=== PATIENT | female | born 1940 | race Caucasian/White ===

== ENCOUNTER 2020-02-03 08:47 | Outpatient (REF) | payer MEDICARE, MEDICAID, SELFPAY ==
[2020-02-03 09:34] LABS: MANUAL DIFF FLAG NO
[2020-02-03 09:43] LABS: Basophils Absolute Auto 0.1 X10*3/uL (0.0-0.2); Basophils Percent Auto 1.4 % (0-2); Eosinophils Absolute Auto 0.2 X10*3/uL (0.0-0.4); Eosinophils Percent Auto 3.2 % (0-4); Hematocrit 42.6 % (37-47); Hemoglobin 14.3 g/dl (12.0-16.0); Imm Gran Abs Auto 0.02 X10*3/uL (0.00-0.03); Imm Gran Pct Auto 0.3 % (0.0-0.4); Lymphocytes Absolute Auto 2.3 X10*3/uL (1.2-4.9); Mean Corpuscular HGB Conc 33.6 g/dl (31.0-35.0); Mean Corpuscular Hemoglobin 30.1 pg (27.0-33.0); Mean Corpuscular Volume 89.7 fL (80-98); Mean Platelet Volume 9.3 fL (9.4-12.3); Monocytes Absolute Auto 0.6 X10*3/uL (0.1-1.2); Monocytes Percent Auto 10.9 % (2-11); Neutrophils Absolute Auto 2.7 X10*3/uL (2.0-8.3); Neutrophils Percent Auto 45.2 % (45-73); Platelet Count 166 X10*3/uL (160-400); Red Blood Count 4.75 X10*6/uL (4.20-5.50); Red Cell Distribution Width 13.2 % (11.0-16.0); White Blood Count 5.9 X10*3/uL (4.8-10.8)
[2020-02-03 11:03] LABS: Alanine Aminotransferase 22 U/L (0-31); Albumin Level 4.1 g/dL (3.5-5.0); Alkaline Phosphatase 112 U/L (39-117); Anion Gap 10 (12-20); Aspartate Amino Transferase 23 U/L (5-31); Bilirubin Total 0.7 mg/dL (0.0-1.0); Blood Urea Nitrogen 20 mg/dL (9-16); Calcium 8.8 mg/dL (8.4-10.2); Carbon Dioxide 28 mmol/L (22-29); Chloride 108 mmol/L (96-108); Cholesterol 158 mg/dL; Estimated Glomerular Filt Rate 58; Glucose Fasting 87 mg/dL (60-99); HDL Cholesterol 40 mg/dL; LDL Cholesterol Calculated 99 mg/dl; Potassium 4.3 mmol/l (3.3-5.1); Sodium 142 mmol/L (135-145); Total Protein 6.6 g/dL (6.5-8.0); Triglycerides 97 mg/dL
== END 2020-02-03 08:48 | disposition home or self-care (01) ==
LOC: HO.LAB 08:47
PROVIDERS: PCP Internal Medicine; Visit Provider Internal Medicine
DX: E78.5 Hyperlipidemia, unspecified (principal); K21.9 Gastro-esophageal reflux disease without esophagitis
CPT/HCPCS: 36415; 80053; 80061; 85025

== ENCOUNTER 2020-03-07 17:51 | Outpatient (REF) | payer MEDICARE, MEDICAID, SELFPAY ==
--- NOTE | 2020-03-07 17:53 | MR_ITS ---
EXAMINATION: MR LUMBAR SPINE WITHOUT CONTRAST CLINICAL INFORMATION: Spinal stenosis, lumbar region without neurogenic. COMPARISON: Plain films of the lumbar spine 02/24/2018. Remote MRI scan of the lumbar spine 08/27/2006. TECHNIQUE: MRI of the lumbar spine was obtained using routine sequences without contrast. FINDINGS: VERTEBRAL BODIES AND PARASPINAL STRUCTURES: There is a mild levoscoliosis. There is a 4 mm mm grade 1 anterolisthesis of L4 on L5, similar compared to prior imaging. There is now a grade 1 anterolisthesis of L3 on L4, and there is a retrolisthesis of L1 on L2. There is multilevel narrowing of intervertebral disc height, relatively sparing L5-S1. There are multilevel degenerative endplate contour changes, and there are Schmorl's nodes noted at the adjacent endplates in the mid and upper lumbar spine. There is chronic loss of vertebral body height of L1. No acute fractures are demonstrated. There are mild edematous endplate signal changes at L1-L2. Overall, marrow signal is homogenous. There is a small renal cyst on the left posteriorly. The visualized pelvic structures are unremarkable. CONUS MEDULLARIS AND CAUDA EQUINA: Normal, terminating at the level of L1. The lower thoracic spinal cord appears normal. The cauda equina nerve roots and filum terminale appear normal. SPINAL LEVELS: L1-L2: There is mild bilateral facet arthropathy. There is a small posterior disc protrusion, but there is no central stenosis and there is no foraminal nerve root impingement. L2-L3: There is moderate bilateral facet arthropathy with ligamenta flava hypertrophy and a left-sided facet joint effusion. There is a broad-based posterior disc protrusion extending into the inferior neural foramina bilaterally without exiting nerve root impingement. There is mild narrowing of the bilateral subarticular recesses. There is mild central stenosis. L3-L4: There is moderate to severe bilateral facet arthropathy with ligamenta flava hypertrophy and right greater than left facet joint effusions. There is mild unroofing of the disc as a result of anterolisthesis. There is an extruded disc component to the left of midline extending behind the body of L3, a new finding compared to prior imaging. This mildly distorts the ventral thecal sac. The neural foramina are patent bilaterally. There is no central stenosis. L4-L5: There is severe bilateral facet arthropathy with ligamenta flava hypertrophy and facet joint effusions. There is a small synovial cyst anteromedially off the right facet joint, which measures 4 mm and is slightly more prominent compared to prior imaging. There is narrowing of the right greater than left subarticular recesses. There is unroofing of the disc as a result of the anterolisthesis. There is no foraminal nerve root impingement. There is moderate to severe central stenosis. L5-S1: There is severe bilateral facet arthropathy with ligamenta flava hypertrophy and facet joint effusions, increased compared to prior imaging. Posterior disc contour is normal. Facet osteophytes narrow the subarticular recesses bilaterally with impingement on the traversing S1 nerve roots. There is moderate central stenosis. MR/MR lumbar spine wo con IMPRESSION: 1. The study redemonstrates a grade 1 anterolisthesis of L4 on L5. There has been interval increase in the size a synovial cyst anteromedially off the right facet joint. There is narrowing of the right greater than left subarticular recesses. There is moderate to severe central stenosis. 2. At L3-L4 there is moderate to severe bilateral facet arthropathy. There is an extruded disc component to the left of midline extending behind the body of L3. There is no central stenosis and the neural foramina are patent. 3. At L5-S1 there is severe facet arthropathy. Facet osteophytes narrow the subarticular recesses bilaterally with impingement on the traversing S1 nerve roots. There is moderate central stenosis. 4. At L2-L3 there is facet arthropathy and there is a posterior disc protrusion. There is narrowing of the bilateral subarticular recesses and there is mild central stenosis. 5. There is a chronic compression fracture of the body of L1. There are no acute fractures or subluxations.
== END 2020-03-07 17:52 | disposition home or self-care (01) ==
LOC: HO.MRI 17:51
PROVIDERS: Visit Provider Internal Medicine
DX: M48.061 Spinal stenosis, lumbar region without neurogenic claudication (principal); M54.17 Radiculopathy, lumbosacral region
CPT/HCPCS: 72148

== ENCOUNTER 2020-06-06 | Outpatient (REF) | payer MEDICARE, MEDICAID, SELFPAY | END 2020-06-06 00:01 | disposition home or self-care (01) | LOC: HO.VC | PROVIDERS: Visit Provider Internal Medicine | DX: Z23 Encounter for immunization (principal) | CPT/HCPCS: 0011A ==

== ENCOUNTER 2020-07-03 | Outpatient (REF) | payer MEDICARE, MEDICAID, SELFPAY | END 2020-07-03 00:01 | disposition home or self-care (01) | LOC: HO.VC | PROVIDERS: Visit Provider Internal Medicine | DX: Z23 Encounter for immunization (principal) | CPT/HCPCS: 0012A ==

== ENCOUNTER → 2020-07-30 09:57 | Outpatient (BNVA) | payer MEDICARE, MEDICAID, SELFPAY | PROVIDERS: PCP Internal Medicine; Referring Provider Internal Medicine; Visit Provider Internal Medicine | DX: Z13.89 Encounter for screening for other disorder (principal) | CPT/HCPCS: Q3014 ==

== ENCOUNTER 2020-08-01 13:04 | Outpatient (REF) | payer MEDICARE, MEDICAID, SELFPAY ==
[2020-08-01 14:08] LABS: MANUAL DIFF FLAG NO
[2020-08-01 14:14] LABS: Basophils Absolute Auto 0.1 X10*3/uL (0.0-0.2); Basophils Percent Auto 1.1 % (0-2); Eosinophils Absolute Auto 0.2 X10*3/uL (0.0-0.4); Eosinophils Percent Auto 3.7 % (0-4); Hematocrit 43.5 % (37-47); Hemoglobin 14.5 g/dl (12.0-16.0); Imm Gran Abs Auto 0.04 X10*3/uL (0.00-0.03); Imm Gran Pct Auto 0.7 % (0.0-0.4); Lymphocytes Absolute Auto 1.8 X10*3/uL (1.2-4.9); Lymphocytes Percent Auto 33.1 % (20-40); Mean Corpuscular HGB Conc 33.3 g/dl (31.0-35.0); Mean Corpuscular Hemoglobin 30.3 pg (27.0-33.0); Mean Platelet Volume 9.8 fL (9.4-12.3); Monocytes Absolute Auto 0.5 X10*3/uL (0.1-1.2); Monocytes Percent Auto 8.5 % (2-11); Neutrophils Absolute Auto 2.9 X10*3/uL (2.0-8.3); Neutrophils Percent Auto 52.9 % (45-73); Platelet Count 173 X10*3/uL (160-400); Red Blood Count 4.78 X10*6/uL (4.20-5.50); Red Cell Distribution Width 13.6 % (11.0-16.0); White Blood Count 5.4 X10*3/uL (4.8-10.8)
[2020-08-01 14:34] LABS: Alanine Aminotransferase 20 U/L (0-31); Albumin Level 4.2 g/dL (3.5-5.0); Alkaline Phosphatase 121 U/L (39-117); Anion Gap 14 (12-20); Aspartate Amino Transferase 22 U/L (5-31); Bilirubin Total 0.3 mg/dL (0.0-1.0); Blood Urea Nitrogen 20 mg/dL (9-16); Calcium 8.9 mg/dL (8.4-10.2); Carbon Dioxide 22 mmol/L (22-29); Chloride 106 mmol/L (96-108); Cholesterol 143 mg/dL; Estimated Glomerular Filt Rate 50; Glucose Fasting 105 mg/dL (60-99); HDL Cholesterol 43 mg/dL; LDL Cholesterol Calculated 78 mg/dl; Phosphorus 3.6 mg/dL (2.7-4.5); Potassium 4.2 mmol/L (3.3-5.1); Sodium 138 mmol/L (135-145); Triglycerides 113 mg/dL
[2020-08-01 14:53] LABS: Glucose Urine UA NEG (NEG); Leukocyte Esterase Urine NEG (NEG); Nitrite Urine NEG (NEG); PH 5.5 (5.0-8.0); Specific Gravity - Urine >= 1.030 (1.005-1.025); Urine Blood TRACE (NEG); Urine Ketones NEG (NEG); Urine Protein NEG (NEG-TRACE)
[2020-08-01 14:54] LABS: Appearance Urine HAZY; Color Urine YELLOW
[2020-08-01 14:56] LABS: Free T4 (Free Thyroxine) 0.81 ng/dL (0.71-1.85); Vitamin D 25-OH Total 13.8 ng/mL (>30)
[2020-08-01 14:57] LABS: Thyroid Stimulating Hormone 2.27 uIU/mL (0.32-4.0)
[2020-08-01 14:59] LABS: RBC Urine 0-2 /HPF (0); Squamous Epithelial Cell Urine 2+ /LPF; Uric Acid Crystals Urine 2+ /LPF; WBC Urine 0 /HPF (0-4)
[2020-08-02 13:02] LABS: Calcium (PTHI) 9.1 mg/dL (8.6-10.4); PTHI 39 pg/mL (14-64)
[2020-08-02 15:06] LABS: Prot Elec - Albumin 4.1 g/dL (3.8-4.8); Prot Elec - Alpha1 0.3 g/dL (0.2-0.3); Prot Elec - Alpha2 0.7 g/dL (0.5-0.9); Prot Elec - Beta 1 0.4 g/dL (0.4-0.6); Prot Elec - Beta 2 0.3 g/dL (0.2-0.5); Prot Elec - Gamma 1.1 g/dL (0.8-1.7); Prot Elec - Total Protein 6.8 g/dL (6.1-8.1)
[2020-08-04 11:27] LABS: Alkaline Phosphatase Bone 20.6 mcg/L (see note)
== END 2020-08-01 13:05 | disposition home or self-care (01) ==
LOC: HO.LAB 13:04
PROVIDERS: PCP Internal Medicine; Visit Provider Internal Medicine
DX: E55.9 Vitamin D deficiency, unspecified (principal); E78.00 Pure hypercholesterolemia, unspecified; K21.9 Gastro-esophageal reflux disease without esophagitis; M81.0 Age-related osteoporosis without current pathological fracture
CPT/HCPCS: 36415; 80053; 80061; 81001; 82306; 82330; 83970; 84075; 84100; 84155; 84165; 84439; 84443; 85025

== ENCOUNTER 2020-08-04 10:14 | Outpatient (REF) | payer MEDICARE, MEDICAID, SELFPAY ==
[2020-08-04 11:40] LABS: Creatinine, mg/dL 111.19
[2020-08-04 12:23] LABS: Total Volume 24 Hour Urine 900 mL
[2020-08-06 17:36] LABS: Calcium, 24 Hr Urine 177 mg/24 h; Calcium/Creatinine Ratio 174 mg/g creat (30-275); Creatinine 24Hr Urine 1.02 g/24 h (0.50-2.15)
[2020-08-09 21:28] LABS: N-Telopeptide 45 (see note); NTXCreaRU 101 mg/dL (20-275)
== END 2020-08-04 10:15 | disposition home or self-care (01) ==
LOC: HO.LNP 10:14
PROVIDERS: Visit Provider Internal Medicine
DX: M81.0 Age-related osteoporosis without current pathological fracture (principal); N20.9 Urinary calculus, unspecified
CPT/HCPCS: 82340; 82523; 82570

== ENCOUNTER 2020-08-07 08:55 | Outpatient (REF) | payer MEDICARE, MEDICAID, SELFPAY ==
[2020-08-07 10:47] LABS: Glucose Urine UA NEG (NEG); Leukocyte Esterase Urine NEG (NEG); Nitrite Urine NEG (NEG); Urine Blood TRACE (NEG); Urine Ketones NEG (NEG); Urine Protein NEG (NEG-TRACE)
[2020-08-07 10:50] LABS: Appearance Urine CLEAR; Color Urine YELLOW
[2020-08-07 11:04] LABS: Bacteria Urine TRACE /LPF; Squamous Epithelial Cell Urine 2+ /LPF
== END 2020-08-07 08:56 | disposition home or self-care (01) ==
LOC: HO.LAB 08:55
PROVIDERS: PCP Internal Medicine; Visit Provider Internal Medicine
DX: E78.00 Pure hypercholesterolemia, unspecified (principal); E66.9 Obesity, unspecified
CPT/HCPCS: 36415; 81001; 84443

== ENCOUNTER 2020-08-29 17:30 | Outpatient (REF) | payer MEDICARE, MEDICAID, SELFPAY ==
[2020-08-29 18:08] LABS: Glucose Urine UA NEG (NEG); Leukocyte Esterase Urine 1+ (NEG); Nitrite Urine POS (NEG); PH 5.5 (5.0-8.0); Specific Gravity - Urine 1.025 (1.005-1.025); UACC Culture Trigger YES; Urine Blood 1+ (NEG); Urine Ketones NEG (NEG); Urine Protein TRACE MG/DL (NEG-TRACE)
[2020-08-29 18:09] LABS: Appearance Urine HAZY; Color Urine YELLOW
[2020-08-29 18:18] LABS: Bacteria Urine 2+ /LPF; RBC Urine 0-2 /HPF (0); Squamous Epithelial Cell Urine 2+ /LPF
== END 2020-08-29 17:31 | disposition home or self-care (01) ==
LOC: HO.LAB 17:30
PROVIDERS: PCP Internal Medicine; Visit Provider Internal Medicine
DX: R30.0 Dysuria (principal)
CPT/HCPCS: 81001; 81003; 87086; 87088; 87186

== ENCOUNTER 2020-09-10 11:12 | Outpatient (REF) | payer MEDICARE, MEDICAID, SELFPAY ==
[2020-09-10 12:33] LABS: MANUAL DIFF FLAG NO
[2020-09-10 12:40] LABS: Basophils Absolute Auto 0.1 X10*3/uL (0.0-0.2); Basophils Percent Auto 1.2 % (0-2); Eosinophils Absolute Auto 0.2 X10*3/uL (0.0-0.4); Eosinophils Percent Auto 2.5 % (0-4); Hematocrit 43.4 % (37-47); Hemoglobin 14.2 g/dl (12.0-16.0); Imm Gran Abs Auto 0.02 X10*3/uL (0.00-0.03); Imm Gran Pct Auto 0.3 % (0.0-0.4); Lymphocytes Absolute Auto 1.9 X10*3/uL (1.2-4.9); Mean Corpuscular HGB Conc 32.7 g/dl (31.0-35.0); Mean Corpuscular Volume 91.6 fL (80-98); Mean Platelet Volume 10.1 fL (9.4-12.3); Monocytes Absolute Auto 0.7 X10*3/uL (0.1-1.2); Monocytes Percent Auto 11.2 % (2-11); Neutrophils Absolute Auto 3.1 X10*3/uL (2.0-8.3); Neutrophils Percent Auto 52.8 % (45-73); Platelet Count 173 X10*3/uL (160-400); Red Blood Count 4.74 X10*6/uL (4.20-5.50); Red Cell Distribution Width 13.2 % (11.0-16.0); White Blood Count 5.9 X10*3/uL (4.8-10.8)
[2020-09-10 12:40] LABS: Glucose Urine UA NEG (NEG); Leukocyte Esterase Urine NEG (NEG); Nitrite Urine NEG (NEG); Urine Blood TRACE (NEG); Urine Ketones NEG (NEG); Urine Protein NEG (NEG-TRACE)
[2020-09-10 12:41] LABS: Appearance Urine HAZY; Color Urine YELLOW
[2020-09-10 13:08] LABS: UACC CULT YES
[2020-09-10 13:09] LABS: Bacteria Urine 1+ /LPF; Squamous Epithelial Cell Urine 2+ /LPF
[2020-09-10 13:21] LABS: Alanine Aminotransferase 31 U/L (0-31); Albumin Level 4.1 g/dL (3.5-5.0); Alkaline Phosphatase 131 U/L (39-117); Anion Gap 13 (12-20); Aspartate Amino Transferase 34 U/L (5-31); Bilirubin Total 0.6 mg/dL (0.0-1.0); Blood Urea Nitrogen 18 mg/dL (9-16); Calcium 8.7 mg/dL (8.4-10.2); Carbon Dioxide 27 mmol/L (22-29); Chloride 107 mmol/L (96-108); Cholesterol 140 mg/dL; Estimated Glomerular Filt Rate 59; Glucose Fasting 85 mg/dL (60-99); HDL Cholesterol 40 mg/dL; LDL Cholesterol Calculated 82 mg/dl; Potassium 4.7 mmol/L (3.3-5.1); Sodium 142 mmol/L (135-145); Total Protein 6.7 g/dL (6.5-8.0); Triglycerides 94 mg/dL
[2020-09-10 13:43] LABS: TSH reflex Free T4 2.38 uIU/mL (0.32-4.0)
== END 2020-09-10 11:13 | disposition home or self-care (01) ==
LOC: HO.LAB 11:12
PROVIDERS: PCP Internal Medicine; Visit Provider Internal Medicine
DX: E66.9 Obesity, unspecified (principal); E78.00 Pure hypercholesterolemia, unspecified; K21.9 Gastro-esophageal reflux disease without esophagitis
CPT/HCPCS: 36415; 80053; 80061; 81001; 84443; 85025; 87086; 87088; 87186

== ENCOUNTER → 2020-09-20 10:46 | Outpatient (BNVA) | payer MEDICARE, MEDICAID, SELFPAY | PROVIDERS: PCP Internal Medicine; Visit Provider Internal Medicine | CPT/HCPCS: Q3014 ==

== ENCOUNTER 2020-10-30 16:03 | Outpatient (REF) | payer MEDICARE, MEDICAID, SELFPAY ==
--- NOTE | ~2020-10-30 | XR_ITS ---
EXAMINATION: XR KNEE, LEFT CLINICAL INFORMATION: Left knee pain COMPARISON: None TECHNIQUE: Four views of the left knee. FINDINGS: Bones and soft tissues are normal. No fracture or joint effusion. Alignment is anatomic. Joint spaces are well maintained. No abnormal soft tissue calcification. XR/XR knee LT 4V IMPRESSION: Normal left knee.
--- NOTE | ~2020-10-30 | XR_ITS ---
EXAMINATION: XR SHOULDER, RIGHT CLINICAL INFORMATION: Pain COMPARISON: None TECHNIQUE: AP external rotation, Grashey, scapular Y, and axillary views of the right shoulder. FINDINGS: There is loss of right AC joint space.). The glenohumeral joint space is normal. There is no visible acute fracture, dislocation or lytic process seen. There is small sclerotic density right humeral neck. The soft tissues are normal. XR/XR shoulder RT min 2V IMPRESSION: Mild osteoarthritic changes right AC joint. No visible acute fracture or dislocation. Mild sclerotic changes right humeral neck.
== END 2020-10-30 16:04 | disposition home or self-care (01) ==
LOC: HO.XRAY 16:03
PROVIDERS: PCP Internal Medicine; Visit Provider Internal Medicine
DX: M25.511 Pain in right shoulder (principal); M25.562 Pain in left knee
CPT/HCPCS: 73030; 73564

== ENCOUNTER 2020-12-24 08:12 | Outpatient (REF) | payer MEDICARE, MEDICAID, SELFPAY ==
[2020-12-24 11:31] LABS: MANUAL DIFF FLAG NO
[2020-12-24 11:45] LABS: Basophils Percent Auto 0.6 % (0-2); Eosinophils Absolute Auto 0.2 X10*3/uL (0.0-0.4); Eosinophils Percent Auto 2.3 % (0-4); Hematocrit 45.3 % (37-47); Hemoglobin 14.9 g/dl (12.0-16.0); Imm Gran Abs Auto 0.02 X10*3/uL (0.00-0.03); Imm Gran Pct Auto 0.3 % (0.0-0.4); Lymphocytes Absolute Auto 1.9 X10*3/uL (1.2-4.9); Lymphocytes Percent Auto 26.3 % (20-40); Mean Corpuscular HGB Conc 32.9 g/dl (31.0-35.0); Mean Corpuscular Volume 91.3 fL (80-98); Mean Platelet Volume 9.5 fL (9.4-12.3); Monocytes Absolute Auto 0.7 X10*3/uL (0.1-1.2); Monocytes Percent Auto 9.6 % (2-11); Neutrophils Absolute Auto 4.3 X10*3/uL (2.0-8.3); Neutrophils Percent Auto 60.9 % (45-73); Platelet Count 165 X10*3/uL (160-400); Red Blood Count 4.96 X10*6/uL (4.20-5.50); Red Cell Distribution Width 14.3 % (11.0-16.0); White Blood Count 7.1 X10*3/uL (4.8-10.8)
[2020-12-24 11:56] LABS: Alanine Aminotransferase 26 U/L (0-31); Alkaline Phosphatase 92 U/L (39-117); Anion Gap 12 (12-20); Aspartate Amino Transferase 18 U/L (5-31); Bilirubin Total 0.8 mg/dL (0.0-1.0); Blood Urea Nitrogen 22 mg/dL (9-16); Carbon Dioxide 27 mmol/L (22-29); Chloride 107 mmol/L (96-108); Estimated Glomerular Filt Rate 52; Glucose Random 89 mg/dL (60-115); Potassium 4.3 mmol/L (3.3-5.1); Sodium 142 mmol/L (135-145); Total Protein 6.6 g/dL (6.5-8.0)
[2020-12-24 12:20] LABS: Vitamin D 25-OH Total 58.3 ng/mL (>30)
[2020-12-25 16:11] LABS: Calcium (PTHI) 9.1 mg/dL (8.6-10.4); PTHI 41 pg/mL (14-64)
[2020-12-27 13:46] LABS: IgA 106 mg/dL (70-320); IgG 1000 mg/dL (600-1540); IgM 82 mg/dL (50-300)
== END 2020-12-24 08:13 | disposition home or self-care (01) ==
LOC: HO.LAB 08:12
PROVIDERS: Absent Provider Internal Medicine Medical Oncology; PCP Internal Medicine; Visit Provider Internal Medicine
DX: M81.0 Age-related osteoporosis without current pathological fracture (principal); E55.9 Vitamin D deficiency, unspecified; R77.8 Other specified abnormalities of plasma proteins
CPT/HCPCS: 36415; 80053; 82306; 82784; 83970; 85025; 86334; Q3014

== ENCOUNTER 2020-12-25 08:55 | Outpatient (REF) | payer MEDICARE, MEDICAID, SELFPAY ==
[2020-12-25 10:28] LABS: Alanine Aminotransferase 23 U/L (0-31); Albumin Level 4.1 g/dL (3.5-5.0); Alkaline Phosphatase 95 U/L (39-117); Anion Gap 12 (12-20); Aspartate Amino Transferase 18 U/L (5-31); Bilirubin Total 0.8 mg/dL (0.0-1.0); Blood Urea Nitrogen 24 mg/dL (9-16); Calcium 9.1 mg/dL (8.4-10.2); Carbon Dioxide 26 mmol/L (22-29); Chloride 108 mmol/L (96-108); Estimated Glomerular Filt Rate 51; Glucose Random 87 mg/dL (60-115); Phosphorus 3.5 mg/dL (2.7-4.5); Potassium 4.1 mmol/L (3.3-5.1); Sodium 142 mmol/L (135-145); Total Protein 6.8 g/dL (6.5-8.0)
[2021-01-01 16:35] LABS: N-Telopeptide 27 (see note); NTXCreaRU 43 mg/dL (20-275)
== END 2020-12-25 08:56 | disposition home or self-care (01) ==
LOC: HO.LAB 08:55
PROVIDERS: PCP Internal Medicine; Visit Provider Internal Medicine
DX: M81.0 Age-related osteoporosis without current pathological fracture (principal)
CPT/HCPCS: 36415; 80053; 82523; 84100

== ENCOUNTER 2021-01-03 10:36 | Outpatient (REF) | payer MEDICARE, MEDICAID, SELFPAY ==
[2021-01-03 11:30] LABS: Glucose Urine UA NEG (NEG); Leukocyte Esterase Urine 2+ (NEG); Nitrite Urine POS (NEG); UACC Culture Trigger YES; Urine Blood 1+ (NEG); Urine Ketones NEG (NEG); Urine Protein NEG (NEG-TRACE)
[2021-01-03 11:33] LABS: Appearance Urine CLOUDY; Color Urine YELLOW
[2021-01-03 12:05] LABS: Bacteria Urine 2+ /LPF; Squamous Epithelial Cell Urine 2+ /LPF; WBC Urine TNTC /HPF (0-4)
== END 2021-01-03 10:37 | disposition home or self-care (01) ==
LOC: HO.LAB 10:36
PROVIDERS: PCP Internal Medicine; Visit Provider Internal Medicine
DX: R30.0 Dysuria (principal)
CPT/HCPCS: 81001; 87086; 87088; 87186

== ENCOUNTER 2021-01-24 08:08 | Outpatient (REF) | payer MEDICARE, MEDICAID, SELFPAY ==
[2021-01-24 10:33] LABS: Appearance Urine HAZY; Color Urine YELLOW; Glucose Urine UA NEG (NEG); Leukocyte Esterase Urine 2+ (NEG); Nitrite Urine POS (NEG); PH 5.5 (5.0-8.0); Specific Gravity - Urine 1.025 (1.005-1.025); UACC Culture Trigger YES; Urine Blood TRACE (NEG); Urine Ketones NEG (NEG); Urine Protein NEG (NEG-TRACE)
[2021-01-24 11:34] LABS: Bacteria Urine 4+ /LPF; Squamous Epithelial Cell Urine 4+ /LPF; WBC Urine 30-49 /HPF (0-4)
== END 2021-01-24 08:09 | disposition home or self-care (01) ==
LOC: HO.LAB 08:08
PROVIDERS: PCP Internal Medicine; Visit Provider Internal Medicine
DX: Z13.89 Encounter for screening for other disorder (principal)
CPT/HCPCS: 81001; 81003; 87086; 87088; 87186

== ENCOUNTER 2021-02-11 09:36 | Outpatient (REF) | payer MEDICARE, MEDICAID, SELFPAY ==
[2021-02-11 10:28] LABS: Alanine Aminotransferase 17 U/L (0-31); Alkaline Phosphatase 97 U/L (39-117); Anion Gap 11 (12-20); Aspartate Amino Transferase 22 U/L (5-31); Blood Urea Nitrogen 19 mg/dL (9-16); Calcium 9.3 mg/dL (8.4-10.2); Carbon Dioxide 28 mmol/L (22-29); Chloride 110 mmol/L (96-108); Cholesterol 139 mg/dL; Estimated Glomerular Filt Rate 54; Glucose Fasting 94 mg/dL (60-99); HDL Cholesterol 38 mg/dL; LDL Cholesterol Calculated 82 mg/dl; Potassium 4.3 mmol/L (3.3-5.1); Sodium 145 mmol/L (135-145); Total Protein 6.5 g/dL (6.5-8.0); Triglycerides 95 mg/dL
[2021-02-11 10:50] LABS: Vitamin D 25-OH Total 47.3 ng/mL (>30)
[2021-02-11 11:07] LABS: Appearance Urine HAZY; Color Urine STRAW; Glucose Urine UA NEG (NEG); Leukocyte Esterase Urine TRACE (NEG); Nitrite Urine NEG (NEG); Specific Gravity - Urine 1.015 (1.005-1.025); UACC Culture Trigger YES; Urine Blood TRACE (NEG); Urine Ketones NEG (NEG); Urine Protein NEG (NEG-TRACE)
[2021-02-11 11:31] LABS: Bacteria Urine 2+ /LPF; RBC Urine 0-2 /HPF (0); Squamous Epithelial Cell Urine 4+ /LPF
== END 2021-02-11 09:37 | disposition home or self-care (01) ==
LOC: HO.LAB 09:36
PROVIDERS: Absent Provider Internal Medicine; PCP Internal Medicine; Visit Provider Internal Medicine
DX: E78.00 Pure hypercholesterolemia, unspecified (principal); E55.9 Vitamin D deficiency, unspecified
CPT/HCPCS: 36415; 80053; 80061; 81001; 82306; 87086

== ENCOUNTER 2021-02-22 10:57 | Outpatient (REF) | payer MEDICARE, MEDICAID, SELFPAY ==
--- NOTE | ~2021-02-22 | XR_ITS ---
EXAMINATION: XR SINUSES CLINICAL INFORMATION: Chronic cough COMPARISON: None TECHNIQUE: 3 views of the sinuses were obtained. FINDINGS: Paranasal sinuses appear clear without opacification, mucosal thickening or air-fluid levels. No fractures are identified. No radiodense foreign bodies. Note is made of 3 dental implants in the right maxilla. XR/XR sinus min 3V IMPRESSION: Unremarkable examination.
--- NOTE | ~2021-02-22 | XR_ITS ---
EXAMINATION: XR CHEST CLINICAL INFORMATION: Chronic cough COMPARISON: 07/11/2019 TECHNIQUE: 2 views of the chest were obtained. FINDINGS: The lungs are normally expanded and clear. There is no active pleural disease. The mediastinum is stable in size and contour. There is no vascular congestion. There is stable eventration of the right hemidiaphragm. Note is made of scoliosis and moderate compression deformity of L1, also unchanged. XR/XR chest 2V IMPRESSION: No active disease in the chest.
== END 2021-02-22 10:58 | disposition home or self-care (01) ==
LOC: HO.XRAY 10:57
PROVIDERS: PCP Internal Medicine; Visit Provider Hospitalist
DX: R05.3 Chronic cough (principal); K21.9 Gastro-esophageal reflux disease without esophagitis; J30.2 Other seasonal allergic rhinitis
CPT/HCPCS: 70220; 71046; 99212

== ENCOUNTER 2021-02-25 11:40 | Outpatient (REF) | payer MEDICARE, MEDICAID, SELFPAY ==
[2021-02-25 12:46] LABS: Appearance Urine CLOUDY; Color Urine STRAW; Glucose Urine UA NEG (NEG); Leukocyte Esterase Urine 3+ (NEG); Nitrite Urine POS (NEG); Specific Gravity - Urine <= 1.005 (1.005-1.025); UACC Culture Trigger YES; Urine Blood 1+ (NEG); Urine Ketones NEG (NEG); Urine Protein NEG (NEG-TRACE)
[2021-02-25 12:57] LABS: Bacteria Urine 2+ /LPF; Squamous Epithelial Cell Urine 2+ /LPF
== END 2021-02-25 11:41 | disposition home or self-care (01) ==
LOC: HO.LAB 11:40
PROVIDERS: PCP Internal Medicine; Visit Provider Internal Medicine
DX: R30.0 Dysuria (principal)
CPT/HCPCS: 81001; 87086; 87088; 87186

== ENCOUNTER → 2021-04-19 10:39 | Outpatient (BNVA) | payer MEDICARE, MEDICAID, SELFPAY | PROVIDERS: PCP Internal Medicine; Visit Provider Hospitalist | DX: R05.3 Chronic cough (principal); K21.9 Gastro-esophageal reflux disease without esophagitis; J30.2 Other seasonal allergic rhinitis; H73.91 Unspecified disorder of tympanic membrane, right ear | CPT/HCPCS: 99212 ==

== ENCOUNTER 2021-05-30 11:44 | Outpatient (REF) | payer MEDICARE, MEDICAID, SELFPAY ==
[2021-05-30 13:25] LABS: Alanine Aminotransferase 46 U/L (0-31); Albumin Level 3.8 g/dL (3.5-5.0); Alkaline Phosphatase 120 U/L (39-117); Anion Gap 12 (12-20); Aspartate Amino Transferase 30 U/L (5-31); Bilirubin Total 0.4 mg/dL (0.0-1.0); Blood Urea Nitrogen 18 mg/dL (9-16); Calcium 9.3 mg/dL (8.4-10.2); Carbon Dioxide 26 mmol/L (22-29); Chloride 107 mmol/L (96-108); Estimated Glomerular Filt Rate > 60; Glucose Random 110 mg/dL (60-115); Phosphorus 2.8 mg/dL (2.7-4.5); Potassium 4.1 mmol/L (3.3-5.1); Sodium 141 mmol/L (135-145); Total Protein 6.5 g/dL (6.5-8.0)
[2021-05-30 13:47] LABS: Vitamin D 25-OH Total 42.9 ng/mL (>30)
[2021-05-31 14:07] LABS: Calcium (PTHI) 9.3 mg/dL (8.6-10.4); PTHI 39 pg/mL (14-64)
== END 2021-05-30 11:45 | disposition home or self-care (01) ==
LOC: HO.LAB 11:44
PROVIDERS: PCP Internal Medicine; Visit Provider Internal Medicine
DX: M81.0 Age-related osteoporosis without current pathological fracture (principal); E55.9 Vitamin D deficiency, unspecified
CPT/HCPCS: 36415; 80053; 82306; 83970; 84100

== ENCOUNTER 2021-06-03 08:47 | Outpatient (REF) | payer MEDICARE, MEDICAID, SELFPAY ==
[2021-06-03 09:38] LABS: MANUAL DIFF FLAG NO
[2021-06-03 10:15] LABS: Basophils Percent Auto 0.8 % (0-2); Eosinophils Absolute Auto 0.2 X10*3/uL (0.0-0.4); Eosinophils Percent Auto 4.2 % (0-4); Hematocrit 43.4 % (37.0-47.0); Hemoglobin 14.6 g/dl (12.0-16.0); Imm Gran Abs Auto 0.04 X10*3/uL (0.00-0.03); Imm Gran Pct Auto 0.8 % (0.0-0.4); Lymphocytes Absolute Auto 1.8 X10*3/uL (1.2-4.9); Lymphocytes Percent Auto 34.4 % (20-40); Mean Corpuscular HGB Conc 33.6 g/dl (31.0-35.0); Mean Corpuscular Hemoglobin 30.3 pg (27.0-33.0); Mean Platelet Volume 9.8 fL (9.4-12.3); Monocytes Absolute Auto 0.6 X10*3/uL (0.1-1.2); Monocytes Percent Auto 11.4 % (2-11); Neutrophils Absolute Auto 2.5 x10*3/uL (2.0-8.3); Neutrophils Percent Auto 48.4 % (45-73); Platelet Count 173 X10*3/uL (160-400); Red Blood Count 4.82 X10*6/uL (4.20-5.50); Red Cell Distribution Width 12.8 % (11.0-16.0); White Blood Count 5.2 X10*3/uL (4.8-10.8)
[2021-06-03 11:04] LABS: TSH reflex Free T4 3.63 uIU/mL (0.32-4.0); Vitamin D 25-OH Total 43.3 ng/mL (>30)
[2021-06-03 11:23] LABS: Alanine Aminotransferase 45 U/L (0-31); Albumin Level 3.7 g/dL (3.5-5.0); Alkaline Phosphatase 125 U/L (39-117); Anion Gap 11 (12-20); Aspartate Amino Transferase 37 U/L (5-31); Bilirubin Total 0.4 mg/dL (0.0-1.0); Blood Urea Nitrogen 19 mg/dL (9-16); Carbon Dioxide 27 mmol/L (22-29); Chloride 109 mmol/L (96-108); Cholesterol 149 mg/dL; Estimated Glomerular Filt Rate > 60; Glucose Fasting 95 mg/dL (60-99); HDL Cholesterol 38 mg/dL; LDL Cholesterol Calculated 93 mg/dl; Potassium 4.5 mmol/L (3.3-5.1); Sodium 142 mmol/L (135-145); Total Protein 6.6 g/dL (6.5-8.0); Triglycerides 91 mg/dL
[2021-06-03 12:59] LABS: Appearance Urine HAZY; Color Urine YELLOW; Glucose Urine UA NEG (NEG); Leukocyte Esterase Urine 3+ (NEG); Nitrite Urine POS (NEG); PH 5.5 (5.0-8.0); Specific Gravity - Urine 1.025 (1.005-1.025); UACC Culture Trigger YES; Urine Blood 1+ (NEG); Urine Ketones NEG (NEG); Urine Protein NEG (NEG-TRACE)
[2021-06-03 13:25] LABS: Bacteria Urine 4+ /LPF; RBC Urine 0 /HPF (0); Squamous Epithelial Cell Urine 3+ /LPF; WBC Urine 50-75 /HPF (0-4)
[2021-06-08 20:36] LABS: IgA 100 mg/dL (70-320); IgG 996 mg/dL (600-1540); IgM 83 mg/dL (50-300)
== END 2021-06-03 08:48 | disposition home or self-care (01) ==
LOC: HO.LAB 08:47
PROVIDERS: Internal Medicine Medical Oncology; Absent Provider Internal Medicine; PCP Internal Medicine; Visit Provider Internal Medicine
DX: M81.0 Age-related osteoporosis without current pathological fracture (principal); I10 Essential (primary) hypertension; E55.9 Vitamin D deficiency, unspecified; E78.00 Pure hypercholesterolemia, unspecified; R77.8 Other specified abnormalities of plasma proteins
CPT/HCPCS: 36415; 80053; 80061; 81001; 81003; 82306; 82784; 84443; 85025; 86334; 87086; 87088; 87186; Q3014

== ENCOUNTER 2021-06-05 11:21 | Outpatient (REF) | payer MEDICARE, MEDICAID, SELFPAY ==
[2021-06-05 12:09] LABS: Creatinine, mg/dL 79.71
[2021-06-05 14:29] LABS: Creatinine, 24Hr Urine 0.8 G/Day (1.0-2.0); Total Volume 24 Hour Urine 1050 mL
[2021-06-07 19:11] LABS: Calcium, 24 Hr Urine 194 mg/24 h; Calcium/Creatinine Ratio 226 mg/g creat (30-275); Creatinine 24Hr Urine 0.86 g/24 h (0.50-2.15)
[2021-06-09 09:36] LABS: N-Telopeptide 25 (see note); NTXCreaRU 99 mg/dL (20-275)
== END 2021-06-05 11:22 | disposition home or self-care (01) ==
LOC: HO.LNP 11:21
PROVIDERS: Visit Provider Internal Medicine
DX: M81.0 Age-related osteoporosis without current pathological fracture (principal); R77.8 Other specified abnormalities of plasma proteins
CPT/HCPCS: 82340; 82523; 82570

== ENCOUNTER 2021-07-03 08:46 | Outpatient (REF) | payer MEDICARE, MEDICAID, SELFPAY ==
[2021-07-03 09:42] LABS: Appearance Urine HAZY; Color Urine YELLOW; Glucose Urine UA NEG (NEG); Leukocyte Esterase Urine 1+ (NEG); Nitrite Urine POS (NEG); Specific Gravity - Urine 1.015 (1.005-1.025); UACC Culture Trigger YES; Urine Blood TRACE (NEG); Urine Ketones NEG (NEG); Urine Protein NEG (NEG-TRACE)
[2021-07-03 09:53] LABS: Bacteria Urine 4+ /LPF; Squamous Epithelial Cell Urine 4+ /LPF
[2021-07-10 06:32] LABS: N-Telopeptide 36 (see note); NTXCreaRU 73 mg/dL (20-275)
== END 2021-07-03 08:47 | disposition home or self-care (01) ==
LOC: HO.LAB 08:46
PROVIDERS: Internal Medicine; PCP Internal Medicine; Visit Provider Internal Medicine
DX: M81.0 Age-related osteoporosis without current pathological fracture (principal)
CPT/HCPCS: 81001; 82523; 87086; 87088; 87186

== ENCOUNTER → 2021-07-22 13:35 | Outpatient (BNVA) | payer MEDICARE, MEDICAID, SELFPAY | PROVIDERS: PCP Internal Medicine; Visit Provider Internal Medicine | DX: M81.0 Age-related osteoporosis without current pathological fracture (principal); E55.9 Vitamin D deficiency, unspecified | CPT/HCPCS: 99212 ==

== ENCOUNTER → 2021-07-24 09:53 | Outpatient (BNVA) | payer MEDICARE, MEDICAID, SELFPAY | PROVIDERS: PCP Internal Medicine; Visit Provider Hospitalist | DX: K21.9 Gastro-esophageal reflux disease without esophagitis (principal); J30.2 Other seasonal allergic rhinitis; J44.9 Chronic obstructive pulmonary disease, unspecified; R05.3 Chronic cough | CPT/HCPCS: 99212 ==

== ENCOUNTER 2021-08-03 10:50 | Outpatient (REF) | payer MEDICARE, MEDICAID, SELFPAY | END 2021-08-03 10:51 | disposition home or self-care (01) | LOC: HO.LAB 10:50 | PROVIDERS: PCP Internal Medicine; Visit Provider Internal Medicine | DX: Z13.89 Encounter for screening for other disorder (principal) ==

== ENCOUNTER 2021-08-05 12:55 | Outpatient (REF) | payer MEDICARE, MEDICAID, SELFPAY ==
[2021-08-05 14:14] LABS: Appearance Urine CLOUDY; Color Urine YELLOW; Glucose Urine UA NEG (NEG); Leukocyte Esterase Urine 2+ (NEG); Nitrite Urine POS (NEG); PH 5.5 (5.0-8.0); Specific Gravity - Urine 1.025 (1.005-1.025); Urine Blood TRACE (NEG); Urine Ketones NEG (NEG); Urine Protein NEG (NEG-TRACE)
[2021-08-05 14:59] LABS: Bacteria Urine 4+ /LPF; RBC Urine 0 /HPF (0); Squamous Epithelial Cell Urine 4+ /LPF
== END 2021-08-05 12:56 | disposition home or self-care (01) ==
LOC: HO.LNP 12:55
PROVIDERS: Visit Provider Internal Medicine
DX: R30.0 Dysuria (principal)
CPT/HCPCS: 81001; 87086; 87088; 87186

== ENCOUNTER → 2021-09-06 07:42 | Outpatient (BNVA) | payer MEDICARE, MEDICAID, SELFPAY | PROVIDERS: PCP Internal Medicine; Referring Provider Internal Medicine; Visit Provider Nurse Practitioner | DX: K21.9 Gastro-esophageal reflux disease without esophagitis (principal); R14.0 Abdominal distension (gaseous) | CPT/HCPCS: 99202 ==

== ENCOUNTER 2021-09-17 09:09 | Outpatient (REF) | payer MEDICARE, MEDICAID, SELFPAY | END 2021-09-17 09:10 | disposition home or self-care (01) | LOC: HO.LAB 09:09 | PROVIDERS: PCP Internal Medicine | DX: N39.0 Urinary tract infection, site not specified (principal) | CPT/HCPCS: 87086; 87088; 87186; 99202 ==

== ENCOUNTER 2021-09-20 12:45 | Outpatient (REF) | payer MEDICARE, MEDICAID, SELFPAY ==
--- NOTE | ~2021-09-20 | US_ITS ---
EXAMINATION: US ABDOMEN COMPLETE CLINICAL INFORMATION: Gaseous abdominal distention. COMPARISON: Renal ultrasound 11/11/2017. Ultrasound abdomen complete 11/14/2013. TECHNIQUE: Real-time imaging of the abdominal viscera. FINDINGS: PANCREAS: Not well visualized due to bowel gas ABDOMINAL AORTA: The proximal and mid abdominal aorta are not well visualized due to bowel gas INFERIOR VENA CAVA: Not well visualized due to bowel gas. LIVER: The liver is normal in size. The liver contour is normal. Liver echotexture is increased. No focal hepatic lesion. There is no intrahepatic biliary duct dilatation seen. GALLBLADDER: Normal. The gallbladder is physiologically distended without evidence of stones, sludge, polyps, wall thickening or pericholecystic fluid. COMMON BILE DUCT: Normal in caliber measuring 0.4 cm in diameter. RIGHT KIDNEY: Normal. No hydronephrosis. No renal calculi or focal parenchymal lesions. The kidney measures 9.6 cm in maximum dimension. LEFT KIDNEY: There is a small echogenic density in the midpole questionable for vascular reflector versus a small stone. No hydronephrosis. No renal calculi or focal parenchymal lesions. The kidney measures 9.8 cm in maximum dimension. SPLEEN: Normal. The spleen measures 8.7 cm in maximum dimension. FREE FLUID: None. US/US abdomen complete IMPRESSION: Limited exam due to bowel gas. The pancreas, aorta and IVC are not well seen. Echogenic liver.
[2021-09-20 13:18] LABS: MANUAL DIFF FLAG NO
[2021-09-20 13:49] LABS: Basophils Absolute Auto 0.1 X10*3/uL (0.0-0.2); Basophils Percent Auto 1.6 % (0-2); Eosinophils Absolute Auto 0.2 X10*3/uL (0.0-0.4); Eosinophils Percent Auto 3.5 % (0-4); Hematocrit 42.2 % (37.0-47.0); Hemoglobin 14.3 g/dl (12.0-16.0); Imm Gran Abs Auto 0.01 X10*3/uL (0.00-0.03); Imm Gran Pct Auto 0.2 % (0.0-0.4); Lymphocytes Absolute Auto 1.6 X10*3/uL (1.2-4.9); Lymphocytes Percent Auto 34.6 % (20-40); Mean Corpuscular HGB Conc 33.9 g/dl (31.0-35.0); Mean Corpuscular Hemoglobin 30.1 pg (27.0-33.0); Mean Corpuscular Volume 88.8 fL (80.0-98.0); Mean Platelet Volume 9.8 fL (9.4-12.3); Monocytes Absolute Auto 0.5 X10*3/uL (0.1-1.2); Monocytes Percent Auto 10.4 % (2-11); Neutrophils Absolute Auto 2.2 x10*3/uL (2.0-8.3); Neutrophils Percent Auto 49.7 % (45-73); Platelet Count 163 X10*3/uL (160-400); Red Blood Count 4.75 X10*6/uL (4.20-5.50); Red Cell Distribution Width 13.2 % (11.0-16.0); White Blood Count 4.5 X10*3/uL (4.8-10.8)
[2021-09-20 14:03] LABS: Albumin Level 3.9 g/dL (3.5-5.0); Calcium 9.3 mg/dL (8.4-10.2)
[2021-09-20 14:12] LABS: Alanine Aminotransferase 20 U/L (0-31); Albumin Level 3.9 g/dL (3.5-5.0); Alkaline Phosphatase 99 U/L (39-117); Anion Gap 10 (12-20); Aspartate Amino Transferase 23 U/L (5-31); Bilirubin Total 0.6 mg/dL (0.0-1.0); Blood Urea Nitrogen 13 mg/dL (9-16); Calcium 9.2 mg/dL (8.4-10.2); Carbon Dioxide 28 mmol/L (22-29); Chloride 110 mmol/L (96-108); Cholesterol 125 mg/dL; Estimated Glomerular Filt Rate 58; Gamma Glutamyl Transpeptidase 51 U/L (7-33); Glucose Fasting 97 mg/dL (60-99); HDL Cholesterol 34 mg/dL; LDL Cholesterol Calculated 70 mg/dl; Potassium 4.3 mmol/L (3.3-5.1); Sodium 144 mmol/L (135-145); Total Protein 6.3 g/dL (6.5-8.0); Triglycerides 107 mg/dL
[2021-09-20 14:32] LABS: Vitamin D 25-OH Total 43.6 ng/mL (>30)
[2021-09-20 14:34] LABS: TSH reflex Free T4 2.66 uIU/mL (0.32-4.0); Vitamin D 25-OH Total 41.2 ng/mL (>30)
[2021-09-20 15:06] LABS: Appearance Urine HAZY; Color Urine YELLOW; Glucose Urine UA NEG (NEG); Leukocyte Esterase Urine 1+ (NEG); Nitrite Urine NEG (NEG); PH 5.5 (5.0-8.0); Specific Gravity - Urine 1.025 (1.005-1.025); UACC Culture Trigger YES; Urine Blood TRACE (NEG); Urine Ketones NEG (NEG); Urine Protein NEG (NEG-TRACE)
[2021-09-20 15:19] LABS: RBC Urine 0-2 /HPF (0); UACC CULT YES
[2021-09-20 15:20] LABS: Bacteria Urine 1+ /LPF; Squamous Epithelial Cell Urine 2+ /LPF
[2021-09-24 15:42] LABS: Calcium (PTHI) 9.3 mg/dL (8.6-10.4); PTHI 61 pg/mL (16-77)
== END 2021-09-20 12:46 | disposition home or self-care (01) ==
LOC: HO.US 12:45
PROVIDERS: Internal Medicine; Absent Provider Internal Medicine; PCP Internal Medicine; Visit Provider Nurse Practitioner
DX: R14.0 Abdominal distension (gaseous) (principal); K21.9 Gastro-esophageal reflux disease without esophagitis; R79.89 Other specified abnormal findings of blood chemistry; I10 Essential (primary) hypertension; E78.00 Pure hypercholesterolemia, unspecified; M81.0 Age-related osteoporosis without current pathological fracture; E55.9 Vitamin D deficiency, unspecified; N39.0 Urinary tract infection, site not specified
CPT/HCPCS: 36415; 76700; 80053; 80061; 81001; 82040; 82306; 82310; 82977; 83970; 84443; 85025; 87086

== ENCOUNTER → 2021-10-03 09:04 | Outpatient (BNVA) | payer MEDICARE, MEDICAID, SELFPAY | PROVIDERS: PCP Internal Medicine; Visit Provider Internal Medicine | DX: M81.0 Age-related osteoporosis without current pathological fracture (principal); E55.9 Vitamin D deficiency, unspecified | CPT/HCPCS: Q3014 ==

== ENCOUNTER 2021-10-25 09:10 | Outpatient (REF) | payer MEDICARE, MEDICAID, SELFPAY ==
--- NOTE | ~2021-10-25 | FL_ITS ---
EXAMINATION: FL BARIUM SWALLOW CLINICAL INFORMATION: K21.9 - Gastro-esophageal reflux disease without esophagitis COMPARISON: Barium swallow evaluation 12/12/2019. TECHNIQUE: Barium swallow examination is performed using fluoroscopic evaluation in addition to multiple fluoroscopic spot views, including cine images during swallowing. The patient is imaged both upright and prone and using both thick and thin sulfate along with effervescent granules. Barium tablet also used. Fluoroscopy time: 1.2 minutes DAP: 6.065 Gycm2 Images: 36 FINDINGS: Swallowing function is normal and there is no aspiration. The cervical esophagus has no web or diverticulum or stricture. The cervical thoracic junction appears normal. The thoracic esophagus shows decreased primary esophageal peristalsis without tertiary contractions. There is no obstruction, stricture, or ulceration. During the prone Valsalva maneuver, there is a small sliding hiatal hernia with Schatzki ring. There is spontaneous gastroesophageal reflux with reflux greater during water siphon test to level of proximal thoracic esophagus. Swallowing barium tablet resulted in prompt transit from mouth to stomach. A cursory view of the upper abdomen shows no gastric outlet obstruction. FL/FL barium swallow IMPRESSION: -Mild decreased primary esophageal peristalsis. No tertiary contractions. -Prominent passage barium tablet from mouth to stomach without delay. -Small sliding hiatal hernia during prone Valsalva maneuver. -Spontaneous gastroesophageal reflux with greater reflux during water siphon test to level of proximal thoracic esophagus. -No structure or ulceration or scarring.
== END 2021-10-25 09:11 | disposition home or self-care (01) ==
LOC: HO.XRAY 09:10
PROVIDERS: PCP Internal Medicine; Visit Provider Nurse Practitioner
DX: K21.9 Gastro-esophageal reflux disease without esophagitis (principal); R14.0 Abdominal distension (gaseous)
CPT/HCPCS: 74220

== ENCOUNTER → 2021-11-20 10:10 | Outpatient (BNVA) | payer MEDICARE, MEDICAID, SELFPAY | PROVIDERS: PCP Internal Medicine; Visit Provider Hospitalist | DX: R05.3 Chronic cough (principal); K21.9 Gastro-esophageal reflux disease without esophagitis; J30.2 Other seasonal allergic rhinitis; J44.9 Chronic obstructive pulmonary disease, unspecified; Z79.899 Other long term (current) drug therapy | CPT/HCPCS: 99212 ==

== ENCOUNTER 2021-12-19 08:57 | Outpatient (REF) | payer MEDICARE, MEDICAID, SELFPAY ==
[2021-12-19 16:39] LABS: Urine Cytology See Pathology rpt
== END 2021-12-19 08:58 | disposition home or self-care (01) ==
LOC: HO.LAB 08:57
PROVIDERS: PCP Internal Medicine
DX: R31.9 Hematuria, unspecified (principal); N39.0 Urinary tract infection, site not specified
CPT/HCPCS: 51798; 87086; 87088; 87186; 88112

== ENCOUNTER 2022-04-24 09:23 | Outpatient (REF) | payer MEDICARE, MEDICAID, SELFPAY ==
[2022-04-24 09:35] LABS: MANUAL DIFF FLAG NO
[2022-04-24 10:32] LABS: Basophils Absolute Auto 0.1 X10*3/uL (0.0-0.2); Basophils Percent Auto 1.5 % (0-2); Eosinophils Absolute Auto 0.2 X10*3/uL (0.0-0.4); Eosinophils Percent Auto 4.1 % (0-4); Hematocrit 43.2 % (37.0-47.0); Hemoglobin 14.5 g/dl (12.0-16.0); Imm Gran Abs Auto 0.03 X10*3/uL (0.00-0.03); Imm Gran Pct Auto 0.6 % (0.0-0.4); Lymphocytes Absolute Auto 1.9 X10*3/uL (1.2-4.9); Lymphocytes Percent Auto 41.2 % (20-40); Mean Corpuscular HGB Conc 33.6 g/dl (31.0-35.0); Mean Corpuscular Hemoglobin 30.3 pg (27.0-33.0); Mean Corpuscular Volume 90.4 fL (80.0-98.0); Mean Platelet Volume 9.8 fL (9.4-12.3); Monocytes Absolute Auto 0.5 X10*3/uL (0.1-1.2); Monocytes Percent Auto 9.6 % (2-11); Platelet Count 182 X10*3/uL (160-400); Red Blood Count 4.78 X10*6/uL (4.20-5.50); Red Cell Distribution Width 13.2 % (11.0-16.0); White Blood Count 4.7 X10*3/uL (4.8-10.8)
[2022-04-24 11:06] LABS: Alanine Aminotransferase 16 U/L (0-31); Albumin Level 4.1 g/dL (3.5-5.0); Alkaline Phosphatase 117 U/L (39-117); Anion Gap 10 (12-20); Aspartate Amino Transferase 19 U/L (5-31); Blood Urea Nitrogen 17 mg/dL (9-16); Calcium 9.1 mg/dL (8.4-10.2); Carbon Dioxide 28 mmol/L (22-29); Chloride 109 mmol/L (96-108); Cholesterol 161 mg/dL; Estimated Glomerular Filt Rate 59; Glucose Fasting 91 mg/dL (60-99); HDL Cholesterol 46 mg/dL; LDL Cholesterol Calculated 98 mg/dl; Potassium 4.2 mmol/L (3.3-5.1); Sodium 143 mmol/L (135-145); Total Protein 6.8 g/dL (6.5-8.0); Triglycerides 85 mg/dL
[2022-04-24 11:11] LABS: Appearance Urine Turbid; Color Urine Yellow; Glucose Urine UA Negative (Negative); Leukocyte Esterase Urine Moderate (2+) (Negative); Nitrite Urine Positive (Negative); Specific Gravity - Urine 1.015 (1.005-1.025); UMIC TRIGGER UACC YES; Urine Blood Trace (Negative); Urine Ketones Negative (Negative); Urine Protein Negative (Neg-Trace)
[2022-04-24 11:17] LABS: Bacteria Urine 4+ (None Seen); Hyaline Casts Urine 0-2 /LPF (0-2); RBC Urine 0-2 /HPF (0-2); Squamous Epithelial Cell Urine >20 /HPF (0-2); UACC Culture Trigger YES; WBC Urine >50 /HPF (0-5)
[2022-04-24 11:28] LABS: Bilirubin Total 0.6 mg/dL (0.0-1.0); TSH reflex Free T4 4.03 uIU/mL (0.32-4.0)
[2022-04-24 12:24] LABS: Free T4 (Free Thyroxine) 0.98 ng/dL (0.71-1.85)
== END 2022-04-24 09:24 | disposition home or self-care (01) ==
LOC: HO.LAB 09:23
PROVIDERS: PCP Internal Medicine; Visit Provider Internal Medicine
DX: I10 Essential (primary) hypertension (principal); E55.9 Vitamin D deficiency, unspecified; E78.00 Pure hypercholesterolemia, unspecified
CPT/HCPCS: 36415; 80053; 80061; 81001; 81003; 82306; 84439; 84443; 85025; 87086; 87088; 87186

== ENCOUNTER 2022-05-28 08:55 | Outpatient (REF) | payer MEDICARE, MEDICAID, SELFPAY ==
[2022-05-28 10:00] LABS: Influenza A PCR NEGATIVE (Negative); Influenza B PCR NEGATIVE (Negative); Resp Syncy Virus RNA Qual PCR NEGATIVE (Negative); SARS COV2 PCR INHOUSE NEGATIVE (Negative)
== END 2022-05-28 08:56 | disposition home or self-care (01) ==
LOC: HO.LAB 08:55
PROVIDERS: PCP Internal Medicine; Visit Provider Internal Medicine
DX: Z20.822 Contact with and (suspected) exposure to COVID-19 (principal); J98.8 Other specified respiratory disorders
CPT/HCPCS: 0241U

== ENCOUNTER 2022-06-11 09:32 | Outpatient (REF) | payer MEDICARE, MEDICAID, SELFPAY ==
--- NOTE | ~2022-06-11 | XR_ITS ---
EXAMINATION: XR CHEST CLINICAL INFORMATION: Cough COMPARISON: X-ray 02/22/2021 TECHNIQUE: 2 views of the chest were obtained. FINDINGS: Rotated positioning. Stable cardiac mediastinal silhouette. Stable mild right hemidiaphragm eventration. No focal consolidation, effusion, edema or pneumothorax. Thoracic spine scoliosis and multilevel spondylosis. Moderate L1 compression deformity, stable.. XR/XR chest 2V IMPRESSION: No acute cardiopulmonary process.
[2022-06-11 12:29] LABS: Appearance Urine Cloudy; Color Urine Yellow; Glucose Urine UA Negative (Negative); Leukocyte Esterase Urine Moderate (2+) (Negative); Nitrite Urine Positive (Negative); PH 5.5 (5.0-9.0); UMIC TRIGGER UA YES; UMIC TRIGGER UACC YES; Urine Blood Trace (Negative); Urine Ketones Negative (Negative); Urine Protein Negative (Neg-Trace)
[2022-06-11 12:37] LABS: Bacteria Urine 4+ (None Seen); Hyaline Casts Urine 0-2 /LPF (0-2); RBC Urine 0-2 /HPF (0-2); UACC Culture Trigger YES
[2022-06-11 13:24] LABS: Alanine Aminotransferase 16 U/L (0-31); Alkaline Phosphatase 133 U/L (39-117); Anion Gap 15 (12-20); Aspartate Amino Transferase 18 U/L (5-31); Bilirubin Total 0.8 mg/dL (0.0-1.0); Blood Urea Nitrogen 16 mg/dL (9-16); Calcium 9.3 mg/dL (8.4-10.2); Carbon Dioxide 22 mmol/L (22-29); Chloride 108 mmol/L (96-108); Estimated Glomerular Filt Rate > 60; Glucose Random 92 mg/dL (60-115); Phosphorus 2.9 mg/dL (2.7-4.5); Potassium 3.9 mmol/L (3.3-5.1); Sodium 141 mmol/L (135-145); Total Protein 6.5 g/dL (6.5-8.0)
[2022-06-11 13:26] LABS: Thyroid Stimulating Hormone 2.54 uIU/mL (0.32-4.0); Vitamin D 25-OH Total 25.3 ng/mL (>30)
[2022-06-12 12:39] LABS: Calcium (PTHI) 9.1 mg/dL (8.6-10.4); PTHI 53 pg/mL (16-77)
[2022-06-15 20:33] LABS: Alkaline Phosphatase Bone 22.8 mcg/L (see note)
== END 2022-06-11 09:33 | disposition home or self-care (01) ==
LOC: HO.XRAY 09:32
PROVIDERS: Internal Medicine; PCP Internal Medicine; Visit Provider Hospitalist
DX: J44.1 Chronic obstructive pulmonary disease with (acute) exacerbation (principal); J30.2 Other seasonal allergic rhinitis; R30.0 Dysuria; E55.9 Vitamin D deficiency, unspecified; I10 Essential (primary) hypertension; M81.0 Age-related osteoporosis without current pathological fracture; K21.9 Gastro-esophageal reflux disease without esophagitis
CPT/HCPCS: 36415; 71046; 80053; 81001; 81003; 82306; 83970; 84075; 84100; 84443; 87086; 87088; 87186; 94640; 99212

== ENCOUNTER → 2022-07-30 09:24 | Outpatient (BNVA) | payer MEDICARE, MEDICAID, SELFPAY | PROVIDERS: PCP Internal Medicine; Visit Provider Hospitalist | DX: J44.9 Chronic obstructive pulmonary disease, unspecified (principal); J30.2 Other seasonal allergic rhinitis; R05.3 Chronic cough; K21.9 Gastro-esophageal reflux disease without esophagitis | CPT/HCPCS: 99212 ==

== ENCOUNTER 2022-08-06 07:42 | Outpatient (REF) | payer MEDICARE, MEDICAID, SELFPAY ==
[2022-08-06 07:59] LABS: MANUAL DIFF FLAG NO
[2022-08-06 08:33] LABS: Basophils Absolute Auto 0.1 X10*3/uL (0.0-0.2); Basophils Percent Auto 1.3 % (0-2); Eosinophils Absolute Auto 0.2 X10*3/uL (0.0-0.4); Eosinophils Percent Auto 3.5 % (0-4); Hematocrit 44.1 % (37.0-47.0); Hemoglobin 14.5 g/dl (12.0-16.0); Imm Gran Abs Auto 0.06 X10*3/uL (0.00-0.03); Imm Gran Pct Auto 0.9 % (0.0-0.4); Lymphocytes Absolute Auto 2.8 X10*3/uL (1.2-4.9); Lymphocytes Percent Auto 41.2 % (20-40); Mean Corpuscular HGB Conc 32.9 g/dl (31.0-35.0); Mean Corpuscular Volume 91.1 fL (80.0-98.0); Mean Platelet Volume 9.9 fL (9.4-12.3); Monocytes Absolute Auto 0.7 X10*3/uL (0.1-1.2); Monocytes Percent Auto 9.9 % (2-11); Neutrophils Absolute Auto 2.9 x10*3/uL (2.0-8.3); Neutrophils Percent Auto 43.2 % (45-73); Platelet Count 175 X10*3/uL (160-400); Red Blood Count 4.84 X10*6/uL (4.20-5.50); Red Cell Distribution Width 13.9 % (11.0-16.0); White Blood Count 6.8 X10*3/uL (4.8-10.8)
[2022-08-06 09:07] LABS: Alanine Aminotransferase 13 U/L (0-31); Alkaline Phosphatase 121 U/L (39-117); Anion Gap 15 (12-20); Aspartate Amino Transferase 19 U/L (5-31); Bilirubin Total 1.1 mg/dL (0.0-1.0); Blood Urea Nitrogen 19 mg/dL (9-16); Calcium 8.7 mg/dL (8.4-10.2); Carbon Dioxide 26 mmol/L (22-29); Chloride 108 mmol/L (96-108); Cholesterol 158 mg/dL; Estimated Glomerular Filt Rate 51; Glucose Fasting 85 mg/dL (60-99); HDL Cholesterol 46 mg/dL; LDL Cholesterol Calculated 94 mg/dl; Phosphorus 3.4 mg/dL (2.7-4.5); Potassium 3.8 mmol/L (3.3-5.1); Sodium 145 mmol/L (135-145); Total Protein 6.4 g/dL (6.5-8.0); Triglycerides 93 mg/dL
[2022-08-06 09:56] LABS: Appearance Urine Hazy; Color Urine Yellow; Glucose Urine UA Negative (Negative); Leukocyte Esterase Urine Moderate (2+) (Negative); Nitrite Urine Negative (Negative); Specific Gravity - Urine 1.025 (1.005-1.025); UMIC TRIGGER UACC YES; Urine Blood Trace (Negative); Urine Ketones Negative (Negative); Urine Protein Negative (Neg-Trace)
[2022-08-06 10:18] LABS: Bacteria Urine 2+ (None Seen); Hyaline Casts Urine 0-2 /LPF (0-2); Squamous Epithelial Cell Urine >20 /HPF (0-2); UACC Culture Trigger YES; WBC Urine >50 /HPF (0-5)
[2022-08-08 15:48] LABS: PTHI 82 pg/mL (16-77)
[2022-08-14 14:32] LABS: N-Telopeptide 68 (see note); NTXCreaRU 126 mg/dL (20-275)
== END 2022-08-06 07:43 | disposition home or self-care (01) ==
LOC: HO.LAB 07:42
PROVIDERS: Internal Medicine; PCP Internal Medicine; Visit Provider Internal Medicine
DX: I10 Essential (primary) hypertension (principal); M81.0 Age-related osteoporosis without current pathological fracture; E78.00 Pure hypercholesterolemia, unspecified; R82.90 Unspecified abnormal findings in urine
CPT/HCPCS: 36415; 80053; 80061; 81001; 82523; 83970; 84100; 85025; 87086; 87088; 87186

== ENCOUNTER 2022-08-22 12:53 | Outpatient (REF) | payer MEDICARE, MEDICAID, SELFPAY ==
--- NOTE | ~2022-08-22 | CT_ITS ---
EXAMINATION: CT CHEST WITHOUT CONTRAST CLINICAL INFORMATION: Cough COMPARISON: Previous chest x-ray most recent June 2022 TECHNIQUE: Multidetector volumetric CT imaging of the chest was done. Axial MIP volume rendering provided. Sagittal and coronal reformatted images were obtained. This CT examination was performed using dose optimization techniques as appropriate, variously including the following: *Automated exposure control *Adjustment of mA and/or kV according to patient size (this includes techniques or standardized protocols for targeted exams where dose is matched to indication/reason for exam; i.e. extremities or head) *Use of iterative reconstruction technique DLP: 156 mGy-cm FINDINGS: LUNGS: Borderline bronchiectasis. No evidence of pneumonia/infiltrate. Minimal subsegmental atelectasis at the left lung base. No endobronchial or endotracheal lesion. MEDIASTINUM: Tortuous thoracic aorta. Normal heart size. No pericardial effusion. No enlarged hilar or mediastinal lymph nodes. CORONARY ARTERY CALCIFICATION: None visualized on this study. PLEURA: There is no pleural effusion. No pleural mass or thickening. AXILLA: No lymphadenopathy. UPPER ABDOMEN: Unremarkable. OSSEOUS STRUCTURES: Degenerative changes of the spine . CT/CT chest wo IV con IMPRESSION: Borderline/mild bronchiectasis. Scarring or subsegmental atelectasis in the left lower lobe. Fleischner guidelines were followed.
== END 2022-08-22 12:54 | disposition home or self-care (01) ==
LOC: HO.CT 12:53
PROVIDERS: PCP Internal Medicine; Visit Provider Hospitalist
DX: R05.3 Chronic cough (principal)
CPT/HCPCS: 71250

== ENCOUNTER 2022-09-15 11:51 | Outpatient (REF) | payer MEDICARE, MEDICAID, SELFPAY ==
[2022-09-15 13:03] LABS: Appearance Urine Cloudy; Color Urine Yellow; Glucose Urine UA Negative (Negative); Leukocyte Esterase Urine Moderate (2+) (Negative); Nitrite Urine Negative (Negative); PH 5.5 (5.0-9.0); UMIC TRIGGER UACC YES; Urine Blood Negative (Negative); Urine Ketones Negative (Negative); Urine Protein Negative (Neg-Trace)
[2022-09-15 13:07] LABS: Bacteria Urine 2+ (None Seen); Hyaline Casts Urine 0-2 /LPF (0-2); RBC Urine 0-2 /HPF (0-2); Squamous Epithelial Cell Urine >20 /HPF (0-2); UACC Culture Trigger YES
== END 2022-09-15 11:52 | disposition home or self-care (01) ==
LOC: HO.LAB 11:51
PROVIDERS: PCP Internal Medicine; Visit Provider Internal Medicine
DX: N39.0 Urinary tract infection, site not specified (principal)
CPT/HCPCS: 81001; 81003; 87086

== ENCOUNTER → 2022-10-01 10:26 | Outpatient (BNVA) | payer MEDICARE, MEDICAID, SELFPAY | PROVIDERS: PCP Internal Medicine; Visit Provider Hospitalist | DX: J44.1 Chronic obstructive pulmonary disease with (acute) exacerbation (principal); R05.3 Chronic cough; J30.2 Other seasonal allergic rhinitis; K21.9 Gastro-esophageal reflux disease without esophagitis; Z79.899 Other long term (current) drug therapy | CPT/HCPCS: 99212 ==

== ENCOUNTER 2022-10-10 13:44 | Outpatient (REF) | payer MEDICARE, MEDICAID, SELFPAY | END 2022-10-10 13:45 | disposition home or self-care (01) | LOC: HO.LAB 13:44 | PROVIDERS: PCP Internal Medicine; Visit Provider Internal Medicine | DX: R30.0 Dysuria (principal) | CPT/HCPCS: 87086; 87088; 87186 ==

== ENCOUNTER 2022-11-19 13:48 | Outpatient (AMB) | payer MEDICARE, MEDICAID, SELFPAY ==
[2022-11-19 13:58] VITALS: BP 140/78; PULSE 86; O2SAT 93; BMI 31.5
--- NOTE | 2022-11-19 13:58 | MHC.OFFVIS ---
Intake Vital Signs 11/19/22 13:58 Height 5 ft 6 in Weight 195 lb BMI 31.5 BP 140/78 H Blood Pressure Location Lt brachial Position Sitting Pulse 86 Pulse Source Pulse Oximeter Pulse Oximetry (%) 93 Oxygen Delivery Method Room Air Intake Visit Reasons: Cough prod with green Intake Note: pt is here for a sick visit for a cough that has been here for about 2 weeks. using mucinex and albuterol, not much help, she thinks she might need prednisone. Tensile Tester Required: No Allergies nitrofurantoin [From MACRODANTIN] Allergy (Severe, Verified 11/19/22 14:01) Anaphylaxis Sulfa (Sulfonamide Antibiotics) [SULFA (SULFONAMIDE ANTIBIOTICS)] Allergy (Severe, Verified 11/19/22 14:01) ANAPHYLAXIS sulfamethoxazole [From BACTRIM] Allergy (Severe, Verified 11/19/22 14:01) ANAPHYLAXIS trimethoprim [From BACTRIM] Allergy (Severe, Verified 11/19/22 14:01) ANAPHYLAXIS HPI Cough prod with green HPI Details Marisa is a pleasant 82 year old female, followed for COPD. At baseline she is well controlled on Trelegy and albuterol MDI. Today she presents for an acute visit. She reports symptoms started two weeks ago and have been slowly worsening. She reports productive cough with green sputum, chest congestion, moderate wheezing and increased shortness of breath. She has been using mucinex with minimal improvements. The last few nights she has started with fevers as high as 102. She has taken multiple COVID tests which were negative. She reports her daughter has the same symptoms. [facility] Medical History Abnormal SPEP Anxiety Cervical disc disease Chronic cough COPD (chronic obstructive pulmonary disease) Cough Degenerative lumbar spinal stenosis GERD (gastroesophageal reflux disease) GERD without esophagitis Insomnia Left knee pain Left lumbosacral radiculopathy Multilevel degenerative disc disease Obesity (BMI 30-39.9) Osteoporosis Pain of right shoulder joint on movement Pure hypercholesterolemia Seasonal allergies Urolithiasis Vitamin D deficiency Surgical History History of colonoscopy History of cystoscopy (~05/24/18) History of endoscopy History of right cataract extraction (~12/2016) Hx of decompressive lumbar laminectomy (~05/25/20) Status post total abdominal hysterectomy and bilateral salpingo-oophorectomy (CATRACHITO-BSO) Family History Father No problems noted. Mother Ovarian cancer Daughter Myocardial infarction, Onset Age: 46 Stroke Social History Household Members: Children Housing: House Are you a primary assisted living care manager to a significant other at home: No Do you presently have visiting nurse or other home services: No Alcohol intake: former Patient Tobacco Use Status: Never used Tobacco Second Hand Smoke Exposure: Yes service: No Current occupational status: retired and disabled Cognitive needs: No Hearing needs: No Vision needs: Yes (reading glasses) Review of Systems Const Denies chills, Denies excessive sweating, Denies headache(s) and Denies night sweats Eyes Denies dry eyes, Denies irritation and Denies itchy eyes ENT Reports Normal hearing present, Denies headache(s), Denies nasal congestion, Denies nasal discharge, Denies post nasal drip and Denies sore throat Card Denies chest pain, Denies chest pain at rest, Denies chest pain with activity, Denies leg edema, Denies orthopnea and Denies paroxysmal nocturnal dyspnea Resp Denies pain on inspiration, Denies pain with cough and Denies stridor Musc Denies myalgias Neuro Reports Normal hearing present and Denies headache(s) Endo Denies excessive sweating Kirit/Lymph Denies lymphadenopathy Aller/Immun Denies itchy eyes and Denies seasonal rhinorrhea Physical Exam Vital Signs: Last Vital Signs Pulse 86 11/19/22 13:58 BP 140/78 H 11/19/22 13:58 Pulse Ox 93 11/19/22 13:58 Oxygen Delivery Method Room Air 11/19/22 13:58 BMI result Body Mass Index 31.5 Const General: cooperative, no acute distress, well developed and alert Nutritional Appearance: obese Orientation/consciousness: patient oriented x3 Limitations: no limitations HEENT Head: Yes normal to inspection, Yes normocephalic and Yes atraumatic Ears: hearing grossly normal bilaterally and external ears normal Eyes General: appearance normal, both eyes and all related structures Eyelids: Yes eyelids normal Sclerae: sclerae normal EOM: EOMs intact bilaterally Neck Neck: Yes normal visual inspection and Yes no lymphadenopathy Lymphatic: no lymphadenopathy noted Chest Chest palpation & inspection: normal inspection of the chest Resp Effort & Inspection: normal respiratory effort, able to speak in complete sentences, no stridor, not tachypneic, no tripod positioning and no use of accessory muscles Auscultation: crackles bilateral at the base, rhonchi and wheezes expiratory wheezes and throughout Cardio Jugular venous distension: no JVD Rate: regular rate Rhythm: regular rhythm Skin Other: warm, dry General skin exam: no rashes or lesions noted Neuro General: patient oriented x3 Cranial nerves: Yes Normal hearing present Cognition (Neuro): normal cognition Gait exam (Neuro): Normal gait present Extrem General: Yes normal to inspection, Yes capillary refill normal, Yes no clubbing, cyanosis or edema and Yes no pedal edema Psych Appearance: grossly normal and well kempt Speech and movement: Normal speech and movement present and Clear speech present Affect: normal affect Attitude: cooperative Thought process: Normal thought process present Thought content: Normal thought content present Insight: Good insight present (Psych) Judgement: Good judgement present (Psych) Assessment & Plan Assessment & Plan (1) Bronchopneumonia: Code(s): J18.0 - Bronchopneumonia, unspecified organism (2) COPD (chronic obstructive pulmonary disease): Code(s): J44.9 - Chronic obstructive pulmonary disease, unspecified Qualifiers: COPD type: COPD with acute exacerbation Qualified Code(s): J44.1 - Chronic obstructive pulmonary disease with (acute) exacerbation Plan Marisa's symptoms are consistent with bronchopneumonia. Will send prednisone, antibiotics and send for CXR. If not better in 48 hours will send in [facility]. She is aware to contact the office if her symptoms do not improve and to seek emergent care if they worsen. All questions were answered and patient is in agreement of plan. Orders: Orders XR chest 2V Today J40 - Bronchitis, not specified as acute or chronic Medications: New amoxicillin-pot clavulanate 875-125 mg 1 tab PO Q12H 20 tabs 0RF prednisone 40 mg x 5 days then 20 mg x 5 days 40 mg (2 x 20 mg) PO DAILY 15 tabs 0RF Coding Level of Care Code Est Pt Level 4 (98509) Diagnoses Bronchopneumonia J18.0 COPD (chronic obstructive pulmonary disease) J44.1 COPD type: COPD with acute exacerbation
== END 2022-11-19 15:42 | disposition home or self-care (01) ==
PROVIDERS: PCP Internal Medicine; Visit Provider Nurse Practitioner Family
DX: J18.0 Bronchopneumonia, unspecified organism (principal); J44.1 Chronic obstructive pulmonary disease with (acute) exacerbation
CPT/HCPCS: 99214

== ENCOUNTER 2022-11-19 13:48 | Outpatient (REF) | payer MEDICARE, MEDICAID, SELFPAY ==
--- NOTE | ~2022-11-19 | XR_ITS ---
EXAMINATION: XR CHEST CLINICAL INFORMATION: Bronchitis COMPARISON: CT of August 22, 2022 and chest x-ray June 11, 2022 TECHNIQUE: 2 views of the chest were obtained. FINDINGS: No significant abnormality is noted involving the heart, lungs, mediastinum, bony thorax or soft tissues. XR/XR chest 2V IMPRESSION: No acute disease.
== END 2022-11-19 13:49 | disposition home or self-care (01) ==
LOC: HO.XRAY 13:48
PROVIDERS: PCP Internal Medicine; Visit Provider Nurse Practitioner Family
DX: J40 Bronchitis, not specified as acute or chronic (principal); J18.0 Bronchopneumonia, unspecified organism; J44.1 Chronic obstructive pulmonary disease with (acute) exacerbation
CPT/HCPCS: 71046; 99212

== ENCOUNTER 2022-12-04 12:42 | Outpatient (REF) | payer MEDICARE, MEDICAID, SELFPAY ==
[2022-12-04 13:59] LABS: Appearance Urine Turbid; Color Urine Yellow; Glucose Urine UA Negative (Negative); Leukocyte Esterase Urine Large (3+) (Negative); Nitrite Urine Positive (Negative); Specific Gravity - Urine 1.015 (1.005-1.025); UMIC TRIGGER UACC YES; Urine Blood Small (1+) (Negative); Urine Ketones Negative (Negative); Urine Protein Trace mg/dL (Neg-Trace)
[2022-12-04 14:09] LABS: Bacteria Urine 4+ (None Seen); Hyaline Casts Urine 0-2 /LPF (0-2); Squamous Epithelial Cell Urine >20 /HPF (0-2); UACC Culture Trigger YES; WBC Urine >50 /HPF (0-5)
== END 2022-12-04 12:43 | disposition home or self-care (01) ==
LOC: HO.LAB 12:42
PROVIDERS: PCP Internal Medicine; Visit Provider Internal Medicine
DX: R30.0 Dysuria (principal)
CPT/HCPCS: 81001; 81003; 87086; 87088; 87186

== ENCOUNTER 2022-12-08 09:07 | Outpatient (REF) | payer MEDICARE, MEDICAID, SELFPAY ==
[2022-12-08 09:22] LABS: MANUAL DIFF FLAG NO
[2022-12-08 10:23] LABS: Basophils Absolute Auto 0.1 X10*3/uL (0.0-0.2); Basophils Percent Auto 0.8 % (0-2); Eosinophils Absolute Auto 0.2 X10*3/uL (0.0-0.4); Eosinophils Percent Auto 2.7 % (0-4); Hematocrit 44.1 % (37.0-47.0); Hemoglobin 14.6 g/dl (12.0-16.0); Imm Gran Abs Auto 0.03 X10*3/uL (0.00-0.03); Imm Gran Pct Auto 0.4 % (0.0-0.4); Lymphocytes Absolute Auto 1.8 X10*3/uL (1.2-4.9); Lymphocytes Percent Auto 23.8 % (20-40); Mean Corpuscular HGB Conc 33.1 g/dl (31.0-35.0); Mean Corpuscular Volume 90.7 fL (80.0-98.0); Mean Platelet Volume 9.9 fL (9.4-12.3); Monocytes Absolute Auto 0.8 X10*3/uL (0.1-1.2); Monocytes Percent Auto 10.7 % (2-11); Neutrophils Absolute Auto 4.6 x10*3/uL (2.0-8.3); Neutrophils Percent Auto 61.6 % (45-73); Platelet Count 169 X10*3/uL (160-400); Red Blood Count 4.86 X10*6/uL (4.20-5.50); Red Cell Distribution Width 13.8 % (11.0-16.0); White Blood Count 7.5 X10*3/uL (4.8-10.8)
[2022-12-08 11:11] LABS: Alanine Aminotransferase 22 U/L (0-31); Alkaline Phosphatase 128 U/L (39-117); Anion Gap 15 (12-20); Aspartate Amino Transferase 23 U/L (5-31); Bilirubin Total 0.7 mg/dL (0.0-1.0); Blood Urea Nitrogen 16 mg/dL (9-16); Calcium 9.8 mg/dL (8.4-10.2); Carbon Dioxide 24 mmol/L (22-29); Chloride 109 mmol/L (96-108); Cholesterol 146 mg/dL; Estimated Glomerular Filt Rate 55; Glucose Fasting 101 mg/dL (60-99); HDL Cholesterol 39 mg/dL; LDL Cholesterol Calculated 92 mg/dl; Potassium 4.5 mmol/L (3.3-5.1); Sodium 143 mmol/L (135-145); Total Protein 7.1 g/dL (6.5-8.0); Triglycerides 76 mg/dL
[2022-12-08 11:28] LABS: TSH reflex Free T4 2.64 uIU/mL (0.32-4.0); Vitamin D 25-OH Total 44.8 ng/mL (>30)
[2022-12-08 12:04] LABS: Appearance Urine Turbid; Color Urine Yellow; Glucose Urine UA Negative (Negative); Leukocyte Esterase Urine Large (3+) (Negative); Nitrite Urine Positive (Negative); PH 5.5 (5.0-9.0); Specific Gravity - Urine 1.015 (1.005-1.025); UMIC TRIGGER UACC YES; Urine Blood Small (1+) (Negative); Urine Ketones Negative (Negative); Urine Protein Negative (Neg-Trace)
[2022-12-08 12:17] LABS: Bacteria Urine 4+ (None Seen); Hyaline Casts Urine 0-2 /LPF (0-2); RBC Urine 0-2 /HPF (0-2); Squamous Epithelial Cell Urine >20 /HPF (0-2); UACC Culture Trigger YES; WBC Urine >50 /HPF (0-5)
[2022-12-10 13:48] LABS: Calcium (PTHI) 9.4 mg/dL (8.6-10.4); PTHI 47 pg/mL (16-77)
== END 2022-12-08 09:08 | disposition home or self-care (01) ==
LOC: HO.LAB 09:07
PROVIDERS: PCP Internal Medicine; Visit Provider Internal Medicine
DX: E78.00 Pure hypercholesterolemia, unspecified (principal); E55.9 Vitamin D deficiency, unspecified; E34.9 Endocrine disorder, unspecified; I10 Essential (primary) hypertension; R30.0 Dysuria; N39.0 Urinary tract infection, site not specified
CPT/HCPCS: 36415; 80053; 80061; 81001; 81003; 82306; 83970; 84443; 85025; 87086; 87088; 87186

== ENCOUNTER 2022-12-18 10:00 | Outpatient (AMB) | payer MEDICARE, MEDICAID, SELFPAY ==
--- NOTE | 2022-12-18 10:15 | A.OFFPC_ITS ---
Vital Signs 12/18/22 10:16 Height 5 ft 6 in Weight 191 lb 6 oz BMI 30.9 BP 118/78 Blood Pressure Location Lt brachial Position Sitting Pulse 72 Pulse Source Pulse Oximeter Pulse Oximetry (%) 93 Oxygen Delivery Method Room Air Intake Visit Reasons: hyperlipidemia, COPD Change Agent Required: No Accompanied by: Self / Same As Patient Allergies nitrofurantoin [From MACRODANTIN] Allergy (Severe, Verified 12/18/22 10:43) Anaphylaxis Sulfa (Sulfonamide Antibiotics) [SULFA (SULFONAMIDE ANTIBIOTICS)] Allergy (Severe, Verified 12/18/22 10:43) ANAPHYLAXIS sulfamethoxazole [From BACTRIM] Allergy (Severe, Verified 12/18/22 10:43) ANAPHYLAXIS trimethoprim [From BACTRIM] Allergy (Severe, Verified 12/18/22 10:43) ANAPHYLAXIS Medication List - Last Reconciled 12/18/22 by Mac Thomas MD albuterol sulfate 2.5 mg (3 mL) inhalation BID 30 days alprazolam 1 mg PO TID PRN 30 days atorvastatin 40 mg PO BEDTIME 90 days cholecalciferol (vitamin D3) 50 mcg PO DAILY 90 days fluticasone propionate 50 mcg/actuation 2 sprays intranasal DAILY [id number] 200-62.5-25 mcg (Trelegy Ellipta) 1 inh inhalation DAILY 30 days montelukast 10 mg PO DAILY pantoprazole 40 mg PO DAILY terazosin 1 mg PO BEDTIME 90 days Tobacco use date assessed: 12/18/22 Fall risk assessment: 2 + Falls in past year Last assessed Fall Risk: 12/18/22 Dental Screening Dental Screen Date: 12/18/22 Did you have a dental visit in the last 12 months?: Yes Did you have a dental problem in the last 6 months where you did not have access to dental care?: No Was dental information given to patient?: Patient has dentist HPI hyperlipidemia, COPD HPI Details Patient comes in today for her follow up visit States that she has been experiencing increasing dysuria and urinary frequency/nocturia again for the past couple of weeks Also notes that her urine often has a very strong odor to it, especially in the shoe polisher, and is concerned that she may have a urinary tract infection again She denies any fever or chills but notes (+) on and off pain over her flank areas lately and this gets her concerned about a possible kidney infection Adds that she has been falling a lot lately - feels that her left knee gives out on her a lot and lately has been experiencing some pain in her knee just under the knee cap area She had an x-ray of the left knee done back in 2020 that came out normal She denies any headaches or dizziness Denies any chest pains, no increased SOB No nausea/vomiting, no abdominal pain No change in bowel habits noted States that her chronic neck pain and low back pain remain adequately controlled on her current Rx Had her follow up labs done early last week - to discuss her results [facility] Medical History Abnormal SPEP Anxiety Cervical disc disease Chronic cough COPD (chronic obstructive pulmonary disease) Cough Degenerative lumbar spinal stenosis GERD (gastroesophageal reflux disease) GERD without esophagitis Insomnia Left knee pain Left lumbosacral radiculopathy Multilevel degenerative disc disease Obesity (BMI 30-39.9) Osteoporosis Pain of right shoulder joint on movement Pure hypercholesterolemia Seasonal allergies Urolithiasis Vitamin D deficiency Surgical History History of colonoscopy History of cystoscopy (~05/24/18) History of endoscopy History of right cataract extraction (~12/2016) Hx of decompressive lumbar laminectomy (~05/25/20) Status post total abdominal hysterectomy and bilateral salpingo-oophorectomy (CATRACHITO-BSO) Family History Father No problems noted. Mother Ovarian cancer Daughter Myocardial infarction, Onset Age: 46 Stroke Social History Household Members: Children Housing: House Are you a primary care transitions manager to a significant other at home: No Do you presently have visiting nurse or other home services: No Alcohol intake: former Patient Tobacco Use Status: Never used Tobacco e-Cigarette/Vaping Use: Never Used Second Hand Smoke Exposure: Yes service: No Current occupational status: retired and disabled Cognitive needs: No Hearing needs: No Vision needs: Yes (reading glasses) Questionnaire PHQ-9 Over the last 2 weeks, how often have you been bothered by any of the following problems? 1. Little interest or pleasure in doing things: not at all 2. Feeling down, depressed, or hopeless: not at all 3. Trouble falling or staying asleep, or sleeping too much: not at all 4. Feeling tired or having little energy: not at all 5. Poor appetite or overeating: not at all 6. Feeling bad about yourself - or that you are a failure or have let yourself or your family down: not at all 7. Trouble concentrating on things, such as reading the newspaper or watching television: not at all 8. Moving or speaking so slowly that other people could have noticed. Or the opposite - being so fidgety or restless that you have been moving around a lot more than usual: not at all 9. Thoughts that you would be better off or of hurting yourself in some way: not at all Total score: 0 Depression Screening Interpretation: Negative [id number] - PHQ-9 Billing: Yes Source: Developed by Drs. Sim Alcala, Tamy Irby, Jean Marie Schroeder and colleagues, with an educational dionicio from [employer]. Thrive Questionnaire Date Thrive assessed: 12/18/22 I am a: Patient What is your living situation today?: I have a steady place to live Within the past 12 months, did the food you bought not last and you didn't have the money to get more?: Never true Within the past 12 months, did you worry whether your food would run out before you got money to buy more?: Never true Do you have trouble paying for medicines?: No Do you have trouble getting transportation to medical appointments?: No Do you have trouble paying your heating and electricity bill?: No Do you have trouble taking care of your child, family member or friend?: No Do you have trouble with day-to-day activities such as bathing, preparing meals, shopping, managing finances, etc.?: No Are you currently unemployed and looking for a job?: No Are you interested in more education?: No Please select the resources that you would like help with: None Currently or been in a relationship where the following occur: no concerns reported AUDIT C Alcohol Use Questionnaire (AUDIT-C) 1. How often do you have a drink containing alcohol?: Never 3. How often do you have six or more drinks on one occasion?: Never Total Score: 0 Score Reviewed/Action Taken: Yes SHIRLEY-7 AMB Questionnaire SHIRLEY-7 Date SHIRLEY - 7 assessed: 12/18/22 Feeling nervous, anxious, or on edge: 0 = Not at all Not being able to stop or control worryin = Not at all Worrying too much about different things: 0 = Not at all Trouble relaxin = Not at all Being so restless that it is hard to sit still: 0 = Not at all Becoming easily annoyed or irritable: 0 = Not at all Feeling afraid as if something awful might happen: 0 = Not at all Total SHIRLEY-7 score (0-4 normal; 5-9 mild; 10-14 moderate; 15-21 severe): 0 Source: Developed by Drs. Sim Alcala, Tamy Irby, Jean Marie Schroeder and colleagues, with an educational dionicio from [employer]. Review of Systems Const Denies chills, Reports fatigue, Denies fever(s), Reports frequent falls (due to leg weakness, especially with her left knee lately) and Denies headache(s) ENT Denies dysphagia, Denies dizziness, Denies otalgia, Denies headache(s), Reports neck pain (chronic), Denies odynophagia and Denies sore throat Card Denies chest pain, Denies palpitations and Reports dyspnea on exertion (mild) Resp Denies chest congestion, Reports cough (occasional, non-productive), Reports dyspnea on exertion (mild) and Denies wheezing GI Denies abdominal pain, Denies constipation, Denies dysphagia, Denies heartburn, Denies diarrhea, Denies nausea, Denies odynophagia and Denies vomiting Denies hematuria, Denies difficulty voiding, Reports nocturia, Reports dysuria and Reports flank pain (at times recently) Musc Reports back pain (on and off but much improved since her back surgery), Reports arthralgias (right shoulder, left knee), Reports muscle weakness (in the right arm, on and off, and in both legs, R>L) and Reports neck pain (chronic) Neuro Denies dizziness, Reports frequent falls (due to leg weakness, especially with her left knee lately) and Denies headache(s) Endo Reports fatigue and Denies palpitations Aller/Immun Denies wheezing Physical exam (Primary Care) Vital Signs: Last Vital Signs Pulse 72 12/18/22 10:16 BP 118/78 12/18/22 10:16 Pulse Ox 93 12/18/22 10:16 Oxygen Delivery Method Room Air 12/18/22 10:16 BMI result Body Mass Index 30.9 Tobacco/Smoking Status: Tobacco use Status Tobacco use date assessed 12/18/22 12/18/22 10:22 Patient Tobacco Use Status Never used Tobacco 12/18/22 10:22 e-Cigarette/Vaping Use Never Used 12/18/22 10:22 PHQ-9: PHQ-9 Score PHQ-9: Total score 0 12/18/22 10:22 Depression Screening Interpretation: Negative Thrive Assessment: Date of Thrive Assessment Date Thrive assessed 12/18/22 12/18/22 10:22 Currently or been in a relationship where the following occur: no concerns reported Const General: no acute distress and alert HENMT Ears: TM's normal bilaterally and EAC's normal Throat: Yes posterior oropharynx normal and Yes tonsils normal (no TP congestion noted) Neck Neck: Yes no lymphadenopathy and Yes supple Resp Auscultation: no rales, rhonchi (occasional) throughout, no wheezes and diminished lung sounds (slightly) bilateral Cardio Rate: regular rate Rhythm: regular rhythm Heart sounds: no murmurs GI Palpation (GI): Soft to palpation and nontender Auscultation: normal bowel sounds Back/Spine/Pelvis Cervical Spine: Cervical spine tenderness Thoracic/Lumbar Spine: lumbar spinal tenderness Extrem General: Yes no clubbing, cyanosis or edema Right lower extremity: knee Details: no tenderness Left lower extremity: knee Details: tenderness (minimal) Results Reviewed Results Reviewed: Laboratory Tests 12/08/22 12/08/22 12/08/22 09:21 09:21 09:21 WBC 7.5 Hgb 14.6 Hct 44.1 Plt Count 169 Sodium 143 Potassium 4.5 Creatinine 0.98 Estimated GFR 55 Fasting Glucose 101 H Calcium 9.8 D AST 23 ALT 22 Triglycerides 76 Cholesterol 146 LDL Cholesterol, Calc 92 HDL Cholesterol 39 25-OH Vitamin D Total 44.8 TSH 2.64 PTH Intact 47 Calcium (PTH Intact) 9.4 Ur Specific [place] Urine Protein Urine Glucose (UA) Urine Blood 12/08/22 09:40 WBC Hgb Hct Plt Count Sodium Potassium Creatinine Estimated GFR Fasting Glucose Calcium AST ALT Triglycerides Cholesterol LDL Cholesterol, Calc HDL Cholesterol 25-OH Vitamin D Total TSH PTH Intact Calcium (PTH Intact) Ur Specific [place] 1.015 Urine Protein Negative Urine Glucose (UA) Negative Urine Blood Small (1+) H Assessment and Plan Assessment & Plan (1) COPD (chronic obstructive pulmonary disease): Code(s): J44.9 - Chronic obstructive pulmonary disease, unspecified Qualifiers: COPD type: COPD with acute exacerbation Qualified Code(s): J44.1 - Chronic obstructive pulmonary disease with (acute) exacerbation Plan: Controlled and is doing well on her current inhalers - continue Trelegy Ellipta 200-62.5-25 mcg [address] done in August 2022 revealed (+) borderline/mild bronchiectasis, with some scarring or subsegmental atelectasis in the left lower lobe Follow up with pulmonary as scheduled (2) Pure hypercholesterolemia: Code(s): E78.00 - Pure hypercholesterolemia, unspecified Plan: Results of her labs done last week reviewed and discussed with patient - her lipids/cholesterol levels remain well-controlled Reinforced low cholesterol diet Continue Atorvastatin 40 mg QD Will recheck her labs again in 4 months for follow up (3) Degenerative lumbar spinal stenosis: Comment: S/P bilateral L4-L5 laminotomy, partial facetectomy and foraminotomy through left-sided approach with a microscope by Dr. Kramer on 05/25/2020 MRI previously showed (+) multilevel degenerative disc changes with moderate to severe central stenosis at L4-L5 as well as a grade 1 anterolisthesis of L4 on L5, with moderate to severe bilateral facet arthropathy at L3-L4 and L5-S1 and also a chronic compression fracture of the body of L1 Code(s): M48.061 - Spinal stenosis, lumbar region without neurogenic claudication Plan: Reports (+) significant relief of her back pain since her surgery in May 2020 Reinforced activity and weight lifting restrictions Continue Tizanidine 4 mg 2 to 3 times a day as needed Follow up with neurosurgery as scheduled or as needed (4) Cervical disc disease: Code(s): M50.90 - Cervical disc disorder, unspecified, unspecified cervical region Plan: Cervical spine MRI done in October 2020 revealed (+) cervical spinal canal developmental narrowing exacerbated by cervical spine degenerative disease with stenosis and overall mild cervical spine cord volume loss Follow up with neurosurgery (Dr. Kramer) at [facility] as scheduled (5) Nondisplaced fracture of left patella: Onset Date: ~01/16/22 Comment: involving the left lateral tibial plateau - did not require surgery Code(s): S82.002A - Unspecified fracture of left patella, initial encounter for closed fracture Qualifiers: Encounter type: sequela Fracture type: closed Fracture morphology: unspecified fracture morphology Qualified Code(s): S82.002S - Unspecified fracture of left patella, sequela Plan: Corrected/resolved; patient did not require surgical intervention Is S/P physical therapy, with significant improvement of her knee pain although she reports that she is still experiencing bilateral knee/leg weakness (R>L) which is causing her leg to give out - has fallen a few times recently Will send her for repeat left knee x-rays for further evaluation Patient used to follow up with orthopedics at [facility] but does not appear to have seen them in a while now Will wait and see how her knee x-ray come out first before deciding whether she should be seen by them [facility] or not (6) Vitamin D deficiency: Code(s): E55.9 - Vitamin D deficiency, unspecified Plan: Continue Vitamin D supplement - is on both 2000 units daily and 85795 units once a week Follow up with endocrinology as scheduled (7) Osteoporosis: Code(s): M81.0 - Age-related osteoporosis without current pathological fracture Qualifiers: Osteoporosis type: unspecified Presence of current pathological fracture: without current pathological fracture Qualified Code(s): M81.0 - Age- related osteoporosis without current pathological fracture Plan: BMD reportedly done at [facility] a couple of years ago; she is due for a repeat BMD for follow up and is encouraged to get this scheduled [facility] (patient was apparently contacted about this recently and she told them that she did not want to get this done at this time) Continue oral Calcium and Vitamin D supplements daily Endocrinology is considering starting her on antiresorptive Tx once her Vitamin D level is normal or near normal Follow up with endocrinology as scheduled (8) Urolithiasis: Code(s): N20.9 - Urinary calculus, unspecified Qualifiers: Urinary calculus location: kidney Qualified Code(s): N20.0 - Calculus of kidney Plan: Currently has no acute symptoms suggestive of urinary brendon calculi She is encouraged to continue to increase her oral fluids intake Continue Terazosin 1 mg Q HS Follow up with urology as scheduled (9) Recurrent UTI (urinary tract infection): Code(s): N39.0 - Urinary tract infection, site not specified Plan: She is again presently experiencing symptoms of a urinary tract infection and her recent urine culture grew (+) E. coli sensitive only to Bactrim and Macrobid, BOTH of which patient is unable to take or tolerate; it is also sensitive to Ceftriaxone and Gentamicin but these are both available only in IV formulation The bacteria is intermediately sensitive to Levaquin so will try her on this instead - 250 mg QD x 7 days Will have patient recheck her urine in 10 to 14 days for follow up Will also refer her to urology for further evaluation and management of her re current UTI - suspect that her incomplete bladder emptying is contributing to this (10) Elevated LFTs: Code(s): R79.89 - Other specified abnormal findings of blood chemistry Plan: Resolved - LFTs have remained normal on her recent labs; were most likely related to her weight Encouraged to continue to try lose weight and is again reminded to avoid any Rx with Acetaminophen as much as possible and to completely abstain from ETOH (11) GERD without esophagitis: Code(s): K21.9 - Gastro-esophageal reflux disease without esophagitis Plan: Dietary restrictions reinforced Continue Pantoprazole 40 mg QD (12) Insomnia: Code(s): G47.00 - Insomnia, unspecified Qualifiers: Insomnia type: primary Qualified Code(s): F51.01 - Primary insomnia Plan: Sleep hygiene reinforced (13) Anxiety: Code(s): F41.9 - Anxiety disorder, unspecified Plan: Continue Alprazolam 1 mg TID PRN (14) Obesity (BMI 30-39.9): Code(s): E66.9 - Obesity, unspecified Plan: Reinforced diet/exercise as tolerated/ lose weight Plan Follow up in 4 months Orders: Orders XR knee LT 3V Today M25.562 - Pain in left knee UA CC w/rflx Micro + Cult 10 Days R30.0 - Dysuria Lipid Panel 4 Months E78.00 - Pure hypercholesterolemia, unspecified Comprehensive [place]. Panel Fast 4 Months E78.00 - Pure hypercholesterolemia, unspecified Referrals Urology Referral N39.0 - Urinary tract infection, site not specified Medications: New levofloxacin 250 mg PO DAILY 7 days 7 tabs 0RF N12 - Tubulo-interstitial nephritis, not specified as acute or chronic Coding Level of Care Code Est Pt Level 4 (16931) Diagnoses COPD (chronic obstructive pulmonary disease) J44.1 COPD type: COPD with acute exacerbation Pure hypercholesterolemia E78.00 Degenerative lumbar spinal stenosis M48.061 Cervical disc disease M50.90 Nondisplaced fracture of left patella S82.002S Encounter type: sequela Fracture type: closed Fracture morphology: unspecified fracture morphology Vitamin D deficiency E55.9 Osteoporosis M81.0 Osteoporosis type: unspecified Presence of current pathological fracture: without current pathological fracture Urolithiasis N20.0 Urinary calculus location: kidney Recurrent UTI (urinary tract infection) N39.0 Elevated LFTs R79.89 GERD without esophagitis K21.9 Insomnia F51.01 Insomnia type: primary Anxiety F41.9 Obesity (BMI 30-39.9) E66.9
[2022-12-18 10:16] VITALS: BP 118/78; PULSE 72; O2SAT 93; BMI 30.9
== END 2022-12-18 11:02 | disposition home or self-care (01) ==
PROVIDERS: Visit Provider Internal Medicine
DX: K21.9 Gastro-esophageal reflux disease without esophagitis (principal); J44.1 Chronic obstructive pulmonary disease with (acute) exacerbation; E55.9 Vitamin D deficiency, unspecified; F41.9 Anxiety disorder, unspecified; E78.00 Pure hypercholesterolemia, unspecified; M48.061 Spinal stenosis, lumbar region without neurogenic claudication; M50.90 Cervical disc disorder, unspecified, unspecified cervical region; S82.002S Unspecified fracture of left patella, sequela; M81.0 Age-related osteoporosis without current pathological fracture; N20.0 Calculus of kidney; N39.0 Urinary tract infection, site not specified; R79.89 Other specified abnormal findings of blood chemistry
CPT/HCPCS: 99214

== ENCOUNTER 2022-12-18 11:10 | Outpatient (REF) | payer MEDICARE, MEDICAID, SELFPAY ==
--- NOTE | ~2022-12-18 | XR_ITS ---
EXAMINATION: XR KNEE, LEFT CLINICAL INFORMATION: Pain. COMPARISON: Radiographs dated 10/30/2020. TECHNIQUE: AP, lateral and axial views of the left knee. FINDINGS: There is bony demineralization. The lateral, medial and patellofemoral joint space compartments are well-maintained. No fracture or dislocation is seen. There is a small to moderate joint effusion. There are atherosclerotic calcifications. No foreign body is seen. XR/XR knee LT 3V IMPRESSION: 1. No fracture or dislocation is seen. 2. There is a small to moderate joint effusion.
== END 2022-12-18 11:11 | disposition home or self-care (01) ==
LOC: HO.XRAY 11:10
PROVIDERS: PCP Internal Medicine; Visit Provider Internal Medicine
DX: M25.562 Pain in left knee (principal)
CPT/HCPCS: 73562

== ENCOUNTER 2022-12-22 12:44 | Outpatient (REF) | payer MEDICARE, MEDICAID, SELFPAY ==
[2022-12-22 14:36] VITALS: BP 164/77; PULSE 86; RESP 18; TEMP 35.8; O2SAT 95
== END 2022-12-22 12:45 | disposition home or self-care (01) ==
LOC: HO.MS 12:44
PROVIDERS: PCP Internal Medicine; Visit Provider Ophthalmology
PROC: (CPT 66821; principal; 2022-12-22 16:50)
DX: H26.492 Other secondary cataract, left eye (principal)
CPT/HCPCS: 66821

== ENCOUNTER 2023-02-23 10:35 | Outpatient (REF) | payer MEDICARE, MEDICAID, SELFPAY | END 2023-02-23 10:36 | disposition home or self-care (01) | LOC: HO.LAB 10:35 | PROVIDERS: PCP Internal Medicine; Visit Provider Urology | DX: N39.0 Urinary tract infection, site not specified (principal); N20.0 Calculus of kidney; N95.2 Postmenopausal atrophic vaginitis | CPT/HCPCS: 51701; 81003; 87086; 99202 ==

== ENCOUNTER 2023-02-23 10:35 | Outpatient (AMB) | payer MEDICARE, SELFPAY ==
--- NOTE | 2023-02-23 10:42 | MHC.OFFVIS ---
Intake Intake Visit Reasons: Recurrent UTI Intake Note: NEW Patient presents today to established treatment for Recurrent UTI: Meds- Terazosin Allergies to Antibiotic- Nitro, Sulfa & Trimethoprim Blood Thinner- None Pattern Chart Writer Required: No Accompanied by: Self / Same As Patient Allergies nitrofurantoin [From MACRODANTIN] Allergy (Severe, Verified 12/18/22 10:43) Anaphylaxis Sulfa (Sulfonamide Antibiotics) [SULFA (SULFONAMIDE ANTIBIOTICS)] Allergy (Severe, Verified 12/18/22 10:43) ANAPHYLAXIS sulfamethoxazole [From BACTRIM] Allergy (Severe, Verified 12/18/22 10:43) ANAPHYLAXIS trimethoprim [From BACTRIM] Allergy (Severe, Verified 12/18/22 10:43) ANAPHYLAXIS HPI HPI Comments History of Present Illness Details Marisa is a 82-year-old fbemale who presents today to the office to establish as a new patient for an evaluation of recurrent urinary tract infections. 02/23/23? She presents today for an evaluation of recurrent urinary tract infections. PMH - COPD, Multi-level DDD, Anxiety, s/p total hysterectomy. h/o kidney stones. She denies any urinary leakage. She denies constipation or diarrhea. She has had greater than 3 UTI's in the last 6 months. I have reviewed culture positive UTI's, resulting Ecoli, and Citrobacter species. Evaluation- UA-- 1+ leuks, blood 25 Eliseo/uL Plan: CT urogram Catheterized urine was sent for culture. Follow-up in office Cystoscopy. [facility] Medical History Abnormal SPEP Anxiety Cervical disc disease Chronic cough COPD (chronic obstructive pulmonary disease) Cough Degenerative lumbar spinal stenosis GERD (gastroesophageal reflux disease) GERD without esophagitis Insomnia Left knee pain Left lumbosacral radiculopathy Multilevel degenerative disc disease Obesity (BMI 30-39.9) Osteoporosis Pain of right shoulder joint on movement Pure hypercholesterolemia Seasonal allergies Urolithiasis Vitamin D deficiency Surgical History History of endoscopy History of colonoscopy Hx of decompressive lumbar laminectomy (~05/25/20) Status post total abdominal hysterectomy and bilateral salpingo-oophorectomy (CATRACHITO-BSO) History of right cataract extraction (~12/2016) History of cystoscopy (~05/24/18) Family History Father No problems noted. Mother Ovarian cancer Daughter Myocardial infarction, Onset Age: 46 Stroke Social History Household Members: Children Housing: House Are you a primary urgent care physician assistant to a significant other at home: No Do you presently have visiting nurse or other home services: No Alcohol intake: former Patient Tobacco Use Status: Never used Tobacco e-Cigarette/Vaping Use: Never Used Second Hand Smoke Exposure: Yes service: No Current occupational status: retired and disabled Cognitive needs: No Hearing needs: No Vision needs: Yes (reading glasses) Review of Systems Const All systems reviewed & are unremarkable except as noted in HPI and below Reports no additional complaints Eyes Reports no additional complaints ENT Reports no additional complaints Card Denies dyspnea Resp Denies cough and Denies dyspnea GI Reports no additional complaints Reports no additional complaints Musc Reports no additional complaints Skin/Breast Denies rash and Denies unusual bruising Neuro Reports no additional complaints Psych Reports no additional complaints Endo Reports no additional complaints Kirit/Lymph Reports no additional complaints Aller/Immun Reports no additional complaints Physical Exam Const General: cooperative, healthy appearing and no acute distress Orientation/consciousness: patient oriented x3 HEENT Head: Yes normal to inspection, Yes normocephalic and Yes atraumatic Eyes Conjunctivae: conjunctivae normal Neck Neck: Yes normal visual inspection and Yes trachea midline Chest Chest palpation & inspection: normal inspection of the chest Resp Effort & Inspection: normal respiratory effort Cardio Rate: regular rate GI Inspection: Yes normal to inspection Palpation (GI): Soft to palpation General: No no CVA tenderness External Female Exam: normal external appearance Speculum Exam - Vagina: vagina atrophic Back/Spine/Pelvis Back: No no CVA tenderness Skin General skin exam: no rashes or lesions noted Neuro General: patient oriented x3 Extrem General: No edema Psych Appearance: grossly normal Results AMB Urinalysis, Automated UA Leukoctes 70 Karon/uL Last Edit by ZACH Velazquez on 02/23/23 11:48 UA Nitrite Negative Last Edit by ZACH Velazquez on 02/23/23 11:48 UA Urobilinogen 0.2 mg/dL Last Edit by ZACH Velazquez on 02/23/23 11:48 UA Protein 0 mg/dL Last Edit by ZACH Velazquez on 02/23/23 11:48 UA pH 6.0 Last Edit by ZACH Velazquez on 02/23/23 11:48 UA Blood 25 Eliseo/uL Last Edit by Lovely Michaud Adolfo on 02/23/23 11:48 1+ Lovely Michaud 02/23/23 11:48 UA Specific Douglass 1.020 Last Edit by ZACH Velazquez on 02/23/23 11:48 UA Ketone Negative Last Edit by ZACH Velazquez on 02/23/23 11:48 UA Bilirubin 0 mg/dL Last Edit by ZACH Velazquez on 02/23/23 11:48 UA Glucose 0 mg/dL Last Edit by Lovely Michaud Adolfo on 02/23/23 11:48 Results Reviewed Results Reviewed: Laboratory Last Values Urine pH (Auto) 6.0 02/23/23 10:58 Specific Douglass (Auto) 1.020 02/23/23 10:58 Urine Protein (Auto) 0 mg/dL 02/23/23 10:58 Glucose (UA)(Auto) 0 mg/dL 02/23/23 10:58 Urine Ketones (Auto) Negative 02/23/23 10:58 Urine Blood (Auto) 25 Eliseo/uL 02/23/23 10:58 Urine Nitrite (Auto) Negative 02/23/23 10:58 Urine Bilirubin (Auto) 0 mg/dL 02/23/23 10:58 Urine Urobilinogen (Auto) 0.2 mg/dL 02/23/23 10:58 Leukocyte Esterase (Auto) 70 Karon/uL 02/23/23 10:58 Collected: 12/08/22-UNK Status: COMP Req#: [id number] Received: 12/08/22-1336 Source: [facility] Sp Desc: Urine galicia Subm Dr: Mac Thomas MD Ordered: Urine Culture Procedure Result Verified Site Urine Culture Final 12/10/22-0750 Organism 1 Escherichia coli Quant > 100,000 cfu/mL E coli M.I.C. RX --------- --- Ampicillin >=32 R Ceftriaxone <=0.25 S Gentamicin <=1 S Levofloxacin 1 I Nitrofurantoin <=16 S Trimethoprim/Sulfamethoxazole >=320 R Collected: 12/04/22 Status: COMP Req#: [id number] Received: 12/04/22 Source: [facility] Sp Desc: Urine galicia Subm Dr: Mac Thomas MD Ordered: Urine Culture Procedure Result Verified Site Urine Culture Final 12/06/22 Organism 1 Escherichia coli Quant > 100,000 cfu/mL E coli M.I.C. RX --------- --- Ampicillin >=32 R Ceftriaxone <=0.25 S Gentamicin <=1 S Levofloxacin 1 I Nitrofurantoin <=16 S Trimethoprim/Sulfamethoxazole >=320 R Collected: 10/10/22 Status: COMP Req#: [id number] Received: 10/10/22 Source: [facility] Sp Desc: Clean Cat Subm Dr: Mac Thomas MD Ordered: Urine Culture Procedure Result Verified Site Urine Culture Final 10/13/22 Organism 1 Citrobacter species Quant > 100,000 cfu/mL Citro spec M.I.C. RX --------- --- Ceftriaxone <=0.25 S Gentamicin <=1 S Levofloxacin <=0.12 S Nitrofurantoin <=16 S Trimethoprim/Sulfamethoxazole <=20 S Assessment & Plan Assessment & Plan (1) Complicated UTI (urinary tract infection): Code(s): N39.0 - Urinary tract infection, site not specified (2) History of kidney stones: Code(s): Z87.442 - Personal history of urinary calculi (3) Vaginal atrophy: Code(s): N95.2 - Postmenopausal atrophic vaginitis Plan CT urogram. Catheterized urine was sent for culture. Follow-up in office Cystoscopy. Orders: Orders AMB Urinalysis Automated 02/23/23 Z13.9 - Encounter for screening, unspecified CT urogram 03/16/23 N39.0 - Urinary tract infection, site not specified, N20.0 - Calculus of kidney Urine Culture 02/23/23 N39.0 - Urinary tract infection, site not specified Patient Instructions: The patient had an opportunity to ask questions regarding treatment plan. All questions were answered. Imaging, Laboratory studies and physical exam results were discussed and reviewed in detail. No major barriers to understanding were identified. The patient expressed understanding and agreement with the above treatment plan.? ? ? The patient is aware they should contact our office by phone for worsening of their current condition or the appearance of new symptoms. Compliance is encouraged with any medications and followup testing that is ordered.? ? ? It is a privilege to be allowed the opportunity to participate in the urologic care of your patient. If you have any questions or concerns regarding treatment for the above conditions please do not hesitate to contact me. The office telephone contact is [phone].? ? ? This note is constructed in part using voice recognition software. While every effort has been made to ensure accuracy parachute inspector errors may have been included.? ? ? Yours sincerely,? ? ? Andrew Hollis MD? Coding Level of Care Code New Pt Level 4 (28597) Diagnoses Complicated UTI (urinary tract infection) N39.0 History of kidney stones Z87.442 Vaginal atrophy N95.2 CPT Codes Bladder/Catheter Procedure - CPT: 94693-Qffrol Bladder Catheter ([id number]) Bladder/Catheter Procedure Details: Under sterile technique a 14 Cambodian catheter was passed transurethrally, 55 mL urine drained 36950-Iextun Bladder Catheter Procedure code (CPT) selection complete
== END 2023-02-23 12:14 | disposition home or self-care (01) ==
PROVIDERS: PCP Internal Medicine; Visit Provider Urology
DX: N39.0 Urinary tract infection, site not specified (principal); N95.2 Postmenopausal atrophic vaginitis; Z87.442 Personal history of urinary calculi
CPT/HCPCS: 51701; 99204

== ENCOUNTER 2023-03-30 08:02 | Outpatient (REF) | payer MEDICARE, SELFPAY ==
--- NOTE | ~2023-03-30 | CT_ITS ---
EXAMINATION: CT ABDOMEN AND PELVIS WITHOUT AND WITH CONTRAST CLINICAL INFORMATION: Urinary tract infection. COMPARISON: Abdominal ultrasound dated 09/20/2001; CT abdomen and pelvis dated 05/10/2008. TECHNIQUE: Noncontrast CT of the abdomen and pelvis is performed followed by split bolus contrast-enhanced images using 85 mL Omnipaque 350 contrast.? Postcontrast imaging is performed during the combined nephrogram and excretion phase. Sagittal and coronal reformatted images were obtained on the technologist's workstation for both the precontrast and postcontrast phases. This CT examination was performed using dose optimization techniques as appropriate, variously including the following: *Automated exposure control *Adjustment of mA and/or kV according to patient size (this includes techniques or standardized protocols for targeted exams where dose is matched to indication/reason for exam; i.e. extremities or head) *Use of iterative reconstruction technique DLP: 939 mGy-cm FINDINGS: LUNG BASES: The visualized lung bases are unremarkable. LIVER, GALLBLADDER, AND BILIARY TREE: The liver is normal in size, shape, and attenuation. No focal hepatic lesion or biliary ductal dilatation is present. The gallbladder is unremarkable with no evidence of radiopaque gallstones, gallbladder wall thickening, or obvious pericholecystic inflammatory changes. PANCREAS: Unremarkable. SPLEEN: Unremarkable. ADRENAL GLANDS: Unremarkable. KIDNEYS AND URETERS: The kidneys are normal in size, shape, and attenuation. No hydronephrosis, hydroureter or calculi seen. At the interpolar left kidney (8:31), a 7 mm benign simple appearing cyst is redemonstrated, for which no imaging follow-up is recommended. No perinephric stranding. BLADDER: Unremarkable. GASTROINTESTINAL TRACT: There is moderate diverticulosis, without acute diverticulitis. No bowel obstruction, free intraperitoneal air or abscess is seen. There is no focal bowel wall thickening. The vermiform appendix is not identified with certainty; however, there is no finding to suggest appendicitis. ABDOMINAL WALL: There is a small fat-containing umbilical hernia. LYMPH NODES: Normal. VASCULAR: There is moderate aortoiliac atherosclerotic calcification. No abdominal aortic aneurysm is seen. PELVIC VISCERA: Surgically absent. No pelvic mass, free fluid or lymphadenopathy is seen. OSSEUS STRUCTURES: There is multi-level thoracolumbar degenerative disease, spondylosis and Schmorl's node formation. There is a moderate L1 compression fracture again seen. No acute or aggressive osseous finding is noted. CT/CT urogram IMPRESSION: 1. No urinary mass, calculus or obstruction is seen. 2. There is moderate diverticulosis, without acute diverticulitis. 3. There is a small fat-containing umbilical hernia. 4. There are degenerative changes of the spine.
[2023-03-30 08:56] LABS: Alanine Aminotransferase 13 U/L (0-31); Albumin Level 3.8 g/dL (3.5-5.0); Alkaline Phosphatase 136 U/L (39-117); Anion Gap 11 (12-20); Aspartate Amino Transferase 16 U/L (5-31); Bilirubin Total 0.7 mg/dL (0.0-1.0); Blood Urea Nitrogen 16 mg/dL (9-16); Calcium 9.1 mg/dL (8.4-10.2); Carbon Dioxide 28 mmol/L (22-29); Chloride 109 mmol/L (96-108); Cholesterol 129 mg/dL (<200); Estimated Glomerular Filt Rate > 60; Glucose Fasting 100 mg/dL (60-99); HDL Cholesterol 35 mg/dL (>40); LDL Cholesterol Calculated 76 mg/dL (<100); Sodium 144 mmol/L (135-145); Total Protein 7.2 g/dL (6.5-8.0); Triglycerides 91 mg/dL (<150)
[2023-03-30] MEDS: iohexoL 350 MG/ML 75 ML INFUS..BTL 85 ML IV (09:45)
== END 2023-03-30 08:03 | disposition home or self-care (01) ==
LOC: HO.CT 08:02
PROVIDERS: PCP Internal Medicine; Referring Provider Internal Medicine; Visit Provider Urology
DX: N39.0 Urinary tract infection, site not specified (principal); N20.0 Calculus of kidney; E78.00 Pure hypercholesterolemia, unspecified
CPT/HCPCS: 36415; 74178; 80053; 80061; Q9967

== ENCOUNTER 2023-04-13 09:05 | Outpatient (AMB) | payer MEDICARE, SELFPAY ==
--- NOTE | 2023-04-13 09:29 | A.OFFVIS_ITS ---
Intake Intake Visit Reasons: 6w/cysto/CT Intake Note: Patient presents today for a CYSTOSCOPY Procedure: Meds- Terazosin Allergies to Antibiotic- Nitro, Sulfa & Trimethoprim Blood Thinner- None Disposable Uro-G Cystoscope Cannula: Lot: [id number] Exp: 09/14/2024 Bill Hiker Required: No Accompanied by: Self / Same As Patient Allergies nitrofurantoin [From MACRODANTIN] Allergy (Severe, Verified 04/13/23 09:30) Anaphylaxis Sulfa (Sulfonamide Antibiotics) [SULFA (SULFONAMIDE ANTIBIOTICS)] Allergy (Severe, Verified 04/13/23 09:30) ANAPHYLAXIS sulfamethoxazole [From BACTRIM] Allergy (Severe, Verified 04/13/23 09:30) ANAPHYLAXIS trimethoprim [From BACTRIM] Allergy (Severe, Verified 04/13/23 09:30) ANAPHYLAXIS Medication List - Last Reconciled 04/13/23 by Andrew Hollis MD albuterol sulfate 2.5 mg (3 mL) inhalation BID 30 days alprazolam 1 mg PO TID PRN 30 days atorvastatin 40 mg PO BEDTIME 90 days cefuroxime axetil 500 mg PO BID 5 days cholecalciferol (vitamin D3) 50 mcg PO DAILY 90 days fluticasone propionate 50 mcg/actuation 2 sprays intranasal DAILY lgmnhukcrvz-shuxjkiaz-qvbxwtyz 200-62.5-25 mcg (Trelegy Ellipta) 1 inh inhalation DAILY 30 days Lactobacillus acidophilus 25 mmu cells PO BID loratadine (Claritin) 10 mg PO DAILY 30 days montelukast 10 mg PO BEDTIME pantoprazole 40 mg PO DAILY terazosin 1 mg PO BEDTIME 90 days HPI HPI Comments History of Present Illness Details Marisa is a 82-year-old female who presents today to the office for FU recurrent urinary tract infections. 04/13/23--Will not proceed with Cysto to day as urine is Nitrite positive She presents today for FU recurrent urinary tract infections. PMH - COPD, Multi-level DDD, Anxiety, s/p total hysterectomy. h/o kidney stones. She denies any urinary leakage. She denies constipation or diarrhea. She has had greater than 3 UTI's in the last 6 months. I have reviewed culture positive UTI's, resulting Ecoli, and Citrobacter species. Urine c/s sent on 02/23/23- No growth. I have reviewed with the patient that CT Urogram was WNL. The patient states that she is sexually active. Pt denies vaginal dryness. Consider abx prophylaxis post sexual activity I will empirically treat with Ceftin 500 mg bid for 5 days. Probiotic sent to pharm. Evaluation- UA-- Nitrite positive Review of chart: I have reviewed culture positive UTI's, resulting Ecoli, and Citrobacter species. Plan: Urine for c/s, cytology Ceftin 500 mg bid for 5 days Discussed Abx suppressive therapy pending c/s results Reschedule office cysto as urine is nitrite positive today PFSH Medical History Cough COPD (chronic obstructive pulmonary disease) Seasonal allergies Chronic cough Cervical disc disease Left knee pain Pain of right shoulder joint on movement Abnormal SPEP Vitamin D deficiency Urolithiasis Osteoporosis GERD without esophagitis Multilevel degenerative disc disease Obesity (BMI 30-39.9) Anxiety Insomnia GERD (gastroesophageal reflux disease) Left lumbosacral radiculopathy Degenerative lumbar spinal stenosis Pure hypercholesterolemia Surgical History History of endoscopy History of colonoscopy Hx of decompressive lumbar laminectomy (~05/25/20) Status post total abdominal hysterectomy and bilateral salpingo-oophorectomy (CATRACHITO-BSO) History of right cataract extraction (~12/2016) History of cystoscopy (~05/24/18) Family History Father No problems noted. Mother Ovarian cancer Daughter Myocardial infarction, Onset Age: 46 Stroke Social History Household Members: Children Housing: House Are you a primary customer care coordinator to a significant other at home: No Do you presently have visiting nurse or other home services: No Alcohol intake: former Patient Tobacco Use Status: Never used Tobacco e-Cigarette/Vaping Use: Never Used Second Hand Smoke Exposure: Yes service: No Current occupational status: retired and disabled Cognitive needs: No Hearing needs: No Vision needs: Yes (reading glasses) Review of Systems Const All systems reviewed & are unremarkable except as noted in HPI and below Reports no additional complaints Eyes Reports no additional complaints ENT Reports no additional complaints Card Denies dyspnea Resp Denies cough and Denies dyspnea GI Reports no additional complaints Reports no additional complaints Musc Reports no additional complaints Skin/Breast Denies rash and Denies unusual bruising Neuro Reports no additional complaints Psych Reports no additional complaints Endo Reports no additional complaints Kirit/Lymph Reports no additional complaints Aller/Immun Reports no additional complaints Results AMB Urinalysis, Automated UA Leukoctes 125 Karon/uL Last Edit by ZACH Velazquez on 04/13/23 09:48 2+ Lovely Michaud 04/13/23 09:48 UA Nitrite Positive Last Edit by ZACH Velazquez on 04/13/23 09:48 UA Urobilinogen 0.2 mg/dL Last Edit by ZACH Velazquez on 04/13/23 09:4 8 UA Protein 15 mg/dL Last Edit by ZACH Velazquez on 04/13/23 09:48 UA pH 6.0 Last Edit by ZACH Velazquez on 04/13/23 09:48 UA Blood 200 Eliseo/uL Last Edit by ZACH Velazquez on 04/13/23 09:48 3+ Lovely Michaud 04/13/23 09:48 UA Specific [place] 1.025 Last Edit by ZACH Velazquez on 04/13/23 09: 48 UA Ketone Negative Last Edit by ZACH Velazquez on 04/13/23 09:48 UA Bilirubin 0 mg/dL Last Edit by ZACH Velazquez on 04/13/23 09:48 UA Glucose 0 mg/dL Last Edit by ZACH Velazquez on 04/13/23 09:48 Results Reviewed Results Reviewed: Laboratory Last Values Urine pH (Auto) 6.0 04/13/23 09:47 Specific [place] (Auto) 1.025 04/13/23 09:47 Urine Protein (Auto) 15 mg/dL 04/13/23 09:47 Glucose (UA)(Auto) 0 mg/dL 04/13/23 09:47 Urine Ketones (Auto) Negative 04/13/23 09:47 Urine Blood (Auto) 200 Eliseo/uL 04/13/23 09:47 Urine Nitrite (Auto) Positive 04/13/23 09:47 Urine Bilirubin (Auto) 0 mg/dL 04/13/23 09:47 Urine Urobilinogen (Auto) 0.2 mg/dL 04/13/23 09:47 Leukocyte Esterase (Auto) 125 Karon/uL 04/13/23 09:47 Date of Service: 03/30/23 EXAMINATION: CT ABDOMEN AND PELVIS WITHOUT AND WITH CONTRAST CLINICAL INFORMATION: Urinary tract infection. COMPARISON: Abdominal ultrasound dated 09/20/2001; CT abdomen and pelvis dated 05/10/2008. TECHNIQUE: Noncontrast CT of the abdomen and pelvis is performed followed by split bolus contrast-enhanced images using 85 mL Omnipaque 350 contrast.? Postcontrast imaging is performed during the combined nephrogram and excretion phase. Sagittal and coronal reformatted images were obtained on the technologist's workstation for both the precontrast and postcontrast phases. This CT examination was performed using dose optimization techniques as appropriate, variously including the following: *Automated exposure control *Adjustment of mA and/or kV according to patient size (this includes techniques or standardized protocols for targeted exams where dose is matched to indication/reason for exam; i.e. extremities or head) *Use of iterative reconstruction technique DLP: 939 mGy-cm FINDINGS: LUNG BASES: The visualized lung bases are unremarkable. LIVER, GALLBLADDER, AND BILIARY TREE: The liver is normal in size, shape, and attenuation. No focal hepatic lesion or biliary ductal dilatation is present. The gallbladder is unremarkable with no evidence of radiopaque gallstones, gallbladder wall thickening, or obvious pericholecystic inflammatory changes. PANCREAS: Unremarkable. SPLEEN: Unremarkable. ADRENAL GLANDS: Unremarkable. KIDNEYS AND URETERS: The kidneys are normal in size, shape, and attenuation. No hydronephrosis, hydroureter or calculi seen. At the interpolar left kidney (8:31), a 7 mm benign simple appearing cyst is redemonstrated, for which no imaging follow-up is recommended. No perinephric stranding. BLADDER: Unremarkable. GASTROINTESTINAL TRACT: There is moderate diverticulosis, without acute diverticulitis. No bowel obstruction, free intraperitoneal air or abscess is seen. There is no focal bowel wall thickening. The vermiform appendix is not identified with certainty; however, there is no finding to suggest appendicitis. ABDOMINAL WALL: There is a small fat-containing umbilical hernia. LYMPH NODES: Normal. VASCULAR: There is moderate aortoiliac atherosclerotic calcification. No abdominal aortic aneurysm is seen. PELVIC VISCERA: Surgically absent. No pelvic mass, free fluid or lymphadenopathy is seen. OSSEUS STRUCTURES: There is multi-level thoracolumbar degenerative disease, spondylosis and Schmorl's node formation. There is a moderate L1 compression fracture again seen. No acute or aggressive osseous finding is noted. IMPRESSION: 1. No urinary mass, calculus or obstruction is seen. 2. There is moderate diverticulosis, without acute diverticulitis. 3. There is a small fat-containing umbilical hernia. 4. There are degenerative changes of the spine. Collected: 12/08/22- Status: COMP Req#: [id number] Received: 12/08/22 Source: [facility] Sp Desc: Urine galicia Subm Dr: Mac Thomas MD Ordered: Urine Culture Procedure Result Verified Site Urine Culture Final 12/10/220750 Organism 1 Escherichia coli Quant > 100,000 cfu/mL E coli M.I.C. RX --------- --- Ampicillin >=32 R Ceftriaxone <=0.25 S Gentamicin <=1 S Levofloxacin 1 I Nitrofurantoin <=16 S Trimethoprim/Sulfamethoxazole >=320 R Collected: 12/04/221205 Status: COMP Req#: [id number] Received: 12/04/22 Source: [facility] Sp Desc: Urine galicia Subm Dr: Mac Thomas MD Ordered: Urine Culture Procedure Result Verified Site Urine Culture Final 12/06/22 Organism 1 Escherichia coli Quant > 100,000 cfu/mL E coli M.I.C. RX --------- --- Ampicillin >=32 R Ceftriaxone <=0.25 S Gentamicin <=1 S Levofloxacin 1 I Nitrofurantoin <=16 S Trimethoprim/Sulfamethoxazole >=320 R Collected: 10/10/22 Status: COMP Req#: [id number] Received: 10/10/22 Source: [facility] Sp Desc: Clean Cat Subm Dr: Mac Thomas MD Ordered: Urine Culture Procedure Result Verified Site Urine Culture Final 10/13/22 Organism 1 Citrobacter species Quant > 100,000 cfu/mL Citro spec M.I.C. RX --------- --- Ceftriaxone <=0.25 S Gentamicin <=1 S Levofloxacin <=0.12 S Nitrofurantoin <=16 S Trimethoprim/Sulfamethoxazole <=20 S Assessment & Plan Assessment & Plan (1) Complicated UTI (urinary tract infection): Code(s): N39.0 - Urinary tract infection, site not specified (2) History of kidney stones: Code(s): Z87.442 - Personal history of urinary calculi (3) Vaginal atrophy: Code(s): N95.2 - Postmenopausal atrophic vaginitis Plan Urine for c/s, cytology Ceftin 500 mg bid for 5 days Discussed Abx suppressive therapy pending c/s results Reschedule office cysto as urine is nitrite positive today Orders: Orders AMB Urinalysis Automated Today Z13.9 - Encounter for screening, unspecified Medications: New cefuroxime axetil 500 mg PO BID 5 days 10 tabs 0RF Lactobacillus acidophilus 25 mmu cells PO BID 60 tabs 0RF use while on daily antibiotics Patient Instructions: The patient had an opportunity to ask questions regarding treatment plan. All questions were answered. Imaging, Laboratory studies and physical exam results were discussed and reviewed in detail. No major barriers to understanding were identified. The patient expressed understanding and agreement with the above treatment plan. The patient is aware they should contact our office by phone for worsening of their current condition or the appearance of new symptoms. Compliance is encouraged with any medications and followup testing that is ordered. It is a privilege to be allowed the opportunity to participate in the urologic care of your patient. If you have any questions or concerns regarding treatment for the above conditions please do not hesitate to contact me. The office telephone contact is [phone]. This note is constructed in part using voice recognition software. While every effort has been made to ensure accuracy incoming inspector errors may have been included. Yours sincerely, Andrew Hollis MD Coding Level of Care Code Est Pt Level 4 (12734) Diagnoses Complicated UTI (urinary tract infection) N39.0 History of kidney stones Z87.442 Vaginal atrophy N95.2
== END 2023-04-13 10:31 | disposition home or self-care (01) ==
PROVIDERS: PCP Internal Medicine; Visit Provider Urology
DX: N39.0 Urinary tract infection, site not specified (principal); Z87.442 Personal history of urinary calculi; N95.2 Postmenopausal atrophic vaginitis; Z13.9 Encounter for screening, unspecified
CPT/HCPCS: 99214

== ENCOUNTER 2023-04-13 09:05 | Outpatient (REF) | payer MEDICARE, SELFPAY ==
[2023-04-13 16:18] LABS: Urine Cytology See Pathology rpt
== END 2023-04-13 09:06 | disposition home or self-care (01) ==
LOC: HO.LAB 09:05
PROVIDERS: PCP Internal Medicine; Visit Provider Urology
DX: N39.0 Urinary tract infection, site not specified (principal); N95.2 Postmenopausal atrophic vaginitis; Z87.442 Personal history of urinary calculi; Z79.899 Other long term (current) drug therapy
CPT/HCPCS: 81003; 87086; 87088; 87186; 88112; 99212

== ENCOUNTER 2023-04-24 09:50 | Outpatient (AMB) | payer MEDICARE, MEDICAID, SELFPAY ==
[2023-04-24 09:55] VITALS: BP 134/58; PULSE 60; O2SAT 95; BMI 30.5
--- NOTE | 2023-04-24 09:55 | MHC.PC.OV ---
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 Accompanied by: Self / Same As Patient Allergies nitrofurantoin [From MACRODANTIN] Allergy (Severe, Verified 04/26/23 13:16) Anaphylaxis Sulfa (Sulfonamide Antibiotics) [SULFA (SULFONAMIDE ANTIBIOTICS)] Allergy (Severe, Verified 04/26/23 13:16) ANAPHYLAXIS sulfamethoxazole [From BACTRIM] Allergy (Severe, Verified 04/26/23 13:16) ANAPHYLAXIS trimethoprim [From BACTRIM] Allergy (Severe, Verified 04/26/23 13:16) ANAPHYLAXIS Medication List - Last Reconciled 04/26/23 by Mac Thomas MD albuterol sulfate 2.5 mg (3 mL) inhalation BID 30 days alprazolam 1 mg PO TID PRN 30 days atorvastatin 40 mg PO BEDTIME 90 days cholecalciferol (vitamin D3) 50 mcg PO DAILY 90 days fluticasone propionate 50 mcg/actuation 2 sprays intranasal DAILY beueqopovpn-efogwctsf-qfckrsfc 200-62.5-25 mcg (Trelegy Ellipta) 1 inh inhalation DAILY 30 days Lactobacillus acidophilus 25 mmu cells PO BID loratadine (Claritin) 10 mg PO DAILY 30 days montelukast 10 mg PO BEDTIME pantoprazole 40 mg PO DAILY terazosin 1 mg PO BEDTIME 90 days Tobacco use date assessed: 04/24/23 Fall risk assessment: 1 Fall in past year Last assessed Fall Risk: 04/24/23 Dental Screening Dental Screen Date: 04/24/23 Did you have a dental visit in the last 12 months?: Yes Did you have a dental problem in the last 6 months where you did not have access to dental care?: No Was dental information given to patient?: Patient has dentist HPI 4mth f/u HPI Details Patient comes in today for her follow up visit Relates that she fell while going down the stairs last month on 03/24/23 (thinks she missed a step going down) - she sustained a big bruise over her buttocks and thinks she broke 4 toes on her right foot but did not hit her head States that she did not go to the hospital to get herself checked out after her fall as she felt that her injuries were not too bad and that there was nothing else that could be done for her injuries at the time States that the bruise over her bottom has since cleared up; still has some pain in her toes but states that they are feeling better and that she is able to move her toes although there is still some discomfort when she does States that she was also seen by Urology and started on some antibiotics a couple of weeks ago - completed her course of oral Cefuroxime a few days ago States that she feels okay otherwise and has no other acute issues She denies any headaches or dizziness Denies any chest pains, no increased shortness of breath No nausea / vomiting, no abdominal pain No change in bowel habits noted Still has her usual chronic joint pains, low back pain and neck pain but states that they are mostly manageable Had her follow up labs done a few weeks ago - to discuss her results [facility] Medical History Cough COPD (chronic obstructive pulmonary disease) Seasonal allergies Chronic cough Cervical disc disease Left knee pain Pain of right shoulder joint on movement Abnormal SPEP Vitamin D deficiency Urolithiasis Osteoporosis GERD without esophagitis Multilevel degenerative disc disease Obesity (BMI 30-39.9) Anxiety Insomnia GERD (gastroesophageal reflux disease) Left lumbosacral radiculopathy Degenerative lumbar spinal stenosis Pure hypercholesterolemia Surgical History History of endoscopy History of colonoscopy Hx of decompressive lumbar laminectomy (~05/25/20) Status post total abdominal hysterectomy and bilateral salpingo-oophorectomy (CATRACHITO-BSO) History of right cataract extraction (~12/2016) History of cystoscopy (~05/24/18) Family History Father No problems noted. Mother Ovarian cancer Daughter Myocardial infarction, Onset Age: 46 Stroke Social History Household Members: Children Housing: House Are you a primary client care manager to a significant other at home: No Do you presently have visiting nurse or other home services: No Alcohol intake: former Patient Tobacco Use Status: Never used Tobacco e-Cigarette/Vaping Use: Never Used Second Hand Smoke Exposure: Yes service: No Current occupational status: retired and disabled Cognitive needs: No Hearing needs: No Vision needs: Yes (reading glasses) Questionnaire PHQ-9 Over the last 2 weeks, how often have you been bothered by any of the following problems? 1. Little interest or pleasure in doing things: not at all 2. Feeling down, depressed, or hopeless: not at all 3. Trouble falling or staying asleep, or sleeping too much: not at all 4. Feeling tired or having little energy: not at all 5. Poor appetite or overeating: not at all 6. Feeling bad about yourself - or that you are a failure or have let yourself or your family down: not at all 7. Trouble concentrating on things, such as reading the newspaper or watching television: not at all 8. Moving or speaking so slowly that other people could have noticed. Or the opposite - being so fidgety or restless that you have been moving around a lot more than usual: not at all 9. Thoughts that you would be better off or of hurting yourself in some way: not at all Total score: 0 Depression Screening Interpretation: Negative Depression Screening Done: Yes 39993 - PHQ-9 Billing: Yes Source: Developed by Drs. Sim Alcala, Tamy Irby, Jean Marie Schroeder and colleagues, with an educational dionicio from [employer]. Thrive Questionnaire Date Thrive assessed: 04/24/23 I am a: Patient What is your living situation today?: I have a steady place to live Within the past 12 months, did the food you bought not last and you didn't have the money to get more?: Never true Within the past 12 months, did you worry whether your food would run out before you got money to buy more?: Never true Do you have trouble paying for medicines?: No Do you have trouble getting transportation to medical appointments?: No Do you have trouble paying your heating and electricity bill?: No Do you have trouble taking care of your child, family member or friend?: No Do you have trouble with day-to-day activities such as bathing, preparing meals, shopping, managing finances, etc.?: No Are you currently unemployed and looking for a job?: No Are you interested in more education?: No Please select the resources that you would like help with: None Currently or been in a relationship where the following occur: no concerns reported AUDIT C Alcohol Use Questionnaire (AUDIT-C) 1. How often do you have a drink containing alcohol?: Never 3. How often do you have six or more drinks on one occasion?: Never Total Score: 0 Score Reviewed/Action Taken: Yes SHIRLEY-7 AMB Questionnaire SHIRLEY-7 Date SHIRLEY - 7 assessed: 04/24/23 Feeling nervous, anxious, or on edge: 0 = Not at all Not being able to stop or control worryin = Not at all Worrying too much about different things: 0 = Not at all Trouble relaxin = Not at all Being so restless that it is hard to sit still: 0 = Not at all Becoming easily annoyed or irritable: 0 = Not at all Feeling afraid as if something awful might happen: 0 = Not at all Total SHIRLEY-7 score (0-4 normal; 5-9 mild; 10-14 moderate; 15-21 severe): 0 Source: Developed by Drs. Sim Alcala, Tamy Irby, Jean Marie Schroeder and colleagues, with an educational dionicio from [employer]. Review of Systems Const Denies chills, Reports fatigue, Denies fever(s), Reports frequent falls (due to leg weakness, especially with her left knee lately) and Denies headache(s) ENT Denies dysphagia, Denies dizziness, Denies otalgia, Denies headache(s), Reports neck pain (chronic), Denies odynophagia and Denies sore throat Card Denies chest pain, Denies palpitations and Reports dyspnea on exertion (mild) Resp Denies chest congestion, Reports cough (occasional, non-productive), Reports dyspnea on exertion (mild) and Denies wheezing GI Denies abdominal pain, Denies constipation, Denies dysphagia, Denies heartburn, Denies diarrhea, Denies nausea, Denies odynophagia and Denies vomiting Denies hematuria, Denies difficulty voiding, Reports nocturia, Denies dysuria and Denies urinary incontinence Musc Details: (+) some pain over the toes of her right foot Reports back pain (on and off but much improved since her back surgery), Reports arthralgias (right shoulder, left knee), Reports muscle weakness (in the right arm, on and off, and in both legs, R>L) and Reports neck pain (chronic) Skin/Breast Denies rash Neuro Denies dizziness, Reports frequent falls (due to leg weakness, especially with her left knee lately) and Denies headache(s) Endo Reports fatigue and Denies palpitations Aller/Immun Denies wheezing Physical exam (Primary Care) Vital Signs: Last Vital Signs Pulse 60 04/24/23 09:55 BP 134/58 L 04/24/23 09:55 Pulse Ox 95 04/24/23 09:55 Oxygen Delivery Method Room Air 04/24/23 09:55 BMI result Body Mass Index 30.5 Tobacco/Smoking Status: Tobacco use Status Tobacco use date assessed 04/24/23 04/24/23 09:57 Patient Tobacco Use Status Never used Tobacco 04/24/23 09:57 e-Cigarette/Vaping Use Never Used 04/24/23 09:57 PHQ-9: PHQ-9 Score PHQ-9: Total score 0 04/24/23 11:44 Depression Screening Interpretation: Negative Thrive Assessment: Date of Thrive Assessment Date Thrive assessed 04/24/23 04/24/23 09:57 Currently or been in a relationship where the following occur: no concerns reported Const General: no acute distress and alert HENMT Ears: TM's normal bilaterally and EAC's normal Throat: Yes posterior oropharynx normal and Yes tonsils normal (no TP congestion noted) Neck Neck: Yes no lymphadenopathy and Yes supple Resp Auscultation: no rales, rhonchi (occasional) throughout, no wheezes and diminished lung sounds (slightly) bilateral Cardio Rate: regular rate Rhythm: regular rhythm Heart sounds: no murmurs GI Palpation (GI): Soft to palpation and nontender Auscultation: normal bowel sounds Back/Spine/Pelvis Cervical Spine: Cervical spine tenderness Thoracic/Lumbar Spine: lumbar spinal tenderness Extrem General: Yes no clubbing, cyanosis or edema Right lower extremity: knee Details: no tenderness and foot ((+) tenderness over the toes but is able to flex/extend toes); no edema Left lower extremity: knee Details: tenderness (minimal); no edema Results Reviewed Results Reviewed: Laboratory Tests 03/30/23 08:12 Sodium 144 Potassium 4.0 Creatinine 0.90 Estimated GFR > 60 Fasting Glucose 100 H Calcium 9.1 D AST 16 ALT 13 Triglycerides 91 Cholesterol 129 LDL Cholesterol, Calc 76 HDL Cholesterol 35 L Assessment and Plan Assessment & Plan (1) COPD (chronic obstructive pulmonary disease): Code(s): J44.9 - Chronic obstructive pulmonary disease, unspecified Qualifiers: COPD type: COPD with acute exacerbation Qualified Code(s): J44.1 - Chronic obstructive pulmonary disease with (acute) exacerbation Plan: Controlled; patient appears to be doing well on her current inhalers - continue Trelegy Ellipta 200-62.5-25 mcg [address] done in August 2022 revealed (+) borderline/mild bronchiectasis, with some scarring or subsegmental atelectasis in the left lower lobe Follow up with pulmonary as scheduled (2) Pure hypercholesterolemia: Code(s): E78.00 - Pure hypercholesterolemia, unspecified Plan: Results of her labs done a few weeks ago reviewed and discussed with patient - her lipids/cholesterol levels remain well-controlled Reinforced low cholesterol diet Continue Atorvastatin 40 mg QD Will recheck her labs and fasting lipids in 4 months for follow up (3) Degenerative lumbar spinal stenosis: Comment: S/P bilateral L4-L5 laminotomy, partial facetectomy and foraminotomy through left-sided approach with a microscope by Dr. Kramer on 05/25/2020 MRI previously showed (+) multilevel degenerative disc changes with moderate to severe central stenosis at L4-L5 as well as a grade 1 anterolisthesis of L4 on L5, with moderate to severe bilateral facet arthropathy at L3-L4 and L5-S1 and also a chronic compression fracture of the body of L1 Code(s): M48.061 - Spinal stenosis, lumbar region without neurogenic claudication Plan: Reports (+) significant relief of her back pain since her surgery in May 2020 Reinforced activity and weight lifting restrictions Continue Tizanidine 4 mg 2 to 3 times a day as needed Follow up with neurosurgery as scheduled or as needed (4) Cervical disc disease: Code(s): M50.90 - Cervical disc disorder, unspecified, unspecified cervical region Plan: Cervical spine MRI done in October 2020 revealed (+) cervical spinal canal developmental narrowing exacerbated by cervical spine degenerative disease with stenosis and overall mild cervical spine cord volume loss Follow up with neurosurgery (Dr. Kramer) at [facility] as scheduled (5) Nondisplaced fracture of left patella: Onset Date: ~01/16/22 Comment: involving the left lateral tibial plateau - did not require surgery Code(s): S82.002A - Unspecified fracture of left patella, initial encounter for closed fracture Qualifiers: Encounter type: sequela Fracture morphology: unspecified fracture morphology Fracture type: closed Qualified Code(s): S82.002S - Unspecified fracture of left patella, sequela Plan: Corrected/resolved; patient did not require surgical intervention S/P physical therapy, with significant improvement of her knee pain although she reports that she is still experiencing bilateral knee/leg weakness (R>L) which is causing her leg to give out - has fallen a few times recently Repeat left knee x-rays done a few months ago showed only (+) moderate joint effusion with no other abnormalities Patient used to follow up with orthopedics at [facility] but does not appear to have seen them in a while now (6) Vitamin D deficiency: Code(s): E55.9 - Vitamin D deficiency, unspecified Plan: Continue Vitamin D supplement - is on both 2000 units daily and 11842 units once a week Follow up with endocrinology as scheduled (7) Osteoporosis: Code(s): M81.0 - Age-related osteoporosis without current pathological fracture Qualifiers: Osteoporosis type: unspecified Presence of current pathological fracture: without current pathological fracture Qualified Code(s): M81.0 - Age-related osteoporosis without current pathological fracture Plan: BMD reportedly done at [facility] a couple of years ago; she is due for a repeat BMD for follow up and is encouraged to get this scheduled [facility] (patient was apparently contacted about this recently and she told them that she did not want to get this done at this time) Continue oral Calcium and Vitamin D supplements daily Endocrinology is considering starting her on antiresorptive Tx once her Vitamin D level is normal or near normal Follow up with endocrinology as scheduled (8) Urolithiasis: Code(s): N20.9 - Urinary calculus, unspecified Qualifiers: Urinary calculus location: kidney Qualified Code(s): N20.0 - Calculus of kidney Plan: Currently has no acute symptoms suggestive of urinary brendon calculi She is encouraged to continue to increase her oral fluids intake Continue Terazosin 1 mg Q HS Follow up with urology as scheduled (9) Recurrent UTI (urinary tract infection): Code(s): N39.0 - Urinary tract infection, site not specified Plan: S/P oral Cuforoxime - states that she just completed her Abx a few days ago Follow up with urology as scheduled (10) Elevated LFTs: Code(s): R79.89 - Other specified abnormal findings of blood chemistry Plan: Resolved - LFTs have remained normal on her recent labs; were most likely related to her weight Encouraged to continue to try lose weight and is again reminded to avoid any Rx with Acetaminophen as much as possible and to completely abstain from ETOH (11) GERD without esophagitis: Code(s): K21.9 - Gastro-esophageal reflux disease without esophagitis Plan: Dietary restrictions reinforced Continue Pantoprazole 40 mg QD (12) Insomnia: Code(s): G47.00 - Insomnia, unspecified Qualifiers: Insomnia type: primary Qualified Code(s): F51.01 - Primary insomnia Plan: Sleep hygiene reinforced (13) Anxiety: Code(s): F41.9 - Anxiety disorder, unspecified Plan: Continue Alprazolam 1 mg TID PRN (14) Obesity (BMI 30-39.9): Code(s): E66.9 - Obesity, unspecified Plan: Reinforced diet; exercise and weight loss are unrealistic expectations given patient's multiple physical issues and comorbidities Plan Follow up in 4 months Orders: Orders Lipid Panel 4 Months E78.00 - Pure hypercholesterolemia, unspecified Comprehensive [place]. Panel Fast 4 Months E78.00 - Pure hypercholesterolemia, unspecified TSH reflex Free T4 4 Months E78.00 - Pure hypercholesterolemia, unspecified Complete Blood Count Auto Diff 4 Months I10 - Essential (primary) hypertension UA CC w/rflx Micro + Cult 4 Months R30.0 - Dysuria Vitamin D 25-OH Total 4 Months E55.9 - Vitamin D deficiency, unspecified Coding Level of Care Code Est Pt Level 4 (93297) Diagnoses Chronic obstructive pulmonary disease with acute exacerbation J44.1 COPD type: COPD with acute exacerbation Pure hypercholesterolemia E78.00 Degenerative lumbar spinal stenosis M48.061 Cervical disc disease M50.90 Closed nondisplaced fracture of left patella, unspecified fracture morphology, sequela S82.002S Encounter type: sequela Fracture morphology: unspecified fracture morphology Fracture type: closed Vitamin D deficiency E55.9 Osteoporosis without current pathological fracture, unspecified osteoporosis type M81.0 Osteoporosis type: unspecified Presence of current pathological fracture: without current pathological fracture Calculus of kidney N20.0 Urinary calculus location: kidney Recurrent UTI (urinary tract infection) N39.0 Elevated LFTs R79.89 GERD without esophagitis K21.9 Primary insomnia F51.01 Insomnia type: primary Anxiety F41.9 Obesity (BMI 30-39.9) E66.9
== END 2023-04-24 11:48 | disposition home or self-care (01) ==
PROVIDERS: PCP Internal Medicine; Visit Provider Internal Medicine
DX: J44.1 Chronic obstructive pulmonary disease with (acute) exacerbation (principal); E78.00 Pure hypercholesterolemia, unspecified; Z68.30 Body mass index [BMI] 30.0-30.9, adult; E66.9 Obesity, unspecified; M48.061 Spinal stenosis, lumbar region without neurogenic claudication; M50.90 Cervical disc disorder, unspecified, unspecified cervical region; S82.002S Unspecified fracture of left patella, sequela; E55.9 Vitamin D deficiency, unspecified; M81.0 Age-related osteoporosis without current pathological fracture; N20.0 Calculus of kidney; R79.89 Other specified abnormal findings of blood chemistry; K21.9 Gastro-esophageal reflux disease without esophagitis
CPT/HCPCS: 99214

== ENCOUNTER 2023-06-05 08:29 | Outpatient (REF) | payer OTHER, SELFPAY ==
--- NOTE | ~2023-06-05 | XR_ITS ---
EXAMINATION: XR CHEST 2 VIEWS CLINICAL INFORMATION: Hemoptysis; cold symptoms of 4 weeks' duration. COMPARISON: Chest radiographs dated 11/19/2022. TECHNIQUE: Frontal and lateral views of the chest were obtained. FINDINGS: The heart, great vessels, pulmonary vasculature and mediastinum are normal. The lungs show no focal infiltrate, effusion or pneumothorax. There is no acute osseous abnormality. There is a mild to moderate thoracic dextroscoliosis. There is multi-level thoracolumbar anterior spondylosis. XR/XR chest 2V IMPRESSION: No active cardiopulmonary disease.
== END 2023-06-05 08:30 | disposition home or self-care (01) ==
LOC: HO.XRAY 08:29
PROVIDERS: PCP Internal Medicine; Visit Provider Hospitalist
DX: R04.2 Hemoptysis (principal)
CPT/HCPCS: 71046

== ENCOUNTER 2023-07-31 15:32 | Outpatient (AMB) | payer OTHER, SELFPAY ==
--- NOTE | 2023-07-31 15:45 | MHC.PC.OV ---
Vital Signs 07/31/23 15:48 Height 5 ft 6 in Weight 185 lb 4 oz BMI 29.9 BP 130/90 H Blood Pressure Location Lt brachial Position Sitting Pulse 81 Pulse Source Pulse Oximeter Pulse Oximetry (%) 93 Oxygen Delivery Method Room Air Intake Visit Reasons: Rt Ear drainage Intake Note: Patient is here today for right ear drainage with loss of hearing, drainage of the right eye, cough, sore throat and possible sinus infection, chills but no fever. 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 Accompanied by: Self / Same As Patient Allergies nitrofurantoin [From MACRODANTIN] Allergy (Severe, Verified 08/27/23 11:15) Anaphylaxis Sulfa (Sulfonamide Antibiotics) [SULFA (SULFONAMIDE ANTIBIOTICS)] Allergy (Severe, Verified 08/27/23 11:15) ANAPHYLAXIS sulfamethoxazole [From BACTRIM] Allergy (Severe, Verified 08/27/23 11:15) ANAPHYLAXIS trimethoprim [From BACTRIM] Allergy (Severe, Verified 08/27/23 11:15) ANAPHYLAXIS Medication List - Last Reconciled 07/31/23 by Mac Thomas MD albuterol sulfate 2.5 mg (3 mL) inhalation BID 30 days alprazolam 1 mg PO TID PRN 30 days atorvastatin 40 mg PO BEDTIME 90 days cholecalciferol (vitamin D3) 50 mcg PO DAILY 90 days fluticasone propionate 50 mcg/actuation 2 sprays intranasal DAILY [id number]-odknvmppn-djjpspzi 200-62.5-25 mcg (Trelegy Ellipta) 1 inh inhalation DAILY 30 days Lactobacillus acidophilus 25 mmu cells PO BID loratadine (Claritin) 10 mg PO DAILY 30 days montelukast 10 mg PO BEDTIME pantoprazole 40 mg PO DAILY terazosin 1 mg PO BEDTIME 90 days Tobacco use date assessed: 07/31/23 Fall risk assessment: 2 + Falls in past year Last assessed Fall Risk: 07/31/23 Dental Screening Dental Screen Date: 07/31/23 Did you have a dental visit in the last 12 months?: Yes Did you have a dental problem in the last 6 months where you did not have access to dental care?: No Was dental information given to patient?: Patient has dentist HPI Rt Ear drainage HPI Details Patient comes in today complaining of sore throat, cough and congestion and right ear pain and drainage for the past 5 days States that her right ear has been draining some clear fluid on and off as well lately; can also hardly hear out of her right ear Reports that she has had some chills recently but denies any fever (+) mild headaches at times but denies any dizziness Denies any chest pains, no increased SOB but states that her chest feels congested and she has been coughing up thick greenish phlegm at times No nausea/vomiting, no abdominal pain No change in bowel habits noted States that she broke her right wrist earlier this month when she fell while playing pickleball and had to have surgery to correct/repair her injury Her right wrist is currently still in a soft cast and she will be starting physical therapy as soon as she is cleared by orthopedics Adds that she also has a raised lesion on her left lower cheek that has been present for a while now and she feels has gotten bigger lately and she would like to get a referral to see dermatology to check this out [facility] Medical History Cough COPD (chronic obstructive pulmonary disease) Seasonal allergies Chronic cough Cervical disc disease Left knee pain Pain of right shoulder joint on movement Abnormal SPEP Vitamin D deficiency Urolithiasis Osteoporosis GERD without esophagitis Multilevel degenerative disc disease Obesity (BMI 30-39.9) Anxiety Insomnia GERD (gastroesophageal reflux disease) Left lumbosacral radiculopathy Degenerative lumbar spinal stenosis Pure hypercholesterolemia Surgical History History of surgery on right wrist History of endoscopy History of colonoscopy Hx of decompressive lumbar laminectomy (~05/25/20) Status post total abdominal hysterectomy and bilateral salpingo-oophorectomy (CATRACHITO-BSO) History of right cataract extraction (~12/2016) History of cystoscopy (~05/24/18) Family History Father No problems noted. Mother Ovarian cancer Daughter Myocardial infarction, Onset Age: 46 Stroke Social History Household Members: Children Housing: House Are you a primary customer care agent to a significant other at home: No Do you presently have visiting nurse or other home services: No Alcohol intake: former Patient Tobacco Use Status: Never used Tobacco e-Cigarette/Vaping Use: Never Used Second Hand Smoke Exposure: Yes service: No Current occupational status: retired and disabled Cognitive needs: No Hearing needs: No Vision needs: Yes (reading glasses) Questionnaire PHQ-9 Over the last 2 weeks, how often have you been bothered by any of the following problems? 1. Little interest or pleasure in doing things: not at all 2. Feeling down, depressed, or hopeless: not at all 3. Trouble falling or staying asleep, or sleeping too much: not at all 4. Feeling tired or having little energy: not at all 5. Poor appetite or overeating: not at all 6. Feeling bad about yourself - or that you are a failure or have let yourself or your family down: not at all 7. Trouble concentrating on things, such as reading the newspaper or watching television: not at all 8. Moving or speaking so slowly that other people could have noticed. Or the opposite - being so fidgety or restless that you have been moving around a lot more than usual: not at all 9. Thoughts that you would be better off or of hurting yourself in some way: not at all Total score: 0 Depression Screening Interpretation: Negative Depression Screening Done: Yes 81437 - PHQ-9 Billing: Yes Source: Developed by Drs. Sim Alcala, Tamy Irby, Jean Marie Schroeder and colleagues, with an educational dionicio from [employer]. Thrive Questionnaire Date Thrive assessed: 07/31/23 I am a: Patient What is your living situation today?: I have a steady place to live Within the past 12 months, did the food you bought not last and you didn't have the money to get more?: Never true Within the past 12 months, did you worry whether your food would run out before you got money to buy more?: Never true Do you have trouble paying for medicines?: No Do you have trouble getting transportation to medical appointments?: No Do you have trouble paying your heating and electricity bill?: No Do you have trouble taking care of your child, family member or friend?: No Do you have trouble with day-to-day activities such as bathing, preparing meals, shopping, managing finances, etc.?: No Are you currently unemployed and looking for a job?: No Are you interested in more education?: No Currently or been in a relationship where the following occur: no concerns reported THRIVE Score: 0 AUDIT C Alcohol Use Questionnaire (AUDIT-C) 1. How often do you have a drink containing alcohol?: Never 3. How often do you have six or more drinks on one occasion?: Never Total Score: 0 Score Reviewed/Action Taken: Yes SHIRLEY-7 AMB Questionnaire SHIRLEY-7 Date SHIRLEY - 7 assessed: 07/31/23 Feeling nervous, anxious, or on edge: 3 = Nearly every day Not being able to stop or control worryin = Not at all Worrying too much about different things: 0 = Not at all Trouble relaxin = Several days Being so restless that it is hard to sit still: 1 = Several days Becoming easily annoyed or irritable: 2 = More than half the days Feeling afraid as if something awful might happen: 0 = Not at all Total SHIRLEY-7 score (0-4 normal; 5-9 mild; 10-14 moderate; 15-21 severe): 7 Source: Developed by Drs. Sim Alcala, Tamy Irby, Jean Marie Schroeder and colleagues, with an educational dionicio from [employer]. Review of Systems Const Reports chills, Reports fatigue, Denies fever(s) and Denies headache(s) ENT Reports as per HPI, Denies dysphagia, Denies dizziness, Reports ear discharge (right ear), Reports otalgia (right ear), Denies headache(s), Reports hearing loss (in the right earwwwwwwwwwwwwwwwwwww), Reports nasal congestion, Reports neck pain (chronic), Denies odynophagia and Reports sore throat Card Denies chest pain, Denies palpitations and Reports dyspnea on exertion (mild) Resp Reports chest congestion (mild), Reports cough (recurrent, coughs up greenish phlegm at times), Reports dyspnea on exertion (mild) and Denies wheezing GI Denies abdominal pain, Denies constipation, Denies dysphagia, Denies heartburn, Denies diarrhea, Denies nausea, Denies odynophagia and Denies vomiting Denies hematuria, Denies difficulty voiding, Reports nocturia, Denies dysuria and Denies urinary incontinence Musc Details: (+) some pain over the toes of her right foot Reports back pain (on and off but much improved since her back surgery), Reports arthralgias (right shoulder, left knee), Reports muscle weakness (in the right arm, on and off, and in both legs, R>L) and Reports neck pain (chronic) Skin/Breast Details: (+) raised lesion on the left lower cheek - patient feels that this has gotten bigger lately Denies rash Neuro Denies dizziness and Denies headache(s) Endo Reports fatigue and Denies palpitations Aller/Immun Denies wheezing Physical exam (Primary Care) Vital Signs: Last Vital Signs Pulse 81 07/31/23 15:48 BP 130/90 H 07/31/23 15:48 Pulse Ox 93 07/31/23 15:48 Oxygen Delivery Method Room Air 07/31/23 15:48 BMI result Body Mass Index 29.9 Tobacco/Smoking Status: Tobacco use Status Tobacco use date assessed 07/31/23 07/31/23 15:48 Patient Tobacco Use Status Never used Tobacco 07/31/23 15:48 e-Cigarette/Vaping Use Never Used 07/31/23 15:48 PHQ-9: PHQ-9 Score PHQ-9: Total score 0 07/31/23 16:39 Depression Screening Interpretation: Negative Thrive Assessment: Date of Thrive Assessment Date Thrive assessed 07/31/23 07/31/23 15:48 Currently or been in a relationship where the following occur: no concerns reported Const General: no acute distress and alert HENMT Ears: TM normal on the left, Abnormal EAC present otic discharge clear on the right and TM abnormal (right ear) wth effusion Throat: Yes posterior oropharynx normal and Yes tonsils normal (no TP congestion noted) Neck Neck: Yes no lymphadenopathy and Yes supple Thyroid: Thyroid normal Resp Auscultation: no rales, rhonchi (scattered) throughout, wheezes (faint, occasional) expiratory wheezes, diminished lung sounds (slightly) bilateral and bronchial breath sounds bilateral Cardio Rate: regular rate Rhythm: regular rhythm Heart sounds: no murmurs GI Palpation (GI): Soft to palpation and nontender Auscultation: normal bowel sounds Back/Spine/Pelvis Cervical Spine: Cervical spine tenderness Thoracic/Lumbar Spine: lumbar spinal tenderness Skin Other: (+) raised lesion on the left lower cheek with a hyperpigmented center Rashes: no rashes Extrem General: Yes no clubbing, cyanosis or edema Right lower extremity: knee Details: no tenderness and foot ((+) tenderness over the toes but is able to flex/extend toes); no edema Left lower extremity: knee Details: tenderness (minimal); no edema Assessment and Plan Assessment & Plan (1) Otitis media of right ear: Code(s): H66.91 - Otitis media, unspecified, right ear Qualifiers: Otitis media type: unspecified Qualified Code(s): H66.91 - Otitis media, unspecified, right ear Plan: Will start patient on Augmentin 875 mg BID x 10 days (2) COPD exacerbation: Code(s): J44.1 - Chronic obstructive pulmonary disease with (acute) exacerbation Plan: Will start patient on oral Prednisone 20 mg QD x 3 days Continue Trelegy Ellipta 200-62.5-25 mcg 1 inhalation QD and Albuterol HFA 2 inhalations Q 6 hours PRN (3) Hearing loss in right ear: Code(s): H91.91 - Unspecified hearing loss, right ear Qualifiers: Hearing loss type: unspecified Qualified Code(s): H91.91 - Unspecified hearing loss, right ear Plan: Will refer her to ENT for further evaluation and management (4) Skin lesion of cheek: Code(s): L98.9 - Disorder of the skin and subcutaneous tissue, unspecified Plan: Will refer her to dermatology for further evaluation and management of the raised skin lesion on the left lower cheek, which patient feels has gotten bigger lately Plan Follow up as scheduled next month Orders: Referrals Dermatology Referral L98.9 - Disorder of the skin and subcutaneous tissue, unspecified Ear/Nose/Throat Referral H91.91 - Unspecified hearing loss, right ear Medications: New amoxicillin-pot clavulanate 875-125 mg 1 tab PO BID 20 tabs 0RF 10 days prednisone 20 mg PO DAILY 3 tabs 0RF 3 days Coding Level of Care Code Est Pt Level 3 (92040) Diagnoses Right otitis media, unspecified otitis media type H66.91 Otitis media type: unspecified COPD exacerbation J44.1 Hearing loss of right ear, unspecified hearing loss type H91.91 Hearing loss type: unspecified Skin lesion of cheek L98.9
[2023-07-31 15:48] VITALS: BP 130/90; PULSE 81; O2SAT 93; BMI 29.9
== END 2023-07-31 16:45 | disposition home or self-care (01) ==
PROVIDERS: PCP Internal Medicine; Visit Provider Internal Medicine
DX: H66.91 Otitis media, unspecified, right ear (principal); J44.1 Chronic obstructive pulmonary disease with (acute) exacerbation; H91.91 Unspecified hearing loss, right ear; L98.9 Disorder of the skin and subcutaneous tissue, unspecified
CPT/HCPCS: 99213

== ENCOUNTER 2023-08-12 08:51 | Outpatient (REF) | payer OTHER, SELFPAY ==
[2023-08-12 09:21] LABS: MANUAL DIFF FLAG NO
[2023-08-12 09:46] LABS: Basophils Absolute Auto 0.1 X10*3/uL (0.0-0.2); Basophils Percent Auto 1.3 % (0-2); Eosinophils Absolute Auto 0.2 X10*3/uL (0.0-0.4); Eosinophils Percent Auto 3.3 % (0-4); Hematocrit 41.7 % (37.0-47.0); Imm Gran Abs Auto 0.04 X10*3/uL (0.00-0.03); Imm Gran Pct Auto 0.6 % (0.0-0.4); Lymphocytes Absolute Auto 2.2 X10*3/uL (1.2-4.9); Lymphocytes Percent Auto 30.9 % (20-40); Mean Corpuscular HGB Conc 33.6 g/dl (31.0-35.0); Mean Corpuscular Volume 89.3 fL (80.0-98.0); Mean Platelet Volume 9.3 fL (9.4-12.3); Monocytes Absolute Auto 0.7 X10*3/uL (0.1-1.2); Monocytes Percent Auto 9.7 % (2-11); Neutrophils Absolute Auto 3.8 x10*3/uL (2.0-8.3); Neutrophils Percent Auto 54.2 % (45-73); Platelet Count 192 X10*3/uL (160-400); Red Blood Count 4.67 X10*6/uL (4.20-5.50); Red Cell Distribution Width 14.2 % (11.0-16.0)
[2023-08-12 10:30] LABS: Alanine Aminotransferase 22 U/L (0-31); Albumin Level 3.8 g/dL (3.5-5.0); Alkaline Phosphatase 143 U/L (39-117); Anion Gap 11 (12-20); Aspartate Amino Transferase 21 U/L (5-31); Bilirubin Total 0.6 mg/dL (0.0-1.0); Blood Urea Nitrogen 17 mg/dL (9-16); Calcium 8.9 mg/dL (8.4-10.2); Carbon Dioxide 29 mmol/L (22-29); Chloride 108 mmol/L (96-108); Cholesterol 130 mg/dL (<200); Estimated Glomerular Filt Rate > 60; Glucose Fasting 104 mg/dL (60-99); HDL Cholesterol 32 mg/dL (>40); LDL Cholesterol Calculated 82 mg/dL (<100); Potassium 3.9 mmol/L (3.3-5.1); Sodium 144 mmol/L (135-145); Triglycerides 83 mg/dL (<150)
[2023-08-12 10:37] LABS: TSH reflex Free T4 2.46 uIU/mL (0.32-4.0); Vitamin D 25-OH Total 41.1 ng/mL (>30)
== END 2023-08-12 08:52 | disposition home or self-care (01) ==
LOC: HO.LAB 08:51
PROVIDERS: Visit Provider Internal Medicine
DX: E78.00 Pure hypercholesterolemia, unspecified (principal); E55.9 Vitamin D deficiency, unspecified; I10 Essential (primary) hypertension; R30.0 Dysuria
CPT/HCPCS: 36415; 80053; 80061; 82306; 84443; 85025

== ENCOUNTER 2023-08-27 10:31 | Outpatient (AMB) | payer OTHER, SELFPAY ==
--- NOTE | 2023-08-27 10:37 | MHC.PC.OV ---
Vital Signs 08/27/23 10:42 Height 5 ft 6 in Weight 187 lb BMI 30.2 BP 126/70 Blood Pressure Location Lt brachial Position Sitting Pulse 62 Pulse Source Pulse Oximeter Pulse Oximetry (%) 96 Oxygen Delivery Method Room Air Intake Visit Reasons: 4 month f/u Hand Hose Cutter Required: No Utility Engineer: Not Required per policy Accompanied by: Self / Same As Patient Allergies nitrofurantoin [From MACRODANTIN] Allergy (Severe, Verified 08/27/23 11:15) Anaphylaxis Sulfa (Sulfonamide Antibiotics) [SULFA (SULFONAMIDE ANTIBIOTICS)] Allergy (Severe, Verified 08/27/23 11:15) ANAPHYLAXIS sulfamethoxazole [From BACTRIM] Allergy (Severe, Verified 08/27/23 11:15) ANAPHYLAXIS trimethoprim [From BACTRIM] Allergy (Severe, Verified 08/27/23 11:15) ANAPHYLAXIS Medication List - Last Reconciled 08/27/23 by Mac Thomas MD albuterol sulfate 2.5 mg (3 mL) inhalation BID 30 days alprazolam 1 mg PO TID PRN 30 days atorvastatin 40 mg PO BEDTIME 90 days cholecalciferol (vitamin D3) 50 mcg PO DAILY 90 days fluticasone propionate 50 mcg/actuation 2 sprays intranasal DAILY [id number] 200-62.5-25 mcg (Trelegy Ellipta) 1 inh inhalation DAILY 30 days Lactobacillus acidophilus 25 mmu cells PO BID loratadine (Claritin) 10 mg PO DAILY 30 days montelukast 10 mg PO BEDTIME pantoprazole 40 mg PO DAILY terazosin 1 mg PO BEDTIME 90 days Tobacco use date assessed: 07/31/23 Fall risk assessment: 1 Fall in past year Last assessed Fall Risk: 08/27/23 Dental Screening Dental Screen Date: 07/31/23 HPI 4 month f/u HPI Details Patient comes in today for her follow up visit States that she was recently diagnosed with an SCC lesion on her left cheek and she will be undergoing surgery to have this removed in a couple of weeks (09/08/2023) at [facility] States that she feels okay otherwise She denies any headaches or dizziness Denies any chest pains, no increased SOB No nausea/vomiting, no abdominal pain No change in bowel habits noted She had her follow up labs done a couple of weeks ago - to discuss her results [facility] Medical History Cough COPD (chronic obstructive pulmonary disease) Seasonal allergies Chronic cough Cervical disc disease Left knee pain Pain of right shoulder joint on movement Abnormal SPEP Vitamin D deficiency Urolithiasis Osteoporosis GERD without esophagitis Multilevel degenerative disc disease Obesity (BMI 30-39.9) Anxiety Insomnia GERD (gastroesophageal reflux disease) Left lumbosacral radiculopathy Degenerative lumbar spinal stenosis Pure hypercholesterolemia Surgical History History of surgery on right wrist History of endoscopy History of colonoscopy Hx of decompressive lumbar laminectomy (~05/25/20) Status post total abdominal hysterectomy and bilateral salpingo-oophorectomy (CATRACHITO-BSO) History of right cataract extraction (~12/2016) History of cystoscopy (~05/24/18) Family History Father No problems noted. Mother Ovarian cancer Daughter Myocardial infarction, Onset Age: 46 Stroke Social History Household Members: Children Housing: House Are you a primary rn wound care to a significant other at home: No Do you presently have visiting nurse or other home services: No Alcohol intake: former Patient Tobacco Use Status: Never used Tobacco e-Cigarette/Vaping Use: Never Used Second Hand Smoke Exposure: Yes service: No Current occupational status: retired and disabled Cognitive needs: No Hearing needs: No Vision needs: Yes (reading glasses) Questionnaire PHQ-9 Over the last 2 weeks, how often have you been bothered by any of the following problems? Depression Screening Interpretation: Negative Depression Screening Done: Yes Source: Developed by Drs. Sim Alcala, Tamy Irby, Jean Marie Schroeder and colleagues, with an educational dionicio from [employer]. Thrive Questionnaire Date Thrive assessed: 07/31/23 Currently or been in a relationship where the following occur: no concerns reported THRIVE Score: 0 SHIRLEY-7 AMB Questionnaire SIHRLEY-7 Date SHIRLEY - 7 assessed: 07/31/23 Source: Developed by Drs. Sim Alcala, Jean Marie Vicente and colleagues, with an educational dionicio from [employer]. Review of Systems Const Denies chills, Reports fatigue, Denies fever(s), Reports frequent falls (due to leg weakness, especially with her left knee) and Denies headache(s) ENT Denies dysphagia, Denies dizziness, Denies otalgia, Denies headache(s), Reports neck pain (chronic), Denies odynophagia and Denies sore throat Card Denies chest pain, Denies palpitations and Reports dyspnea on exertion (mild) Resp Denies chest congestion, Reports cough (occasional, non-productive), Reports dyspnea on exertion (mild) and Denies wheezing GI Denies abdominal pain, Denies constipation, Denies dysphagia, Denies heartburn, Denies diarrhea, Denies nausea, Denies odynophagia and Denies vomiting Denies hematuria, Denies difficulty voiding, Reports nocturia, Denies dysuria and Denies urinary incontinence Musc Details: (+) some pain over the toes of her right foot Reports back pain (on and off but much improved since her back surgery), Reports arthralgias (right shoulder, left knee), Reports muscle weakness (in the right arm, on and off, and in both legs, R>L) and Reports neck pain (chronic) Skin/Breast Details: (+) raised lesion on the left cheek - was recently diagnosed as a SCC lesion Denies rash Neuro Denies dizziness, Reports frequent falls (due to leg weakness, especially with her left knee) and Denies headache(s) Endo Reports fatigue and Denies palpitations Aller/Immun Denies wheezing Physical exam (Primary Care) Vital Signs: Last Vital Signs Pulse 62 08/27/23 10:42 BP 126/70 08/27/23 10:42 Pulse Ox 96 08/27/23 10:42 Oxygen Delivery Method Room Air 08/27/23 10:42 BMI result Body Mass Index 30.2 Tobacco/Smoking Status: Tobacco use Status Tobacco use date assessed 07/31/23 08/27/23 10:37 Patient Tobacco Use Status Never used Tobacco 08/27/23 10:37 e-Cigarette/Vaping Use Never Used 08/27/23 10:37 Depression Screening Interpretation: Negative Thrive Assessment: Date of Thrive Assessment Date Thrive assessed 03/29/24 04/25/24 10:37 Currently or been in a relationship where the following occur: no concerns reported Const General: no acute distress and alert HENMT Ears: TM's normal bilaterally and EAC's normal Throat: Yes posterior oropharynx normal and Yes tonsils normal (no TP congestion noted) Neck Neck: Yes no lymphadenopathy and Yes supple Thyroid: Thyroid normal Resp Auscultation: clear to auscultation bilaterally, no rales, no wheezes and diminished lung sounds (slightly) bilateral Cardio Rate: regular rate Rhythm: regular rhythm Heart sounds: no murmurs GI Palpation (GI): Soft to palpation and nontender Auscultation: normal bowel sounds Back/Spine/Pelvis Cervical Spine: Cervical spine tenderness Thoracic/Lumbar Spine: lumbar spinal tenderness Skin Other: (+) raised skin lesion on the left lower cheek area with a central dark spot Rashes: no rashes Extrem General: Yes no clubbing, cyanosis or edema Right lower extremity: knee Details: no tenderness and foot ((+) tenderness over the toes but is able to flex/extend toes); no edema Left lower extremity: knee Details: tenderness (minimal); no edema Results Reviewed Results Reviewed: Laboratory Tests 08/12/23 09:20 WBC 7.0 Hgb 14.0 Hct 41.7 Plt Count 192 Sodium 144 Potassium 3.9 Creatinine 0.81 Estimated GFR > 60 Fasting Glucose 104 H Calcium 8.9 AST 21 ALT 22 Triglycerides 83 Cholesterol 130 LDL Cholesterol, Calc 82 HDL Cholesterol 32 L 25-OH Vitamin D Total 41.1 TSH 2.46 Assessment and Plan Assessment & Plan (1) COPD (chronic obstructive pulmonary disease): Code(s): J44.9 - Chronic obstructive pulmonary disease, unspecified Qualifiers: COPD type: COPD with acute exacerbation Qualified Code(s): J44.1 - Chronic obstructive pulmonary disease with (acute) exacerbation Plan: Controlled; patient appears to be doing well on her current inhalers - continue Trelegy Ellipta 200-62.5-25 mcg [address] done in August 2022 revealed (+) borderline/mild bronchiectasis, with some scarring or subsegmental atelectasis in the left lower lobe Follow up with pulmonary as scheduled (2) Pure hypercholesterolemia: Code(s): E78.00 - Pure hypercholesterolemia, unspecified Plan: Results of her labs done a couple of weeks ago reviewed and discussed with patient - her lipids/cholesterol levels remain well-controlled Reinforced low cholesterol diet Continue Atorvastatin 40 mg QD Will recheck her labs and fasting lipids in 4 months for follow up (3) Degenerative lumbar spinal stenosis: Comment: S/P bilateral L4-L5 laminotomy, partial facetectomy and foraminotomy through left-sided approach with a microscope by Dr. Kramer on 05/25/2020 MRI previously showed (+) multilevel degenerative disc changes with moderate to severe central stenosis at L4-L5 as well as a grade 1 anterolisthesis of L4 on L5, with moderate to severe bilateral facet arthropathy at L3-L4 and L5-S1 and also a chronic compression fracture of the body of L1 Code(s): M48.061 - Spinal stenosis, lumbar region without neurogenic claudication Plan: Reports (+) significant relief of her back pain since her surgery in May 2020 Reinforced activity and weight lifting restrictions Continue Tizanidine 4 mg 2 to 3 times a day as needed Follow up with neurosurgery as scheduled or as needed (4) Cervical disc disease: Code(s): M50.90 - Cervical disc disorder, unspecified, unspecified cervical region Plan: Cervical spine MRI done in October 2020 revealed (+) cervical spinal canal developmental narrowing exacerbated by cervical spine degenerative disease with stenosis and overall mild cervical spine cord volume loss Follow up with neurosurgery as scheduled (5) Nondisplaced fracture of left patella: Onset Date: ~01/16/22 Comment: involving the left lateral tibial plateau - did not require surgery Code(s): S82.002A - Unspecified fracture of left patella, initial encounter for closed fracture Qualifiers: Encounter type: sequela Fracture morphology: unspecified fracture morphology Fracture type: closed Qualified Code(s): S82.002S - Unspecified fracture of left patella, sequela Plan: Corrected/resolved; patient did not require surgical intervention S/P physical therapy, with significant improvement of her knee pain although she reports that she is still experiencing bilateral knee/leg weakness (R>L) which is causing her leg to give out - has fallen a few times recently Repeat left knee x-rays done a few months ago showed only (+) moderate joint effusion with no other abnormalities Patient used to follow up with orthopedics at [facility] but does not appear to have seen them in a while now (6) Vitamin D deficiency: Code(s): E55.9 - Vitamin D deficiency, unspecified Plan: Continue Vitamin D supplement - is on both 2000 units daily and 36723 units once a week Follow up with endocrinology as scheduled (7) Osteoporosis: Code(s): M81.0 - Age-related osteoporosis without current pathological fracture Qualifiers: Osteoporosis type: unspecified Presence of current pathological fracture: without current pathological fracture Qualified Code(s): M81.0 - Age-related osteoporosis without current pathological fracture Plan: Her last BMD was reportedly done at [facility] a couple of years ago; she is due for a repeat BMD for follow up and is encouraged to get this scheduled KAMLESH (patient was apparently contacted about this recently and she told them that she did not want to get this done at this time) Continue oral Calcium and Vitamin D supplements daily Endocrinology is considering starting her on antiresorptive Tx once her Vitamin D level is normal or near normal Follow up with endocrinology as scheduled (8) Right wrist fracture: Code(s): S62.101A - Fracture of unspecified carpal bone, right wrist, initial encounter for closed fracture Qualifiers: Encounter type: sequela Fracture type: closed Qualified Code(s): S62.101S - Fracture of unspecified carpal bone, right wrist, sequela Plan: Sustained when she fell early last month (July 2023) while playing pickleball S/P surgical correction and states that she is currently still going to physical therapy States that she still has pain and discomfort in her right wrist but her ROM has improved significantly lately (9) Urolithiasis: Code(s): N20.9 - Urinary calculus, unspecified Qualifiers: Urinary calculus location: kidney Qualified Code(s): N20.0 - Calculus of kidney Plan: She currently has no acute symptoms suggestive of urinary brendon calculi She is encouraged to continue to increase her oral fluids intake Continue Terazosin 1 mg Q HS Follow up with urology as scheduled (10) Elevated LFTs: Code(s): R79.89 - Other specified abnormal findings of blood chemistry Plan: Resolved - her LFTs have remained normal on her recent labs; were most likely related to her weight Encouraged to continue to try lose weight and is again reminded to avoid any Rx with Acetaminophen as much as possible and to completely abstain from ETOH (11) Squamous cell carcinoma of skin of left cheek: Code(s): C44.329 - Squamous cell carcinoma of skin of other parts of face Plan: She is scheduled to have this removed surgically by [facility] in a couple of weeks on 09/08/2023 (12) GERD without esophagitis: Code(s): K21.9 - Gastro-esophageal reflux disease without esophagitis Plan: Dietary restrictions reinforced Continue Pantoprazole 40 mg QD (13) Insomnia: Code(s): G47.00 - Insomnia, unspecified Qualifiers: Insomnia type: primary Qualified Code(s): F51.01 - Primary insomnia Plan: Sleep hygiene reinforced (14) Anxiety: Code(s): F41.9 - Anxiety disorder, unspecified Plan: Continue Alprazolam 1 mg TID PRN (15) Obesity (BMI 30-39.9): Code(s): E66.9 - Obesity, unspecified Plan: Reinforced diet; exercise and weight loss are unrealistic expectations given patient's multiple physical issues and comorbidities Plan Follow up in 4 months Orders: Orders Comprehensive [place]. Panel Fast 4 Months E78.00 - Pure hypercholesterolemia, unspecified Lipid Panel 4 Months E78.00 - Pure hypercholesterolemia, unspecified Complete Blood Count Auto Diff 4 Months D64.9 - Anemia, unspecified Vitamin D 25-OH Total 4 Months E55.9 - Vitamin D deficiency, unspecified UA CC w/rflx Micro + Cult 4 Months R30.0 - Dysuria TSH reflex Free T4 4 Months E78.00 - Pure hypercholesterolemia, unspecified Coding Level of Care Code Est Pt Level 4 (64667) Diagnoses Chronic obstructive pulmonary disease with acute exacerbation J44.1 COPD type: COPD with acute exacerbation Pure hypercholesterolemia E78.00 Degenerative lumbar spinal stenosis M48.061 Cervical disc disease M50.90 Closed nondisplaced fracture of left patella, unspecified fracture morphology, sequela S82.002S Encounter type: sequela Fracture morphology: unspecified fracture morphology Fracture type: closed Vitamin D deficiency E55.9 Osteoporosis without current pathological fracture, unspecified osteoporosis type M81.0 Osteoporosis type: unspecified Presence of current pathological fracture: without current pathological fracture Closed fracture of right wrist, sequela S62.101S Encounter type: sequela Fracture type: closed Calculus of kidney N20.0 Urinary calculus location: kidney Elevated LFTs R79.89 Squamous cell carcinoma of skin of left cheek C44.329 GERD without esophagitis K21.9 Primary insomnia F51.01 Insomnia type: primary Anxiety F41.9 Obesity (BMI 30-39.9) E66.9
[2023-08-27 10:42] VITALS: BP 126/70; PULSE 62; O2SAT 96; BMI 30.2
== END 2023-08-27 11:26 | disposition home or self-care (01) ==
PROVIDERS: PCP Internal Medicine; Visit Provider Internal Medicine
DX: J44.1 Chronic obstructive pulmonary disease with (acute) exacerbation (principal); E78.00 Pure hypercholesterolemia, unspecified; Z68.30 Body mass index [BMI] 30.0-30.9, adult; E66.9 Obesity, unspecified; M48.061 Spinal stenosis, lumbar region without neurogenic claudication; M50.90 Cervical disc disorder, unspecified, unspecified cervical region; S82.002S Unspecified fracture of left patella, sequela; M81.0 Age-related osteoporosis without current pathological fracture; E55.9 Vitamin D deficiency, unspecified; S62.101S Fracture of unspecified carpal bone, right wrist, sequela; N20.0 Calculus of kidney; R79.89 Other specified abnormal findings of blood chemistry
CPT/HCPCS: 99214

== ENCOUNTER 2023-09-22 10:55 | Outpatient (REF) | payer OTHER, SELFPAY ==
--- NOTE | ~2023-09-22 | XR_ITS ---
EXAMINATION: XR KNEE, LEFT CLINICAL INFORMATION: Pain in left knee, fall one month ago, persistent pain since then. COMPARISON: 12/18/2022. TECHNIQUE: Four views of the left knee. FINDINGS: The bones are diffusely demineralized. Vhft-ru-[id number] left joint effusion. Calcifications in the soft tissues posterior to the knee are likely vascular. Mild narrowing of the medial compartment. Mild asymmetric narrowing along the lateral aspect of the patellofemoral compartment. Minimal marginal osteophytes. XR/XR knee LT 4V IMPRESSION: 1. Mild degenerative changes. 2. Dnia-yf-rzwpfcjz left joint effusion. 3. Bones are diffusely demineralized.
== END 2023-09-22 10:56 | disposition home or self-care (01) ==
LOC: HO.XRAY 10:55
PROVIDERS: PCP Internal Medicine; Visit Provider Internal Medicine
DX: M25.562 Pain in left knee (principal)
CPT/HCPCS: 73564

== ENCOUNTER 2023-11-25 10:20 | Outpatient (AMB) | payer OTHER, SELFPAY ==
--- OUTSIDE RECORDS SUMMARY | 2023-11-25 10:22 | XMS_ITS ---
Care Plan - [facility] Created on: November 25, 2023 SERA KELLEY : 1940 Sex: Female Author Organization [facility] Address [address] [place] [address] Phone Care Team Providers Care Noxious Weeds And Pest Inspector Name Role Phone Mac Thomas Primary Care Provider [phone] [facility] Unavailable [phone]
--- OUTSIDE RECORDS SUMMARY | 2023-11-25 10:22 | XMS_ITS | Continuity of Care Document ---
Author Organization [facility] Address [address] [place] [id number]- Care Team Providers Care Loading Unit Tool Setter Name Role Phone Mac Thomas MD Primary Care Physician Encounter [facility] Date(s): 08/27/21 - 09/26/21 [facility] [address] [place] [id number] Attending Physician: AdmEd butterfield Admitting Physician: AdmtrEd Referring Physician: Admtr, [id number] Allergies, Adverse Reactions, Alerts Substance Reaction Severity Status sulfa drugs Active Immunizations Given and Recorded Vaccine Date Status Refusal Reason pneumococcal 23-valent vaccine 1 06/20/11 Given tetanus/diphtheria/pertussis, acel(Tdap) 2 06/20/11 Given 1Admin Note: vis give dated 02/06/09 2Admin Note: vis given dated 03/21/08 Medications Ambien 10 mg oral tablet 1 tablet = 10 mg, By Mouth, Daily at bedtime, PRN for sleep, PLEASE DISPENSE ON OR AFTER 11/08/11., #30 tablet, 5 Refills, Maintenance, Tablet Start Date: 10/20/11 Status: Ordered Flonase 50 mcg/inh nasal spray Daily, 0 Refills, Maintenance, 06/07/19 9:38:00 EST Start Date: 06/07/19 Status: Ordered gabapentin 100 mg oral capsule 1 capsule = 100 mg, By Mouth, 3 times a day, # 90 capsule, 0 Refills, Maintenance Start Date: 08/14/11 Stop Date: 09/13/11 Status: Ordered gabapentin 100 mg oral capsule 100 mg, 1, capsule, By Mouth, 3 times a day, # 21 capsule, Refills 0, Tot. Refills 0, Maintenance, 03/05/18 4:35:20 EDT, Print Requisition Start Date: 03/05/18 Stop Date: 03/12/18 Status: Ordered lovastatin 40 mg oral tablet 1 tablet = 40 mg, By Mouth, Daily, # 30 tablet, 0 Refills, Maintenance, Tablet Start Date: 06/20/11 Status: Ordered Xanax 1 mg oral tablet 1 tablet = 1 mg, By Mouth, Daily at bedtime, 0 Refills, Maintenance, 07/17/17 16:39:23 Start Date: 07/17/17 Status: Ordered Zofran ODT 4 mg oral tablet, disintegrating 1 tablet = 4 mg, By Mouth, 3 times a day, allow tablet to dissolve on tongue, use as needed for nausea, # 15 tablet, 0 Refills, Maintenance, 03/05/18 4:35:30 EDT Start Date: 03/05/18 Stop Date: 03/10/18 Status: Ordered Problem List Condition Effective Dates Status Health Status Inform ant Back pain, low back(Confirmed) Active Hyperlipidemia(Confirmed) Active Insomnia(Confirmed) Active Obese class I(Confirmed) Active Sleep apnea, obstructive(Confirmed) Active Social History Social History Type Response Smoking Status Never (less than 100 in lifetime) entered on: 08/27/21 Sex
--- OUTSIDE RECORDS SUMMARY | 2023-11-25 10:22 | XMS_ITS | Continuity of Care Document ---
Author Organization [facility] Address [address] [place] [id number]- Care Team Providers Care Dielectric Machine Operator Name Role Phone Mac Thomas MD Primary Care Physician [phone] Encounter [facility] Date(s): 08/30/21 - 09/29/21 [facility] [address] [place] [id number] Allergies, Adverse Reactions, Alerts Substance Reaction Severity [...]
--- OUTSIDE RECORDS SUMMARY | 2023-11-25 10:22 | XMS_ITS | Clinical Summary ---
Author Organization [facility] Address [address] [place] [address] Phone Care Team Providers Care Bolt Man Name Role Phone Mac Thomas Primary Care Provider [phone] [facility] Unavailable [phone] Reason for Visit and Chief Complaint Post Op Visit/Follow Up Plan of Treatment Pending Tests Order Diagnosis Results Due Ordering P ridge Follow Up - Appointment 1 Month Unsp fra cture of the lower end of right radius, init 08/10/23 Huber Liu MD Last Documented On 4 10:04AM ; [facility] Includes: Assessments from this encounter No Assessments Recorded Medical Equipment - Implanted Devices Includes: Current Devices No Medical Equipment Recorded Medications Administered Includes: Administered Medications from this encounter No Administered Medications Recorded Results Includes: Results discussed during this encounter No Results Recorded For Specified Dates History of Present Illness Includes: History of Present Illness from this encounter No History of Present Illness Recorded Social History No Social History Recorded - Smoking Status Unknown Procedures and Surgical History Includes: Procedures from this encounter Procedures Code Diagnosis Performing Provider Service Location Service Date X-Ray Exam Of Wrist, complete, min 3 views (Right) [address] Unsp fracture of the lower end of right radius, init Huber Liu MD [facility] 08/10/2023 Last Documented On 4 9:53AM ; [facility] Medical History Includes: Medical History addressed during this encounter No Medical History Recorded Family History Includes: Family History addressed during this encounter No Family History Recorded Review of Systems Includes: Review of Systems from this encounter No Review of Systems Recorded Mental Status Includes: Mental Status from this encounter No Mental Status Recorded Functional Status Includes: Functional Status from this encounter No Functional Status Recorded Physical Exam Includes: Physical Exam from this encounter Encounters Encounter Provider Location Date Check-In Time Check-Out Time Diagnosis Post Op Visit/Follow Up Huber Liu MD [facility], 08/10/19 24 10:00AM 10:05AM Insurance Includes: Active Insurance Policies Plan Name Member ID Group # Subscriber Relationship Effect eder Dates 1 - [employer] [facility] [id number] SERA Rubio 2 - [facility] [id number] SERA Rubio Clinical Notes Includes: Clinical Notes from this encounter * Progress note Date Encounter Last Documented by 08/10/2023 Post Op Visit/Follow Up Last doc umented on 08/10/2023; 10:04 AM, Huber Liu MD; [facility], Physical Findings Chief complaint: Follow-up ORIF right radius History of Present Illness: This is an 82-year-old woman for whom I performed ORIF of her right distal radius and radial shaft on 07/08/2023. She was last seen on 07/20/2023. I prescribed occupational therapy at that time and placed her in a commercial forearm splint. She was instructed to wear that full-time except for bathing and exercises, but she has only been wearing it at night. She is going to occupational therapy. Physical exam: The surgical wound is healing nicely. There is no sign of infection. There is some mild resolving ecchymosis on the volar aspect of the forearm and elbow. Range of motion is good for this stage of healing. She has full pronation and supination with flexion 30 degrees and extension to 30 degrees. Imaging: Radiographs of the right wrist taken today are compared to the prior images. There is continued satisfactory reduction of the fracture and position of the implants. There appears to be early fracture callus present. Impression: Status post ORIF right radius Plan: I instructed the patient to wear the splint full-time except for bathing and exercises for the next 2 weeks. She may then discontinue the brace. She should continue occupational therapy for range of motion and strengthening. She should particularly work on flexion and extension at the wrist. I asked her to return in 1 month for reexamination and x-ray of the right wrist. Plan StartCited - Unsp fracture of the lower end of right radius, init Follow Up/Appointment: 1 Month EndCited
--- OUTSIDE RECORDS SUMMARY | 2023-11-25 10:22 | XMS_ITS | Continuity of Care Document ---
Author Organization [facility] ter Address [address] [place] [address]- Care Team Providers Care Vocational Nurse Lvn Name Role Phone Mac Thomas MD Primary Care Physician [phone] Encounter [facility] ACCT R [id number] Date(s): 09/17/22 - 09/17/[address] [address]- Discharge Disposition: A-D/C AMA Attending Physician: Xuan Liriano MD Admitting Physician: Xuan Liriano MD Referring Physician: Not on Staff, Referring MD Allergies, Adverse Reactions, Alerts Substance Reaction Severity [...] Maintenance, Tablet Start Date: 10/20/11 Status: Ordered Docusate/Senna Tablet 1 tablet, By Mouth, 2 times a day, PRN Constipation, 0 Refills, Maintenance, 01/20/22 10:37:00 EDT,Tablet, Partial fill upon patient request if the prescription is for a schedule II opioid drug. Start Date: 01/20/22 Status: Ordered Flonase 50 mcg/inh nasal spray Daily, 0 Refills, Maintenance, 06/07/19 9:38:00 EST Start Date: 06/07/19 Status: Ordered gabapentin 100 mg oral capsule 200 mg, 2, capsule, By Mouth, 3 times a day, Refills 0, Maintenance, 01/20/22 10:37:00 EDT, Partialfill upon patient request if the prescription is for a schedule II opioid drug. Start Date: 01/20/22 Status: Ordered lidocaine 5% topical film Topically, Daily, 0 Refills, Maintenance, 01/20/22 10:40:00 EDT, Patch, Partial fill upon patient request if the prescription is for a schedule II opioid drug. Start Date: 01/20/22 Status: Ordered lovastatin 40 mg oral tablet 1 tablet = 40 mg, By Mouth, Daily, # 30 tablet, 0 Refills, Maintenance, Tablet Start Date: 06/20/11 Status: Ordered MiraLax Powder 1 pack/packet = 17 Gm, By Mouth, Daily, PRN Constipation, 0 Refills, Maintenance, 01/20/22 10:41:00EDT, Powder, Partial fill upon patient request if the prescription is for a schedule II opioid drug. Start Date: 01/20/22 Status: Ordered Remove Patch Start Date: 01/20/22 Status: Ordered Tylenol 325 mg oral tablet 975 mg, 3, tablet, By Mouth, 4 times a day, Refills 0, Maintenance, 01/20/22 10:37:00 EDT, Partial fill upon patient request if the prescription is for a schedule II opioid drug. Start Date: 01/20/22 Status: Ordered Xanax 1 mg oral tablet 1 tablet = 1 mg, By Mouth, Daily at bedtime, 0 Refills, Maintenance, 07/17/17 16:39:23 Start Date: 07/17/17 Status: Ordered Problem List Condition Confirmation Course Effective Dates Status H ealth Status Informant Back pain, low back Confirmed Active Closed fracture of lateral portion of tibial plateau with delayed healing Confirmed Active Hyperlipidemia Confirmed Active Insomnia Confirmed Active Obese class I Confirmed Active Sleep apnea, obstructive Confirmed Active Results Radiology Reports * Exam Date Time Procedure Performing Provider Status 09/17/22 4:[address] Lumbar Spine W/O Contrast Rebeka Sapp; Salvador (Verified) Notes: (CT Lumbar Spine W/O Contrast) Reason For Exam: Back Pain RESULT: CT Lumbar Spine W/O Contrast CT Abdomen and Pelvis W/O Contrast, CT Lumbar Spine W/O Contrast Hx of Present Illness: flank pain abd labs; Reason: Flank pain, kidney stone suspected; Clinical Question(s): Calculus; fracture. Right Side flank TECHNIQUE: Spiral CT through the abdomen and pelvis without IV contrast formatted in 3 planes. Original data set was reconstructed using a small field of view through the lumbar spine and reformattedinto 3 planes. This study was performed without oral contrast. Weight-based protocol using automatic tube modulation was used to optimize exposure parameters. CTDIvol Body: 8.70 mGy, DLP Body: 433 mGy*cm. (accession [id number]), CTDIvol Body: 40.60 mGy, DLP Body: 1135 mGy*cm. (accession [id number]) COMPARISON: Multiple priors, most recent CT abdomen and pelvis 07/02/2020 FINDINGS: It Risk Advisor View Findings, Lines and Tubes: None. Visualized Chest: 4 mm pleural-based nodule lateral left lung base, stable from 2010. Lung bases are otherwise clear. No pleural effusion. The heart is normal in size. No pericardial effusion. Diaphragm: Normal. Liver: Partially imaged. Unremarkable. Gallbladder: No CT evidence of gallbladder pathology. Bile ducts: No biliary ductal dilation. Spleen: Normal. Pancreas: Atrophic. Otherwise unremarkable. Adrenal glands: Normal. Kidneys and ureters: No hydronephrosis, stones, or noncontrast evidence of suspicious masses. Bladder: Decompressed, limiting evaluation. Otherwise unremarkable. Reproductive organs: Status post hysterectomy. Stomach, small bowel, and large bowel: Unremarkable stomach, small and large bowel. No evidence of bowel obstruction or acute inflammation. Mild colonic diverticulosis without evidence of acute diverticulitis. Fecalization of bowel contents within the distal small bowel. Appendix: Not seen, but no evidence of appendicitis. Peritoneum and retroperitoneum: No ascites or pneumoperitoneum. No omental or mesenteric lesions. Lymph nodes: No enlarged lymph nodes. Blood vessels: Moderate atherosclerotic vascular calcification. No aortic aneurysm. Abdominal and pelvic wall: Small fat-containing umbilical hernia. Bones: No acute abnormality. Grade 1 anterolisthesis of L4 on L5. Minimal retrolisthesis of L1 on L2 and L2 on L3. Unchanged moderate compression deformity of the L1 vertebral body. Otherwise mild multilevel degenerative changes throughout the visualized spine. Diffuse disc bulge and ligamentum flav um hypertrophy at L1-L2 level causes mild spinal canal stenosis. IMPRESSION: No acute abnormality of the abdomen, pelvis, or lumbar spine. Fecalization of distal small bowel contents. Findings are nonspecific, but could represent slow transit or intestinal bacterial overgrowth. I have personally reviewed the images and I agree with this report. WSN: [id number] Ordering Physician: Xuan Liriano Dictated By: Francheska Restrepo MD Dictated Date/Time: 09/17/22 5:16 pm Reviewed By: Bari Ball MD Signed By: Bari Ball MD Signed Date/Time: 09/17/22 5:21 pm Transcribed By: JASON Transcribed Date/Time: 09/17/22 4:57 pm * Exam Date Time Procedure Performing Provider Status 09/17/22 4:[address] Abdomen and Pelvi s W/O Contrast Rebeka Pittman; Auth (Verified) Notes: (CT Abdomen and Pelvis W/O Contrast) Reason For Exam: Flank pain, kidney stone suspected;Other: RESULT: CT Abdomen and Pelvis W/O Contrast CT Abdomen and Pelvis W/O Contrast, CT Lumbar Spine W/O Contrast Hx of Present Illness: flank pain abd labs; Reason: Flank pain, kidney stone suspected; Clinical Question(s): Calculus; fracture. Right Side flank TECHNIQUE: Spiral CT through the abdomen and pelvis without IV contrast formatted in 3 planes. Original data set was reconstructed using a small field of view through the lumbar spine and reformattedinto 3 planes. This study was performed without oral contrast. Weight-based protocol using automatic tube modulation was used to optimize exposure parameters. CTDIvol Body: 8.70 mGy, DLP Body: 433 mGy*cm. (accession [id number]), CTDIvol Body: 40.60 mGy, DLP Body: 1135 mGy*cm. (accession [id number]) COMPARISON: Multiple priors, most recent CT abdomen and pelvis 07/02/2020 FINDINGS: It Risk Advisor View Findings, Lines and Tubes: None. Visualized Chest: 4 mm pleural-based nodule lateral left lung base, stable from 2010. Lung bases are otherwise clear. No pleural effusion. The heart is normal in size. No pericardial effusion. Diaphragm: Normal. Liver: Partially imaged. Unremarkable. Gallbladder: No CT evidence of gallbladder pathology. Bile ducts: No biliary ductal dilation. Spleen: Normal. Pancreas: Atrophic. Otherwise unremarkable. Adrenal glands: Normal. Kidneys and ureters: No hydronephrosis, stones, or noncontrast evidence of suspicious masses. Bladder: Decompressed, limiting evaluation. Otherwise unremarkable. Reproductive organs: Status post hysterectomy. Stomach, small bowel, and large bowel: Unremarkable stomach, small and large bowel. No evidence of bowel obstruction or acute inflammation. Mild colonic diverticulosis without evidence of acute diverticulitis. Fecalization of bowel contents within the distal small bowel. Appendix: Not seen, but no evidence of appendicitis. Peritoneum and retroperitoneum: No ascites or pneumoperitoneum. No omental or mesenteric lesions. Lymph nodes: No enlarged lymph nodes. Blood vessels: Moderate atherosclerotic vascular calcification. No aortic aneurysm. Abdominal and pelvic wall: Small fat-containing umbilical hernia. Bones: No acute abnormality. Grade 1 anterolisthesis of L4 on L5. Minimal retrolisthesis of L1 on L2 and L2 on L3. Unchanged moderate compression deformity of the L1 vertebral body. Otherwise mild multilevel degenerative changes throughout the visualized spine. Diffuse disc bulge and ligamentum flav um hypertrophy at L1-L2 level causes mild spinal canal stenosis. IMPRESSION: No acute abnormality of the abdomen, pelvis, or lumbar spine. Fecalization of distal small bowel contents. Findings are nonspecific, but could represent slow transit or intestinal bacterial overgrowth. I have personally reviewed the images and I agree with this report. WSN: [id number] Ordering Physician: Xuan Liriano Dictated By: Francheska Restrepo MD Dictated Date/Time: 09/17/22 5:16 pm Reviewed By: Bari Ball MD Signed By: Bari Ball MD Signed Date/Time: 09/17/22 5:21 pm Transcribed By: JASON Transcribed Date/Time: 09/17/22 4:57 pm Vital Signs Most recent to oldest [Reference Range]: 1 2 3 Oxygen Saturation [94-100 %] 95 % (09/17/22 3:42 PM) 99 % (09/17/22 2:15 PM) 97 % (09/17/22 10:27 AM) Pulse Rate [55-90 bpm] 66 bpm (09/17/22 3:42 PM) 97 bpm *H* (09/17/22 2:15 PM) 89 bpm (09/17/22 10:27 AM) Blood Pressure [90-138/55-84 mm Hg] 154/70mm Hg *H* (09/17/22 3:42 PM) 132/64mm Hg (09/17/22 2:15 PM) 124/70mm Hg (09/17/22 10:27 AM) Respiratory Rate [16-30 br/min] 17 br/min (09/17/22 3:42 PM) 18 br/min (09/17/22 2:15 PM) 18 br/min (09/17/22 10:27 AM) Temperature [96.8-100.4 DegF] 97.5 DegF (09/17/22 3:42 PM) 97.7 DegF (09/17/22 2:15 PM) 97.5 DegF (09/17/22 10:27 AM) Mode of Delivery (Oxygen) Room air (09/17/22 3:42 PM) Room air (09/17/22 2:15 PM) Room air (09/17/22 10:27 AM) Blood pressure sites Arm, right (09/17/22 3:42 PM) Arm, right (09/17/22 2:15 PM) Arm, right (09/17/22 10:27 AM) Temperature Route Oral (09/17/22 3:42 PM) Oral (09/17/22 2:15 PM) Oral (09/17/22 10:27 AM) Social History Social History Type Response Smoking Status Never (less than 100 in lifetime) entered on: 08/27/[address] Lumbar spine WO contrast * [employer] , CIS S: TRANSCRIBE Lizzy PAULSON, Devrim: VERIFY Francheska Restrepo MD: SIGN Event Display: Result: Authored Date: CT Abdomen and Pelvis W/O Contrast, CT Lumbar Spine W/O Contrast Hx of Present Illness: flank pain abd labs; Reason: Flank pain, kidney stone suspected; Clinical Question(s): Calculus; fracture. Right Side flank TECHNIQUE: Spiral CT through the abdomen and pelvis without IV contrast formatted in 3 planes. Original data set was reconstructed using a small field of view through the lumbar spine and reformattedinto 3 planes. This study was performed without oral contrast. Weight-based protocol using automatic tube modulation was used to optimize exposure parameters. CTDIvol Body: 8.70 mGy, DLP Body: 433 mGy*cm. (accession [id number]), CTDIvol Body: 40.60 mGy, DLP Body: 1135 mGy*cm. (accession [id number]) COMPARISON: Multiple priors, most recent CT abdomen and pelvis 07/02/2020 FINDINGS: It Risk Advisor View Findings, Lines and Tubes: None. Visualized Chest: 4 mm pleural-based nodule lateral left lung base, stable from 2011. Lung bases are otherwise clear. No pleural effusion. The heart is normal in size. No pericardial effusion. Diaphragm: Normal. Liver: Partially imaged. Unremarkable. Gallbladder: No CT evidence of gallbladder pathology. Bile ducts: No biliary ductal dilation. Spleen: Normal. Pancreas: Atrophic. Otherwise unremarkable. Adrenal glands: Normal. Kidneys and ureters: No hydronephrosis, stones, or noncontrast evidence of suspicious masses. Bladder: Decompressed, limiting evaluation. Otherwise unremarkable. Reproductive organs: Status post hysterectomy. Stomach, small bowel, and large bowel: Unremarkable stomach, small and large bowel. No evidence of bowel obstruction or acute inflammation. Mild colonic diverticulosis without evidence of acute diverticulitis. Fecalization of bowel contents within the distal small bowel. Appendix: Not seen, but no evidence of appendicitis. Peritoneum and retroperitoneum: No ascites or pneumoperitoneum. No omental or mesenteric lesions. Lymph nodes: No enlarged lymph nodes. Blood vessels: Moderate atherosclerotic vascular calcification. No aortic aneurysm. Abdominal and pelvic wall: Small fat-containing umbilical hernia. Bones: No acute abnormality. Grade 1 anterolisthesis of L4 on L5. Minimal retrolisthesis of L1 on L2 and L2 on L3. Unchanged moderate compression deformity of the L1 vertebral body. Otherwise mild multilevel degenerative changes throughout the visualized spine. Diffuse disc bulge and ligamentum flav um hypertrophy at L1-L2 level causes mild spinal canal stenosis. IMPRESSION: No acute abnormality of the abdomen, pelvis, or lumbar spine. Fecalization of distal small bowel contents. Findings are nonspecific, but could represent slow transit or intestinal bacterial overgrowth. I have personally reviewed the images and I agree with this report. WSN: [id number] Ordering Physician: Xuan Liriano Dictated By: Francheska Restrepo MD Dictated Date/Time: 09/17/22 5:16 pm Reviewed By: Bari Ball MD Signed By: Bari Ball MD Signed Date/Time: 09/17/22 5:21 pm Transcribed By: JASON Transcribed Date/Time: 09/17/22 4:[address] Abdomen and Pelvis WO contrast * [employer] , CIS S: TRANSCRIBE Lizzy PAULSON, Bari: VERIFY Francheska Restrepo MD: SIGN Event Display: Result: Authored Date: [id number] CT Abdomen and Pelvis W/O Contrast, CT Lumbar Spine W/O Contrast Hx of Present Illness: flank pain abd labs; Reason: Flank pain, kidney stone suspected; Clinical Question(s): Calculus; fracture. Right Side flank TECHNIQUE: Spiral CT through the abdomen and pelvis without IV contrast formatted in 3 planes. Original data set was reconstructed using a small field of view through the lumbar spine and reformattedinto 3 planes. This study was performed without oral contrast. Weight-based protocol using automatic tube modulation was used to optimize exposure parameters. CTDIvol Body: 8.70 mGy, DLP Body: 433 mGy*cm. (accession [id number]), CTDIvol Body: 40.60 mGy, DLP Body: 1135 mGy*cm. (accession [id number]) COMPARISON: Multiple priors, most recent CT abdomen and pelvis 07/02/2020 FINDINGS: It Risk Advisor View Findings, Lines and Tubes: None. Visualized Chest: 4 mm pleural-based nodule lateral left lung base, stable from 2010. Lung bases are otherwise clear. No pleural effusion. The heart is normal in size. No pericardial effusion. Diaphragm: Normal. Liver: Partially imaged. Unremarkable. Gallbladder: No CT evidence of gallbladder pathology. Bile ducts: No biliary ductal dilation. Spleen: Normal. Pancreas: Atrophic. Otherwise unremarkable. Adrenal glands: Normal. Kidneys and ureters: No hydronephrosis, stones, or noncontrast evidence of suspicious masses. Bladder: Decompressed, limiting evaluation. Otherwise unremarkable. Reproductive organs: Status post hysterectomy. Stomach, small bowel, and large bowel: Unremarkable stomach, small and large bowel. No evidence of bowel obstruction or acute inflammation. Mild colonic diverticulosis without evidence of acute diverticulitis. Fecalization of bowel contents within the distal small bowel. Appendix: Not seen, but no evidence of appendicitis. Peritoneum and retroperitoneum: No ascites or pneumoperitoneum. No omental or mesenteric lesions. Lymph nodes: No enlarged lymph nodes. Blood vessels: Moderate atherosclerotic vascular calcification. No aortic aneurysm. Abdominal and pelvic wall: Small fat-containing umbilical hernia. Bones: No acute abnormality. Grade 1 anterolisthesis of L4 on L5. Minimal retrolisthesis of L1 on L2 and L2 on L3. Unchanged moderate compression deformity of the L1 vertebral body. Otherwise mild multilevel degenerative changes throughout the visualized spine. Diffuse disc bulge and ligamentum flav um hypertrophy at L1-L2 level causes mild spinal canal stenosis. IMPRESSION: No acute abnormality of the abdomen, pelvis, or lumbar spine. Fecalization of distal small bowel contents. Findings are nonspecific, but could represent slow transit or intestinal bacterial overgrowth. I have personally reviewed the images and I agree with this report. WSN: [id number] Ordering Physician: Xuan Liriano Dictated By: Francheska Restrepo MD Dictated Date/Time: 09/17/22 5:16 pm Reviewed By: Bari Ball MD Signed By: Bari Ball MD Signed Date/Time: 09/17/22 5:21 pm Transcribed By: JASON Transcribed Date/Time: 09/17/22 4:57 pm Patient Care team information Care Team Personnel Name: William PAULSON, Mac Mclean Position: Reference Physician Member Role: PCP Address: Address: [address] [place] [address] Name: Rivera Eugene RN Position: [facility] ED RN W/OE and Tasks Member Role: Patient Care Provider Name: Juanita Murry RN Position: S ED RN W/OE and Tasks Member Role: Patient Care Provider Care Team Related Persons Name: KEHINDE CARBAJAL Address: [address] [place] [address] Name: IVANA KELLEY Address: [address] [place] [address] Name: JANNY KELLEY Address: [address] [place] [address]
--- OUTSIDE RECORDS SUMMARY | 2023-11-25 10:22 | XMS_ITS | Continuity of Care Document ---
Author Organization [facility] ter Address [address] [place] [address]- Care Team Providers Care Terrazzo Layer Helper Name Role Phone William PAULSON, Mac cMlean Primary Care Physician [phone] Encounter [facility] Date(s): 01/18/22 - 01/20/[address] [address] [place] Encounter Diagnosis Knee pain, acute(Final) - 01/16/22 Discharge Disposition: A-Transfer SNF Attending Physician: Erendira PAULSON, Toñito Fay Admitting Physician: Jazz Vizcarra MD Referring Physician: Not on Staff, Referring [...] Maintenance, Tablet Start Date: 10/20/11 Status: Ordered Dilaudid 4 mg oral tablet 4 mg, Tablet, By Mouth, Every 4 hours, PRN for Pain , Severe, Routine, 01/19/22 15:17:00 EDT Start Date: 01/19/22 Stop Date: 01/26/22 Status: Ordered Dilaudid 4 mg oral tablet 1 tablet = 4 mg, By Mouth, Every 4 hours, PRN Pain , Severe, for 3 days, Please take dilaudid 4mg PO every 4-6hrly prn for severe pain., # 18 tablet, 0 Refills, Acute 01/23/22 10:37:00 EDT, 01/20/22 10:37:00 EDT, Tablet, Partial fill upon patient requ... Start Date: 01/20/22 Stop Date: 01/23/22 Status: Ordered Docusate/Senna Tablet 1 tablet, By Mouth, 2 times a day, PRN Constipation, 0 Refills, Maintenance, 01/20/22 10:37:00 EDT,Tablet, Partial fill upon patient request if the prescription is for a schedule II opioid drug. Start Date: 01/20/22 Status: Ordered enoxaparin 40 mg/0.4 mL injectable solution 0.4 mL = 40 mg, Subcutaneous Injection, Daily, for 21 days, for DVT prophylaxis, # 8.4 mL, 0 Refills, Acute 02/10/22 10:40:00 EDT, 01/20/22 10:40:00 EDT, Injection, Partial fill upon patient request if the prescription is for a schedule II opioid drug. Start Date: 01/20/22 Stop Date: 02/10/22 Status: Ordered Flonase 50 mcg/inh nasal spray Daily, 0 Refills, Maintenance, 06/07/19 9:38:00 EST Start Date: 06/07/19 Status: Ordered gabapentin 100 mg oral capsule 200 mg, Capsule, By Mouth, 01/20/22 9:00:00 EDT Start Date: 01/20/22 Stop Date: 01/20/22 Status: Completed gabapentin 100 mg oral capsule 200 mg, [...] Date: 07/17/17 Status: Ordered Problem List Condition Effective Dates Status Health Status Inform ant Back pain, low back(Confirmed) Active Closed fracture of lateral p ortion of tibial plateau with delayed healing(Confirmed) Active Hyperlipidemia(Confirmed) Active Insomnia(Confirmed) Active Obese class I(Confirmed) Active Sleep apnea, obstructive(Confirmed) Active Results Radiology Reports * Exam Date Time Procedure Performing Provider Status 01/16/22 2:20 PM Knee 1 or 2 Views Left Sangita Barbosa ; Salvador (Verified) Notes: (Knee 1 or 2 Views Left) Reason For Exam: Decreased ROM RESULT: Knee 1 or 2 Views Left Left knee 2 views dated January 16, 2022. No prior studies are available. HISTORY: Pain. FINDINGS: This examination shows no evidence of fracture or dislocation. Pointing of the tibial spines is noted. No joint effusion is seen. IMPRESSION: Mild arthritic changes. No evidence of acute osseous abnormality. Examination 15603. Thank you for allowing me to participate in the care of this patient. WSN: [id number] Ordering Physician: Suzanne Aguillon Dictated By: Juventino Lauren MD Dictated Date/Time: 01/16/22 2:29 pm Reviewed By: Juventino Lauren MD Signed By: Juventino Lauren MD Signed Date/Time: 01/16/22 2:29 pm Transcribed By: JASON Transcribed Date/Time: 01/16/22 2:29 pm * Exam Date Time Procedure Performing Provider Status 01/16/22 2:20 PM XR Hip w/Pelvis 2-3 View Left Sangita Barbosa; Salvador (Verified) Notes: (XR Hip w/Pelvis 2-3 View Left) Reason For Exam: Decreased ROM RESULT: XR Hip w/Pelvis 2-3 View Left AP pelvis and left hip 3 views dated January 16, 2022. No prior studies are available. HISTORY: Pain. FINDINGS: This examination shows no evidence of fracture or dislocation. Joint spaces are fairly well-preserved. No radiopaque foreign body or soft tissue gas is demonstrated. IMPRESSION: Negative examination. Thank you for allowing me to participate in the care of this patient. WSN: [id number] Ordering Physician: Suzanne Aguillon Dictated By: Juventino Lauren MD Dictated Date/Time: 01/16/22 2:28 pm Reviewed By: Juventino Lauren MD Signed By: Juventino Lauren MD Signed Date/Time: 01/16/22 2:28 pm Transcribed By: JASON Transcribed Date/Time: 01/16/22 2:28 pm Vital Signs Most recent to oldest [Reference Range]: 1 2 3 Height 164 cm (01/20/22 1:02 PM) 164 cm (01/18/22 3:09 PM) 164 cm (01/18/22 11:08 AM) Weight 90 kg (01/17/22 11:52 AM) Oxygen Saturation [94-100 %] 96 % (01/20/22 1:02 PM) 93 % *L* (01/20/22 7:00 AM) 93 % *L* (01/19/22 8:00 PM) Pulse Rate [55-90 bpm] 74 bpm (01/20/22 1:02 PM) 61 bpm (01/20/22 7:00 AM) 90 bpm (01/19/22 8:00 PM) Body Mass Index [18.5-24.99] 33.46 *>HHI* (01/17/22 11:52 AM) Blood Pressure [90-138/55-84 mm Hg] 123/67mm Hg (01/20/22 1:02 PM) 126/71mm Hg (01/20/22 7:00 AM) 111/80mm Hg (01/19/22 8:00 PM) Respiratory Rate [16-30 br/min] 20 br/min (01/20/22 1:02 PM) 20 br/min (01/20/22 10:47 AM) 16 br/min (01/20/22 9:10 AM) Temperature [96.8-100.4 DegF] 97.9 DegF (01/20/22 1:02 PM) 98.5 DegF (01/20/22 7:00 AM) 98.4 DegF (01/19/22 8:00 PM) Mode of Delivery (Oxygen) Room air (01/20/22 1:02 PM) Room air (01/20/22 7:00 AM) Room air (01/19/22 8:00 PM) Blood pressure sites Arm, left (01/20/22 7:00 AM) Arm, left (01/19/22 8:00 PM) Arm, left (01/19/22 7:00 AM) Temperature Route Oral (01/20/22 1:02 PM) Oral (01/20/22 7:00 AM) Oral (01/19/22 8:00 PM) Dry Weight 90 kg (01/17/22 11:52 AM) Social History Social History Type Response Smoking Status Never (less than 100 in lifetime) entered on: 08/27/21 Sex Note * [facility] , CIS S: TRANSCRIBE Juventino Lauren MD: VERIFY Event Display: Result: Authored Date: [id number] AP pelvis and left hip 3 views dated January 16, 2022. No prior studies are available. HISTORY: Pain. FINDINGS: This examination shows no evidence of fracture or dislocation. Joint spaces are fairly well-preserved. No radiopaque foreign body or soft tissue gas is demonstrated. IMPRESSION: Negative examination. Thank you for allowing me to participate in the care of this patient. WSN: [id number] Ordering Physician: Suzanne Aguillon Dictated By: Juventino Lauren MD Dictated Date/Time: 01/16/22 2:28 pm Reviewed By: Juventino Lauren MD Signed By: Juventino Lauren MD Signed Date/Time: 01/16/22 2:28 pm Transcribed By: JASON Transcribed Date/Time: 01/16/22 2:28 pm * [facility] , CIS S: TRANSCRIBE Juventino Lauren MD: VERIFY Event Display: Result: Authored Date: [id number] Left knee 2 views dated January 16, 2022. No prior studies are available. HISTORY: Pain. FINDINGS: This examination shows no evidence of fracture or dislocation. Pointing of the tibial spines is noted. No joint effusion is seen. IMPRESSION: Mild arthritic changes. No evidence of acute osseous abnormality. Examination 74976. Thank you for allowing me to participate in the care of this patient. WSN: [id number] Ordering Physician: Suzanne Aguillon Dictated By: Juventino Lauren MD Dictated Date/Time: 01/16/22 2:29 pm Reviewed By: Juventino Lauren MD Signed By: Juventino Lauren MD Signed Date/Time: 01/16/22 2:29 pm Transcribed By: JASON Transcribed Date/Time: 01/16/22 2:29 pm Care Team Personnel Name: Mac Thomas MD Address: [address] [place] [address]
--- OUTSIDE RECORDS SUMMARY | 2023-11-25 10:22 | XMS_ITS | Clinical Summary ---
Author Organization [facility] Address [address] [place] [address] Phone Care Team Providers Care Touch Up Worker Name Role Phone Mac Thomas Primary Care Provider [phone] [facility] [place] Unavailable [phone] Reason for Visit and Chief Complaint Established Patient Plan of Treatment Pending Tests Order Diagnosis Results Due Ordering P rovider Follow Up - Appointment PRN Unsp fx the lower end r rad, subs for clos fx w routn heal 10/12/23 Monica Elkins PA-C Last Documented On 4 8:48AM ; [facility], In House X-Rays - X-Rays Wrist, right, 3 views ([id number]) Unsp fx the lower end r rad, subs for clos fx w routn heal 10/14/23 Monica Elkins PA-C Last Documented On 4 8:48AM ; [facility] Assessments Includes: Assessments from this encounter No Assessments Recorded Medical Equipment - Implanted Devices Includes: Current Devices No Medical Equipment Recorded Medications Administered Includes: Administered Medications from this encounter No Administered Medications Recorded Vital Signs Includes: Vital Signs from this encounter Vital Name 10/12/2023 08:37A Blood Pressure Sitting (mmHg) 124/75 Pulse Rate-Sitting (bpm) 73 Temp-Temporal 96.4 Oxygen Saturation (%) 96 Last Documented: On 10/12/2023 8:37AM ; [facility] Results Includes: Results discussed during this encounter [...] Of Wrist, complete, min 3 views (Right) [id number] Unsp fx the lower end r rad, subs for clos fx w routn heal Monica Elkins [facility]-C [facility] 10/12/2023 Last Documented On 4 4:32PM ; [facility] Medical History Includes: Medical History addressed during [...] Location Date Check-In Time Check-Out Time Diagnosis Established Patient Monica Brittni JACK [facility] 10/12/19 24 8:40AM 8:44AM Insurance Includes: Active Insurance Policies Plan Name Member ID Group # Subscriber Relationship Effect eder Dates 1 - [facility] [id number] SERA Rubio 2 - [facility] [id number] SERA Rubio Clinical Notes Includes: Clinical Notes from this encounter * Progress note Date Encounter Last Documented by 10/12/2023 Established Patient Raimundo mckeon on 10/12/2023; 8:48 AM, Monica Elkins PA-C; [facility] Reason For Visit Chief complaint: Follow-up ORIF right wrist Date of injury: 07/08/2023 History of Present Illness: Patient is a pleasant 83-year-old female who sustained fracture to the right distal radius and radial shaft on 07/08/2023 which was treated operatively by Dr. Liu. She was last seen in the office on 09/10/2023. She had been working with occupational therapy and has regained full function and range of motion. She has very little pain at this time. She did have an injury to her left knee about 2 months ago for which she is seeking medical treatment. Her PCP advised her to come to here today for evaluation of the knee. She currently does not have community orthopedist as they dropped her insurance. She has no other concerns about the right arm at this time. She does plan to return to playing pickle ball but under stands that she needs to use caution. Physical exam: Well-appearing female in no acute distress found seated on the exam table. Well-healed surgical incision on the volar aspect of the forearm his present. No signs of infection. Motor and sensory intact throughout the radial, ulnar and median nerve distributions. She does lack slight flexion compared to the contralateral limb. She has full extension. Ecdis N Navigation Operator strength is strong and symmetric Imaging: Impression: 3-month status post ORIF right distal radius shaft fractures Plan: - Weightbearing: Weightbearing as tolerated right upper extremity - Activity/Therapy: Patient may resume activities without restrictions, Caution to avoid reinjury - Dressing/DME: None needed - Pain control: Elevate affected extremity; apply ice to affected area; over the counter pain medication such as Tylenol or NSAID's - Follow up: As needed - X-ray at follow up: As needed Case discussed with Dr Liu Physical Findings - Vitals taken 10/12/2023 08:37 am BP-Sitting 124/75 mmHg Pulse Rate-Sitting 73 bpm Temp-Temporal 96.4 F Oxygen Saturation 96 % Plan StartCited - Unsp fx the lower end r rad, subs for clos fx w routn heal Follow Up/Appointment: PRN In House X-Rays/X-Rays: Wrist, right, 3 views ([id number]) EndCited
--- OUTSIDE RECORDS SUMMARY | 2023-11-25 10:22 | XMS_ITS ---
Author Organization [facility] Address [address] [place] [phone] Phone Care Team Providers Care Counselor Education Professor Name Role Phone Mac Thomas Primary Care Provider [phone] [facility] Unavailable [phone] Plan of Treatment No Plan of Treatment Recorded Assessments Includes: Assessments for all patient encounters No Assessments Recorded Medical Equipment - Implanted Devices Includes: Current and historical Devices No Medical Equipment Recorded Medications Administered Includes: Administered Medications in patient's chart No Administered Medications Recorded Vital Signs Includes: Vital Signs from 11/24/2022 through 11/25/2023 Vital Name 10/12/2023 08:37A Blood Pressure Sitting (mmHg) 124/75 Pulse Rate-Sitting (bpm) 73 Temp-Temporal 96.4 Oxygen Saturation (%) 96 Last Documented: On 10/12/2023 8:37AM ; [facility] Results Includes: Results from 11/24/2022 through 11/25/2023 No Results Recorded For Specified Dates History of Present Illness History of Present Illness not supported for this document type No History of Present Illness Recorded Social History No Social History Recorded - Smoking Status Unknown Procedures and Surgical History Includes: Procedures from 11/24/2022 through 11/25/2023 Procedures Code Diagnosis Performing Provider Service Location Service Date X-Ray Exam Of Wrist, complete, min 3 views (Right) [id number] Unsp fx the lower end r rad, subs for clos fx w jake Elkins PA-C [facility] 10/12/2023 Last Documented On 4 4:32PM ; [facility] X-Ray Exam Of Forearm, 2 views (Right) 65395 Unsp fx the lower end r rad, subs for clos fx w jake Kinsey MD [facility] 09/10/2023 Last Documented On 4 6:43AM ; [facility], X-Ray Exam Of Wrist, complete, min 3 views (Right) 94184 Unsp fracture of the lower end of right radius, dasia Liu MD [facility], 08/10/2023 Last Documented On 4 9:53AM ; [facility], [facility] Exam Of Wrist, complete, min 3 views (Right) 16502 Unsp fracture of the lower end of right radius, dasia Liu MD [facility], 07/20/2023 Last Documented On 4 2:06PM ; [facility], Treat Fx Radial 3+ Frag (Right) 80576 Unsp fracture of the lower end of right radius, dasia Liu MD [facility] 07/08/2023 Last Documented On 4 8:32AM ; [facility], Medical History Includes: Medical History in patient's chart No Medical History Recorded Family History Includes: Family History in patient's chart No Family History Recorded Review of Systems Review of Systems not supported for this document type No Review of Systems Recorded Mental Status No Mental Status Recorded Functional Status No Functional Status Recorded Physical Exam Physical Exam not supported for this document type No Physical Exam Recorded Encounters Includes: Encounters from 11/24/2022 through 11/25/2023 Encounter Provider Location Date Check-In Time Check-Out Time Diagnosis Established Patient Monica Elkins PA-C [facility] 10/12/19 24 8:40AM 8:44AM Post Op Visit/Follow Up Willy Kinsey MD [facility] 09/10/19 24 8:40AM 9:35AM Post Op Visit/Follow Up Huber Liu MD [facility] 08/10/19 24 10:00AM 10:05AM Post Op Visit/Follow Up Huber Liu MD [facility] 07/20/19 9:40AM 11:01AM Insurance Includes: Active Insurance Policies Plan Name Member ID Group # Subscriber Relationship Effect eder Dates 1 - [facility]/[employer]/[facility] [id number] SERA Rubio - [facility] [id number] SERA Rubio Clinical Notes Includes: Signed Clinical Notes starting from 04/13/2022 * Progress note Date Encounter Last Documented by 10/12/2023 Established Patient Raimundo mckeon on 10/12/2023; 8:48 AM, Monica Elkins PA-C; [facility], Reason For Visit Chief complaint: Follow-up ORIF [...] the contralateral limb. She has full extension. Control Room Operator strength is strong and symmetric Imaging: [...] In House X-Rays/X-Rays: Wrist, right, 3 views ([id number]) EndCited * Progress note Date Encounter Last Documented by 09/10/2023 Post Op Visit/Follow Up Last doc umented on 09/10/2023; 11:20 AM, Willy Kinsey MD; [facility], Chief Complaint Closed segmental fracture distal right radius History of Present Illness The patient is an 82-year-old female. She fell playing pickle ball. She injured her right upper extremity. She had an intra-articular fracture involving the distal right radius as well as a more proximal radial shaft fracture. She underwent reduction and fixation using a volar locking plate on 07/08/2023. She is here today for follow- up. Is been roughly 2 months since the surgery. Physical Findings Healed incision over volar aspect of distal right forearm. Neurovascular status right upper extremity intact. Normal motion of thumb fingers hand and wrist. Normal pronation and supination. OB Ultrasound X-rays were taken of her right forearm in the office today. The x-rays show advanced healing of distal radius fractures. Fixation has remained stable. Alignment is anatomic. User Defined 4 1. 2-month status post open reduction internal fixation of distal right radius fractures with a volar locking plate. 2. Advanced healing seen. 3. Normal function. Plan StartCited - Unsp fx the lower end r rad, subs for clos fx w routn heal Follow Up/Appointment: 1 Month EndCited 1. No lifting more than 10 pounds. 2. Would delay playing pickleball for at least 1 more month. 3. Return to see Dr. Liu in 1 month for final x-rays and to discuss activities * Progress note Date Encounter Last Documented by 08/10/2023 Post Op Visit/Follow Up Last doc umented on 08/10/2023; 10:04 AM, Huber Liu MD; [facility], Physical Findings Chief complaint: Follow-up ORIF right [...] radius, init Follow Up/Appointment: 1 Month EndCited * Progress note Date Encounter Last Documented by 07/20/2023 Post Op Visit/Follow Up Last doc umented on 07/20/2023; 10:55 AM, Huber Liu MD; [facility], Physical Findings Chief complaint: Follow-up ORIF right radius History of Present Illness: This is an 82-year-old woman for whom I performed ORIF of her fracture of the right distal radius and radial shaft on 07/08/2023. She has no complaints today. Physical exam: The right upper extremity wound is healing nicely. There is no redness or drainage. Neurovascular exam is intact. There is still mild to moderate swelling of the forearm. She has moderate stiffness. Imaging: Radiographs of the right wrist taken today are compared with her operative images. There is continued satisfactory reduction of the fracture and position of the implants. Impression: Status post ORIF right distal radius and radius shaft. Plan: The surgical sutures are removed. I fitted the patient with a commercial forearm splint. I asked her to wear that full-time except for bathing and range of motion exercises. I prescribed occupational therapy to assist with range of motion. I explained to her the importance of doing the exercises particularly since her limitation is greatest in supination. I asked her to return in 3 weeks for reexamination and x-ray of the right wrist. Plan StartCited - Unsp fracture of the lower end of right radius, init Follow Up/Appointment: 3 weeks EndCited
--- OUTSIDE RECORDS SUMMARY | 2023-11-25 10:22 | XMS_ITS | Continuity of Care Document ---
Author Organization [facility] ter Address [address] [place] [address]- Care Team Providers Care Strategic Manager Name Role Phone Mac Thomas MD Primary Care Physician Encounter 11/01/23 - 11/02/[address] [address] Attending Physician: Not on Staff, Attending MD Referring Physician: Not on Staff, Referring [...] Exam Date Time Procedure Performing Provider Status 11/01/23 5:45 PM MRI Ext Lower W/O Contrast Left Auth (Verified) Notes: (MRI Ext Lower W/O Contrast Left) Reason For Exam: Reason For Exam: M23.322/OTH MENISCUS DERANG, POST HORN OF MEDIAL MENISCUS, L KNEE, , suspect meniscal tear after rotational ;Reason For Exam: M23.322/OTH MENISCUS DERANG, POST HORN OF MEDIAL MENISCUS, L KNEE, , suspect meniscal tear after rotational RESULT: MRI Ext Lower W/O Contrast Left [facility] VISIT NUMBER :[id number] Patient Name: SERA KELLEY Date of : 1940 Date of Exam: 11-01-2023 Referring Physician: [facility] [address] [place] [id number] Exam: MR Knee (C-) CPT 96518 - Left Room Description: [facility] 3.0T MRI left knee History: Pain Findings: Myxoid degeneration in the posterior horn of the medial meniscus. Radial tear at the posterior horn-body junction of the lateral meniscus. Myxoid degeneration in the anterior horn of the lateral meniscus The ACL and PCL are intact The MCL is intact The LCL complex including the biceps femoris, popliteus and fibular collateral ligaments are intact The medial and lateral patellar retinacula are intact. The extensor mechanism is intact. Impression: Radial tear at the posterior horn-body junction of the lateral meniscus. Mild myxoid degeneration in the anterior horn of the lateral meniscus Mild myxoid degeneration in the posterior horn of the medial meniscus Electronically Signed By: Chip Ward MD Dictated By: Not on Staff , FELICIA PAULSON Dictated Date/Time: 11/02/23 2:36 pm Reviewed By: Not on Staff , FELICIA PAULSON Signed By: Not on Staff , FELICIA PAULSON Signed Date/Time: 11/02/23 2:36 pm Transcribed By: TROY Transcribed Date/Time: 11/02/23 2:36 pm Social History Social History Type Response Smoking Status Never (less than 100 in lifetime) entered on: 08/27/21 Sex Female Patient Care team information Care Team Personnel Name: Mac Thomas MD Position: Reference Physician Member Role: PCP Address: Address: [address] [place] [address] Drive [address] [place] [address]- Care Team Related Persons Name: KEHINDE CARBAJAL Address: [address] [place] [address] Name: IVANA KELLEY Address: [address] [place] [address] Name: JANNY KELLEY Address: [address] [place] [address]
--- OUTSIDE RECORDS SUMMARY | 2023-11-25 10:22 | XMS_ITS | Clinical Summary ---
Author Organization [facility] Address [address] [place] [address] Phone Care Team Providers Care Registered Nurse Cardiovascular Icu Name Role Phone Mac Thomas Primary Care Provider [phone] [facility] Unavailable [phone] Reason for Visit and Chief Complaint Post Op Visit/Follow Up Plan of Treatment 1. No lifting more than 10 pounds. 2. Would delay playing pickleball for at least 1 more month. 3. Return to see Dr. Liu in 1 month for final x-rays and to discuss activities - Last Documented On 09/10/2023 11:20AM ; [facility] Pending Tests Order Diagnosis Results Due Ordering Sebastian sabillon Follow Up - Appointment 1 Month Unsp fx the lower end r rad, subs for clos fx w routn heal 09/10/23 Willy Kinsey MD Last Documented On 11:20AM ; [facility] Assessments Includes: Assessments from this encounter No Assessments Recorded Medical Equipment - Implanted Devices Includes: Current Devices No Medical Equipment Recorded Medications Administered Includes: Administered Medications from this encounter No Administered Medications Recorded Results Includes: Results discussed during this encounter No Results Recorded For Specified Dates History of Present Illness Includes: History of Present Illness from this encounter HPI The patient is an 82-year-old female. She fell playing pickle ball. She injured her right upper extremity. She had an intra-articular fracture involving the distal right radius as well as a more proximal radial shaft fracture. She underwent reduction and fixation using a volar locking plate on 07/08/2023. She is here today for follow- up. Is been roughly 2 months since the surgery. Social History No Social History Recorded - Smoking Status Unknown Procedures and Surgical History Includes: Procedures from this encounter Procedures Code Diagnosis Performing Provider Service Location Service Date X-Ray Exam Of Forearm, 2 views (Right) 06781 Unsp fx the lower end r rad, subs for clos fx w routn heal [facility]23 Last Documented On 4 6:43AM ; [facility] Medical History Includes: Medical History addressed during this encounter No Medical History Recorded Family History Includes: Family History addressed during this encounter No Family History Recorded Review of Systems Includes: Review of Systems from this encounter 1. 2-month status post open reduction internal fixation of distal right radius fractures with a volar locking plate. 2. Advanced healing seen. 3. Normal function. Mental Status Includes: Mental Status from this encounter No Mental Status Recorded Functional Status Includes: Functional Status from this encounter No Functional Status Recorded Physical Exam Includes: Physical Exam from this encounter Encounters Encounter Provider Location Date Check-In Time Check-Out Time Diagnosis Post Op Visit/Follow Up Willy Kinsey MD [facility] 09/10/19 24 8:40AM 9:35AM Insurance Includes: Active Insurance Policies Plan Name Member ID Group # Subscriber Relationship Effect eder Dates 1 - [employer]/[facility] [employer] [facility] [id number] SERA KELLEY Self 2 - [facility] [id number] SERA LAKISHASHERRIE Self Clinical Notes Includes: Clinical Notes from this encounter * Progress note Date Encounter Last Documented by 09/10/2023 Post Op Visit/Follow Up Last doc umented on 09/10/2023; 11:20 AM, Wil[facility] Kinsey [facility]; [facility] Chief Complaint Closed segmental fracture distal right [...]
--- OUTSIDE RECORDS SUMMARY | 2023-11-25 10:22 | XMS_ITS | Clinical Summary ---
Author Organization [facility] Address [address] [place] [address] Phone Care Team Providers Care Designer/Writer Name Role Phone Mac Thomas Primary Care Provider [phone] [facility] Unavailable [phone] Reason for Visit and Chief Complaint Post Op Visit/Follow Up Plan of Treatment Pending Tests Order Diagnosis Results Due Ordering P ridge Follow Up - Appointment 3 weeks Unsp fra cture of the lower end of right radius, init 07/20/23 Huber Liu MD Last Documented On 4 10:55AM ; [facility] Assessments Includes: Assessments from this encounter [...] Of Wrist, complete, min 3 views (Right) [id number] Unsp fracture of the lower end of right radius, init Huber iLu MD [facility] 07/20/2023 Last Documented On 4 2:06PM ; Formerly named [facility] Medical History Includes: Medical History addressed during [...] Post Op Visit/Follow Up Huber Liu MD [facility], 07/20/19 24 9:40AM 11:01AM Insurance Includes: Active Insurance Policies Plan Name Member ID Group # Subscriber Relationship Effect eder Dates 1 - [employer]/[facility] [id number] SERA Rubio 2 - [facility] [id number] SERA Rubio Clinical Notes Includes: Clinical Notes from this encounter * Progress note Date Encounter Last Documented by 07/20/2023 Post Op Visit/Follow Up Last doc umented on 07/20/2023; 10:55 AM, Huber Liu MD; [facility], Physical Findings Chief complaint: Follow-up ORIF right [...]
--- OUTSIDE RECORDS SUMMARY | 2023-11-25 10:22 | XMS_ITS | Continuity of Care Document ---
Author Organization [facility] Address [address] [place] [address]- Care Team Providers Care Assistant Designer Name Role Phone Mac Thomas MD Primary Care Physician [phone] [facility] Date(s): 06/07/19 - 06/17/19 [facility] [address] [place] [address] [facility] Attending Physician: AdmEd butterfield Admitting Physician: Admtr, Ed Referring Physician: Admtr, Ar8 Allergies, Adverse Reactions, Alerts Substance Reaction Severity Status sulfa drugs Active Macrodantin Active Immunizations Given and Recorded Vaccine Date [...] low back(Confirmed) Active Hyperlipidemia(Confirmed) Active Insomnia(Confirmed) Active Sleep apnea, obstructive(Confirmed) Active
[2023-11-25 11:09] VITALS: BP 128/66; PULSE 64; TEMP 36.2; O2SAT 100; BMI 30.5
--- NOTE | 2023-11-25 11:09 | AM.OFFWIN_ITS ---
Intake Vital Signs 11/25/23 11:09 Height 5 ft 6 in Weight 189 lb BMI 30.5 BP 128/66 Blood Pressure Location Lt brachial Position Sitting Pulse 64 Pulse Source Pulse Oximeter Temp 97.2 F Temp Source Temporal Artery Scan Pulse Oximetry (%) 100 Oxygen Delivery Method Room Air Intake Visit Reasons: EP lower back pain Intake Note: Marisa is a 83 year old female who presents to the office today lower back pain that started 3 weeks ago. Patient Tobacco Use Status: Never used Tobacco Allergies nitrofurantoin [From MACRODANTIN] Allergy (Severe, Verified 11/25/23 11:11) Anaphylaxis Sulfa (Sulfonamide Antibiotics) [SULFA (SULFONAMIDE ANTIBIOTICS)] Allergy (Severe, Verified 11/25/23 11:11) ANAPHYLAXIS sulfamethoxazole [From BACTRIM] Allergy (Severe, Verified 11/25/23 11:11) ANAPHYLAXIS trimethoprim [From BACTRIM] Allergy (Severe, Verified 11/25/23 11:11) ANAPHYLAXIS HPI HPI Comments History of Present Illness Details 83 y/o female patient who presents to [facility] in clinic with c/o urinary symptoms. Pt reports lower back pain for 3 weeks now. Denies fevers, chills, nausea or vomiting. [facility] Medical History Cough COPD (chronic obstructive pulmonary disease) Seasonal allergies Chronic cough Cervical disc disease Left knee pain Pain of right shoulder joint on movement Abnormal SPEP Vitamin D deficiency Urolithiasis Osteoporosis GERD without esophagitis Multilevel degenerative disc disease Obesity (BMI 30-39.9) Anxiety Insomnia GERD (gastroesophageal reflux disease) Left lumbosacral radiculopathy Degenerative lumbar spinal stenosis Pure hypercholesterolemia Surgical History History of surgery on right wrist History of endoscopy History of colonoscopy Hx of decompressive lumbar laminectomy (~05/25/20) Status post total abdominal hysterectomy and bilateral salpingo-oophorectomy (CATRACHITO-BSO) History of right cataract extraction (~12/2016) History of cystoscopy (~05/24/18) Family History Father No problems noted. Mother Ovarian cancer Daughter Myocardial infarction, Onset Age: 46 Stroke Social History Household Members: Children Housing: House Are you a primary customer care voice consultant to a significant other at home: No Do you presently have visiting nurse or other home services: No Alcohol intake: former Patient Tobacco Use Status: Never used Tobacco e-Cigarette/Vaping Use: Never Used Second Hand Smoke Exposure: Yes service: No Current occupational status: retired and disabled Cognitive needs: No Hearing needs: No Vision needs: Yes (reading glasses) Review of Systems Const All systems reviewed & are unremarkable except as noted in HPI and below Physical Exam Vital Signs: Last Vital Signs Temp 97.2 F 11/25/23 11:09 Pulse 64 11/25/23 11:09 BP 128/66 11/25/23 11:09 Pulse Ox 100 11/25/23 11:09 Oxygen Delivery Method Room Air 11/25/23 11:09 BMI result Body Mass Index 30.5 Const General: comfortable and no acute distress Nutritional Appearance: obese Orientation/consciousness: patient oriented x3 Other: Pelvic exam deferred General: Yes no CVA tenderness Back/Spine/Pelvis Back: no CVA tenderness and back tenderness Thoracic/Lumbar Spine: lumbar spinal tenderness at L4 and at L5 Neuro General: patient oriented x3, gait normal and moves all extremities Psych Speech and movement: Normal speech and movement present Results AMB Urinalysis, Automated UA Leukoctes 15 Karon/uL Last Edit by Alanna Dutta CMA on 11/25/23 11:13 UA Nitrite Positive Last Edit by Alanna Dutta CMA on 11/25/23 11:13 UA Urobilinogen 0.2 mg/dL Last Edit by Alanna Dutta CMA on 11/25/23 11:13 UA Protein 0 mg/dL Last Edit by Alanna Dutta CMA on 11/25/23 11:13 UA pH 6.0 Last Edit by Alanna Dutta CMA on 11/25/23 11:13 UA Blood 10 Eliseo/uL Last Edit by Alanna Dutta CMA on 11/25/23 11:13 UA Specific Allgood 1.005 Last Edit by Alanna Dutta CMA on 11/25/23 11:13 UA Ketone Negative Last Edit by Alanna Dutta CMA on 11/25/23 11:13 UA Bilirubin 0 mg/dL Last Edit by Alanna Dutta CMA on 11/25/23 11:13 UA Glucose 0 mg/dL Last Edit by Alanna Dutta CMA on 11/25/23 11:13 Results Reviewed Results Reviewed: Laboratory Last Values Urine pH (Auto) 6.0 11/25/23 11:13 Specific Allgood (Auto) 1.005 11/25/23 11:13 Urine Protein (Auto) 0 mg/dL 11/25/23 11:13 Glucose (UA)(Auto) 0 mg/dL 11/25/23 11:13 Urine Ketones (Auto) Negative 11/25/23 11:13 Urine Blood (Auto) 10 Eliseo/uL 11/25/23 11:13 Urine Nitrite (Auto) Positive 11/25/23 11:13 Urine Bilirubin (Auto) 0 mg/dL 11/25/23 11:13 Urine Urobilinogen (Auto) 0.2 mg/dL 11/25/23 11:13 Leukocyte Esterase (Auto) 15 Karon/uL 11/25/23 11:13 Assessment & Plan Assessment & Plan (1) Cystitis: Code(s): N30.90 - Cystitis, unspecified without hematuria Plan: Hydrate well with water RTC if symptoms not improved in the next 72 hours. Acetaminophen for pain relief IceHot Orders: Orders AMB Urinalysis Automated Today Z13.9 - Encounter for screening, unspecified Medications: New ciprofloxacin HCl 500 mg PO BID 7 days 14 tabs 0RF N30.90 - Cystitis, unspecified without hematuria Coding Level of Care Code Est Pt Level 3 (27395) Diagnoses Cystitis N30.90 Time Spent (min) 15
== END 2023-11-25 11:22 | disposition home or self-care (01) ==
PROVIDERS: PCP Internal Medicine; Visit Provider Nurse Practitioner Family
DX: Z13.9 Encounter for screening, unspecified (principal); N30.90 Cystitis, unspecified without hematuria
CPT/HCPCS: 81003; 99213

== ENCOUNTER 2023-12-11 12:13 | Outpatient (AMB) | payer OTHER, MEDICAID, SELFPAY ==
--- OUTSIDE RECORDS SUMMARY | 2023-12-11 12:15 | XMS_ITS | Clinical Summary ---
Author Organization [facility] Address [address] [place] [address] Phone Care Team Providers Care Any Commodity Buyer Name Role Phone Mac Thomas Primary Care Provider [phone] [facility] Unavailable [phone] Reason for Visit and Chief Complaint Post Op Visit/Follow Up Plan of Treatment 1. No lifting more than 10 pounds. 2. Would delay playing pickleball for at least 1 more month. 3. Return to see Dr. Liu in 1 month for final x-rays and to discuss activities - Last Documented On 09/10/2023 11:20AM ; [facility] Pending Tests Order Diagnosis Results Due Ordering Sebastian sabillon Follow Up - Appointment 1 Month Unsp fx the lower end r rad, subs for clos fx w routn heal 09/10/23 Willy Kinsey MD Last Documented On 11:20AM ; [facility] Assessments Includes: Assessments from this encounter [...] X-Ray Exam Of Forearm, 2 views (Right) [id number] Unsp fx the lower end r rad, subs for clos fx w routn heal [facility] 09/10/2023 Last Documented On 4 6:43AM ; [facility] Medical History Includes: Medical History addressed [...] Post Op Visit/Follow Up Willy Kinsey MD [facility] 09/10/19 24 8:40AM 9:35AM Insurance Includes: Active Insurance Policies Plan Name Member ID Group # Subscriber Relationship Effect eder Dates 1 - [employer]/[facility] [id number] SERA KELLEY Self 2 - [facility] [id number] SERA LAKISHASHERRIE Self Clinical Notes Includes: Clinical Notes from this encounter * Progress note Date Encounter Last Documented by 09/10/2023 Post Op Visit/Follow Up Last doc umented on 09/10/2023; 11:20 AM, Willy Kinsey MD; [facility] Chief Complaint Closed segmental fracture distal [...]
--- OUTSIDE RECORDS SUMMARY | 2023-12-11 12:15 | XMS_ITS ---
Care Plan - [facility] Created on: December 11, 2023 SERA KELLEY : 1940 Sex: Female Author Organization [facility] Address [address] [place] [address] Phone Care Team Providers Care Assisted Living Care Manager Name Role Phone Mac Thomas Primary Care Provider [phone] [facility] Unavailable [phone]
--- OUTSIDE RECORDS SUMMARY | 2023-12-11 12:15 | XMS_ITS | Clinical Summary ---
Author Organization [facility] Address [address] [place] [address] Phone Care Team Providers Care Yeast Stacker Name Role Phone Mac Thomas Primary Care Provider [phone] [facility] Unavailable [phone] Reason for Visit and Chief Complaint Established Patient Plan of Treatment Pending Tests Order Diagnosis Results Due Ordering P rovider Follow Up - Appointment PRN Unsp fx the lower end r rad, subs for clos fx w routn heal 10/12/23 Monica Elkins PA-C Last Documented On 4 8:48AM ; [facility], In House X-Rays - X-Rays Wrist, right, 3 views ([id number]) Unsp fx the lower end r rad, subs for clos fx w routn heal 10/14/23 Monica Elkins PA-C Last Documented On 4 8:48AM ; [facility] Assessments Includes: Assessments from this encounter No [...] 96 Last Documented: On 10/12/2023 8:37AM ; [facility] Results Includes: Results discussed during this encounter [...] Of Wrist, complete, min 3 views (Right) [id number] Unsp fx the lower end r rad, subs for clos fx w routn heal Monica Elkins PA-C [facility] 10/12/2023 Last Documented On 4 4:32PM ; [facility] Medical History Includes: Medical History addressed [...] Time Diagnosis Established Patient Monica Brittni JACK [facility] 10/12/19 24 8:40AM 8:44AM Insurance Includes: Active Insurance Policies Plan Name Member ID Group # Subscriber Relationship Effect eder Dates 1 - [facility] [id number] SERA Rubio 2 - [facility] [id number] SERA Rubio Clinical Notes Includes: Clinical Notes from this encounter * Progress note Date Encounter Last Documented by 10/12/2023 Established Patient Raimundo mckeon on 10/12/2023; 8:48 AM, Monica Elkins PA-C; [facility] Reason For Visit Chief complaint: Follow-up [...] the contralateral limb. She has full extension. [employer] strength is strong and symmetric Imaging: Impression: [...] In House X-Rays/X-Rays: Wrist, right, 3 views ([id number]) EndCited
--- OUTSIDE RECORDS SUMMARY | 2023-12-11 12:15 | XMS_ITS ---
Author Organization [facility] Address [address] [place] [address] Phone Care Team Providers Care Ocean Lifeguard Specialist Name Role Phone Mac Thomas Primary Care Provider [phone] [facility] Unavailable [phone] Plan of Treatment No Plan of Treatment Recorded Assessments Includes: Assessments for all patient encounters No Assessments Recorded Medical Equipment - Implanted Devices Includes: Current and historical Devices No Medical Equipment Recorded Medications Administered Includes: Administered Medications in patient's chart No Administered Medications Recorded Vital Signs Includes: Vital Signs from 12/10/2022 through 12/11/2023 Vital Name 10/12/2023 08:37A Blood Pressure Sitting (mmHg) 124/75 Pulse Rate-Sitting (bpm) 73 Temp-Temporal 96.4 Oxygen Saturation (%) 96 Last Documented: On 10/12/2023 8:37AM ; [facility] Results Includes: Results from 12/10/2022 through 12/11/2023 No Results Recorded For Specified Dates History of Present Illness History of Present Illness not supported for this document type No History of Present Illness Recorded Social History No Social History Recorded - Smoking Status Unknown Procedures and Surgical History Includes: Procedures from 12/10/2022 through 12/11/2023 Procedures Code Diagnosis Performing Provider Service Location Service Date X-Ray Exam Of Wrist, complete, min 3 views (Right) 90754 Unsp fx the lower end r rad, subs for clos fx w jake Elkins PA-C [facility] 10/12/2023 Last Documented On 4 4:32PM ; [facility] X-Ray Exam Of Forearm, 2 views (Right) 26890 Unsp fx the lower end r rad, subs for clos fx w jake Kinsey MD [facility] 09/10/2023 Last Documented On 4 6:43AM ; [facility], X-Ray Exam Of Wrist, complete, min 3 views (Right) 71842 Unsp fracture of the lower end of right radius, dasia Liu MD [facility], 08/10/2023 Last Documented On 4 9:53AM ; [facility] Exam Of Wrist, complete, min 3 views (Right) 96123 Unsp fracture of the lower end of right radius, dasia Liu [facility], 07/20/2023 Last Documented On 4 2:06PM ; [facility], Treat Fx Radial 3+ Frag (Right) 02955 Unsp fracture of the lower end of right radius, dasia Liu MD [facility] 07/08/2023 Last Documented On 4 8:32AM ; [facility], Medical History Includes: Medical History in [...] Physical Exam Recorded Encounters Includes: Encounters from 12/10/2022 through 12/11/2023 Encounter Provider Location Date Check-In Time Check-Out Time Diagnosis Established Patient Monica Elkins PA-C [facility] 10/12/19 24 8:40AM 8:44AM Post Op Visit/Follow Up Willy Kinsey [facility] 09/10/19 24 8:40AM 9:35AM Post Op Visit/Follow Up Huber Liu MD [facility] 08/10/19 24 10:00AM 10:05AM Post Op Visit/Follow Up [facility]er Liu MD [facility] 07/20/19 24 9:40AM 11:01AM Insurance Includes: Active Insurance Policies Plan Name Member ID Group # Subscriber Relationship Effect eder Dates 1 - [facility] [id number] SERA Rubio - [facility] [id number] SERA Rubio Clinical Notes Includes: Signed Clinical Notes starting from 04/13/2022 * Progress note Date Encounter Last Documented by 10/12/2023 Established Patient Raimundo mckeon on 10/12/2023; 8:48 AM, Monica Elkins PA-C; [facility], Reason For Visit Chief complaint: Follow-up ORIF [...] the contralateral limb. She has full extension. Security Checker strength is strong and symmetric Imaging: Impression: [...] In House X-Rays/X-Rays: Wrist, right, 3 views ([id number]) EndCited * Progress note Date Encounter Last Documented by 09/10/2023 Post Op Visit/Follow Up Last doc umented on 09/10/2023; 11:20 AM, Willy Kinsey MD; [facility], Chief Complaint Closed segmental fracture distal right [...] on 08/10/2023; 10:04 AM, Huber Liu MD; [facility], Physical Findings Chief complaint: Follow-up ORIF right [...] on 07/20/2023; 10:55 AM, Huber Liu MD; [facility], Physical Findings Chief complaint: Follow-up ORIF [...]
--- OUTSIDE RECORDS SUMMARY | 2023-12-11 12:16 | XMS_ITS | Clinical Summary ---
Author Organization [facility] Address [address] [place] [address] Phone Care Team Providers Care Pharmaceutical Specialty Representative Name Role Phone Mac Thomas Primary Care Provider [phone] [facility] Unavailable [phone] Reason for Visit and Chief Complaint Post Op Visit/Follow Up Plan of Treatment Pending Tests Order Diagnosis Results Due Ordering P ridge Follow Up - Appointment 1 Month Unsp fra cture of the lower end of right radius, init 08/10/23 Huber Liu MD Last Documented On 4 10:04AM ; [facility] Assessments Includes: Assessments from this encounter [...] Of Wrist, complete, min 3 views (Right) [id number] Unsp fracture of the lower end of right radius, init Huber Liu MD [facility] 08/10/2023 Last Documented On 4 9:53AM ; [facility] Medical History Includes: Medical History addressed [...] Visit/Follow Up Huber Liu MD [facility], 08/10/19 24 10:00AM 10:05AM Insurance Includes: Active Insurance Policies Plan Name Member ID Group # Subscriber Relationship Effect eder Dates 1 - [employer]/U [facility] [id number] SERA Rubio 2 - [facility] [id number] SERA Rubio Clinical Notes Includes: Clinical Notes from this encounter * Progress note Date Encounter Last Documented by 08/10/2023 Post Op Visit/Follow Up Last doc umented on 08/10/2023; 10:04 AM, Huber Liu MD; [facility], Physical Findings Chief complaint: Follow-up ORIF right [...]
--- OUTSIDE RECORDS SUMMARY | 2023-12-11 12:16 | XMS_ITS | Clinical Summary ---
Author Organization [facility] Address [address] [place] [address] Phone Care Team Providers Care Glove Turner And Former Name Role Phone Mac Thomas Primary Care Provider [phone] [facility] Unavailable [phone] Reason for Visit and Chief Complaint Post Op Visit/Follow Up Plan of Treatment Pending Tests Order Diagnosis Results Due Ordering P ridge Follow Up - Appointment 3 weeks Unsp fra cture of the lower end of right radius, init 07/20/23 Huber Liu MD Last Documented On 4 10:55AM ; [facility] Assessments Includes: Assessments from this encounter [...] Of Wrist, complete, min 3 views (Right) [id number] Unsp fracture of the lower end of right radius, init Huber Liu MD [facility] 07/20/2023 Last Documented On 4 2:06PM ; [facility] Medical History Includes: Medical History addressed [...] Post Op Visit/Follow Up Huber Liu MD [facility], 07/20/19 24 9:40AM 11:01AM Insurance Includes: Active Insurance Policies Plan Name Member ID Group # Subscriber Relationship Effect eder Dates 1 - [employer] [id number] SERA Rubio 2 - [facility] [id number] SERA Rubio Clinical Notes Includes: Clinical Notes from this encounter * Progress note Date Encounter Last Documented by 07/20/2023 Post Op Visit/Follow Up Last doc umented on 07/20/2023; 10:55 AM, Huber Liu MD; [facility], Physical Findings Chief complaint: Follow-up ORIF [...]
--- NOTE | 2023-12-11 12:20 | MHC.OFFWIV ---
Intake Vital Signs 12/11/23 12:22 Height 5 ft 6 in Weight 189 lb BMI 30.5 BP 128/72 Blood Pressure Location Rt brachial Position Sitting Pulse 68 Pulse Source Pulse Oximeter Pulse Oximetry (%) 96 Oxygen Delivery Method Room Air Intake Visit Reasons: EP ?UTI/kidney Intake Note: pt c/o urinary urgency, frequency and discomfort Patient Tobacco Use Status: Never used Tobacco Allergies nitrofurantoin [From MACRODANTIN] Allergy (Severe, Verified 12/11/23 12:41) Anaphylaxis Sulfa (Sulfonamide Antibiotics) [SULFA (SULFONAMIDE ANTIBIOTICS)] Allergy (Severe, Verified 12/11/23 12:41) ANAPHYLAXIS sulfamethoxazole [From BACTRIM] Allergy (Severe, Verified 12/11/23 12:41) ANAPHYLAXIS trimethoprim [From BACTRIM] Allergy (Severe, Verified 12/11/23 12:41) ANAPHYLAXIS Do you need a note to return to daycare/school/sports/work: No HPI HPI Comments History of Present Illness Details This is an 83-year-old female who presented to the walk-in clinic complaining of right-sided back pain x 2-3 days. Patient states she was recently seen here on 11/25/2023 with bilateral flank/back pain. She was diagnosed with a urinary tract infection and she was given a prescription for ciprofloxacin for 7 days. She completed this approximately 10 days ago. She states that her back pain improved following antibiotic treatment; however, the patient then developed right-sided low back pain a few days ago. She denies any dysuria, hematuria, urinary frequency, or urinary urgency. She denies any fevers; however, she states that she does occasionally have chills at nighttime, which is new since being diagnosed with the urinary tract infection. She denies any known trauma/injury to the back. She denies any numbness/weakness/paresthesias of her lower extremities. She denies any saddle anesthesias. She denies any bowel/bladder incontinence/retention. [facility] Medical History Cough COPD (chronic obstructive pulmonary disease) Seasonal allergies Chronic cough Cervical disc disease Left knee pain Pain of right shoulder joint on movement Abnormal SPEP Vitamin D deficiency Urolithiasis Osteoporosis GERD without esophagitis Multilevel degenerative disc disease Obesity (BMI 30-39.9) Anxiety Insomnia GERD (gastroesophageal reflux disease) Left lumbosacral radiculopathy Degenerative lumbar spinal stenosis Pure hypercholesterolemia Surgical History History of surgery on right wrist History of endoscopy History of colonoscopy Hx of decompressive lumbar laminectomy (~05/25/20) Status post total abdominal hysterectomy and bilateral salpingo-oophorectomy (CATRACHITO-BSO) History of right cataract extraction (~12/2016) History of cystoscopy (~05/24/18) Family History Father No problems noted. Mother Ovarian cancer Daughter Myocardial infarction, Onset Age: 46 Stroke Social History Household Members: Children Housing: House Are you a primary assurance services manager health care to a significant other at home: No Do you presently have visiting nurse or other home services: No Alcohol intake: former Patient Tobacco Use Status: Never used Tobacco e-Cigarette/Vaping Use: Never Used Second Hand Smoke Exposure: Yes service: No Current occupational status: retired and disabled Cognitive needs: No Hearing needs: No Vision needs: Yes (reading glasses) Review of Systems Const All systems reviewed & are unremarkable except as noted in HPI and below Reports no additional complaints Eyes Reports no additional complaints ENT Reports no additional complaints Card Reports no additional complaints Resp Reports no additional complaints GI Reports no additional complaints Reports no additional complaints Musc Reports no additional complaints Skin/Breast Reports system reviewed and no additional complaints, except as documented Neuro Reports no additional complaints Psych Reports no additional complaints Endo Reports no additional complaints Kirit/Lymph Reports no additional complaints Aller/Immun Reports no additional complaints Physical Exam Vital Signs: Last Vital Signs Pulse 68 12/11/23 12:22 BP 128/72 12/11/23 12:22 Pulse Ox 96 12/11/23 12:22 Oxygen Delivery Method Room Air 12/11/23 12:22 BMI result Body Mass Index 30.5 Const Other: Vital signs reviewed. Constitutional: Non-toxic appearing. No acute distress. Well-developed and well-nourished. HEENT: Normocephalic and atraumatic. Tympanic membranes without erythema, edema, or bulging bilaterally. External auditory canals without erythema or edema bilaterally. Moist mucous membranes. No pharyngeal erythema or exudates. Skin: Warm and dry. No rashes or lesions noted. Neck: Full and painless range of motion. No cervical lymphadenopathy. Cardio: Regular rate. No lower extremity edema. No JVD. Pulmonary: No respiratory distress. No accessory muscle usage. Gastrointestinal: Soft, nontender, and nondistended in all 4 quadrants. Normoactive bowel sounds in all 4 quadrants. Genitourinary: No CVA tenderness. Musculoskeletal: Normal range of motion in joints throughout the body. No deformity or other signs of injury. There is no tenderness to palpation of the right paraspinal musculature or midline tenderness to palpation of lumbar spinous processes. Patient's gait is intact without ataxia. Neuro: Alert and oriented x4. Cranial nerves 2-12 grossly intact. No focal deficits appreciated. Psych: Normal mood and affect. Results AMB Urinalysis, Automated UA Leukoctes 0 Karon/uL Last Edit by John Fortune CMA on 12/11/23 12:45 UA Nitrite Negative Last Edit by John Fortune CMA on 12/11/23 12:45 UA Urobilinogen 0.2 mg/dL Last Edit by John Fortune CMA on 12/11/23 12:45 UA Protein 0 mg/dL Last Edit by John Fortune CMA on 12/11/23 12:45 UA pH 6.0 Last Edit by Jhon Fortune CMA on 12/11/23 12:45 UA Blood 0 Eliseo/uL Last Edit by John Fortune CMA on 12/11/23 12:45 UA Specific [place] 1.005 Last Edit by John Fortune CMA on 12/11/23 12:45 UA Ketone Negative Last Edit by John Fortune CMA on 12/11/23 12:45 UA Bilirubin 0 mg/dL Last Edit by John Fortune CMA on 12/11/23 12:45 UA Glucose 0 mg/dL Last Edit by John Fortune CMA on 12/11/23 12:45 Results Reviewed Results Reviewed: Laboratory Last Values Urine pH (Auto) 6.0 12/11/23 12:44 Specific [place] (Auto) 1.005 12/11/23 12:44 Urine Protein (Auto) 0 mg/dL 12/11/23 12:44 Glucose (UA)(Auto) 0 mg/dL 12/11/23 12:44 Urine Ketones (Auto) Negative 12/11/23 12:44 Urine Blood (Auto) 0 Eliseo/uL 12/11/23 12:44 Urine Nitrite (Auto) Negative 12/11/23 12:44 Urine Bilirubin (Auto) 0 mg/dL 12/11/23 12:44 Urine Urobilinogen (Auto) 0.2 mg/dL 12/11/23 12:44 Leukocyte Esterase (Auto) 0 Karon/uL 12/11/23 12:44 Assessment & Plan Assessment & Plan (1) Acute right-sided low back pain: Code(s): M54.50 - Low back pain, unspecified Qualifiers: Sciatica presence: without sciatica Qualified Code(s): M54.50 - Low back pain, unspecified Plan: This is an 83 old female was recently treated for urinary tract infection with ciprofloxacin who presented to the walk-in clinic today complaining of right-sided low back pain. On physical examination, there is no significant tenderness to palpation of the right paraspinal musculature or midline tenderness to palpation of the lumbar spinous processes. She has no red flag symptoms. She denies any known trauma or injury to the back. She had a urinalysis, which was negative for leukocyte esterase, nitrites, or blood. She has no CVA tenderness on physical examination. Patient's symptoms appear to be related to a musculoskeletal etiology given negative urinalysis. Recommended patient utilize OTC acetaminophen and lidocaine patches for pain relief. She was also given a prescription for methocarbamol 500 mg every night at bedtime as needed for muscle spasms. Patient was instructed to take her temperature if she were to develop chills during the nighttime. If she has a fever, I recommended that she proceed to the emergency room to rule out infection; however, at this time, the patient does not appear to have an acute/active infection. Patient was also advised to proceed to the emergency room if she were to develop numbness/weakness/paresthesias, hematuria, or any red flag symptoms as listed above. Patient verbalized understanding and she is in agreement with the plan. Orders: Orders AMB Urinalysis Automated Today Z13.9 - Encounter for screening, unspecified Medications: New methocarbamol 500 mg PO BEDTIME PRN 10 tabs 0RF muscle spasm Coding Level of Care Code Est Pt Level 3 (81879) Diagnoses Acute right-sided low back pain without sciatica M54.50 Sciatica presence: without sciatica
[2023-12-11 12:22] VITALS: BP 128/72; PULSE 68; O2SAT 96; BMI 30.5
== END 2023-12-11 13:38 | disposition home or self-care (01) ==
PROVIDERS: PCP Internal Medicine; Visit Provider Physician Assistant Medical
DX: Z13.9 Encounter for screening, unspecified (principal); M54.50 Low back pain, unspecified
CPT/HCPCS: 81003; 99213

== ENCOUNTER 2023-12-23 13:13 | Outpatient (AMB) | payer OTHER, MEDICAID, SELFPAY ==
[2023-12-23 13:15] VITALS: BP 132/86; PULSE 68; O2SAT 97
--- NOTE | 2023-12-23 13:15 | A.OFFPC_ITS ---
Vital Signs 12/23/23 13:15 Height 5 ft 6 in Weight 186 lb BMI 30.0 BP 132/86 Blood Pressure Location Lt brachial Position Sitting Pulse 68 Pulse Source Pulse Oximeter Pulse Oximetry (%) 97 Oxygen Delivery Method Room Air Intake Visit Reasons: Mid right side back pain- see comm Clinical Auditor Required: No Allergies nitrofurantoin [From MACRODANTIN] Allergy (Severe, Verified 12/23/23 13:18) Anaphylaxis Sulfa (Sulfonamide Antibiotics) [SULFA (SULFONAMIDE ANTIBIOTICS)] Allergy (Severe, Verified 12/23/23 13:18) ANAPHYLAXIS sulfamethoxazole [From BACTRIM] Allergy (Severe, Verified 12/23/23 13:18) ANAPHYLAXIS trimethoprim [From BACTRIM] Allergy (Severe, Verified 12/23/23 13:18) ANAPHYLAXIS Medication List - Last Reconciled 12/23/23 by Latoya Tucker PA-C alprazolam 1 mg PO TID PRN 30 days aspirin mg PO atorvastatin 40 mg PO BEDTIME 90 days cholecalciferol (vitamin D3) 50 mcg PO DAILY 90 days fluticasone propionate 50 mcg/actuation 2 sprays intranasal DAILY loratadine (Claritin) 10 mg PO DAILY 30 days montelukast 10 mg PO BEDTIME pantoprazole 40 mg PO DAILY terazosin 1 mg PO BEDTIME 90 days Tobacco use date assessed: 07/31/23 Fall risk assessment: No Falls in past year Last assessed Fall Risk: 12/23/23 Dental Screening Dental Screen Date: 07/31/23 HPI Mid right side back pain- see comm HPI Details 83-year-old female with a past medical h istory of hypercholesterolemia, GERD, anxiety, COPD last seen by Dr. Hurst coming in for acute problem. In review of the notes, patient was seen in walk in clinic 12/11/23 for right sided back pain diagnosed with musclar pain and given muscle relaxer. Prior to this visit she was seen in walk in clinic for similar complaint and diagnosed with UTI and given ciprofloxacin. Patient states since being seen at the walk-in she has been having continued right flank pain worsened with activity. The pain is dull and constant rated 7/10 and does not radiate down either leg. Denies any inciting events or trauma to the area. She does have a history of kidney stones and recurrent UTIs. Denies any urinary symptoms or blood in the urine. Denies any loss of bowel or bladder function. Denies any radiation of the pain. Pain initially improved with treatment of UTI and then returned. [facility] Medical History Cough COPD (chronic obstructive pulmonary disease) Seasonal allergies Chronic cough Cervical disc disease Left knee pain Pain of right shoulder joint on movement Abnormal SPEP Vitamin D deficiency Urolithiasis Osteoporosis GERD without esophagitis Multilevel degenerative disc disease Obesity (BMI 30-39.9) Anxiety Insomnia GERD (gastroesophageal reflux disease) Left lumbosacral radiculopathy Degenerative lumbar spinal stenosis Pure hypercholesterolemia Surgical History History of surgery on right wrist History of endoscopy History of colonoscopy Hx of decompressive lumbar laminectomy (~05/25/20) Status post total abdominal hysterectomy and bilateral salpingo-oophorectomy (CATRACHITO-BSO) History of right cataract extraction (~12/2016) History of cystoscopy (~05/24/18) Family History Father No problems noted. Mother Ovarian cancer Daughter Myocardial infarction, Onset Age: 46 Stroke Social History Household Members: Children Housing: House Are you a primary personal care home administrator to a significant other at home: No Do you presently have visiting nurse or other home services: No Alcohol intake: former Patient Tobacco Use Status: Never used Tobacco e-Cigarette/Vaping Use: Never Used Second Hand Smoke Exposure: Yes service: No Current occupational status: retired and disabled Cognitive needs: No Hearing needs: No Vision needs: Yes (reading glasses) Questionnaire Thrive Questionnaire Date Thrive assessed: 07/31/23 AUDIT C Alcohol Use Questionnaire (AUDIT-C) 1. How often do you have a drink containing alcohol?: Never 3. How often do you have six or more drinks on one occasion?: Never Total Score: 0 Score Reviewed/Action Taken: Yes SHIRLEY-7 AMB Questionnaire SHIRLEY-7 Date SHIRLEY - 7 assessed: 07/31/23 Source: Developed by Drs. Sim Alcala, Tamy B.W. Jean Marie Irby and colleagues, with an educational dionicio from [employer]. Review of Systems Const Denies body aches, Denies chills, Denies fever(s) and Denies poor appetite Eyes Reports no additional complaints ENT Reports no additional complaints Card Denies chest pain, Denies lightheadedness and Denies dyspnea Resp Denies dyspnea GI Denies abdominal pain Denies hematuria, Denies difficulty voiding, Denies dysuria, Denies urinary incontinence and Denies urinary urgency Musc Reports as per HPI and Reports abnormal gait Skin/Breast Reports system reviewed and no additional complaints, except as documented Neuro Reports abnormal gait Psych Reports no additional complaints Physical exam (Primary Care) Vital Signs: Last Vital Signs Pulse 68 12/23/23 13:15 BP 132/86 12/23/23 13:15 Pulse Ox 97 12/23/23 13:15 Oxygen Delivery Method Room Air 12/23/23 13:15 BMI result Body Mass Index 30.0 Tobacco/Smoking Status: Tobacco use Status Tobacco use date assessed 07/31/23 12/23/23 13:21 Patient Tobacco Use Status Never used Tobacco 12/23/23 13:21 e-Cigarette/Vaping Use Never Used 12/23/23 13:21 Thrive Assessment: Date of Thrive Assessment Date Thrive assessed 07/31/23 12/23/23 13:21 Const General: cooperative, healthy appearing, comfortable and no acute distress Orientation/consciousness: patient oriented x3 HENMT Head: Yes normocephalic Ears: hearing grossly normal bilaterally General nose exam: Normal external nose present Eyes General: appearance normal, both eyes and all related structures Conjunctivae: conjunctivae normal Neck Neck: Yes full ROM and Yes no lymphadenopathy Resp Effort & Inspection: normal respiratory effort Auscultation: clear to auscultation bilaterally, no crackles, no rales, no rhonchi and no wheezes Cardio Rate: regular rate Rhythm: regular rhythm General: Yes no CVA tenderness Back/Spine/Pelvis Other: No tenderness to palpation over spine or hips. In the palpation over right flank and right lumbar paraspinal muscles Back: no CVA tenderness Skin General skin exam: no rashes or lesions noted Neuro General: patient oriented x3 Gait exam (Neuro): Normal gait present Extrem General: Yes normal to inspection, Yes full ROM and No edema Psych Affect: normal affect Attitude: cooperative Insight: Good insight present (Psych) Judgement: Good judgement present (Psych) Assessment and Plan Assessment & Plan (1) Right flank pain: Code(s): R10.9 - Unspecified abdominal pain Plan: Unclear if this pain is muscular or kidney related. Pain did initially improve with treatment of UTI and then returned. Patient does have history of kidney stones however on last CT nine months ago no evidence of kidney stones. We will order for x-ray of lumbar spine and x-ray KUB for further evaluation. Discussed with patient this is most likely muscular in nature however patient did request imaging. If imaging is negative we will refer to physical therapy. Plan This note was constructed using voice recognition software. While every effort has been made to ensure accuracy and stock saw operator, still areas may have been included sometimes these areas may affect the content or meeting of the given symptoms. Total time spent caring for the patient today was 25 minutes. This includes time spent before the visit reviewing the chart, time spent during the visit, and time spent after the visit and documentation. Orders: Orders XR lumbar spine 2-3V Today R10.9 - Unspecified abdominal pain XR KUB Today R10.9 - Unspecified abdominal pain Medications: New lidocaine 5% leave on most painful area for up to 12 hrs 1 patch topical DAILY 15 ea 1RF Coding Level of Care Code Est Pt Level 4 (80920) Diagnoses Right flank pain R10.9
== END 2023-12-23 14:06 | disposition home or self-care (01) ==
PROVIDERS: PCP Internal Medicine
DX: R10.9 Unspecified abdominal pain (principal)
CPT/HCPCS: 99214

== ENCOUNTER 2023-12-23 14:01 | Outpatient (REF) | payer OTHER, MEDICAID, SELFPAY ==
--- NOTE | ~2023-12-23 | XR_ITS ---
EXAMINATION: XR LUMBOSACRAL SPINE CLINICAL INFORMATION: Low back pain COMPARISON: CT urogram 03/30/2023 TECHNIQUE: Three views of the lumbosacral spine. FINDINGS: Scoliosis. Stable mild to moderate compression fracture at L1 of approximately 30%. No retropulsion. Moderate degenerative disc disease throughout the lumbar spine. Moderate facet arthrosis at L4-5 and L5-S1 with likely at least mild spinal stenosis. Grade 1 anterolisthesis of L4 on L5 measuring 4 mm. Findings appear stable compared to CT urogram 03/30/2023. The bowel gas pattern is unremarkable. Aortoiliac atherosclerosis without visible aneurysm. XR/XR lumbar spine 2-3V IMPRESSION: Stable 30% compression fracture at L1. Stable moderate degenerative changes in the lumbar spine. Electronically signed by: Lorenzo Franco MD 01/14/2024 10:38 AM EDT
--- NOTE | ~2023-12-23 | XR_ITS ---
EXAMINATION: XR ABDOMEN KUB CLINICAL INDICATION: Low back pain. COMPARISON: CT urogram 03/30/2023. TECHNIQUE: AP view of the abdomen. FINDINGS: The bowel gas pattern is within normal limits. No visible nephrolithiasis. There are phleboliths in the pelvis. Scoliosis. Grossly stable L1 compression fracture. XR/XR KUB IMPRESSION: Nonobstructive bowel gas pattern. Electronically signed by: Lorenzo Franco MD 01/14/2024 10:34 AM EDT
[2023-12-23 18:29] LABS: Appearance Urine Clear; Color Urine Yellow; Glucose Urine UA Negative (Negative); Leukocyte Esterase Urine Small (1+) (Negative); Nitrite Urine Negative (Negative); PH 5.5 (5.0-9.0); Specific Gravity - Urine 1.015 (1.005-1.025); UMIC TRIGGER UACC YES; Urine Blood Negative (Negative); Urine Ketones Negative (Negative); Urine Protein Negative (Neg-Trace)
[2023-12-23 18:37] LABS: Bacteria Urine 2+ (None Seen); Hyaline Casts Urine 0-2 /LPF (0-2); RBC Urine 0-2 /HPF (0-2); UACC Culture Trigger YES
== END 2023-12-23 14:02 | disposition home or self-care (01) ==
LOC: HO.LAB 14:01
PROVIDERS: Absent Provider Internal Medicine; PCP Internal Medicine
DX: R10.9 Unspecified abdominal pain (principal)
CPT/HCPCS: 72100; 74018; 81001; 87086

== ENCOUNTER 2023-12-28 06:56 | Outpatient (REF) | payer OTHER, SELFPAY ==
[2023-12-28 07:16] LABS: MANUAL DIFF FLAG NO
[2023-12-28 07:48] LABS: Basophils Absolute Auto 0.1 X10*3/uL (0.0-0.2); Basophils Percent Auto 1.4 % (0-2); Eosinophils Absolute Auto 0.2 X10*3/uL (0.0-0.4); Eosinophils Percent Auto 3.8 % (0-4); Hematocrit 42.4 % (37.0-47.0); Hemoglobin 14.2 g/dl (12.0-16.0); Imm Gran Abs Auto 0.05 X10*3/uL (0.00-0.03); Imm Gran Pct Auto 0.8 % (0.0-0.4); Lymphocytes Percent Auto 31.7 % (20-40); Mean Corpuscular HGB Conc 33.5 g/dl (31.0-35.0); Mean Corpuscular Hemoglobin 30.5 pg (27.0-33.0); Mean Platelet Volume 10.1 fL (9.4-12.3); Monocytes Absolute Auto 0.7 X10*3/uL (0.1-1.2); Monocytes Percent Auto 10.6 % (2-11); Neutrophils Absolute Auto 3.3 x10*3/uL (2.0-8.3); Neutrophils Percent Auto 51.7 % (45-73); Platelet Count 166 X10*3/uL (160-400); Red Blood Count 4.66 X10*6/uL (4.20-5.50); White Blood Count 6.4 X10*3/uL (4.8-10.8)
[2023-12-28 08:28] LABS: Alanine Aminotransferase 24 U/L (0-31); Albumin Level 4.1 g/dL (3.5-5.0); Alkaline Phosphatase 123 U/L (39-117); Anion Gap 11 (12-20); Aspartate Amino Transferase 25 U/L (5-31); Bilirubin Total 0.9 mg/dL (0.0-1.0); Blood Urea Nitrogen 17 mg/dL (9-16); Calcium 9.4 mg/dL (8.4-10.2); Carbon Dioxide 28 mmol/L (22-29); Chloride 108 mmol/L (96-108); Cholesterol 125 mg/dL (<200); Estimated Glomerular Filt Rate > 60; Glucose Fasting 101 mg/dL (60-99); HDL Cholesterol 42 mg/dL (>40); LDL Cholesterol Calculated 69 mg/dL (<100); Potassium 4.2 mmol/L (3.3-5.1); Sodium 143 mmol/L (135-145); Triglycerides 74 mg/dL (<150)
[2023-12-28 08:41] LABS: TSH reflex Free T4 3.37 uIU/mL (0.32-4.0); Vitamin D 25-OH Total 47.2 ng/mL (>30)
[2023-12-28 09:17] LABS: Appearance Urine Cloudy; Color Urine Yellow; Glucose Urine UA Negative (Negative); Leukocyte Esterase Urine Moderate (2+) (Negative); Nitrite Urine Negative (Negative); PH 5.5 (5.0-9.0); Specific Gravity - Urine 1.015 (1.005-1.025); UMIC TRIGGER UACC YES; Urine Blood Negative (Negative); Urine Ketones Negative (Negative); Urine Protein Negative (Neg-Trace)
[2023-12-28 09:23] LABS: Bacteria Urine 4+ (None Seen); Hyaline Casts Urine 0-2 /LPF (0-2); RBC Urine 0-2 /HPF (0-2); Squamous Epithelial Cell Urine >20 /HPF (0-2); UACC Culture Trigger YES
== END 2023-12-28 06:57 | disposition home or self-care (01) ==
LOC: HO.LAB 06:56
PROVIDERS: PCP Internal Medicine; Visit Provider Internal Medicine
DX: D64.9 Anemia, unspecified (principal); E55.9 Vitamin D deficiency, unspecified; E78.00 Pure hypercholesterolemia, unspecified; R30.0 Dysuria
CPT/HCPCS: 36415; 80053; 80061; 81001; 81003; 82306; 84443; 85025; 87086

== ENCOUNTER 2023-12-30 10:46 | Outpatient (AMB) | payer OTHER, SELFPAY ==
--- NOTE | 2023-12-30 10:48 | MHC.OFFVIS ---
Vital Signs 12/30/23 10:48 Height 5 ft 6 in Weight 186 lb BMI 30.0 Intake Visit Reasons: [employer]- LT knee pain Intake Note: Marisa is a 83 year old female who presents with complaints of progressively worsening left knee pain and giving way. The patient describes her pain as sharp in nature. Most of the pain is along the medial aspect of her knee. The patient states that she suffered a left tibia fracture last year when she slipped and fell. She was in [facility] rehab for approximately 5 months following her injury. She states that her left knee will give out several times per day. She has failed the last 6 weeks of conservative treatment. She has done physical therapy exercises which aggravated her pain. She has also tried Tylenol and anti-inflammatory medicines which gave her minimal relief. Allergies nitrofurantoin [From MACRODANTIN] Allergy (Severe, Verified 12/30/23 10:49) Anaphylaxis Sulfa (Sulfonamide Antibiotics) [SULFA (SULFONAMIDE ANTIBIOTICS)] Allergy (Severe, Verified 12/30/23 10:49) ANAPHYLAXIS sulfamethoxazole [From BACTRIM] Allergy (Severe, Verified 12/30/23 10:49) ANAPHYLAXIS trimethoprim [From BACTRIM] Allergy (Severe, Verified 12/30/23 10:49) ANAPHYLAXIS Medication List - Last Reconciled 12/30/23 by Marko Diaz MD alprazolam 1 mg PO TID PRN 30 days aspirin mg PO atorvastatin 40 mg PO BEDTIME 90 days cholecalciferol (vitamin D3) 50 mcg PO DAILY 90 days fluticasone propionate 50 mcg/actuation 2 sprays intranasal DAILY lidocaine 5% 1 patch topical DAILY loratadine (Claritin) 10 mg PO DAILY 30 days montelukast 10 mg PO BEDTIME pantoprazole 40 mg PO DAILY terazosin 1 mg PO BEDTIME 90 days [facility] Medical History Cough COPD (chronic obstructive pulmonary disease) Seasonal allergies Chronic cough Cervical disc disease Left knee pain Pain of right shoulder joint on movement Abnormal SPEP Vitamin D deficiency Urolithiasis Osteoporosis GERD without esophagitis Multilevel degenerative disc disease Obesity (BMI 30-39.9) Anxiety Insomnia GERD (gastroesophageal reflux disease) Left lumbosacral radiculopathy Degenerative lumbar spinal stenosis Pure hypercholesterolemia Surgical History History of surgery on right wrist History of endoscopy History of colonoscopy Hx of decompressive lumbar laminectomy (~05/25/20) Status post total abdominal hysterectomy and bilateral salpingo-oophorectomy (CATRACHITO-BSO) History of right cataract extraction (~12/2016) History of cystoscopy (~05/24/18) Family History Father No problems noted. Mother Ovarian cancer Daughter Myocardial infarction, Onset Age: 46 Stroke Social History Household Members: Children Housing: House Are you a primary rn wound care to a significant other at home: No Do you presently have visiting nurse or other home services: No Alcohol intake: former Patient Tobacco Use Status: Never used Tobacco e-Cigarette/Vaping Use: Never Used Second Hand Smoke Exposure: Yes service: No Current occupational status: retired and disabled Cognitive needs: No Hearing needs: No Vision needs: Yes (reading glasses) Physical Exam Vital Signs: BMI result Body Mass Index 30.0 Const Other: Well-nourished well-developed very friendly female awake alert and oriented x3 in no acute distress Extrem Other: Bilateral lower extremity examination shows good capillary refill, no skin lesions noted, normal sensation light touch Left knee examination shows a minimal effusion, minimal crepitus with range of motion, tenderness along her medial joint line, positive eLa's test, no instability Results Reviewed Results Reviewed: X-rays of the patient's left knee show mild diffuse joint space narrowing, no acute bony abnormalities Assessment & Plan Assessment & Plan (1) Left knee pain: Code(s): M25.562 - Pain in left knee Category: Medical Qualifiers: Chronicity: unspecified Qualified Code(s): M25.562 - Pain in left knee Plan Ms. Lainez presents with progressively worsening left knee pain and mechanical symptoms most likely due to a tear of her medial meniscus. Thus, I will send the patient for an MRI of her left knee for further evaluation. I will see her back once the MRI is completed to discuss the findings and treatment options. She will continue with her activity modifications in the meantime. Feel free to call me at any time should questions regarding her orthopedic management arise. Thank you very much for asking me to see this very friendly patient. I spent 20 minutes in reviewing the patient's records and imaging studies, seeing the patient and documenting in the medical record. Orders: Orders MR knee LT wo con Today M25.562 - Pain in left knee Coding Level of Care Code New Pt Level 3 (89621) Diagnoses Left knee pain, unspecified chronicity M25.562 Chronicity: unspecified
== END 2023-12-30 11:26 | disposition home or self-care (01) ==
PROVIDERS: PCP Internal Medicine; Visit Provider Orthopaedic Surgery
DX: M25.562 Pain in left knee (principal)
CPT/HCPCS: 99203

== ENCOUNTER → 2023-12-30 10:46 | Outpatient (BNVA) | payer OTHER, SELFPAY | PROVIDERS: PCP Internal Medicine; Visit Provider Orthopaedic Surgery | DX: M25.562 Pain in left knee (principal) | CPT/HCPCS: 99202 ==

== ENCOUNTER 2024-01-13 13:47 | Outpatient (AMB) | payer OTHER, SELFPAY ==
--- NOTE | 2024-01-13 13:52 | A.OFFPC_ITS ---
Vital Signs 01/13/24 13:53 Height 5 ft 6 in Weight 189 lb 4 oz BMI 30.5 BP 124/84 Blood Pressure Location Lt brachial Position Sitting Pulse 70 Pulse Source Pulse Oximeter Pulse Oximetry (%) 94 Oxygen Delivery Method Room Air Intake Visit Reasons: 4mth f/u - see comments Transportation Driver Required: No Accompanied by: Self / Same As Patient Allergies nitrofurantoin [From MACRODANTIN] Allergy (Severe, Verified 01/14/24 05:11) Anaphylaxis Sulfa (Sulfonamide Antibiotics) [SULFA (SULFONAMIDE ANTIBIOTICS)] Allergy (Severe, Verified 01/14/24 05:11) ANAPHYLAXIS sulfamethoxazole [From BACTRIM] Allergy (Severe, Verified 01/14/24 05:11) ANAPHYLAXIS trimethoprim [From BACTRIM] Allergy (Severe, Verified 01/14/24 05:11) ANAPHYLAXIS Medication List - Last Reconciled 01/14/24 by Mac Thomas MD alprazolam 1 mg PO TID PRN 30 days aspirin mg PO atorvastatin 40 mg PO BEDTIME 90 days cholecalciferol (vitamin D3) 50 mcg PO DAILY 90 days fluticasone propionate 50 mcg/actuation 2 sprays intranasal DAILY lidocaine 5% 1 patch topical DAILY loratadine (Claritin) 10 mg PO DAILY 30 days montelukast 10 mg PO BEDTIME oxycodone 5 mg PO BID-TID PRN pantoprazole 40 mg PO DAILY terazosin 1 mg PO BEDTIME 90 days Tobacco use date assessed: 01/13/24 Fall risk assessment: 2 + Falls in past year Last assessed Fall Risk: 01/13/24 Dental Screening Dental Screen Date: 01/13/24 Did you have a dental visit in the last 12 months?: Yes Did you have a dental problem in the last 6 months where you did not have access to dental care?: No Was dental information given to patient?: Patient has dentist HPI 4mth f/u - see comments HPI Details Patient comes in today for her follow up visit She continues to experience increased pain in her lower back that is worse on the left side States that she had her lumbar spine x-rays done a couple of weeks ago and has not yet heard back from anyone as to how her x-rays came out States that she feels okay otherwise She denies any headaches or dizziness Denies any chest pains, no increased SOB No nausea/vomiting, no abdominal pain No change in bowel habits noted She also had her follow up labs done a couple of weeks ago - to discuss her results [facility] Medical History Cough COPD (chronic obstructive pulmonary disease) Seasonal allergies Chronic cough Cervical disc disease Left knee pain Pain of right shoulder joint on movement Abnormal SPEP Vitamin D deficiency Urolithiasis Osteoporosis GERD without esophagitis Multilevel degenerative disc disease Obesity (BMI 30-39.9) Anxiety Insomnia GERD (gastroesophageal reflux disease) Left lumbosacral radiculopathy Degenerative lumbar spinal stenosis Pure hypercholesterolemia Surgical History History of surgery on right wrist History of endoscopy History of colonoscopy Hx of decompressive lumbar laminectomy (~05/25/20) Status post total abdominal hysterectomy and bilateral salpingo-oophorectomy (CATRACHITO-BSO) History of right cataract extraction (~12/2016) History of cystoscopy (~05/24/18) Family History Father No problems noted. Mother Ovarian cancer Daughter Myocardial infarction, Onset Age: 46 Stroke Social History Household Members: Children Housing: House Are you a primary geriatric personal care aide to a significant other at home: No Do you presently have visiting nurse or other home services: No Alcohol intake: former Patient Tobacco Use Status: Never used Tobacco e-Cigarette/Vaping Use: Never Used Second Hand Smoke Exposure: Yes service: No Current occupational status: retired and disabled Cognitive needs: No Hearing needs: No Vision needs: Yes (reading glasses) Questionnaire PHQ-9 Over the last 2 weeks, how often have you been bothered by any of the following problems? 1. Little interest or pleasure in doing things: not at all 2. Feeling down, depressed, or hopeless: not at all 3. Trouble falling or staying asleep, or sleeping too much: not at all 4. Feeling tired or having little energy: not at all 5. Poor appetite or overeating: not at all 6. Feeling bad about yourself - or that you are a failure or have let yourself or your family down: not at all 7. Trouble concentrating on things, such as reading the newspaper or watching television: not at all 8. Moving or speaking so slowly that other people could have noticed. Or the opposite - being so fidgety or restless that you have been moving around a lot more than usual: not at all 9. Thoughts that you would be better off or of hurting yourself in some way: not at all Total score: 0 Depression Screening Interpretation: Negative Depression Screening Done: Yes 45455 - PHQ-9 Billing: Yes Source: Developed by Drs. Sim Alcala, Tamy Irby, Jean Marie Schroeder and colleagues, with an educational dionicio from [employer]. Thrive Questionnaire Date Thrive assessed: 01/13/24 I am a: Patient What is your living situation today?: I have a steady place to live Within the past 12 months, did the food you bought not last and you didn't have the money to get more?: Never true Within the past 12 months, did you worry whether your food would run out before you got money to buy more?: Never true Do you have trouble paying for medicines?: No Do you have trouble getting transportation to medical appointments?: No Do you have trouble paying your heating and electricity bill?: No Do you have trouble taking care of your child, family member or friend?: No Do you have trouble with day-to-day activities such as bathing, preparing meals, shopping, managing finances, etc.?: No Are you currently unemployed and looking for a job?: No Are you interested in more education?: No Please select the resources that you would like help with: None Currently or been in a relationship where the following occur: No concerns reported THRIVE Score: 0 AUDIT C Alcohol Use Questionnaire (AUDIT-C) 1. How often do you have a drink containing alcohol?: Never 3. How often do you have six or more drinks on one occasion?: Never Total Score: 0 Score Reviewed/Action Taken: Yes SHIRLEY-7 AMB Questionnaire SHIRLEY-7 Date SHIRLEY - 7 assessed: 01/13/24 Feeling nervous, anxious, or on edge: 0 = Not at all Not being able to stop or control worryin = Not at all Worrying too much about different things: 0 = Not at all Trouble relaxin = Not at all Being so restless that it is hard to sit still: 0 = Not at all Becoming easily annoyed or irritable: 0 = Not at all Feeling afraid as if something awful might happen: 0 = Not at all Total SHIRLEY-7 score (0-4 normal; 5-9 mild; 10-14 moderate; 15-21 severe): 0 Source: Developed by Drs. Sim Alcala, Tamy Irby, Jean Marie Schroeder and colleagues, with an educational dionicio from [employer]. Review of Systems Const Denies chills, Reports fatigue, Denies fever(s), Reports frequent falls (due to leg weakness, especially with her left knee) and Denies headache(s) ENT Denies dysphagia, Denies dizziness, Denies otalgia, Denies headache(s), Reports neck pain (chronic), Denies odynophagia and Denies sore throat Card Denies chest pain, Denies palpitations and Reports dyspnea on exertion (mild) Resp Denies chest congestion, Denies cough, Reports dyspnea on exertion (mild) and Denies wheezing GI Denies abdominal pain, Denies constipation, Denies dysphagia, Denies heartburn, Denies diarrhea, Denies nausea, Denies odynophagia and Denies vomiting Denies hematuria, Denies difficulty voiding, Denies nocturia, Denies dysuria and Denies urinary incontinence Musc Reports back pain (increased, especially over her left lower back), Reports arthralgias (right shoulder, left knee), Reports muscle weakness (in the right arm, on and off, and in both legs, R>L) and Reports neck pain (chronic) Skin/Breast Denies rash Neuro Denies dizziness, Reports frequent falls (due to leg weakness, especially with her left knee) and Denies headache(s) Endo Reports fatigue and Denies palpitations Aller/Immun Denies wheezing Physical exam (Primary Care) Vital Signs: Last Vital Signs Pulse 70 01/13/24 13:53 BP 124/84 01/13/24 13:53 Pulse Ox 94 01/13/24 13:53 Oxygen Delivery Method Room Air 01/13/24 13:53 BMI result Body Mass Index 30.5 Tobacco/Smoking Status: Tobacco use Status Tobacco use date assessed 01/13/24 01/13/24 13:59 Patient Tobacco Use Status Never used Tobacco 01/13/24 13:59 e-Cigarette/Vaping Use Never Used 01/13/24 13:59 PHQ-9: PHQ-9 Score PHQ-9: Total score 0 01/14/24 05:11 Depression Screening Interpretation: Negative Thrive Assessment: Date of Thrive Assessment Date Thrive assessed 01/13/24 01/13/24 13:59 Currently or been in a relationship where the following occur: No concerns reported Const General: no acute distress and alert HENMT Ears: TM's normal bilaterally and EAC's normal Throat: Yes posterior oropharynx normal and Yes tonsils normal (no TP congestion noted) Neck Neck: Yes no lymphadenopathy and Yes supple Thyroid: Thyroid normal Resp Auscultation: clear to auscultation bilaterally, no rales, no wheezes and diminished lung sounds (slightly) bilateral Cardio Rate: regular rate Rhythm: regular rhythm Heart sounds: no murmurs GI Palpation (GI): Soft to palpation and nontender Auscultation: normal bowel sounds Back/Spine/Pelvis Cervical Spine: Cervical spine tenderness Thoracic/Lumbar Spine: paraspinal muscle tenderness on the left in the upper thoracic, in the mid lumbar and in the lower lumbar and lumbar spinal tenderness Skin Rashes: no rashes Extrem General: Yes no clubbing, cyanosis or edema Right lower extremity: knee Details: no tenderness Left lower extremity: knee Details: tenderness (minimal) Results Reviewed Results Reviewed: Laboratory Tests 12/28/23 12/28/23 07:14 07:15 WBC 6.4 Hgb 14.2 Hct 42.4 Plt Count 166 Sodium 143 Potassium 4.2 Creatinine 0.89 Estimated GFR > 60 Fasting Glucose 101 H Calcium 9.4 AST 25 ALT 24 Triglycerides 74 Cholesterol 125 LDL Cholesterol, Calc 69 HDL Cholesterol 42 25-OH Vitamin D Total 47.2 TSH 3.37 Ur Specific [place] 1.015 Urine Protein Negative Urine Glucose (UA) Negative Urine Blood Negative Urine Nitrite Negative Ur Leukocyte Esterase Moderate (2+) H Assessment and Plan Assessment & Plan (1) COPD (chronic obstructive pulmonary disease): Code(s): J44.9 - Chronic obstructive pulmonary disease, unspecified Qualifiers: COPD type: COPD with acute exacerbation Qualified Code(s): J44.1 - Chronic obstructive pulmonary disease with (acute) exacerbation Plan: Controlled; patient appears to be doing well on her current inhalers - continue Trelegy Ellipta 200-62.5-25 mcg [address] done in August 2022 revealed (+) borderline/mild bronchiectasis, with some scarring or subsegmental atelectasis in the left lower lobe Follow up with pulmonary as scheduled (2) Pure hypercholesterolemia: Code(s): E78.00 - Pure hypercholesterolemia, unspecified Plan: Results of her labs done a couple of weeks ago reviewed and discussed with patient - her lipids/cholesterol levels remain well-controlled Reinforced low cholesterol diet Continue Atorvastatin 40 mg QD Will recheck her labs and fasting lipids in 4 months for follow up (3) Degenerative lumbar spinal stenosis: Comment: S/P bilateral L4-L5 laminotomy, partial facetectomy and foraminotomy through left-sided approach with a microscope by Dr. Kramer on 05/25/2020 MRI previously showed (+) multilevel degenerative disc changes with moderate to severe central stenosis at L4-L5 as well as a grade 1 anterolisthesis of L4 on L5, with moderate to severe bilateral facet arthropathy at L3-L4 and L5-S1 and also a chronic compression fracture of the body of L1 Code(s): M48.061 - Spinal stenosis, lumbar region without neurogenic claudication Plan: Reports (+) significant relief of her back pain since her surgery in May 2020 although her left lower back has been acting up again over the past few weeks She was sent for repeat lumbar spine x-rays, which she got done a couple of weeks ago, but states that she has not heard back as to how they came out She is advised that her x-rays readings are not yet available at this time and we will try reaching out to radiology to get these expedited as soon as possible Reinforced activity and weight lifting restrictions Continue Tizanidine 4 mg 2 to 3 times a day as needed She is currently also on some Oxycodone 5 mg BID-TID PRN and she is asking to have these refilled for now while we are waiting on how her x-rays come out - Rx refilled Follow up with neurosurgery as scheduled or as needed (4) Cervical disc disease: Code(s): M50.90 - Cervical disc disorder, unspecified, unspecified cervical region Plan: Cervical spine MRI done in October 2020 revealed (+) cervical spinal canal developmental narrowing exacerbated by cervical spine degenerative disease with stenosis and overall mild cervical spine cord volume loss Follow up with neurosurgery as scheduled (5) Nondisplaced fracture of left patella: Onset Date: ~01/16/22 Comment: involving the left lateral tibial plateau - did not require surgery Code(s): S82.002A - Unspecified fracture of left patella, initial encounter for closed fracture Qualifiers: Encounter type: sequela Fracture morphology: unspecified fracture morphology Fracture type: closed Qualified Code(s): S82.002S - Unspecified fracture of left patella, sequela Plan: Corrected/resolved; patient did not require surgical intervention S/P physical therapy, with significant improvement of her knee pain although she reports that she is still experiencing bilateral knee/leg weakness (R>L) which is causing her leg to give out - she has fallen a few times lately Repeat left knee x-rays done a few months ago showed only (+) moderate joint effusion with no other abnormalities Patient used to follow up with orthopedics at [facility] but does not appear to have seen them in a while now (6) Vitamin D deficiency: Code(s): E55.9 - Vitamin D deficiency, unspecified Plan: Continue Vitamin D supplement - is on both 2000 units daily and 77137 units once a week Follow up with endocrinology as scheduled (7) Osteoporosis: Code(s): M81.0 - Age-related osteoporosis without current pathological fracture Qualifiers: Osteoporosis type: unspecified Presence of current pathological fracture: without current pathological fracture Qualified Code(s): M81.0 - Age- related osteoporosis without current pathological fracture Plan: Her last BMD was reportedly done at [facility] a couple of years ago; she is due for a repeat BMD for follow up and is encouraged to get this scheduled [facility] (patient was apparently contacted about this recently and she told them that she did not want to get this done at this time) Continue oral Calcium and Vitamin D supplements daily Endocrinology is considering starting her on antiresorptive Tx once her Vitamin D level is normal or near normal Follow up with endocrinology as scheduled (8) Elevated LFTs: Code(s): R79.89 - Other specified abnormal findings of blood chemistry Plan: Resolved - her LFTs have remained normal on her recent labs; were most likely related to her weight Encouraged to continue to try lose weight and is again reminded to avoid any Rx with Acetaminophen as much as possible and to completely abstain from ETOH (9) Right wrist fracture: Code(s): S62.101A - Fracture of unspecified carpal bone, right wrist, initial encounter for closed fracture Qualifiers: Encounter type: sequela Fracture type: closed Qualified Code(s): S62.101S - Fracture of unspecified carpal bone, right wrist, sequela Plan: Sustained when she fell back in July 2023 while playing pickleball S/P surgical correction and physical therapy States that she still has some pain and discomfort in her right wrist at times but her ROM has improved significantly and she has no significant limitations with her right wrist (10) Urolithiasis: Code(s): N20.9 - Urinary calculus, unspecified Qualifiers: Urinary calculus location: kidney Qualified Code(s): N20.0 - Calculus of kidney Plan: She currently has no acute symptoms suggestive of urinary brendon calculi She is encouraged to continue to increase her oral fluids intake Continue Terazosin 1 mg Q HS Follow up with urology as scheduled (11) Squamous cell carcinoma of skin of left cheek: Code(s): C44.329 - Squamous cell carcinoma of skin of other parts of face Plan: S/P surgical [facility] back on 09/08/2023 Follow up with dermatology as scheduled for continuing follow up (12) GERD without esophagitis: Code(s): K21.9 - Gastro-esophageal reflux disease without esophagitis Plan: Dietary restrictions reinforced Continue Pantoprazole 40 mg QD (13) Insomnia: Code(s): G47.00 - Insomnia, unspecified Qualifiers: Insomnia type: primary Qualified Code(s): F51.01 - Primary insomnia Plan: Sleep hygiene reinforced (14) Anxiety: Code(s): F41.9 - Anxiety disorder, unspecified Plan: Continue Alprazolam 1 mg TID PRN (15) Obesity (BMI 30-39.9): Code(s): E66.9 - Obesity, unspecified Plan: Reinforced diet; exercise and weight loss are unrealistic expectations given patient's multiple physical issues and comorbidities Plan Follow up in 4 months Orders: Orders Lipid Panel 4 Months E78.00 - Pure hypercholesterolemia, unspecified Complete Blood Count Auto Diff 4 Months D64.9 - Anemia, unspecified Comprehensive [place]. Panel Fast 4 Months E78.00 - Pure hypercholesterolemia, unspecified UA CC w/rflx Micro + Cult 4 Months R30.0 - Dysuria Vitamin D 25-OH Total 4 Months E55.9 - Vitamin D deficiency, unspecified Medications: Refilled oxycodone Take only as needed for severe pain 5 mg PO BID-TID PRN 15 tabs 0RF pain Coding Level of Care Code Est Pt Level 4 (89214) Diagnoses Chronic obstructive pulmonary disease with acute exacerbation J44.1 COPD type: COPD with acute exacerbation Pure hypercholesterolemia E78.00 Degenerative lumbar spinal stenosis M48.061 Cervical disc disease M50.90 Closed nondisplaced fracture of left patella, unspecified fracture morphology, sequela S82.002S Encounter type: sequela Fracture morphology: unspecified fracture morphology Fracture type: closed Vitamin D deficiency E55.9 Osteoporosis without current pathological fracture, unspecified osteoporosis type M81.0 Osteoporosis type: unspecified Presence of current pathological fracture: without current pathological fracture Elevated LFTs R79.89 Closed fracture of right wrist, sequela S62.101S Encounter type: sequela Fracture type: closed Calculus of kidney N20.0 Urinary calculus location: kidney Squamous cell carcinoma of skin of left cheek C44.329 GERD without esophagitis K21.9 Primary insomnia F51.01 Insomnia type: primary Anxiety F41.9 Obesity (BMI 30-39.9) E66.9
[2024-01-13 13:53] VITALS: BP 124/84; PULSE 70; O2SAT 94; BMI 30.5
== END 2024-01-14 15:14 | disposition home or self-care (01) ==
PROVIDERS: PCP Internal Medicine; Visit Provider Internal Medicine
DX: J44.1 Chronic obstructive pulmonary disease with (acute) exacerbation (principal); M48.061 Spinal stenosis, lumbar region without neurogenic claudication; E78.00 Pure hypercholesterolemia, unspecified; M50.90 Cervical disc disorder, unspecified, unspecified cervical region; S82.002D Unspecified fracture of left patella, subsequent encounter for closed fracture with routine healing; E55.9 Vitamin D deficiency, unspecified; M81.0 Age-related osteoporosis without current pathological fracture; R79.89 Other specified abnormal findings of blood chemistry; S62.101S Fracture of unspecified carpal bone, right wrist, sequela; N20.0 Calculus of kidney; C44.329 Squamous cell carcinoma of skin of other parts of face; K21.9 Gastro-esophageal reflux disease without esophagitis; F51.01 Primary insomnia; F41.9 Anxiety disorder, unspecified
CPT/HCPCS: 99214

== ENCOUNTER 2024-01-23 09:47 | Outpatient (REF) | payer OTHER, SELFPAY ==
--- NOTE | ~2024-01-23 | MR_ITS ---
EXAMINATION: MR KNEE WITHOUT CONTRAST, LEFT CLINICAL INFORMATION: Pain in left knee. COMPARISON: None available. TECHNIQUE: MRI of the knee without contrast was performed using routine sequences on a high-field scanner. FINDINGS: MENISCI: Medial Meniscus: There is somewhat ill-defined globular increased signal in the posterior horn possible extending to the tibial articular surface. Findings suspicious but not definitive for tear. Lateral Meniscus: There is a lobulated intrameniscal and parameniscal cyst involving the peripheral 3rd portion of the body and anterior horn. A small portion of the cyst extends through the meniscus extending into the adjacent soft tissues. There is some associated irregular horizontal increased signal in the body likely extending to the articular surface. Findings indicative of meniscal tear with meniscal cyst. The cyst extends over about 2.9 cm anterior to posterior throughout the body and anterior horn and measures up to 4 mm craniocaudal and 3 mm transverse. Findings indicative of tearing in this portion of the meniscus with associated meniscal cyst. Posterior horn intact. LIGAMENTS: Cruciate: Intact. Collateral: Intact. EXTENSOR MECHANISM: Intact. ARTICULAR CARTILAGE/BONE: Patellofemoral Compartment: Focal full-thickness fissure in the distal medial facet of the patella. Focal area of partial-thickness cartilage loss in the central trochlear cartilage. Overall mild patellofemoral arthrosis. Medial Compartment: Minimal cartilage heterogeneity of the weightbearing portion of the compartment indicative of minimal arthrosis. Lateral Compartment: Mild scattered cartilage heterogeneity of the tibial articular cartilage. Tiny marginal osteophytes. Overall mild arthrosis. JOINT FLUID AND BURSAE: There is a mild joint effusion. MR/MR knee LT wo con IMPRESSION: 1. Tear of the lateral meniscus with associated meniscal cyst. 2. Possible tear of the posterior horn of the medial meniscus. 3. Mild tricompartmental arthrosis. 4. Mild joint effusion. Electronically signed by: Davion Lanza MD 01/25/2024 02:10 PM EDT RP
== END 2024-01-23 09:48 | disposition home or self-care (01) ==
LOC: HO.MRI 09:47
PROVIDERS: PCP Internal Medicine; Visit Provider Orthopaedic Surgery
DX: M25.562 Pain in left knee (principal)
CPT/HCPCS: 73721

== ENCOUNTER 2024-01-28 12:33 | Outpatient (AMB) | payer OTHER, SELFPAY ==
--- NOTE | 2024-01-28 12:37 | MHC.OFFVIS ---
Intake Visit Reasons: JUAN PABLO, L knee MRI review Intake Note: Marisa is a 83 year old female who presents with complaints of progressively worsening left knee pain and giving way. The patient describes her pain as sharp in nature. Most of the pain is along the medial aspect of her knee. The patient states that she suffered a left tibia fracture last year when she slipped and fell. She was in [facility] rehab for approximately 5 months following her injury. She states that her left knee will give out several times per day. She has failed the last 6 weeks of conservative treatment. She has done physical therapy exercises which aggravated her pain. She has also tried Tylenol and anti-inflammatory medicines which gave her minimal relief. The patient states that her left knee will give out several times per day. She has fallen on several occasions because of the instability. Allergies nitrofurantoin [From MACRODANTIN] Allergy (Severe, Verified 01/28/24 12:42) Anaphylaxis Sulfa (Sulfonamide Antibiotics) [SULFA (SULFONAMIDE ANTIBIOTICS)] Allergy (Severe, Verified 01/28/24 12:42) ANAPHYLAXIS sulfamethoxazole [From BACTRIM] Allergy (Severe, Verified 01/28/24 12:42) ANAPHYLAXIS trimethoprim [From BACTRIM] Allergy (Severe, Verified 01/28/24 12:42) ANAPHYLAXIS Medication List - Last Reconciled 01/28/24 by Patricia Bruner RN alprazolam 1 mg PO TID PRN 30 days aspirin mg PO atorvastatin 40 mg PO BEDTIME 90 days cholecalciferol (vitamin D3) 50 mcg PO DAILY 90 days fluticasone propionate 50 mcg/actuation 2 sprays intranasal DAILY lidocaine 5% 1 patch topical DAILY loratadine (Claritin) 10 mg PO DAILY 30 days montelukast 10 mg PO BEDTIME oxycodone 5 mg PO BID-TID PRN pantoprazole 40 mg PO DAILY terazosin 1 mg PO BEDTIME 90 days [facility] Medical History Cough COPD (chronic obstructive pulmonary disease) Seasonal allergies Chronic cough Cervical disc disease Left knee pain Pain of right shoulder joint on movement Abnormal SPEP Vitamin D deficiency Urolithiasis Osteoporosis GERD without esophagitis Multilevel degenerative disc disease Obesity (BMI 30-39.9) Anxiety Insomnia GERD (gastroesophageal reflux disease) Left lumbosacral radiculopathy Degenerative lumbar spinal stenosis Pure hypercholesterolemia Surgical History History of surgery on right wrist History of endoscopy History of colonoscopy Hx of decompressive lumbar laminectomy (~05/25/20) Status post total abdominal hysterectomy and bilateral salpingo-oophorectomy (CATRACHITO-BSO) History of right cataract extraction (~12/2016) History of cystoscopy (~05/24/18) Family History Father No problems noted. Mother Ovarian cancer Daughter Myocardial infarction, Onset Age: 46 Stroke Social History Household Members: Children Housing: House Are you a primary healthcare educator to a significant other at home: No Do you presently have visiting nurse or other home services: No Alcohol intake: former Patient Tobacco Use Status: Never used Tobacco e-Cigarette/Vaping Use: Never Used Second Hand Smoke Exposure: Yes service: No Current occupational status: retired and disabled Cognitive needs: No Hearing needs: No Vision needs: Yes (reading glasses) Physical Exam Const Other: Well-nourished well-developed very friendly female awake alert and oriented x3 in no acute distress Extrem Other: Bilateral lower extremity examination shows good capillary refill, no skin lesions noted, normal sensation light touch Left knee examination shows a minimal effusion, minimal crepitus with range of motion, tenderness along her medial and lateral joint lines, positive Lea's test, no instability Results Reviewed Results Reviewed: Standing full weight-bearing x-rays of the patient's left knee show mild diffuse joint space narrowing, no acute bony abnormalities MRI of the patient's left knee shows mild diffuse degenerative changes as well as tearing of her medial and lateral menisci Assessment & Plan Assessment & Plan (1) Tear of medial meniscus of left knee: Code(s): S83.242A - Other tear of medial meniscus, current injury, left knee, initial encounter Category: Medical Plan Ms. Lainez presents with progressively worsening left knee pain and mechanical symptoms due to tearing of her medial and lateral menisci. I had a lengthy discussion with the patient regarding the treatment options. At this point she has failed continued non operative treatments. The risks and benefits of left knee arthroscopic surgery were discussed at length with the patient. The patient wishes to proceed with surgery. Surgery will most likely involve left knee diagnostic arthroscopy with arthroscopic partial medial and lateral meniscectomies. She does understand that she may not get 100% relief of her symptoms depending on the severity of her degenerative changes. The patient will be scheduled for next available date. She will follow-up as instructed. Feel free to call me at any time should questions regarding her orthopedic management arise. I spent 22 minutes in reviewing the patient's records and imaging studies, seeing the patient and documenting in the medical record. Coding Level of Care Code Est Pt Level 3 (16186) Complex EM visit Add On G2211 Diagnoses Tear of medial meniscus of left knee S83.242A
== END 2024-01-28 12:59 | disposition home or self-care (01) ==
PROVIDERS: PCP Internal Medicine; Visit Provider Orthopaedic Surgery
DX: S83.242A Other tear of medial meniscus, current injury, left knee, initial encounter (principal)
CPT/HCPCS: 99214; G2211

== ENCOUNTER → 2024-01-28 12:33 | Outpatient (BNVA) | payer OTHER, SELFPAY | PROVIDERS: PCP Internal Medicine; Visit Provider Orthopaedic Surgery | DX: S83.242A Other tear of medial meniscus, current injury, left knee, initial encounter (principal); M23.52 Chronic instability of knee, left knee; X58.XXXA Exposure to other specified factors, initial encounter; Y93.9 Activity, unspecified; Y92.9 Unspecified place or not applicable; Y99.9 Unspecified external cause status; Z71.2 Person consulting for explanation of examination or test findings; Z91.81 History of falling | CPT/HCPCS: 99212 ==

== ENCOUNTER 2024-02-05 13:25 | Outpatient (AMB) | payer OTHER, SELFPAY ==
--- NOTE | 2024-02-05 13:31 | MHC.OFFVIS ---
Vital Signs 02/05/24 13:33 Height 5 ft 4 in Weight 191 lb 12.835 oz BMI 32.9 BP 134/60 Blood Pressure Location Lt brachial Position Sitting Pulse 60 Pulse Source Pulse Oximeter Pulse Oximetry (%) 95 Oxygen Delivery Method Room Air Intake Visit Reasons: COPD/Pre Op L knee arthroscopy Allergies nitrofurantoin [From MACRODANTIN] Allergy (Severe, Verified 02/05/24 13:36) Anaphylaxis Sulfa (Sulfonamide Antibiotics) [SULFA (SULFONAMIDE ANTIBIOTICS)] Allergy (Severe, Verified 02/05/24 13:36) ANAPHYLAXIS sulfamethoxazole [From BACTRIM] Allergy (Severe, Verified 02/05/24 13:36) ANAPHYLAXIS trimethoprim [From BACTRIM] Allergy (Severe, Verified 02/05/24 13:36) ANAPHYLAXIS HPI Comments Details: the patient is a 83-year-old woman with chronic cough and COPD. It has been awhile since I evaluated the patient. Primarily due to the pandemic she has not been to the office almost 2 years. During the last evaluation the patient was complaining of a chronic cough. Part of the workup including a barium swallow. She did undergo barium swallow straight no acute disease. However, after she underwent that she felt that her cough got worse. the cough occurs at any time and is sporadic. She can have coughing spells it can affect her bladder developing some incontinence. Sometimes she feels better after removing is blood of mucus. Denies any hemoptysis. Denies any significant chest tightness or wheezing. She does complaint of allergies and postnasal drip. I did evaluate her nose demonstrating nasal congestion and significant postnasal drip with grows post area pharynx secretions lymphoid tissue hypertrophy. Therefore, will focus on upper airway cough syndrome. 07/30/2022 the patient is here for pulmonary follow-up visit. Patient still complaining of cough. The cough now is typically nonproductive in nature but when she coughs it is moderate to severe. She goes to coughing spells had a very hard to stop. She typically has urinary incontinence that is embarrassing to her. Therefore she would like to see if we can get makes her cough better. During the last visit she was having more congestion she did respond to the antibiotics. We did look at the x-ray demonstrating no acute disease. At this point based on her ongoing cough symptoms will go ahead and request a CT scan of the chest to make sure she does not have any endobronchial lesions. The patient also will be maximize her respiratory therapy to help with some wheezing. 10/01/2022 The patient is here for a pulmonary follow up visit. Overall doing well. Cough in non productive, mild in severity. Trelegy has been helpful. Continues nasal therapy. I personally reviewed her CT chest with minimal atelectasis and minimal bronchectatic airways. No serial CT's needed. 02/05/2024 the patient is here for a pulmonary follow-up visit. The patient has a preoperative evaluation for orthopedic surgery. She has been doing better from respiratory status. She has been tolerating Trelegy inhaler and she does use it daily. Still has episodes of cough usually nonproductive in nature. Simn-ct-[id number] severity in the usually intermittent. Likely the patient does have a component of mucus plugs and atelectasis and she typically develops a cough because of that. We did talk about deep breathing exercises to help her minimize in the atelectasis in the cough. From a pulmonary standpoint the patient is medically stable to undergo anesthesia and surgery at this time. Therefore she may proceed without any reservations. The patient will have mild risk for perioperative pulmonary complications which includes bronchospasms, atelectasis, hypoxia, pneumonia. Patient follow-up in 4-6 months if she has any issues prior to that she will call for an earlier assessment. [facility] Medical History Cough COPD (chronic obstructive pulmonary disease) Seasonal allergies Chronic cough Cervical disc disease Left knee pain Pain of right shoulder joint on movement Abnormal SPEP Vitamin D deficiency Urolithiasis Osteoporosis GERD without esophagitis Multilevel degenerative disc disease Obesity (BMI 30-39.9) Anxiety Insomnia GERD (gastroesophageal reflux disease) Left lumbosacral radiculopathy Degenerative lumbar spinal stenosis Pure hypercholesterolemia Surgical History History of surgery on right wrist History of endoscopy History of colonoscopy Hx of decompressive lumbar laminectomy (~05/25/20) Status post total abdominal hysterectomy and bilateral salpingo-oophorectomy (CATRACHITO-BSO) History of right cataract extraction (~12/2016) History of cystoscopy (~05/24/18) Family History Father No problems noted. Mother Ovarian cancer Daughter Myocardial infarction, Onset Age: 46 Stroke Social History Household Members: Children Housing: House Are you a primary manager intensive care unit to a significant other at home: No Do you presently have visiting nurse or other home services: No Alcohol intake: former Patient Tobacco Use Status: Never used Tobacco e-Cigarette/Vaping Use: Never Used Second Hand Smoke Exposure: Yes service: No Current occupational status: retired and disabled Cognitive needs: No Hearing needs: No Vision needs: Yes (reading glasses) Review of Systems Const Denies night sweats ENT Denies change in voice, Denies lip swelling, Denies mouth pain, Reports nasal congestion, Reports nasal discharge and Denies tongue swelling Card Denies chest pain and Reports dyspnea on exertion Resp Denies chest congestion, Reports cough, Reports dyspnea on exertion and Denies wheezing GI Denies abdominal pain, Reports dyspepsia and Reports heartburn Musc Denies no additional complaints and Reports myalgias Neuro Denies Neuro-related abnormal movements Psych Denies no additional complaints Kirit/Lymph Denies easy bleeding and Denies lymphadenopathy Aller/Immun Denies lip swelling, Denies tongue swelling and Denies wheezing Physical Exam Vital Signs: Last Vital Signs Pulse 60 02/05/24 13:33 BP 134/60 02/05/24 13:33 Pulse Ox 95 02/05/24 13:33 Oxygen Delivery Method Room Air 02/05/24 13:33 BMI result Body Mass Index 32.9 Const General: cooperative, healthy appearing and well developed Nutritional Appearance: average body habitus and well nourished Orientation/consciousness: patient oriented x3 Limitations: no limitations HEENT Head: Yes normocephalic Ears: hearing grossly normal bilaterally Eyes General: appearance normal, both eyes and all related structures Neck Neck: Yes normal visual inspection Chest Chest palpation & inspection: normal inspection of the chest Resp Effort & Inspection: normal respiratory effort and Actively coughing Auscultation: no wheezes and diminished lung sounds Cardio Jugular venous distension: no JVD Neuro General: patient oriented x3, gait normal and no focal motor deficits Psych Appearance: grossly normal and well kempt Mental Status: mental status grossly normal Speech and movement: Normal speech and movement present Affect: normal affect Attitude: cooperative Thought process: Normal thought process present Thought content: Normal thought content present Insight: Good insight present (Psych) Judgement: Good judgement present (Psych) Assessment & Plan Assessment & Plan (1) Pre-op chest exam: Code(s): Z01.811 - Encounter for preprocedural respiratory examination Category: Medical (2) COPD (chronic obstructive pulmonary disease): Code(s): J44.9 - Chronic obstructive pulmonary disease, unspecified Category: Medical Qualifiers: COPD type: COPD with acute exacerbation Qualified Code(s): J44.1 - Chronic obstructive pulmonary disease with (acute) exacerbation (3) Chronic cough: Code(s): R05.3 - Chronic cough Category: Medical (4) GERD without esophagitis: Code(s): K21.9 - Gastro-esophageal reflux disease without esophagitis Category: Medical (5) Seasonal allergies: Code(s): J30.2 - Other seasonal allergic rhinitis Category: Medical Plan May proceed with anesthesia and orthopedic surgery at this time from a pulmonary standpoint. continue Singulair at night tessalon pearls as needed for cough continue Trelegy Atrovent nasal spray at night Flonase in AM F/U 1 yr Coding Level of Care Code Est Pt Level 4 (80967) Diagnoses Pre-op chest exam Z01.811 Chronic obstructive pulmonary disease with acute exacerbation J44.1 COPD type: COPD with acute exacerbation Chronic cough R05.3 GERD without esophagitis K21.9 Seasonal allergies J30.2 Time Spent (min) 16
[2024-02-05 13:33] VITALS: BP 134/60; PULSE 60; O2SAT 95; BMI 32.9
== END 2024-02-05 13:56 | disposition home or self-care (01) ==
PROVIDERS: PCP Internal Medicine; Visit Provider Hospitalist
DX: Z01.811 Encounter for preprocedural respiratory examination (principal); J44.1 Chronic obstructive pulmonary disease with (acute) exacerbation; R05.3 Chronic cough; K21.9 Gastro-esophageal reflux disease without esophagitis; J30.2 Other seasonal allergic rhinitis
CPT/HCPCS: 99214

== ENCOUNTER → 2024-02-05 13:25 | Outpatient (BNVA) | payer OTHER, SELFPAY | PROVIDERS: PCP Internal Medicine; Visit Provider Hospitalist | DX: Z01.811 Encounter for preprocedural respiratory examination (principal); J44.1 Chronic obstructive pulmonary disease with (acute) exacerbation; J30.2 Other seasonal allergic rhinitis; R05.3 Chronic cough; K21.9 Gastro-esophageal reflux disease without esophagitis | CPT/HCPCS: 99212 ==

== ENCOUNTER → 2024-02-18 12:49 | Outpatient (BNV) | payer OTHER, SELFPAY | PROVIDERS: PCP Internal Medicine; Visit Provider Internal Medicine | DX: R94.31 Abnormal electrocardiogram [ECG] [EKG] (principal) | CPT/HCPCS: 93010 ==

== ENCOUNTER 2024-02-22 07:04 | Day surgery (SDC) | payer OTHER, SELFPAY ==
--- NOTE | 2024-02-18 | ECG_ITS ---
Test Reason : pre op Blood Pressure : / mmHG Vent. Rate : 058 BPM Atrial Rate : 058 BPM P-R Int : 140 ms QRS Dur : 086 ms QT Int : 444 ms P-R-T Axes : 038 019 021 degrees QTc Int : 435 ms Sinus bradycardia with sinus arrhythmia Nonspecific ST abnormality Abnormal ECG When compared with ECG of 05-DEC-2016 11:55, No significant change was found Referred By: Rebecca Rodriguez Electronically Signed By:JOSE ALBERTO LARIOS
[2024-02-18 12:11] VITALS: BP 139/76; PULSE 64; RESP 18; O2SAT 95; BMI 32.1
--- NOTE | 2024-02-18 12:33 | HO.ANESPROP2 ---
Documented by User: Rebecca Rodriguez NP 02/18/24 13:47 HPI - Anesthesia Eval Consult details Narrative: 83yo F for Left Knee Arthroscopy with partial medial and lateral meniscectomy, 02/22/24 Pulmo optimized per [facility] pulmo No recent illness No CP/SOB. Some MARIE with stairs carrying laundry COPD: Stable without inhalers GERD: controlled with ppi Pt reports vague anesthesia problem for son at age 9 tonsilectomy. No issues for patient with multiple anesthesias in the past. Reviewed with Dr Price. [facility] Active Problems Active Problems: All Active Problems Pre-op chest exam (Acute) Tear of medial meniscus of left knee (Acute) Right flank pain (Acute) COPD exacerbation (Acute) Skin lesion of cheek (Acute) Otitis media of right ear (Acute) Squamous cell carcinoma of skin of left cheek (Acute) Right wrist fracture (Acute) Facial skin lesion (Acute) Hearing loss in right ear (Acute) Hemoptysis (Acute) Vaginal atrophy (Acute) History of kidney stones (Acute) Kidney stones (Acute) Complicated UTI (urinary tract infection) (Acute) Bronchopneumonia (Acute) Bronchitis (Acute) Elevated parathyroid hormone (Acute) Frequent falls (Acute) Bilateral leg weakness (Acute) Muscle strain of anterior chest wall (Acute) Left otitis externa (Acute) Ganglion cyst of joint of finger (Acute) Nondisplaced fracture of left patella (Acute ~01/16/22) Anxiety and depression (Acute) Medicare annual wellness visit, subsequent (Acute) Abdominal bloating (Acute) Recurrent UTI (urinary tract infection) (Acute) Elevated LFTs (Acute) Urinary tract infection (Acute) Digital mucinous cyst of finger of right hand (Acute) Recurrent vomiting (Acute) Abnormal tympanic membrane of right ear (Acute) Adult general medical exam (Acute) Dysuria (Acute) Family history of breast cancer (Acute) Cough (Acute) COPD (chronic obstructive pulmonary disease) (Acute) Seasonal allergies (Acute) Chronic cough (Acute) Cervical disc disease (Acute) Left knee pain (Acute) Pain of right shoulder joint on movement (Acute) Abnormal SPEP (Acute) Vitamin D deficiency (Acute) Urolithiasis (Acute) Osteoporosis (Acute) GERD without esophagitis (Acute) Multilevel degenerative disc disease (Acute) Obesity (BMI 30-39.9) (Acute) Anxiety (Acute) Insomnia (Acute) GERD (gastroesophageal reflux disease) (Acute) Left lumbosacral radiculopathy (Acute) Degenerative lumbar spinal stenosis (Acute) Pure hypercholesterolemia (Acute) Past Medical History Medical History History of skin cancer Hepatitis Cough COPD (chronic obstructive pulmonary disease) Seasonal allergies Chronic cough Cervical disc disease Left knee pain Pain of right shoulder joint on movement Abnormal SPEP Vitamin D deficiency Urolithiasis Osteoporosis GERD without esophagitis Multilevel degenerative disc disease Obesity (BMI 30-39.9) Anxiety Insomnia GERD (gastroesophageal reflux disease) Left lumbosacral radiculopathy Degenerative lumbar spinal stenosis Pure hypercholesterolemia Family History Family History Father No problems noted. Mother Ovarian cancer Daughter Myocardial infarction, Onset Age: 46 Stroke Family history of problems with anesthesia: Yes (Son had problem with anesthesia as child (age ~7, now age 60). Vague memory of what happened but thinks told he can't have anesthesia. He was down for the count ) Surgical History Surgical History Hx of tonsillectomy Hx of left cataract extraction History of surgery on right wrist History of endoscopy History of colonoscopy Hx of decompressive lumbar laminectomy (~05/25/20) Status post total abdominal hysterectomy and bilateral salpingo-oophorectomy (CATRACHITO-BSO) History of right cataract extraction (~12/2016) History of cystoscopy (~05/24/18) History of Problems with Anesthesia: No (1 x long to wake, ) Social History Social History Household Members: Children Housing: House Are you a primary healthcare associate to a significant other at home: No Do you presently have visiting nurse or other home services: No Alcohol intake: former Patient Tobacco Use Status: Never used Tobacco e-Cigarette/Vaping Use: Never Used Second Hand Smoke Exposure: Yes Use of substances other than those prescribed or required for medical reasons: No Have you been hit, kicked, punched, or otherwise hurt by someone within the past year? If so, by whom?: No Are you DNR?: No Advance Directives: No Advance Directives Information Provided: Yes Advance Directives on File: No Recently lost weight without trying: No Eating poorly because of decreased appetite: No Nutrition Risks: No Nutritional Risk Patient : No : No Poor oral hygiene: Yes (3 implants upper) service: No Current occupational status: retired and disabled Cognitive needs: No Hearing needs: No Vision needs: Yes (reading glasses) Meds Allergies Allergy/AdvReac Type Severity Reaction Status Date / Time nitrofurantoin Allergy Severe Anaphylaxis Verified 02/05/24 13:36 [From MACRODANTIN] Sulfa (Sulfonamide Allergy Severe ANAPHYLAXIS Verified 02/05/24 13:36 Antibiotics) [SULFA (SULFONAMIDE ANTIBIOTICS)] sulfamethoxazole Allergy Severe ANAPHYLAXIS Verified 02/05/24 13:36 [From BACTRIM] trimethoprim [From BACTRIM] Allergy Severe ANAPHYLAXIS Verified 02/05/24 13:36 Home Medications ?Medication ?Instructions ?Recorded ?Confirmed ?Last Taken ?Type pantoprazole 40 mg tablet,delayed 40 mg PO BEDTIME 02/18/24 02/18/24 Unknown History release Exam Height,Weight and Vital Signs: Height 5 ft 5 in Weight 87.543 kg Last Vital Signs Pulse 64 02/18/24 12:11 Resp 18 02/18/24 12:11 BP 139/76 02/18/24 12:11 Pulse Ox 95 02/18/24 12:11 O2 Del Method Room Air 02/18/24 12:11 Pertinent Lab Results Pertinent Lab Results: Laboratory Tests 12/28/23 07:15 WBC 6.4 Hgb 14.2 Hct 42.4 Plt Count 166 Sodium 143 Potassium 4.2 Chloride 108 Carbon Dioxide 28 BUN 17 H Creatinine 0.89 Narrative Narrative: EKG 02/2024 Vent. Rate : 058 BPM Atrial Rate : 058 BPM P-R Int : 140 ms QRS Dur : 086 ms QT Int : 444 ms P-R-T Axes : 038 019 021 degrees QTc Int : 435 ms Sinus bradycardia with sinus arrhythmia Nonspecific ST abnormality Abnormal ECG When compared with ECG of 05-DEC-2016 11:55, No significant change was found Airway Mallampati Class: I TM Dist: >3cm Neck ROM: Full Loose/Missing/Broken Teeth: No (implants right upper molar) Heart: RRR Lungs: CTAB Assessment and Plan Assessment Anesthesia Assessment: Anesthesia Plan Discussed and PAT Visit Final Anesthetic Review Family History of Problems with Anesthesia: Yes (Son had problem with anesthesia as child (age ~7, now age 62). Vague memory of what happened but thinks told he can't have anesthesia. He was down for the count ) History of Problems with Anesthesia: No (1 x long to wake, ) Documented by User: Alecia Price MD 02/22/24 08:00 [facility] Past Medical History Medical History History of skin cancer Hepatitis Cough COPD (chronic obstructive pulmonary disease) Seasonal allergies Chronic cough Cervical disc disease Left knee pain Pain of right shoulder joint on movement Abnormal SPEP Vitamin D deficiency Urolithiasis Osteoporosis GERD without esophagitis Multilevel degenerative disc disease Obesity (BMI 30-39.9) Anxiety Insomnia GERD (gastroesophageal reflux disease) Left lumbosacral radiculopathy Degenerative lumbar spinal stenosis Pure hypercholesterolemia Family History Family History Father No problems noted. Mother Ovarian cancer Daughter Myocardial infarction, Onset Age: 46 Stroke Surgical History Surgical History Hx of tonsillectomy Hx of left cataract extraction History of surgery on right wrist History of endoscopy History of colonoscopy Hx of decompressive lumbar laminectomy (~05/25/20) Status post total abdominal hysterectomy and bilateral salpingo-oophorectomy (CATRACHITO-BSO) History of right cataract extraction (~12/2016) History of cystoscopy (~05/24/18) Social History Social History Household Members: Children Housing: House Are you a primary healthcare associate to a significant other at home: No Do you presently have visiting nurse or other home services: No Alcohol intake: former Patient Tobacco Use Status: Never used Tobacco e-Cigarette/Vaping Use: Never Used Second Hand Smoke Exposure: Yes Use of substances other than those prescribed or required for medical reasons: No Have you been hit, kicked, punched, or otherwise hurt by someone within the past year? If so, by whom?: No Are you DNR?: No Advance Directives: No Advance Directives Information Provided: Yes Advance Directives on File: No Recently lost weight without trying: No Eating poorly because of decreased appetite: No Nutrition Risks: No Nutritional Risk Patient : No : No Poor oral hygiene: Yes (3 implants upper) service: No Current occupational status: retired and disabled Cognitive needs: No Hearing needs: No Vision needs: Yes (reading glasses) Meds Allergies Allergy/AdvReac Type Severity Reaction Status Date / Time nitrofurantoin Allergy Severe Anaphylaxis Verified 02/05/24 13:36 [From MACRODANTIN] Sulfa (Sulfonamide Allergy Severe ANAPHYLAXIS Verified 02/05/24 13:36 Antibiotics) [SULFA (SULFONAMIDE ANTIBIOTICS)] sulfamethoxazole Allergy Severe ANAPHYLAXIS Verified 02/05/24 13:36 [From BACTRIM] trimethoprim [From BACTRIM] Allergy Severe ANAPHYLAXIS Verified 02/05/24 13:36 Home Medications ?Medication ?Instructions ?Recorded ?Confirmed ?Last Taken ?Type pantoprazole 40 mg tablet,delayed 40 mg PO BEDTIME 02/18/24 02/18/24 Unknown History release Assessment and Plan Final Anesthetic Review NPO: Yes ASA Class: II Final Preanesthetic Review: No Changes in Pt Med Stat, Meds/Allgs Chart Reviewed, Consent Obtained/Reviewed and Anes Risks/Benef Reviewed Patient Risk: Intermediate Procedure Risk: Low Anesthetic Plan Anesthetic Plan: GA Disposition: Standard PACU
[2024-02-22] VITALS (11 sets, daily range): BP systolic 116–157; BP diastolic 55–74; PULSE 20–69; RESP 11–16; TEMP 36.1–36.2; O2SAT 94–99
--- OUTSIDE RECORDS SUMMARY | 2024-02-22 07:07 | XMS_ITS | Clinical Summary ---
Author Organization [facility] Address [address] [place] [address] Phone Care Team Providers Care Rd Lab Technician Name Role Phone Mac Thomas Primary Care Provider [phone] [facility] Unavailable [phone] Reason for Visit and Chief Complaint Post Op Visit/Follow Up Plan of Treatment Pending Tests Order Diagnosis Results Due Ordering P ridge Follow Up - Appointment 3 weeks Unsp fra cture of the lower end of right radius, init 07/20/23 Huber Liu MD Last Documented On 4 10:55AM ; [facility] Assessments Includes: Assessments from this encounter [...] Of Wrist, complete, min 3 views (Right) [id number] Unsp fracture of the lower end of right radius, init Huber Liu MD [facility] 07/20/2023 Last Documented On 4 2:06PM ; [facility] Medical History Includes: Medical History addressed [...] Post Op Visit/Follow Up Huber Liu MD [facility], 07/20/19 24 9:40AM 11:01AM Insurance Includes: Active Insurance Policies Plan Name Member ID Group # Subscriber Relationship Effect eder Dates 1 - [employer] [id number] SERA Rubio 2 - [facility] [id number] SERA Rubio Clinical Notes Includes: Clinical Notes from this encounter * Progress note Date Encounter Last Documented by 07/20/2023 Post Op Visit/Follow Up Last doc umented on 07/20/2023; 10:55 AM, Huber Liu MD; [facility], Physical Findings Chief complaint: Follow-up ORIF [...]
--- OUTSIDE RECORDS SUMMARY | 2024-02-22 07:07 | XMS_ITS ---
Care Plan - [facility] Created on: February 22, 2024 SERA KELLEY : 1940 Sex: Female Author Organization [facility] Address [address] [place] [address] Phone Care Team Providers Care Electrical Electronics Engineer Name Role Phone Mac Thomas Primary Care Provider [phone] [facility] Unavailable [phone]
--- OUTSIDE RECORDS SUMMARY | 2024-02-22 07:07 | XMS_ITS | Clinical Summary ---
Author Organization [facility] Address [address] [place] [address] Phone Care Team Providers Care Manager Engine Name Role Phone Mac Thomas Primary Care Provider [phone] [facility] Unavailable [phone] Reason for Visit and Chief Complaint Post Op Visit/Follow Up Plan of Treatment Pending Tests Order Diagnosis Results Due Ordering P ridge Follow Up - Appointment 1 Month Unsp fra cture of the lower end of right radius, init 08/10/23 Huber Liu MD Last Documented On 4 10:04AM ; [facility] Assessments Includes: Assessments from this encounter [...] Of Wrist, complete, min 3 views (Right) [id number] Unsp fracture of the lower end of right radius, init Huber Liu MD [facility] 08/10/2023 Last Documented On 4 9:53AM ; [facility] Medical History Includes: Medical History addressed [...] Post Op Visit/Follow Up Huber Liu MD [facility], 08/10/19 24 10:00AM 10:05AM Insurance Includes: Active Insurance Policies Plan Name Member ID Group # Subscriber Relationship Effect eder Dates 1 - [employer]U [facility] [id number] SERA Rubio 2 - [facility] [id number] SERA Rubio Clinical Notes Includes: Clinical Notes from this encounter * Progress note Date Encounter Last Documented by 08/10/2023 Post Op Visit/Follow Up Last doc umented on 08/10/2023; 10:04 AM, Huber Liu MD; [facility], Physical Findings Chief complaint: Follow-up ORIF [...]
--- OUTSIDE RECORDS SUMMARY | 2024-02-22 07:07 | XMS_ITS ---
Author Organization [facility] Address [address] [place] [address] Phone Care Team Providers Care Group Reservations Coordinator Name Role Phone Mac Thomas Primary Care Provider [phone] Formerly named [facility] Unavailable [phone] Plan of Treatment No Plan of Treatment Recorded Assessments Includes: Assessments for all patient encounters No Assessments Recorded Medical Equipment - Implanted Devices Includes: Current and historical Devices No Medical Equipment Recorded Medications Administered Includes: Administered Medications in patient's chart No Administered Medications Recorded Vital Signs Includes: Vital Signs from 02/21/2023 through 02/22/2024 Vital Name 10/12/2023 08:37A Blood Pressure Sitting (mmHg) 124/75 Pulse Rate-Sitting (bpm) 73 Temp-Temporal 96.4 Oxygen Saturation (%) 96 Last Documented: On 10/12/2023 8:37AM ; [facility] Results Includes: Results from 02/21/2023 through 02/22/2024 No Results Recorded For Specified Dates History of Present Illness History of Present Illness not supported for this document type No History of Present Illness Recorded Social History No Social History Recorded - Smoking Status Unknown Procedures and Surgical History Includes: Procedures from 02/21/2023 through 02/22/2024 Procedures Code Diagnosis Performing Provider Service Location Service Date X-Ray Exam Of Wrist, complete, min 3 views (Right) [id number] Unsp fx the lower end r rad, subs for clos fx w jake Elkins [facility]-C [facility] 10/12/2023 Last Documented On 4 4:32PM ; [facility] X-Ray Exam Of Forearm, 2 views (Right) [id number] Unsp fx the lower end r rad, subs for clos fx w jake Kinsey MD [facility] 09/10/2023 Last Documented On 4 6:43AM ; [facility], X-Ray Exam Of Wrist, complete, min 3 views (Right) [id number] Unsp fracture of the lower end of right radius, dasia Liu MD [facility], 08/10/2023 Last Documented On 4 9:53AM ; [facility], [facility] Exam Of Wrist, complete, min 3 views (Right) [id number] Unsp fracture of the lower end of right radius, dasia Liu MD [facility], 07/20/2023 Last Documented On 4 2:06PM ; [facility], Treat Fx Radial 3+ Frag (Right) [id number] Unsp fracture of the lower end of right radius, dasia Liu MD [facility] 07/08/2023 Last Documented On 4 8:32AM ; [facility], Medical History Includes: Medical History in patient's [...] Physical Exam Recorded Encounters Includes: Encounters from 02/21/2023 through 02/22/2024 Encounter Provider Location Date Check-In Time Check-Out Time Diagnosis Established Patient Monica Elkins PA-C [facility] 10/12/19 24 8:40AM 8:44AM Post Op Visit/Follow Up Willy Kinsey MD [facility] 09/10/19 24 8:40AM 9:35AM Post Op Visit/Follow Up Huber Liu MD [facility] 08/10/19 24 10:00AM 10:05AM Post Op Visit/Follow Up Huber Liu MD [facility] 07/20/19 24 9:40AM 11:01AM Insurance Includes: Active Insurance Policies Plan Name Member ID Group # Subscriber Relationship Effect eder Dates 1 - [facility] [id number] SERA Rubio - [facility] [id number] SERA Rubio Clinical Notes Includes: Signed Clinical Notes starting from 04/13/2022 * Progress note Date Encounter Last Documented by 10/12/2023 Established Patient Raimundo mckeon on 10/12/2023; 8:48 AM, Monica Elkins PA-C; [facility], Reason For Visit Chief complaint: Follow-up ORIF [...] the contralateral limb. She has full extension. Pick Up Attendant strength is strong and symmetric Imaging: Impression: [...] In House X-Rays/X-Rays: Wrist, right, 3 views ([id number]) EndCited * Progress note Date Encounter Last Documented by 09/10/2023 Post Op Visit/Follow Up Last doc umented on 09/10/2023; 11:20 AM, Willy Kinsey MD; [facility], Chief Complaint Closed segmental fracture distal [...] on 08/10/2023; 10:04 AM, Huber Liu MD; [facility], Physical Findings Chief complaint: Follow-up ORIF right [...] on 07/20/2023; 10:55 AM, Huber Liu MD; [facility], Physical Findings Chief complaint: Follow-up ORIF [...]
--- OUTSIDE RECORDS SUMMARY | 2024-02-22 07:07 | XMS_ITS | Clinical Summary ---
Author Organization [facility] Address [address] [place] [address] Phone Care Team Providers Care Linux Server Administrator Name Role Phone Mac Thomas Primary Care Provider [phone] [facility] Unavailable [phone] Reason for Visit and Chief Complaint Established Patient Plan of Treatment Pending Tests Order Diagnosis Results Due Ordering P rovider Follow Up - Appointment PRN Unsp fx the lower end r rad, subs for clos fx w routn heal 10/12/23 Monica Elkins PA-C Last Documented On 4 8:48AM ; [facility], In House X-Rays - X-Rays Wrist, right, 3 views ([id number]) Unsp fx the lower end r rad, subs for clos fx w routn heal 10/14/23 Monica Elkins PA-C Last Documented On 4 8:48AM ; [facility] Assessments Includes: Assessments from this encounter No [...] ; [facility] Results Includes: Results discussed during this encounter [...] Of Wrist, complete, min 3 views (Right) [id number] Unsp fx the lower end r rad, subs for clos fx w routn heal Monica Elkins [facility]-C [facility] 10/12/2023 Last Documented On 4 4:32PM ; [facility] Medical History Includes: Medical History addressed [...] Time Diagnosis Established Patient Monica Brittni JACK [facility] 10/12/19 24 8:40AM 8:44AM Insurance Includes: Active Insurance Policies Plan Name Member ID Group # Subscriber Relationship Effect eder Dates 1 - [facility] [place] [id number] SERA Rubio 2 - [facility] [id number] SERA Rubio Clinical Notes Includes: Clinical Notes from this encounter * Progress note Date Encounter Last Documented by 10/12/2023 Established Patient Raimundo mckeon on 10/12/2023; 8:48 AM, Monica Elkins PA-C; [facility] Reason For Visit Chief complaint: Follow-up ORIF [...] the contralateral limb. She has full extension. Automation Tester strength is strong and symmetric Imaging: Impression: [...] In House X-Rays/X-Rays: Wrist, right, 3 views ([id number]) EndCited
--- OUTSIDE RECORDS SUMMARY | 2024-02-22 07:07 | XMS_ITS | Clinical Summary ---
Author Organization [facility] Address [address] [place] [address] Phone Care Team Providers Care Household Appliances Service Technician Name Role Phone Mac Thomas Primary Care Provider [phone] [facility] Unavailable [phone] Reason for Visit and Chief Complaint Post Op Visit/Follow Up Plan of Treatment 1. No lifting more than 10 pounds. 2. Would delay playing pickleball for at least 1 more month. 3. Return to see Dr. Liu in 1 month for final x-rays and to discuss activities - Last Documented On 09/10/2023 11:20AM ; [facility] Pending Tests Order Diagnosis Results Due Ordering Sebastian sabillon Follow Up - Appointment 1 Month Unsp fx the lower end r rad, subs for clos fx w routn heal 09/10/23 Willy Kinsey MD Last Documented On 11:20AM ; [facility] Assessments Includes: Assessments from this encounter No [...] X-Ray Exam Of Forearm, 2 views (Right) [id number] Unsp fx the lower end r rad, subs for clos fx w routn heal [facility]ly [facility]sey [facility] 09/10/2023 Last Documented On 4 6:43AM ; [facility] Medical History Includes: Medical History addressed [...] Post Op Visit/Follow Up Willy Kinsey MD [facility] 09/10/19 24 8:40AM 9:35AM Insurance Includes: Active Insurance Policies Plan Name Member ID Group # Subscriber Relationship Effect eder Dates 1 - [employer] [id number] SERA KELLEY Self 2 - [facility] [id number] SERA LAKISHASHERRIE Self Clinical Notes Includes: Clinical Notes from this encounter * Progress note Date Encounter Last Documented by 09/10/2023 Post Op Visit/Follow Up Last doc umented on 09/10/2023; 11:20 AM, Willy Kinsey MD; [facility] Chief Complaint Closed segmental fracture distal [...]
[2024-02-22] MEDS: Lactated Ringers 1,000 ML 100 ML IVCONT (07:57)
--- NOTE | 2024-02-22 09:23 | P.BOP_ITS ---
Brief Operative Note Date of Service: 02/22/24 Pre-op diagnosis: Left knee medial meniscus tear, left knee lateral meniscus tear, left knee degenerative joint disease Post-op diagnosis: same Procedure: Left knee diagnostic arthroscopy with left knee arthroscopic partial medial and lateral meniscectomies, left knee arthroscopic chondroplasty of the undersurface of the patella as well as the medial femoral condyle Implants: none Surgeon: Marko Diaz MD Anesthesia: GLMA Was an Senior Ui Ux Developer used for this Procedure?: No Estimated blood loss (mL): 10 Pathology: none sent Condition: stable Disposition: PACU
--- NOTE | 2024-02-22 09:24 | W.PM.OPN ---
Operative Note Operative Note Date of Service: 02/22/24 Narrative: After the patient was identified as Marisa Lainez and her left knee was initialed by myself they were brought to the operating room where general anesthesia was induced by the anesthesiologist in routine fashion. The patient was given 2 g of IV Ancef preoperatively for infection prophylaxis. The patient's left lower extremity was prepped and draped in sterile fashion. A formal time-out was completed. Marcaine was injected into the planned incision sites as well as the patient's left knee joint. A #11 scalpel blade was used to make an anterolateral portal 1 cm proximal to the joint line and 1 cm lateral to the patellar tendon. Blunt trocar technique was used to enter the suprapatellar pouch with the knee in extension. Diagnostic arthroscopy showed multiple bands of thickened plica which would be excised at the end of the procedure. There were no loose bodies or abnormalities found in either the medial or lateral gutters. The articular surface of the patella showed diffuse grades 2 and 3 degenerative changes. The trochlear groove articular surface showed diffuse grades 1 and 2 degenerative changes. The patient's knee was flexed to 45 degrees and a valgus force was placed upon it. The medial compartment was entered. An anteromedial portal was made 1 cm proximal to the joint line and 1 cm medial to the patellar tendon. Probing of the medial meniscus showed a radial tear of the posterior horn. A partial medial meniscectomy was performed using the arthroscopic shaver. Following the partial meniscectomy the remainder of the meniscus tissue was stable. There were diffuse grades 2 and 3 degenerative changes of the medial femoral condyle as well as grades 1 and 2 degenerative changes of the medial tibial plateau. The articular surface of the medial femoral condyle was then made smooth using the arthroscopic shaver. The articular surface of the medial tibial plateau was already smooth so no chondroplasty was indicated. The patient's knee was placed into a neutral position. There was no injury to the anterior cruciate ligament. The patient's knee was then placed in the figure of 4 position and the lateral compartment was entered. There was a radial tear of the anterior horn of the lateral meniscus. A partial lateral meniscectomy was performed using the arthroscopic shaver. Following the partial meniscectomy the remainder of the meniscus tissue was stable. There were minimal degenerative changes of the lateral femoral condyle and lateral tibial plateau. The patient's knee was once again brought into extension and the suprapatellar pouch was entered. The arthroscopic shaver and the ArthroCare Wand were used to excise the thickened bands of plica. The undersurface of the patella was then made smooth using the arthroscopic shaver. The articular surface of the trochlear groove was already smooth so no chondroplasty was indicated. The knee joint was irrigated and then drained. All arthroscopic instruments were removed. The 2 portals were closed with 3-0 nylon interrupted suture. The knee joint was injected with Marcaine. Dry sterile dressing and Marciano bandages were placed over the patient's knee. The patient was awoken and extubated in the operating room. The patient was transferred to the recovery room in stable condition.
[2024-02-22] MEDS: fentaNYL citrate/PF 100 MCG/2 ML VIAL 25 MCG IVPUSH ×2 (09:25→09:32)
[2024-02-22] MEDS: cefTRIAXone sodium 1 GM VIAL IVPUSH (09:47)
[2024-02-22] MEDS: oxyCODONE HCl Immed Release 5 MG TABLET PO (10:05)
== END 2024-02-22 12:21 | disposition home or self-care (01) ==
PROVIDERS: PCP Internal Medicine; Visit Provider Orthopaedic Surgery
PROC: (CPT 29870; principal; 2024-02-22 07:30)
DX: S83.282A Other tear of lateral meniscus, current injury, left knee, initial encounter (principal); S83.242A Other tear of medial meniscus, current injury, left knee, initial encounter; W19.XXXA Unspecified fall, initial encounter; Y93.9 Activity, unspecified; Y92.9 Unspecified place or not applicable; Y99.9 Unspecified external cause status; M67.52 Plica syndrome, left knee; M23.52 Chronic instability of knee, left knee; M17.12 Unilateral primary osteoarthritis, left knee; M81.0 Age-related osteoporosis without current pathological fracture; J44.9 Chronic obstructive pulmonary disease, unspecified; E78.00 Pure hypercholesterolemia, unspecified; E55.9 Vitamin D deficiency, unspecified; M48.061 Spinal stenosis, lumbar region without neurogenic claudication; Z87.81 Personal history of (healed) traumatic fracture; Z79.51 Long term (current) use of inhaled steroids; Z79.82 Long term (current) use of aspirin; Z79.899 Other long term (current) drug therapy; Z88.2 Allergy status to sulfonamides; Z88.8 Allergy status to other drugs, medicaments and biological substances; Z98.890 Other specified postprocedural states
CPT/HCPCS: 29880; 29876; 93005; J0131; J0171; J0690; J0696; J1100; J1885; J2003; J2405; J2704; J2795; J3010

== ENCOUNTER → 2024-02-22 07:04 | Outpatient (BNV) | payer OTHER, SELFPAY | PROVIDERS: PCP Internal Medicine; Visit Provider Orthopaedic Surgery | DX: S83.242A Other tear of medial meniscus, current injury, left knee, initial encounter (principal); S83.282A Other tear of lateral meniscus, current injury, left knee, initial encounter | CPT/HCPCS: 29880 ==

== ENCOUNTER 2024-03-08 11:14 | Outpatient (AMB) | payer OTHER, SELFPAY ==
--- NOTE | 2024-03-08 11:25 | MHC.OFFVIS ---
Intake Visit Reasons: PO-Lt Knee 02/22/24 Intake Note: Marisa is a 83 year old female who presents today for a post op appointment s/p Lt Knee 02/22/24 Patient reports she is still having pain. She states that she had a difficult time when she was using the restroom since she couldn't bend her knee. Allergies nitrofurantoin [From MACRODANTIN] Allergy (Severe, Verified 03/08/24 11:28) Anaphylaxis Sulfa (Sulfonamide Antibiotics) [SULFA (SULFONAMIDE ANTIBIOTICS)] Allergy (Severe, Verified 03/08/24 11:28) ANAPHYLAXIS sulfamethoxazole [From BACTRIM] Allergy (Severe, Verified 03/08/24 11:28) ANAPHYLAXIS trimethoprim [From BACTRIM] Allergy (Severe, Verified 03/08/24 11:28) ANAPHYLAXIS HPI HPI PO-Lt Knee 02/22/24 DR: Details: 83-year-old female who presents in the office today 15 days status left knee diagnostic arthroscopy with left knee arthroscopic partial medial and lateral meniscectomies, left knee arthroscopic chondroplasty of the undersurface of the patella as well as the medial femoral condyle, which was performed on 02/22/[address] Diaz. While in the office today, the patient reports she still continues to have mild pain in the left knee. She mentions that she had a difficult time when using the restroom as she could not bend her left knee. [facility] Medical History History of skin cancer Hepatitis Cough COPD (chronic obstructive pulmonary disease) Seasonal allergies Chronic cough Cervical disc disease Left knee pain Pain of right shoulder joint on movement Abnormal SPEP Vitamin D deficiency Urolithiasis Osteoporosis GERD without esophagitis Multilevel degenerative disc disease Obesity (BMI 30-39.9) Anxiety Insomnia GERD (gastroesophageal reflux disease) Left lumbosacral radiculopathy Degenerative lumbar spinal stenosis Pure hypercholesterolemia Surgical History Hx of tonsillectomy Hx of left cataract extraction History of surgery on right wrist History of endoscopy History of colonoscopy Hx of decompressive lumbar laminectomy (~05/25/20) Status post total abdominal hysterectomy and bilateral salpingo-oophorectomy (CATRACHITO-BSO) History of right cataract extraction (~12/2016) History of cystoscopy (~05/24/18) Family History Father No problems noted. Mother Ovarian cancer Daughter Myocardial infarction, Onset Age: 46 Stroke Social History Household Members: Children Housing: House Are you a primary care tech to a significant other at home: No Do you presently have visiting nurse or other home services: No Alcohol intake: former Patient Tobacco Use Status: Never used Tobacco e-Cigarette/Vaping Use: Never Used Second Hand Smoke Exposure: Yes service: No Current occupational status: retired and disabled Cognitive needs: No Hearing needs: No Vision needs: Yes (reading glasses) Review of Systems Const All systems reviewed & are unremarkable except as noted in HPI and below Physical Exam Const General: cooperative, healthy appearing and no acute distress Resp Effort & Inspection: normal respiratory effort and able to speak in complete sentences Cardio Rate: regular rate Peripheral pulses: Peripheral pulses 2+ throughout GI Palpation (GI): Soft to palpation Skin Lesions: no lesions Rashes: no rashes Extrem Other: Left knee: Incision sites are clean, dry and intact. Sutures intact. Range of motion zero to 90 degrees.NVI. Assessment & Plan Assessment & Plan (1) Tear of medial meniscus of left knee: Code(s): S83.242A - Other tear of medial meniscus, current injury, left knee, initial encounter Category: Medical (2) Osteoarthritis of left knee: Code(s): M17.12 - Unilateral primary osteoarthritis, left knee Category: Medical Plan Ms. Lainez is a 83-year-old female who presents in the office today 15 days status left knee diagnostic arthroscopy with left knee arthroscopic partial medial and lateral meniscectomies, left knee arthroscopic chondroplasty of the undersurface of the patella as well as the medial femoral condyle, which was performed on 02/22/[address] Diaz. While in the office today, the patient reports she still continues to have pain in the left knee. Sutures were removed, and steri-strips were applied. She would like to attend outpatient physical therapy at an outside facility. Therefore, a prescription was provided to the patient to go to any facility she wishes to attend. Follow-up will be in 4 weeks, or sooner if needed. Orders: Orders PT Evaluation and Treatment 03/08/24 M17.12 - Unilateral primary osteoarthritis, left knee Patient Instructions: Scribed by Conchita Hawkins, biomedical engineering technologist, for Shelly Andino PA-C on 03/08/24 at 11:50 am EST. Coding Level of Care Code Global (12123) Diagnoses Tear of medial meniscus of left knee S83.242A Osteoarthritis of left knee M17.12
== END 2024-03-08 11:49 | disposition home or self-care (01) ==
LOC: HO.HOS 11:14
PROVIDERS: PCP Internal Medicine; Visit Provider Physician Assistant
DX: S83.242A Other tear of medial meniscus, current injury, left knee, initial encounter (principal); M17.12 Unilateral primary osteoarthritis, left knee
CPT/HCPCS: 99024

== ENCOUNTER → 2024-03-08 11:14 | Outpatient (BNVA) | payer OTHER, SELFPAY | PROVIDERS: PCP Internal Medicine; Visit Provider Physician Assistant | DX: S83.242A Other tear of medial meniscus, current injury, left knee, initial encounter (principal); X58.XXXA Exposure to other specified factors, initial encounter; Y93.9 Activity, unspecified; Y92.9 Unspecified place or not applicable; Y99.9 Unspecified external cause status; M17.12 Unilateral primary osteoarthritis, left knee | CPT/HCPCS: 99212 ==

== ENCOUNTER 2024-04-05 13:38 | Outpatient (AMB) | payer OTHER, SELFPAY ==
[2024-04-05 13:40] VITALS: BMI 32.1
--- NOTE | 2024-04-05 13:40 | MHC.OFFVIS ---
Vital Signs 04/05/24 13:40 Height 5 ft 5 in Weight 193 lb BMI 32.1 Intake Visit Reasons: PO-Lt Knee 02/22/24 -4wk follow up Intake Note: Marisa is an 83 year old female who presents with complaints of mild to moderate intermittent discomfort in her left knee after undergoing left knee arthroscopic surgery on 02/22/2024. She denies any fevers or chills. She continues to go to formal physical therapy. She states that the therapy seems to be helping somewhat. The patient states that she has taken tramadol in the past which gives her no relief. She asked whether or not there is something stronger for her pain. Allergies nitrofurantoin [From MACRODANTIN] Allergy (Severe, Verified 04/05/24 13:40) Anaphylaxis Sulfa (Sulfonamide Antibiotics) [SULFA (SULFONAMIDE ANTIBIOTICS)] Allergy (Severe, Verified 04/05/24 13:40) ANAPHYLAXIS sulfamethoxazole [From BACTRIM] Allergy (Severe, Verified 04/05/24 13:40) ANAPHYLAXIS trimethoprim [From BACTRIM] Allergy (Severe, Verified 04/05/24 13:40) ANAPHYLAXIS Medication List - Last Reconciled 04/05/24 by Marko Diaz MD alprazolam 1 mg PO TID PRN 30 days atorvastatin 40 mg PO BEDTIME 90 days cholecalciferol (vitamin D3) 50 mcg PO DAILY 90 days pantoprazole 40 mg PO BEDTIME terazosin 1 mg PO BEDTIME 90 days PFSH Medical History History of skin cancer Hepatitis Cough COPD (chronic obstructive pulmonary disease) Seasonal allergies Chronic cough Cervical disc disease Left knee pain Pain of right shoulder joint on movement Abnormal SPEP Vitamin D deficiency Urolithiasis Osteoporosis GERD without esophagitis Multilevel degenerative disc disease Obesity (BMI 30-39.9) Anxiety Insomnia GERD (gastroesophageal reflux disease) Left lumbosacral radiculopathy Degenerative lumbar spinal stenosis Pure hypercholesterolemia Surgical History Hx of tonsillectomy Hx of left cataract extraction History of surgery on right wrist History of endoscopy History of colonoscopy Hx of decompressive lumbar laminectomy (~05/25/20) Status post total abdominal hysterectomy and bilateral salpingo-oophorectomy (CATRACHITO-BSO) History of right cataract extraction (~12/2016) History of cystoscopy (~05/24/18) Family History Father No problems noted. Mother Ovarian cancer Daughter Myocardial infarction, Onset Age: 46 Stroke Social History Household Members: Children Housing: House Are you a primary disabilities caregiver to a significant other at home: No Do you presently have visiting nurse or other home services: No Alcohol intake: former Patient Tobacco Use Status: Never used Tobacco e-Cigarette/Vaping Use: Never Used Second Hand Smoke Exposure: Yes service: No Current occupational status: retired and disabled Cognitive needs: No Hearing needs: No Vision needs: Yes (reading glasses) Physical Exam Vital Signs: BMI result Body Mass Index 32.1 Const Other: Well-nourished well-developed very friendly female awake alert and oriented x3 in no acute distress Extrem Other: Left knee examination shows that the surgical incisions are well healed, no erythema, mild crepitus with range of motion, minimal discomfort with range of motion, no instability Assessment & Plan Assessment & Plan (1) Osteoarthritis of left knee: Code(s): M17.12 - Unilateral primary osteoarthritis, left knee Category: Medical Plan Ms. Lainez presents with continued left knee discomfort after undergoing left knee arthroscopic surgery on 02/22/2024 due to residual degenerative joint disease. I had a lengthy discussion with the patient regarding the treatment options. She wishes to hold off on total knee replacement surgery for as long as possible. I agree with this plan. I did offer to refill the patient's prescription for tramadol. The patient states that this does not give her any relief. The patient questions whether or not she could take something stronger at this point, such as oxycodone. I discussed with the patient the fact that I do not feel comfortable keeping her on narcotics. She can check with her primary care doctor if she chooses to do so. Otherwise I will see her back in 2 months' time for repeat clinical examination. If she fails continued non operative treatments we will further discuss the risks and benefits of total knee replacement surgery. Feel free to call me at any time should questions regarding her orthopedic management arise. Coding Level of Care Code Global (35580) Diagnoses Osteoarthritis of left knee M17.12
--- OUTSIDE RECORDS SUMMARY | 2024-04-12 14:35 | XMS_ITS | Data Portability ---
Author Organization [place] - [facility], Allergy Address [address] [place] [address] Care Team Providers Care Home Teaching Gr[employer] 7 And 8 Teacher Name Role Phone JAE OWEN Primary Care Provider Assessment Encounter Date Assessment Date Assessment LastModified by Organization Details LastModified Time 09/30/2023 09/30/2023 82-year-old female presents for follow-up after right tube placement. On exam tube is in place and patent on the right. Audiometric testing shows closure of conductive gap. She has sensorineural hearing loss bilaterally. Not interested in hearing aids at this time though she would certainly qualify. Follow-up in 6 months for tube check or sooner if needed. tobin Not available 09/30/2023 15:58:39 01/28/2024 01/28/2024 Right-sided myringotomy tube has extruded, tympanic membrane has healed over and middle ear now has effusion. This would explain her intermittent fluctuating hearing. Offered her the opportunity for another right side myringotomy tube in the office versus pursuing amplification. Patient is agreeable for the procedure as apparently the tube is helpful when it is functioning dplosky Not available 01/28/2024 09:58:28 03/28/2024 03/28/2024 83-year-old female presents for reevaluation. On examination right tube has extruded and is absent from canal. TM translucent with well aerated middle ear space. No further intervention recommended. Follow-up as needed. tobin Not available 03/28/2024 14:24:50 Plan of Treatment Reminders Order Date Submit Date Provider Last Modified By Organization Details Last Modified Time Details Appointments None record ed. Lab None record ed. Referral None record ed. Procedures None record ed. Surgeries None record ed. Imaging None record ed. Medication Orders None record ed. Patient TargetsNo targets recorded. Patient InstructionsNo instructions recorded. Reason for Referral None Reported. Results Created Date Observation Date Name Description Value Unit Range Abnormal Flag Note LastModifiedBy Organization Detail LastModifiedTime 10/01/19 24 09/30/2023 audio gram No observ ation record ed. BARCODE Not Available 2023 15:50:11 12/23/19 24 08/04/2023 imagi ng/di agnos tic resul t No observ ation record ed. [email or web address] Not Available 02:45:20 12/23/19 24 12/13/2019 imagi ng/di agnos tic resul t No observ ation record ed. [email or web address] Not Available 02:46:14 12/23/19 24 12/13/2019 audio gram No observ ation record ed. [email or web address] Not Available 02:46:52 Result Notes None recorded. 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 - [facility] 4 15:20:41 Mixed conductiv e and sensorine ural hearing loss, bilateral 288565907 Active 2023 Mixed conductiv e and sensorine ural hearing loss, bilateral ; Note: Date Diagnosed : 08/04/2023 3:42 PM (H90.6) Not Available [facility] 02:50:06 Chronic serous otitis media of right ear 880405171 Active 2023 CALIN GAMBOA MD [address] [facility],[place] [address], [place], [address] , [facility] 15:20:59 Problem Notes None recorded. Procedures Surgical History Date Name Laterality Status Provider Name and Address Organization Details Recorded Time 09/30/2023 Comp Audio with Tymps (08120 & 30426) completed Crys CAPUTO [address] [facility],[place] [address], [place], [address], [facility] 09/30/2023 15:19:30 Imaging Results Imaging Date Name Status LastModified by Organiz ation Details LastModified Time 09/30/2023 audiogram completed BARCODE Information no t available 10/01/2023 15:50:11 08/04/2023 imaging/diagno stic result completed Information not available 12/23/2023 02:45:20 12/13/2019 imaging/diagno stic result completed Information not available 12/23/2023 02:46:14 12/13/2019 audiogram completed Information not available 12/23/2023 02:46:52 Procedure Notes None recorded. Medical Equipment None Reported. Allergies Allergen ID Allergen Name Allergen Category Reaction Reaction Severity Criticality Documentation Date Start Date Code Code System Note Provider Name and Address Organization Details Recorded Time 197627 Bactrim medicatio n other Not available Not available 09/15/2023 22087 9 RxNorm React ion: unkno wn, unspe cifie d;; Not Available [facility] 4 01:07:59 853272 Substance with sulfonami de structure and antibacte rial mechanism of action (substanc e) medicatio n other Not available Not available 09/15/2023 67435 8003 SNOMED React ion: unkno wn, unspe cifie d;; Not Available [facility] 4 01:08:03 Medications Name Sig Start Date Stop Date Status Note LastModified by Organization Details LastModified Time atorvasta tin 40 mg tablet TAKE 1 TABLET BY MOUTH EVERY NIGHT AT BEDTIME active Not Available Not Available No t Available methocarb loren 500 mg tablet TAKE 1 TABLET BY MOUTH AT BEDTIME NEEDED FOR MUSCLE SPASM active Not Available Not Available No t Available polyethyl leonard glycol 3350 17 gram oral powder packet 17 GM BY MOUTH AT BEDTIME NEEDED FOR CONSTIPA TION active Not Available Not Available No t Available alprazola m 1 mg tablet TAKE 1 MG ORALLY 3 TIMES A DAY NEEDED FOR ANXIETY FOR 30 DAYS active Not Available Not Available No t Available ofloxacin 0.3 % eye drops INSTILL 5 DROPS TO EACH EAR TWICE A DAY X 3 DAYS active Not Available Not Available No t Available famotidin e 40 mg tablet 08/30 completed Medicati on ID: [id number] B rand Name: famotidi ne Send Method: E-Prescr ibed Sub s Allowed: subs OK Medic ationGen ericName : famotidi ne Not Available Not Available Not Available prednison e 20 mg tablet TAKE 1 TABLET BY MOUTH EVERY DAY FOR 3 DAYS active Not Available Not Available No t Available terazosin 1 mg capsule TAKE 1 CAPSULE BY MOUTH AT BEDTIME active Not Available Not Available No t Available ciproflox acin 500 mg tablet TAKE 1 TABLET BY MOUTH TWICE A DAY FOR 7 DAYS active Not Available Not Available No t Available aspirin 81 mg tablet,de layed release active Medicati on ID: [id number] B rand Name: aspirin Send Method: E-Prescr ibed Sub s Allowed: subs OK Speci al Instruct ion: TAKE 1 TABLET BY MOUTH TWICE A DAY Medi cationGe nericNam e: aspirin Not Available Not Available Not Available acetamino phen 500 mg tablet active Medicati on ID: [id number] B rand Name: acetamin ophen Se nd Method: E-Prescr ibed Sub s Allowed: subs OK Speci al Instruct ion: TAKE 2 TABLETS BY MOUTH EVERY 8 HOURS Me dication GenericN franchesca: acetamin ophen Not Available Not Available Not Available pantopraz ole 40 mg tablet,de layed release TAKE 1 TABLET BY MOUTH EVERY DAY active Not Available Not Available No t Available lidocaine 5 % topical patch APPLY 1 PATCH TOPICALL Y ONCE DAILY, ON FOR 12 HOURS OFF FOR 12 HOURS active Not Available Not Available No t Available monteluka st 10 mg tablet TAKE 1 TABLET BY MOUTH AT BEDTIME active Not Available Not Available No t Available cefuroxim e axetil 500 mg tablet TAKE 1 TABLET BY MOUTH TWICE A DAY FOR 5 DAYS active Not Available Not Available No t Available fluticaso ne propionat e 50 mcg/actua tion nasal spray,doreen pension ADMINIST ER 2 SPRAYS INTRANAS ALLY DAILY active Not Available Not Available No t Available loratadin e 10 mg tablet TAKE 1 TABLET BY MOUTH EVERY DAY active Not Available Not Available No t Available amoxicill in 875 mg-potass ium clavulana te 125 mg tablet TAKE 1 TABLET BY MOUTH TWICE A DAY FOR 10 DAYS active Not Available Not Available No t Available oxycodone 5 mg tablet TAKE 1 TABLET BY MOUTH EVERY 12 HOURS NEEDED FOR PAIN active Not Available Not Available No t Available neomycin 3.5 mg/g-poly myxin B 10,000 unit/g-de xameth 0.1 % eye oint WITH LACRIMAL DUCT MASSAGE APPLY 1/4 INCH STRIP TO RIGHT EYE THREE TO FOUR TIMES A DAY active Not Available Not Available No t Available cholecalc iferol (vitamin D3) 50 mcg (2,000 unit) capsule active Medicati on ID: [id number] B rand Name: cholecal ciferol (vitamin D3) Send Method: E-Prescr ibed Sub s Allowed: subs OK Speci al Instruct ion: TAKE 1 CAPSULE BY MOUTH EVERY DAY Medi cationGe nericNam e: cholecal ciferol (vitamin D3) Not Available Not Available Not Available Vitals Date Recorded Body height Body mass index (BMI) Body weight Provider Name and Address Organization Details Last Updated DateTime 01/28/2024 162.56 cm 32.6 kg/m2 05004.55 g Bethany Smart [place] - [facility] 01/28/2024 09:52:43 Social History None recorded. Functional Status None recorded. Mental Status None recorded. Family History Nothing Reported. Medical History No medical history recorded. Gynecological HistoryNo gynecological history recorded. Obstetrics History GPAL:G 0 P 0 0 0 0 Past Encounters Encounter ID Performer Location Encounter Start Date Encounter Closed Date Diagnosis/Indication Diagnosis SNOMED-CT Code Diagnosis ICD10 Code [id number] CALIN GAMBOA MD [facility] [address] [address] 09/30/2023 14:46:44 09/30/2023 15:55:55 Sensorineural hearing loss of bilateral ears 615521553 H90.3 [id number] CALIN GAMBOA MD [facility] of [address] [address] 01/28/2024 09:43:43 01/28/2024 09:59:40 Chronic serous otitis media of right ear 661557903 H65.21 [id number] CALIN GAMBOA MD [facility] of [address] [place] [address] 03/28/2024 13:18:17 03/29/2024 07:06:27 Sensorineural hearing loss of bilateral ears 262440342 H90.3 Chronic se ana rosa otitis media of right ear 994594461 H65.21 Health Concerns Section Related Observation LastModified by Organization Detai ls LastModified Time None Recorded Concern Status LastModified by Organization Details LastModified Time None Recorded Advance Directives Directive None Recorded Payers Encounter Date Sequence Insurance Name Policy Number Policy Wong Covered Member ID Wong Member ID Guarantor Name 09/30/2023 1 [facility] (MEDICARE REPLACEMENT/ ADVANTAGE - HMO) Marisa Lainez [id number] Marisa Lainez 09/30/2023 2 [place] [facility] Marisa Lainez [id number] Marisa Lainez 01/28/2024 1 [facility] (MEDICARE REPLACEMENT/ ADVANTAGE - HMO) Marisa Gaona Suchenicbrittanie [id number] Marisa Lainez 03/28/2024 1 [facility] (MEDICARE REPLACEMENT/ ADVANTAGE - HMO) Marisa Greenenicbrittanie [id number] Marisa Lainez Notes Date Note Type Note Provider Name and Address Organization Details Recorded Time 09/30/2023 text/html 82-year-old femmariana galan presents following right tube placement with Dr. Jensen. Her hearing has improved significantly following surgery. CALIN GAMBOA MD [address] [place] [address], [phone], [facility] - [facility] 09/30/2023 16:38:27 01/28/2024 text/html tube check 4 R myringotomy tube placed, Plosky09/30/23 post tube audio showed improvement feels her hearing fluctuatesno otorrhea CALIN GAMBOA MD [address] [facility],[place] [address], [place], [address], [facility] - [facility] 01/28/2024 09:58:40 03/28/2024 text/html 83-year-old fema angelia presents for reevaluation. History of ETD with RMT in office. Her hearing has been stable. No issues since last visit. CALIN GAMBOA MD [address] [facility],[place] [address], [place], [address], [facility] - [facility] 03/28/2024 15:39:46 OBGyn Episode No OBEpisode recorded.
--- OUTSIDE RECORDS SUMMARY | 2024-04-12 14:35 | XMS_ITS | Continuity of Care Document ---
Author Organization [place] - [facility], [facility] Address [address] [place] [address] Care Team Providers Care Career Technical Supervisor Name Role Phone JAE OWEN Primary Care Provider [phone] Assessment Encounter Date Assessment Date Assessment LastModified by Organization Details LastModified Time 01/28/2024 01/28/2024 Right-sided myringotomy tube has extruded, tympanic membrane has healed over and middle ear now has effusion. This would explain her intermittent fluctuating hearing. Offered her the opportunity for another right side myringotomy tube in the office versus pursuing amplification. Patient is agreeable for the procedure as apparently the tube is helpful when it is functioning dplosky Not available 01/28/2024 09:58:28 Plan of Treatment Reminders Order Date Submit Date Provider Last Modified By Organization Details Last Modified Time Details Appointments None record ed. Lab None record ed. Referral None record ed. Procedures None record ed. Surgeries None record ed. Imaging None record ed. Medication Orders None record ed. Patient TargetsNo targets recorded. Patient InstructionsNo instructions recorded. Reason for Referral None Reported. Problems Name Problem SNOMED Code Status Onset Date Resolution Date Notes Provider Name and Address Organization Details Recorded Time Bilateral tympanosc lerosis 74639868787 342617 Active 2021 Tympanosc lerosis, bilateral ; Note: Date Diagnosed : 06/04/2021 11:07 AM (H74.03) Not Available [facility] 4 02:50:05 Sensorine ural hearing loss of bilateral ears 910649789 Active 2019 Sensorine ural hearing loss, bilateral ; Note: Date Diagnosed : 12/13/2019 12:07 PM (H90.3) Not Available [facility] 4 02:50:06 Acute serous otitis media of right ear 35305562869 38595 Active 2023 Acute serous otitis media, right ear; Note: Date Diagnosed : 08/04/2023 3:42 PM (H65.01) CALIN GAMBOA MD [address] [facility],[place] [address], [place], [address] , [facility] 4 15:20:41 Mixed conductiv e and sensorine ural hearing loss, bilateral 153225731 Active 2023 Mixed conductiv e and sensorine ural hearing loss, bilateral ; Note: Date Diagnosed : 08/04/2023 3:42 PM (H90.6) Not Available [facility] 4 02:50:06 Chronic serous otitis media of right ear 139640440 Active 2023 CALIN GAMBOA MD [address] [facility],[place] [address], [place], [address] , [facility] 4 15:20:59 Problem Notes None recorded. Procedures Surgical History Date Name Laterality Status Provider Name and Address Organization Details Recorded Time 09/30/2023 Comp Audio with Tymps (52087 & 53490) completed Crys CAPUTO [address] [facility],[place] [address], [place], [address], [facility] 09/30/2023 15:19:30 Imaging Results None recorded. Procedure Notes None recorded. Medical Equipment None Reported. Allergies Allergen ID Allergen Name Allergen Category Reaction Reaction Severity Criticality Documentation Date Start Date Code Code System Note Provider Name and Address Organization Details Recorded Time 401878 Bactrim medicatio n other Not available Not available 09/15/2023 40307 9 RxNorm React ion: unkno wn, unspe cifie d;; Not Available [facility] 4 01:07:59 278756 Substance with sulfonami de structure and antibacte rial mechanism of action (substanc e) medicatio n other Not available Not available 09/15/2023 03714 8003 SNOMED React ion: unkno wn, unspe cifie d;; Not Available [facility] 4 01:08:03 Medications Name Sig Start Date [...] mg tablet 08/30 completed Medicati on ID: [id number] B rand Name: famotidi ne Send Method: [...] tablet,de layed release active Medicati on ID: [id number] B rand Name: aspirin Send Method: E-Prescr ibed Sub s Allowed: subs OK Speci al Instruct ion: TAKE 1 TABLET BY MOUTH TWICE A DAY Medi cationGe nericNam e: aspirin Not Available Not Available Not Available acetamino phen 500 mg tablet active Medicati on ID: 635060 B rand Name: acetamin ophen Se nd [...] (2,000 unit) capsule active Medicati on ID: 379603 B rand Name: cholecal ciferol (vitamin D3) [...] Updated DateTime 01/28/2024 162.56 cm 32.6 kg/m2 40560.55 g Bethany Smart [place] - [facility] 01/28/2024 09:52:43 Social History None recorded. Functional Status None recorded. Mental Status None recorded. Family History Nothing Reported. Medical History No medical history recorded. Gynecological HistoryNo gynecological history recorded. Obstetrics History GPAL:G 0 P 0 0 0 0 Past Encounters Encounter ID Performer Location Encounter Start Date Encounter Closed Date Diagnosis/Indication Diagnosis SNOMED-CT Code Diagnosis ICD10 Code [id number] CALIN GAMBOA MD [facility] [address] [place] [address] 01/28/2024 09:43:43 01/28/2024 09:59:40 Chronic serous otitis media of right ear 169210960 H65.21 Health Concerns Section Related Observation LastModified by Organization Detai ls LastModified Time None Recorded Concern Status LastModified by Organization Details LastModified Time None Recorded Payers Encounter Date Sequence Insurance Name Policy Number Policy Wong Covered Member ID Wong Member ID Guarantor Name 01/28/2024 1 [facility] (MEDICARE REPLACEMENT/A DVANTAGE - HMO) Marisa Lainez [id number] Marisa Lainez Notes Date Note Type Note Provider Name and Address Organization Details Recorded Time 01/28/2024 text/html tube check 4 R myringotomy tube placed, Plosky09/30/23 post tube audio showed improvement feels her hearing fluctuatesno otorrhea CALIN GAMBOA MD [address] [place] [address], [phone], [facility] - [facility] 01/28/2024 09:58:40 OBGyn Episode No OBEpisode recorded.
--- OUTSIDE RECORDS SUMMARY | 2024-04-12 14:35 | XMS_ITS | Continuity of Care Document ---
Author Organization [place] - [facility], [facility] Address [address] [place] [address] Care Team Providers Care Solar Lab Technician Name Role Phone JAE OWEN Primary Care Provider Assessment Encounter Date Assessment Date Assessment LastModified by Organization Details LastModified Time 03/28/2024 03/28/2024 83-year-old female presents for reevaluation. On examination right tube has extruded and is absent from canal. TM translucent with well aerated middle ear space. No further intervention recommended. Follow-up as needed. [email or web address] Not available 03/28/2024 14:24:50 Plan of Treatment [...] Organization Details Recorded Time Bilateral tympanosc lerosis 92328658746 332000 Active 2021 Tympanosc lerosis, bilateral ; Note: Date Diagnosed : 06/04/2021 11:07 AM (H74.03) Not Available [facility] 4 02:50:05 Sensorine ural hearing loss of bilateral ears 199482205 Active 2019 Sensorine ural hearing loss, bilateral ; Note: Date Diagnosed : 12/13/2019 12:07 PM (H90.3) Not Available [facility] 4 02:50:06 Acute serous otitis media of right ear 26128302334 73487 Active 2023 Acute serous otitis media, right ear; Note: Date Diagnosed : 08/04/2023 3:42 PM (H65.01) CALIN GAMBOA MD [address] [facility],[place] [address], [place], [address] , [facility] 4 15:20:41 Mixed conductiv e and sensorine ural hearing loss, bilateral 616561109 Active 2023 Mixed conductiv e and sensorine ural hearing loss, bilateral ; Note: Date Diagnosed : 08/04/2023 3:42 PM (H90.6) Not Available [facility] 4 02:50:06 Chronic serous otitis media of right ear 948889044 Active 2023 CALIN GAMBOA MD [address] [facility],[place] [address], [place], [address] , [facility] 4 15:20:59 Problem Notes None recorded. Procedures Surgical History Date Name Laterality Status Provider Name and Address Organization Details Recorded Time 09/30/2023 Comp Audio with Tymps (95625 & 49233) completed Crys CAPUTO [address] [facility],[place] [address], [place], [address], [facility] 09/30/2023 15:19:30 Imaging Results None recorded. Procedure Notes None recorded. Medical Equipment None Reported. Allergies Allergen ID Allergen Name Allergen Category Reaction Reaction Severity Criticality Documentation Date Start Date Code Code System Note Provider Name and Address Organization Details Recorded Time 879951 Bactrim medicatio n other Not available Not available 09/15/2023 14992 9 RxNorm React ion: unkno wn, unspe cifie d;; Not Available [facility] 4 01:07:59 231510 Substance with sulfonami de structure and antibacte rial mechanism of action (substanc e) medicatio n other Not available Not available 09/15/2023 35336 8003 SNOMED React ion: unkno wn, unspe cifie d;; Not Available [facility] 4 01:08:03 Medications Name Sig Start Date [...] mg tablet 08/30 completed Medicati on ID: 973611 B rand Name: famotidi ne Send Method: [...] tablet,de layed release active Medicati on ID: 291207 B rand Name: aspirin Send Method: E-Prescr ibed Sub s Allowed: subs OK Speci al Instruct ion: TAKE 1 TABLET BY MOUTH TWICE A DAY Medi cationGe nericNam e: aspirin Not Available Not Available Not Available acetamino phen 500 mg tablet active Medicati on ID: 247633 B rand Name: acetamin ophen Se nd [...] (2,000 unit) capsule active Medicati on ID: 303316 B rand Name: cholecal ciferol (vitamin D3) Send Method: E-Prescr ibed Sub s Allowed: subs OK Speci al Instruct ion: TAKE 1 CAPSULE BY MOUTH EVERY DAY Medi cationGe nericNam e: cholecal ciferol (vitamin D3) Not Available Not Available Not Available Vitals None Recorded Social History None recorded. Functional Status None recorded. Mental Status None recorded. Family History Nothing Reported. Medical History No medical history recorded. Gynecological HistoryNo gynecological history recorded. Obstetrics History GPAL:G 0 P 0 0 0 0 Past Encounters Encounter ID Performer Location Encounter Start Date Encounter Closed Date Diagnosis/Indication Diagnosis SNOMED-CT Code Diagnosis ICD10 Code [id number] CALIN GAMBOA MD [facility] of [address] [place] [address] 03/28/2024 13:18:17 03/29/2024 07:06:27 Sensorineural hearing loss of bilateral ears 481368145 H90.3 Chronic se ana rosa otitis media of right ear 806252026 H65.21 Health Concerns Section Related Observation LastModified by Organization Detai ls LastModified Time None Recorded Concern Status LastModified by Organization Details LastModified Time None Recorded Payers Encounter Date Sequence Insurance Name Policy Number Policy Wong Covered Member ID Wong Member ID Guarantor Name 03/28/[address] [facility] (MEDICARE REPLACEMENT/A DVANTAGE - HMO) Marisa Lainez [id number] Marisa Lainez Notes Date Note Type Note Provider Name and Address Organization Details Recorded Time 03/28/2024 text/html 83-year-old female presents for reevaluation. History of ETD with RMT in office. Her hearing has been stable. No issues since last visit. CALIN GAMBOA MD [address] [place] [address], [address], [facility] - [facility] 03/28/2024 15:39:46 OBGyn Episode No OBEpisode recorded.
== END 2024-04-05 14:05 | disposition home or self-care (01) ==
PROVIDERS: PCP Internal Medicine; Visit Provider Orthopaedic Surgery
DX: M17.12 Unilateral primary osteoarthritis, left knee (principal)
CPT/HCPCS: 99024

== ENCOUNTER → 2024-04-05 13:38 | Outpatient (BNVA) | payer OTHER, SELFPAY | PROVIDERS: PCP Internal Medicine; Visit Provider Orthopaedic Surgery | DX: M17.12 Unilateral primary osteoarthritis, left knee (principal); Z47.89 Encounter for other orthopedic aftercare; Z98.890 Other specified postprocedural states | CPT/HCPCS: 99212 ==

== ENCOUNTER 2024-05-10 08:13 | Outpatient (REF) | payer OTHER, SELFPAY ==
--- OUTSIDE RECORDS SUMMARY | 2024-05-10 08:23 | XMS_ITS | Data Portability ---
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, bilateral ; Note: Date Diagnosed : 06/04/2021 11:07 AM (H74.03) Not Available [facility] 4 02:50:05 Sensorine ural hearing loss of bilateral ears 437909002 Active 2019 Sensorine ural hearing loss, bilateral ; Note: Date Diagnosed : 12/13/2019 12:07 PM (H90.3) Not Available [facility] 4 02:50:06 Acute serous otitis media of right ear 04210909556 83237 Active 2023 Acute serous otitis media, right ear; Note: Date Diagnosed : 08/04/2023 3:42 PM (H65.01) CALIN GAMBOA MD [address] [place] [address], [facility] [place], [address] , [facility] - [facility] 4 15:20:41 Mixed conductiv e and sensorine ural hearing loss, bilateral 036388364 Active 2023 Mixed conductiv e and sensorine ural hearing loss, bilateral ; Note: Date Diagnosed : 08/04/2023 3:42 PM (H90.6) Not Available [facility] 02:50:06 Chronic serous otitis media of right ear 476729538 Active 2023 CALIN GAMBOA MD [address] [facility],[place] [address], [place], [address] , [facility] 15:20:59 Problem Notes None recorded. Procedures Surgical History Date Name Laterality Status Provider Name and Address Organization Details Recorded Time 09/30/2023 Comp Audio with Tymps (68343 & 68891) completed Crys CAPUTO [address] [facility],[place] [address], [place], [address], [facility] 09/30/2023 15:19:30 Imaging Results Imaging Date Name [...] Name and Address Organization Details Recorded Time 485813 Bactrim medicatio n other Not available Not available 09/15/2023 04826 9 RxNorm React ion: unkno wn, unspe cifie d;; Not Available [facility] 4 01:07:59 088274 Substance with sulfonami de structure and antibacte rial mechanism of action (substanc e) medicatio n other Not available Not available 09/15/2023 13112 8003 SNOMED React ion: unkno wn, unspe cifie d;; Not Available [facility] 4 01:08:03 Medications Name Sig Start Date [...] mg tablet 08/30 completed Medicati on ID: [id number] B rand Name: famotidi ne Send Method: [...] tablet,de layed release active Medicati on ID: 850970 B rand Name: aspirin Send Method: E-Prescr ibed Sub s Allowed: subs OK Speci al Instruct ion: TAKE 1 TABLET BY MOUTH TWICE A DAY Medi cationGe nericNam e: aspirin Not Available Not Available Not Available acetamino phen 500 mg tablet active Medicati on ID: 725480 B rand Name: acetamin ophen Se nd [...] (2,000 unit) capsule active Medicati on ID: 132255 B rand Name: cholecal ciferol (vitamin D3) [...] Updated DateTime 01/28/2024 162.56 cm 32.6 kg/m2 98316.55 g Bethany Smart [place] - [facility] 01/28/2024 09:52:43 Social History None recorded. Functional Status None recorded. Mental Status None recorded. Family History Nothing Reported. Medical History No medical history recorded. Gynecological HistoryNo gynecological history recorded. Obstetrics History GPAL:G 0 P 0 0 0 0 Past Encounters Encounter ID Performer Location Encounter Start Date Encounter Closed Date Diagnosis/Indication Diagnosis SNOMED-CT Code Diagnosis ICD10 Code Diagnosis Note [id number] CALIN GAMBOA MD [facility] [address], [place] [address] 09/30/2023 14:46:44 09/30/2023 15:55:55 Sensorineural hearing loss of bilateral ears 345139203 H90.3 Audiologic al evaluation results:Ri ght ear:{{Norm al Mild* M oderate Mo derately-s evere Darlene re Profoun d}} {{hearing sloping to to moderate s loping to moderately severe slo ping to severe* sl oping to profound f lat high frequency low frequency mid frequency cookie bite fernandez curve}} {{with sen sorineural hearing loss with* cond uctive hearing loss with mixed hearing loss with}} {{excellen t good* fa ir poor no t measurable }} speech discrimina tion. Tympanomet ry:Right Ear:{{Type A Type As Type Ad Type C Type C, shallow & rounded Ty pe B Type B with large volume* Co uld not maintain a hermetic seal}} [id number] CALIN GAMBOA MD [facility] of [address] [address] 01/28/2024 09:43:43 01/28/2024 09:59:40 Chronic serous otitis media of right ear 770651706 H65.21 [id number] CALIN GAMBOA MD [facility] of [address] [address] 03/28/2024 13:18:17 03/29/2024 07:06:27 Sensorineural hearing loss of bilateral ears 678915729 H90.3 Chronic se ana rosa otitis media of right ear 878042469 H65.21 Health Concerns Section Related Observation LastModified by Organization Detai ls LastModified Time None Recorded Concern Status LastModified by Organization Details LastModified Time None Recorded Advance Directives Directive None Recorded Payers Encounter Date Sequence Insurance Name Policy Number Policy Wong Covered Member ID Wong Member ID Guarantor Name 09/30/2023 1 [facility] (MEDICARE REPLACEMENT/ ADVANTAGE - HMO) Marisa Lainez [id number] Marisa Lainez 09/30/2023 2 [place] [facility] Marisa Lainez [id number] Marisa Lainez 01/28/2024 1 [facility] (MEDICARE REPLACEMENT/ ADVANTAGE - HMO) Marisa Gaona Migel [id number] Marisa Lainez 03/28/2024 1 [facility] (MEDICARE REPLACEMENT/ ADVANTAGE - HMO) Marisa Gaona Migel [id number] Marisa M Migel Notes Date Note Type Note Provider Name and Address Organization Details Recorded Time 09/30/2023 text/html 82-year-old nydia galan presents following right tube placement with Dr. Jensen. Her hearing has improved significantly following surgery. CALIN GAMBOA MD [address] [facility],[address], [address], [place] - [facility] [place] 09/30/2023 16:38:27 01/28/2024 text/html tube check 4 R myringotomy tube placed, [place]09/30/23 post tube audio showed improvement feels her hearing fluctuatesno otorrhea CALIN GAMBOA MD [address] [place] [address],[place] [address], [place], [address], [place] - [facility] 01/28/2024 09:58:40 03/28/2024 text/html 83-year-old nydia galan presents for reevaluation. History of ETD with RMT in office. Her hearing has been stable. No issues since last visit. CALIN GAMBOA MD [address] [facility],[place] [address], [place], [address], [place] - [facility] 03/28/2024 15:39:46 OBGyn Episode No OBEpisode recorded.
--- OUTSIDE RECORDS SUMMARY | 2024-05-10 08:23 | XMS_ITS | Continuity of Care Document ---
Author Organization [place] - [facility], [facility] Address [address] [place] [address] Care Team Providers Care Post Acute Care Nurse Practitioner Name Role Phone JAE OWEN Primary Care Provider Assessment Encounter Date Assessment Date Assessment LastModified by Organization Details LastModified Time 03/28/2024 03/28/2024 83-year-old female presents for reevaluation. On examination right tube has extruded and is absent from canal. TM translucent with well aerated middle ear space. No further intervention recommended. Follow-up as needed. [email or web address] Not available 03/28/2024 14:24:50 Plan of Treatment [...] Organization Details Recorded Time Bilateral tympanosc lerosis 12827033693 050698 Active 2021 Tympanosc lerosis, bilateral ; Note: Date Diagnosed : 06/04/2021 11:07 AM (H74.03) Not Available [facility] 4 02:50:05 Sensorine ural hearing loss of bilateral ears 079628146 Active 2019 Sensorine ural hearing loss, bilateral ; Note: Date Diagnosed : 12/13/2019 12:07 PM (H90.3) Not Available [facility] 4 02:50:06 Acute serous otitis media of right ear 51485969160 39616 Active 2023 Acute serous otitis media, right ear; Note: Date Diagnosed : 08/04/2023 3:42 PM (H65.01) CALIN GAMBOA MD [address] [facility],[place] [address], [place], [address] , [facility] 4 15:20:41 Mixed conductiv e and sensorine ural hearing loss, bilateral 561622599 Active 2023 Mixed conductiv e and sensorine ural hearing loss, bilateral ; Note: Date Diagnosed : 08/04/2023 3:42 PM (H90.6) Not Available [facility] 4 02:50:06 Chronic serous otitis media of right ear 889743821 Active 2023 CALIN GAMBOA MD [address] [facility],[place] [address], [place], [address] , [facility] 4 15:20:59 Problem Notes None recorded. Procedures Surgical History Date Name Laterality Status Provider Name and Address Organization Details Recorded Time 09/30/2023 Comp Audio with Tymps (95673 & 45903) completed Crys CAPUTO [address] [facility],[place] [address], [place], [address], [facility] 09/30/2023 15:19:30 Imaging Results None recorded. Procedure Notes None recorded. Medical Equipment None Reported. Allergies Allergen ID Allergen Name Allergen Category Reaction Reaction Severity Criticality Documentation Date Start Date Code Code System Note Provider Name and Address Organization Details Recorded Time 072083 Bactrim medicatio n other Not available Not available 09/15/2023 72163 9 RxNorm React ion: unkno wn, unspe cifie d;; Not Available [facility] 4 01:07:59 439450 Substance with sulfonami de structure and antibacte rial mechanism of action (substanc e) medicatio n other Not available Not available 09/15/2023 11445 8003 SNOMED React ion: unkno wn, unspe cifie d;; Not Available [facility] 4 01:08:03 Medications Name Sig Start [...] mg tablet 08/30 completed Medicati on ID: 287559 B rand Name: famotidi ne Send Method: [...] tablet,de layed release active Medicati on ID: 323940 B rand Name: aspirin Send Method: E-Prescr ibed Sub s Allowed: subs OK Speci al Instruct ion: TAKE 1 TABLET BY MOUTH TWICE A DAY Medi cationGe nericNam e: aspirin Not Available Not Available Not Available acetamino phen 500 mg tablet active Medicati on ID: 792811 B rand Name: acetamin ophen Se nd [...] (2,000 unit) capsule active Medicati on ID: 931099 B rand Name: cholecal ciferol (vitamin D3) [...] SNOMED-CT Code Diagnosis ICD10 Code Diagnosis Note [id number] CALIN GAMBOA MD [facility] of [address] [address] 03/28/2024 13:18:17 03/29/2024 07:06:27 Sensorineural hearing loss of bilateral ears 752794617 H90.3 Chronic se ana rosa otitis media of right ear 261592690 H65.21 Health Concerns Section Related Observation LastModified by Organization Detkeron green LastModified Time None Recorded Concern Status LastModified by Organization Details LastModified Time None Recorded Payers Encounter Date Sequence Insurance Name Policy Number Policy Wong Covered Member ID Wong Member ID Guarantor Name 03/28/2024 1 [facility] (MEDICARE REPLACEMENT/A DVANTAGE - HMO) Marisa Lainez [id number] Marisa Lainez Notes Date Note Type Note Provider Name and Address Organization Details Recorded Time 03/28/2024 text/html 83-year-old female presents for reevaluation. History of ETD with RMT in office. Her hearing has been stable. No issues since last visit. CALIN GAMBOA MD [address] [place] [address], [address], [facility] - [facility] 03/28/2024 15:39:46 OBGyn Episode No OBEpisode recorded.
[2024-05-10 08:29] LABS: MANUAL DIFF FLAG NO
[2024-05-10 08:56] LABS: Basophils Absolute Auto 0.1 X10*3/uL (0.0-0.2); Basophils Percent Auto 0.9 % (0-2); Eosinophils Absolute Auto 0.2 X10*3/uL (0.0-0.4); Eosinophils Percent Auto 3.6 % (0-4); Hematocrit 41.4 % (37.0-47.0); Imm Gran Abs Auto 0.03 X10*3/uL (0.00-0.03); Imm Gran Pct Auto 0.5 % (0.0-0.4); Lymphocytes Percent Auto 36.3 % (20-40); Mean Corpuscular HGB Conc 33.8 g/dl (31.0-35.0); Mean Corpuscular Hemoglobin 30.2 pg (27.0-33.0); Mean Corpuscular Volume 89.2 fL (80.0-98.0); Mean Platelet Volume 9.8 fL (9.4-12.3); Monocytes Absolute Auto 0.6 X10*3/uL (0.1-1.2); Neutrophils Absolute Auto 2.6 x10*3/uL (2.0-8.3); Neutrophils Percent Auto 47.7 % (45-73); Platelet Count 164 X10*3/uL (160-400); Red Blood Count 4.64 X10*6/uL (4.20-5.50); Red Cell Distribution Width 13.4 % (11.0-16.0); White Blood Count 5.5 X10*3/uL (4.8-10.8)
[2024-05-10 09:30] LABS: Appearance Urine Cloudy; Color Urine Yellow; Glucose Urine UA Negative (Negative); Leukocyte Esterase Urine Moderate (2+) (Negative); Nitrite Urine Negative (Negative); PH 5.5 (5.0-9.0); Specific Gravity - Urine 1.015 (1.005-1.025); UMIC TRIGGER UACC YES; Urine Blood Trace (Negative); Urine Ketones Negative (Negative); Urine Protein Negative (Neg-Trace)
[2024-05-10 09:35] LABS: Alanine Aminotransferase 18 U/L (0-31); Albumin Level 3.8 g/dL (3.5-5.0); Alkaline Phosphatase 109 U/L (39-117); Anion Gap 9 (12-20); Aspartate Amino Transferase 24 U/L (5-31); Bilirubin Total 0.6 mg/dL (0.0-1.0); Blood Urea Nitrogen 17 mg/dL (9-16); Calcium 8.9 mg/dL (8.4-10.2); Carbon Dioxide 26 mmol/L (22-29); Chloride 112 mmol/L (96-108); Cholesterol 125 mg/dL (<200); Estimated Glomerular Filt Rate > 60; Glucose Fasting 92 mg/dL (60-99); HDL Cholesterol 43 mg/dL (>40); LDL Cholesterol Calculated 61 mg/dL (<100); Sodium 143 mmol/L (135-145); Total Protein 6.6 g/dL (6.5-8.0); Triglycerides 105 mg/dL (<150)
[2024-05-10 09:43] LABS: Bacteria Urine 4+ (None Seen); Hyaline Casts Urine 0-2 /LPF (0-2); RBC Urine 0-2 /HPF (0-2); UACC Culture Trigger YES
[2024-05-10 09:55] LABS: Vitamin D 25-OH Total 44.1 ng/mL (>30)
== END 2024-05-10 08:14 | disposition home or self-care (01) ==
LOC: HO.LAB 08:13
PROVIDERS: PCP Internal Medicine; Visit Provider Internal Medicine
DX: D64.9 Anemia, unspecified (principal); E78.00 Pure hypercholesterolemia, unspecified; E55.9 Vitamin D deficiency, unspecified; R30.0 Dysuria
CPT/HCPCS: 36415; 80053; 80061; 81001; 82306; 85025; 87086

== ENCOUNTER 2024-05-18 12:59 | Outpatient (AMB) | payer OTHER, SELFPAY ==
[2024-05-18 13:02] VITALS: BP 120/92; PULSE 68; TEMP 35.8; O2SAT 98; BMI 32.3
--- NOTE | 2024-05-18 13:02 | A.OFFPC_ITS ---
Vital Signs 05/18/24 13:02 Height 5 ft 5 in Weight 194 lb 4 oz BMI 32.3 BP 120/92 H Blood Pressure Location Lt brachial Position Sitting Pulse 68 Pulse Source Pulse Oximeter Temp 96.4 F L Temp Source Temporal Artery Scan Pulse Oximetry (%) 98 Oxygen Delivery Method Room Air Intake Visit Reasons: 4 month f/u Intel Analyst Required: No Accompanied by: Self / Same As Patient Allergies nitrofurantoin [From MACRODANTIN] Allergy (Severe, Verified 05/18/24 13:21) Anaphylaxis Sulfa (Sulfonamide Antibiotics) [SULFA (SULFONAMIDE ANTIBIOTICS)] Allergy (Severe, Verified 05/18/24 13:21) ANAPHYLAXIS sulfamethoxazole [From BACTRIM] Allergy (Severe, Verified 05/18/24 13:21) ANAPHYLAXIS trimethoprim [From BACTRIM] Allergy (Severe, Verified 05/18/24 13:21) ANAPHYLAXIS Medication List - Last Reconciled 05/18/24 by Mac Thomas MD alprazolam 1 mg PO TID PRN 30 days atorvastatin 40 mg PO BEDTIME 90 days cholecalciferol (vitamin D3) 50 mcg PO DAILY 90 days pantoprazole 40 mg PO BEDTIME terazosin 1 mg PO BEDTIME 90 days Tobacco use date assessed: 05/18/24 Fall risk assessment: 2 + Falls in past year Last assessed Fall Risk: 05/18/24 Dental Screening Dental Screen Date: 05/18/24 Did you have a dental visit in the last 12 months?: Yes Did you have a dental problem in the last 6 months where you did not have access to dental care?: No Was dental information given to patient?: Patient has dentist HPI 4 month f/u HPI Details Patient comes in today for her follow up visit States that she still has chronic left knee pain but this has been improving lately with physical therapy She has been going to PT for a while now and it is now starting to help with her knee Adds that she has been experiencing increased pain over her lower back for the past couple of months She does not recall any particular event or activity that could have aggravated her lower back pain States that she has tried applying ice and heat over her lower back at different times, but they only helped temporarily She would like to know if there is anything she can take at present that can help with the pain in her lower back more effectively She denies any headaches or dizziness Denies any chest pains, no increased SOB No nausea/vomiting, no abdominal pain No change in bowel habits noted She had her follow up labs done last week - to discuss her results [facility] Medical History (Updated 05/20/24 @ 05:40 by Mac Thomas MD) History of skin cancer Hepatitis COPD (chronic obstructive pulmonary disease) Seasonal allergies Chronic cough Cervical disc disease Left knee pain Pain of right shoulder joint on movement Abnormal SPEP Vitamin D deficiency Urolithiasis Osteoporosis GERD without esophagitis Multilevel degenerative disc disease Obesity (BMI 30-39.9) Anxiety Insomnia GERD (gastroesophageal reflux disease) Left lumbosacral radiculopathy Degenerative lumbar spinal stenosis Pure hypercholesterolemia Surgical History Hx of tonsillectomy Hx of left cataract extraction History of surgery on right wrist History of endoscopy History of colonoscopy Hx of decompressive lumbar laminectomy (~05/25/20) Status post total abdominal hysterectomy and bilateral salpingo-oophorectomy (CATRACHITO-BSO) History of right cataract extraction (~12/2016) History of cystoscopy (~05/24/18) Family History Father No problems noted. Mother Ovarian cancer Daughter Myocardial infarction, Onset Age: 46 Stroke Social History Household Members: Children Housing: House Are you a primary personal caregiver to a significant other at home: No Do you presently have visiting nurse or other home services: No Alcohol intake: former Patient Tobacco Use Status: Never used Tobacco e-Cigarette/Vaping Use: Never Used Second Hand Smoke Exposure: Yes service: No Current occupational status: retired and disabled Cognitive needs: No Hearing needs: No Vision needs: Yes (reading glasses) Questionnaire PHQ-9 Over the last 2 weeks, how often have you been bothered by any of the following problems? 1. Little interest or pleasure in doing things: not at all 2. Feeling down, depressed, or hopeless: not at all 3. Trouble falling or staying asleep, or sleeping too much: not at all 4. Feeling tired or having little energy: not at all 5. Poor appetite or overeating: not at all 6. Feeling bad about yourself - or that you are a failure or have let yourself or your family down: not at all 7. Trouble concentrating on things, such as reading the newspaper or watching t elevision: not at all 8. Moving or speaking so slowly that other people could have noticed. Or the opposite - being so fidgety or restless that you have been moving around a lot more than usual: not at all 9. Thoughts that you would be better off or of hurting yourself in some way: not at all Total score: 0 Depression Screening Interpretation: Negative Depression Screening Done: Yes 34379 - PHQ-9 Billing: Yes Source: Developed by Drs. Sim Alcala, Tamy Irby, Jean Marie Schroeder and colleagues, with an educational dionicio from [employer]. Thrive Questionnaire Date Thrive assessed: 05/18/24 I am a: Patient What is your living situation today?: I have a steady place to live Within the past 12 months, did the food you bought not last and you didn't have the money to get more?: Never true Within the past 12 months, did you worry whether your food would run out before you got money to buy more?: Never true Do you have trouble paying for medicines?: No Do you have trouble getting transportation to medical appointments?: No Do you have trouble paying your heating and electricity bill?: No Do you have trouble taking care of your child, family member or friend?: No Do you have trouble with day-to-day activities such as bathing, preparing meals, shopping, managing finances, etc.?: No Are you currently unemployed and looking for a job?: No Are you interested in more education?: No Please select the resources that you would like help with: None Currently or been in a relationship where the following occur: No concerns reported THRIVE Score: 0 AUDIT C Alcohol Use Questionnaire (AUDIT-C) 1. How often do you have a drink containing alcohol?: Never 3. How often do you have six or more drinks on one occasion?: Never Total Score: 0 Score Reviewed/Action Taken: Yes SHIRLEY-7 AMB Questionnaire SHIRLEY-7 Date SHIRLEY - 7 assessed: 05/18/24 Feeling nervous, anxious, or on edge: 0 = Not at all Not being able to stop or control worryin = Not at all Worrying too much about different things: 0 = Not at all Trouble relaxin = Not at all Being so restless that it is hard to sit still: 0 = Not at all Becoming easily annoyed or irritable: 0 = Not at all Feeling afraid as if something awful might happen: 0 = Not at all Total SHIRLEY-7 score (0-4 normal; 5-9 mild; 10-14 moderate; 15-21 severe): 0 Source: Developed by Drs. Sim Alcala, Tamy Irby, Jean Marie Schroeder and colleagues, with an educational dionicio from [employer]. Review of Systems Const Denies chills, Reports fatigue, Denies fever(s), Reports frequent falls (due to leg weakness, especially with her left knee) and Denies headache(s) ENT Denies dysphagia, Denies dizziness, Denies otalgia, Denies headache(s), Reports neck pain (chronic), Denies odynophagia and Denies sore throat Card Denies chest pain, Denies palpitations and Reports dyspnea on exertion (mild) Resp Denies chest congestion, Denies cough and Reports dyspnea on exertion (mild) GI Denies abdominal pain, Denies constipation, Denies dysphagia, Denies heartburn, Denies diarrhea, Denies nausea, Denies odynophagia and Denies vomiting Denies hematuria, Denies difficulty voiding, Denies nocturia, Denies dysuria and Denies urinary incontinence Musc Reports back pain (increased, especially over her left lower back), Reports arthralgias (right shoulder, left knee), Reports muscle weakness (in the right arm, on and off, and in both legs, R>L) and Reports neck pain (chronic) Skin/Breast Denies rash Neuro Denies dizziness, Reports frequent falls (due to leg weakness, especially with her left knee) and Denies headache(s) Endo Reports fatigue and Denies palpitations Physical exam (Primary Care) Vital Signs: Last Vital Signs Temp 96.4 F L 05/18/24 13:02 Pulse 68 05/18/24 13:02 BP 120/92 H 05/18/24 13:02 Pulse Ox 98 05/18/24 13:02 Oxygen Delivery Method Room Air 05/18/24 13:02 BMI result Body Mass Index 32.3 Tobacco/Smoking Status: Tobacco use Status Tobacco use date assessed 05/18/24 05/18/24 13:09 Patient Tobacco Use Status Never used Tobacco 05/18/24 13:09 e-Cigarette/Vaping Use Never Used 05/18/24 13:09 PHQ-9: PHQ-9 Score PHQ-9: Total score 0 05/18/24 13:22 Depression Screening Interpretation: Negative Thrive Assessment: Date of Thrive Assessment Date Thrive assessed 05/18/24 05/18/24 13:09 Currently or been in a relationship where the following occur: No concerns reported Const General: no acute distress and alert HENMT Ears: TM's normal bilaterally and EAC's normal Throat: Yes posterior oropharynx normal and Yes tonsils normal (no TP congestion noted) Neck Neck: Yes supple and No lymphadenopathy Thyroid: Thyroid normal Resp Auscultation: clear to auscultation bilaterally, no rales, no wheezes and diminished lung sounds (slightly) bilateral Cardio Rate: regular rate Rhythm: regular rhythm Heart sounds: no murmurs GI Palpation (GI): Soft to palpation and nontender Auscultation: normal bowel sounds Back/Spine/Pelvis Cervical Spine: Cervical spine tenderness Thoracic/Lumbar Spine: paraspinal muscle tenderness on the left in the upper thoracic, in the mid lumbar and in the lower lumbar and lumbar spinal tenderness Skin Rashes: no rashes Extrem General: Yes no clubbing, cyanosis or edema Right lower extremity: knee Details: no tenderness Left lower extremity: knee Details: tenderness (minimal) Results Reviewed Results Reviewed: Laboratory Tests 05/10/24 05/10/24 08:29 08:45 WBC 5.5 Hgb 14.0 Hct 41.4 Plt Count 164 Sodium 143 Potassium 4.0 Creatinine 0.89 Estimated GFR > 60 Fasting Glucose 92 Calcium 8.9 AST 24 ALT 18 Triglycerides 105 Cholesterol 125 LDL Cholesterol, Calc 61 HDL Cholesterol 43 25-OH Vitamin D Total 44.1 Ur Specific [place] 1.015 Urine Protein Negative Urine Glucose (UA) Negative Urine Blood Trace H Urine Nitrite Negative Ur Leukocyte Esterase Moderate (2+) H Coding Level of Care Code Est Pt Level 4 (67904) Complex EM visit Add On G2211 Diagnoses Chronic obstructive pulmonary disease with acute exacerbation J44.1 COPD type: COPD with acute exacerbation Pure hypercholesterolemia E78.00 Degenerative lumbar spinal stenosis M48.061 Cervical disc disease M50.90 Closed nondisplaced fracture of left patella, unspecified fracture morphology, sequela S82.002S Encounter type: sequela Fracture type: closed Fracture morphology: unspecified fracture morphology Vitamin D deficiency E55.9 Osteoporosis without current pathological fracture, unspecified osteoporosis type M81.0 Osteoporosis type: unspecified Presence of current pathological fracture: without current pathological fracture Elevated LFTs R79.89 Closed fracture of right wrist, sequela S62.101S Encounter type: sequela Fracture type: closed Calculus of kidney N20.0 Urinary calculus location: kidney GERD without esophagitis K21.9 Squamous cell carcinoma of skin of left cheek C44.329 Primary insomnia F51.01 Insomnia type: primary Anxiety F41.9 Obesity (BMI 30-39.9) E66.9 Additional Codes PHQ-9 - 61657 - PHQ-9 Billing: Yes ([id number]) Assessment & Plan Assessment & Plan (1) COPD (chronic obstructive pulmonary disease): Code(s): J44.9 - Chronic obstructive pulmonary disease, unspecified Category: Medical Qualifiers: COPD type: COPD with acute exacerbation Qualified Code(s): J44.1 - Chronic obstructive pulmonary disease with (acute) exacerbation Plan: Controlled; patient appears to be doing well on her current inhalers - continue Trelegy Ellipta 200-62.5-25 mcg [address] done in August 2022 revealed (+) borderline/mild bronchiectasis, with some scarring or subsegmental atelectasis in the left lower lobe Follow up with pulmonary as scheduled (2) Pure hypercholesterolemia: Code(s): E78.00 - Pure hypercholesterolemia, unspecified Category: Medical Plan: Results of her labs done last week reviewed and discussed with patient Reinforced low cholesterol diet Continue Atorvastatin 40 mg QD Will recheck her labs and fasting lipids in 4 months for follow up (3) Degenerative lumbar spinal stenosis: Comment: S/P bilateral L4-L5 laminotomy, partial facetectomy and foraminotomy through left-sided approach with a microscope by Dr. Kramer on 05/25/2020 MRI previously showed (+) multilevel degenerative disc changes with moderate to severe central stenosis at L4-L5 as well as a grade 1 anterolisthesis of L4 on L5, with moderate to severe bilateral facet arthropathy at L3-L4 and L5-S1 and also a chronic compression fracture of the body of L1 Code(s): M48.061 - Spinal stenosis, lumbar region without neurogenic claudication Category: Medical Plan: Patient reports (+) significant relief of her back pain since her surgery in May 2020 although her left lower back has been acting up again over the past couple of months Repeat lumbar spine x-rays done back in December 2023 revealed no acute findings - (+) stable 30% compression fracture at L1 and stable moderate degenerative changes in the lumbar spine Reinforced activity and weight lifting restrictions Will start her back on Tizanidine 4 mg 2 to 3 times a day as needed and on Tramadol 50 mg TID PRN Will also refer her to physical therapy for them to start working on her lower back as well (4) Cervical disc disease: Code(s): M50.90 - Cervical disc disorder, unspecified, unspecified cervical region Category: Medical Plan: Cervical spine MRI done in October 2020 revealed (+) cervical spinal canal developmental narrowing exacerbated by cervical spine degenerative disease with stenosis and overall mild cervical spine cord volume loss Follow up with neurosurgery as scheduled (5) Nondisplaced fracture of left patella: Onset Date: ~01/16/22 Comment: involving the left lateral tibial plateau - did not require surgery Code(s): S82.002A - Unspecified fracture of left patella, initial encounter for closed fracture Category: Medical Qualifiers: Encounter type: sequela Fracture type: closed Fracture morphology: unspecified fracture morphology Qualified Code(s): S82.002S - Unspecified fracture of left patella, sequela Plan: Corrected/resolved; patient did not require surgical intervention S/P physical therapy previously, with significant improvement of her knee pain but her symptoms have gotten worse again over time Repeat left knee x-rays done a few months ago showed only (+) moderate joint effusion with no other abnormalities She is now seeing Dr. Diaz at [facility] and is currently going to PT again - states that her knee pain is now starting to respond to therapy (6) Vitamin D deficiency: Code(s): E55.9 - Vitamin D deficiency, unspecified Category: Medical Plan: Continue Vitamin D supplement - is on both 2000 units daily and 46010 units once a week Follow up with endocrinology as scheduled (7) Osteoporosis: Code(s): M81.0 - Age-related osteoporosis without current pathological fracture Category: Medical Qualifiers: Osteoporosis type: unspecified Presence of current pathological fracture: without current pathological fracture Qualified Code(s): M81.0 - Age-related osteoporosis without current pathological fracture Plan: Her last BMD was reportedly done at [facility] a couple of years ago; she is due for a repeat BMD for follow up and is encouraged to get this scheduled KAMLESH (patient was apparently contacted about this recently and she told them that she did not want to get this done at this time) Continue oral Calcium and Vitamin D supplements daily Endocrinology is considering starting her on antiresorptive Tx once her Vitamin D level is normal or near normal Follow up with endocrinology as scheduled (8) Elevated LFTs: Code(s): R79.89 - Other specified abnormal findings of blood chemistry Category: Medical Plan: Resolved - her LFTs have remained normal on her recent labs; were most likely related to her weight Encouraged to continue to try lose weight and is again reminded to avoid any Rx with Acetaminophen as much as possible and to completely abstain from ETOH (9) Right wrist fracture: Code(s): S62.101A - Fracture of unspecified carpal bone, right wrist, initial encounter for closed fracture Category: Medical Qualifiers: Encounter type: sequela Fracture type: closed Qualified Code(s): S62.101S - Fracture of unspecified carpal bone, right wrist, sequela Plan: Sustained when she fell back in July 2023 while playing pickleball S/P surgical correction and physical therapy States that she still has some pain and discomfort in her right wrist at times but her ROM has improved significantly and she has no significant limitations with her right wrist (10) Urolithiasis: Code(s): N20.9 - Urinary calculus, unspecified Category: Medical Qualifiers: Urinary calculus location: kidney Qualified Code(s): N20.0 - Calculus of kidney Plan: She currently has no acute symptoms suggestive of urinary brendon calculi She is encouraged to continue to increase her oral fluids intake Continue Terazosin 1 mg Q HS Follow up with urology as scheduled (11) GERD without esophagitis: Code(s): K21.9 - Gastro-esophageal reflux disease without esophagitis Category: Medical Plan: Dietary restrictions reinforced Continue Pantoprazole 40 mg QD (12) Squamous cell carcinoma of skin of left cheek: Code(s): C44.329 - Squamous cell carcinoma of skin of other parts of face Category: Medical Plan: S/P surgical excision by [facility] back on 09/08/2023 Follow up with dermatology as scheduled for continuing follow up (13) Insomnia: Code(s): G47.00 - Insomnia, unspecified Category: Medical Qualifiers: Insomnia type: primary Qualified Code(s): F51.01 - Primary insomnia Plan: Sleep hygiene reinforced (14) Anxiety: Code(s): F41.9 - Anxiety disorder, unspecified Category: Medical Plan: Continue Alprazolam 1 mg TID PRN (15) Obesity (BMI 30-39.9): Code(s): E66.9 - Obesity, unspecified Category: Medical Plan: Reinforced diet; exercise and weight loss are unrealistic expectations given patient's multiple physical issues and comorbidities Plan Follow up in 4 months Orders: Orders PT Evaluation and Treatment 05/18/24 S39.012A - Strain of muscle, fascia and tendon of lower back, initial encounter Complete Blood Count Auto Diff 4 Months D64.9 - Anemia, unspecified Comprehensive [place]. Panel Fast 4 Months E78.00 - Pure hypercholesterolemia, unspecified Lipid Panel 4 Months E78.00 - Pure hypercholesterolemia, unspecified Medications: New tizanidine 4 mg PO Q8H 30 days PRN 90 tabs 0RF muscle spasms tramadol 50 mg PO TID PRN 30 tabs 0RF pain
--- OUTSIDE RECORDS SUMMARY | 2024-05-18 15:33 | XMS_ITS | Continuity of Care Document ---
Author Organization [place] - [facility], [facility] Address [address] [place] [address] Care Team Providers Care Radiation Protection Technician Name Role Phone JAE OWEN Primary Care Provider [phone] Assessment Encounter Date Assessment Date Assessment LastModified by Organization Details LastModified Time 03/28/2024 03/28/2024 83-year-old female presents for reevaluation. On examination right tube has extruded and is absent from canal. TM translucent with well aerated middle ear space. No further intervention recommended. Follow-up as needed. 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, bilateral ; Note: Date Diagnosed : 06/04/2021 11:07 AM (H74.03) Not Available [facility] 4 02:50:05 Sensorine ural hearing loss of bilateral ears 098798701 Active 2019 Sensorine ural hearing loss, bilateral ; Note: Date Diagnosed : 12/13/2019 12:07 PM (H90.3) Not Available [facility] 4 02:50:06 Acute serous otitis media of right ear 77732494273 18603 Active 2023 Acute serous otitis media, right ear; Note: Date Diagnosed : 08/04/2023 3:42 PM (H65.01) CALIN GAMBOA MD [address] [facility],[place] [address], [place], [phone] , [facility] 4 15:20:41 Mixed conductiv e and sensorine ural hearing loss, bilateral 048208753 Active 2023 Mixed conductiv e and sensorine ural hearing loss, bilateral ; Note: Date Diagnosed : 08/04/2023 3:42 PM (H90.6) Not Available [facility] 4 02:50:06 Chronic serous otitis media of right ear 456853268 Active 2023 CALIN GAMBOA MD [address] [facility],[place] [address], [place], [phone] , [facility] 4 15:20:59 Problem Notes None recorded. Procedures Surgical History Date Name Laterality Status Provider Name and Address Organization Details Recorded Time 09/30/2023 Comp Audio with Tymps (62458 & 90193) completed Crys CAPUTO [address] [facility],[place] [address], [place], [phone], [facility] 09/30/2023 15:19:30 Imaging Results None recorded. Procedure Notes None recorded. Medical Equipment None Reported. Allergies Allergen ID Allergen Name Allergen Category Reaction Reaction Severity Criticality Documentation Date Start Date Code Code System Note Provider Name and Address Organization Details Recorded Time 353236 Bactrim medicatio n other Not available Not available 09/15/2023 16952 9 RxNorm React ion: unkno wn, unspe cifie d;; Not Available [facility] 4 01:07:59 [id number] Substance with sulfonami de structure and antibacte rial mechanism of action (substanc e) medicatio n other Not available Not available 09/15/2023 56709 8003 SNOMED React ion: unkno wn, unspe cifie d;; Not Available [facility] 4 01:08:03 Medications Name Sig Start [...] mg tablet 08/30 completed Medicati on ID: [id number] B rand Name: famotidi ne Send Method: [...] tablet,de layed release active Medicati on ID: [id number] B rand Name: aspirin Send Method: E-Prescr ibed Sub s Allowed: subs OK Speci al Instruct ion: TAKE 1 TABLET BY MOUTH TWICE A DAY Medi cationGe nericNam e: aspirin Not Available Not Available Not Available acetamino phen 500 mg tablet active Medicati on ID: [id number] B rand Name: acetamin ophen Se nd [...] ne propionat e 50 mcg/actua tion nasal spray,odreen pension ADMINIST ER 2 SPRAYS INTRANAS ALLY [...] (2,000 unit) capsule active Medicati on ID: 239323 B rand Name: cholecal ciferol (vitamin D3) [...] SNOMED-CT Code Diagnosis ICD10 Code Diagnosis Note [id number] CALIN GAMBOA MD [facility] [address] [address] 03/28/2024 13:18:17 03/29/2024 07:06:27 Sensorineural hearing loss of bilateral ears [id number] H90.3 Chronic se ana rosa otitis media of right ear 562519702 H65.21 Health Concerns Section Related Observation LastModified by Organization Detkeron green LastModified Time None Recorded Concern Status LastModified by Organization Details LastModified Time None Recorded Payers Encounter Date Sequence Insurance Name Policy Number Policy Wong Covered Member ID Wong Member ID Guarantor Name 03/28/2024 1 [facility] (MEDICARE REPLACEMENT/A DVANTAGE - HMO) Marisa Lainez [id number] Marisa Lainez Notes Date Note Type Note Provider Name and Address Organization Details Recorded Time 03/28/2024 text/html 83-year-old female presents for reevaluation. History of ETD with RMT in office. Her hearing has been stable. No issues since last visit. CALIN GAMBOA MD [address] [place] [address], [phone], [facility] - [facility] 03/28/2024 15:39:46 OBGyn Episode No OBEpisode recorded.
== END 2024-05-18 13:38 | disposition home or self-care (01) ==
PROVIDERS: PCP Internal Medicine; Visit Provider Internal Medicine
DX: J44.1 Chronic obstructive pulmonary disease with (acute) exacerbation (principal); E78.00 Pure hypercholesterolemia, unspecified; E66.9 Obesity, unspecified; Z68.32 Body mass index [BMI] 32.0-32.9, adult; M48.061 Spinal stenosis, lumbar region without neurogenic claudication; M50.90 Cervical disc disorder, unspecified, unspecified cervical region; S82.002S Unspecified fracture of left patella, sequela; E55.9 Vitamin D deficiency, unspecified; M81.0 Age-related osteoporosis without current pathological fracture; R79.89 Other specified abnormal findings of blood chemistry; S62.101S Fracture of unspecified carpal bone, right wrist, sequela; N20.0 Calculus of kidney

== ENCOUNTER → 2024-05-18 12:59 | Outpatient (BNVA) | payer OTHER, SELFPAY | PROVIDERS: PCP Internal Medicine; Visit Provider Internal Medicine | DX: J44.1 Chronic obstructive pulmonary disease with (acute) exacerbation (principal); E78.00 Pure hypercholesterolemia, unspecified; M48.061 Spinal stenosis, lumbar region without neurogenic claudication; M50.90 Cervical disc disorder, unspecified, unspecified cervical region; S82.002S Unspecified fracture of left patella, sequela; S62.12 Fracture of lunate [semilunar]; E55.9 Vitamin D deficiency, unspecified; M81.0 Age-related osteoporosis without current pathological fracture; R79.89 Other specified abnormal findings of blood chemistry; N20.0 Calculus of kidney; K21.9 Gastro-esophageal reflux disease without esophagitis; C44.329 Squamous cell carcinoma of skin of other parts of face; F51.01 Primary insomnia; F41.9 Anxiety disorder, unspecified; E66.9 Obesity, unspecified; X58.XXXS Exposure to other specified factors, sequela | CPT/HCPCS: 96127; 99212 ==

== ENCOUNTER 2024-05-31 12:00 | Outpatient (REF) | payer OTHER, SELFPAY ==
[2024-05-31 12:38] LABS: Appearance Urine Clear; Color Urine Yellow; Glucose Urine UA Negative (Negative); Leukocyte Esterase Urine Large (3+) (Negative); Nitrite Urine Negative (Negative); Specific Gravity - Urine <= 1.005 (1.005-1.025); UMIC TRIGGER UACC YES; Urine Blood Negative (Negative); Urine Ketones Negative (Negative); Urine Protein Negative (Neg-Trace)
[2024-05-31 12:43] LABS: Bacteria Urine None Seen (None Seen); Hyaline Casts Urine 0-2 /LPF (0-2); RBC Urine 0-2 /HPF (0-2); UACC Culture Trigger YES; WBC Urine >50 /HPF (0-5)
--- OUTSIDE RECORDS SUMMARY | 2024-05-31 13:03 | XMS_ITS | Clinical Summary ---
Author Organization [facility] Address [address] [place] [address] Care Team Providers Care Hydraulic Lift Operator Name Role Phone Mac Thomas MD Primary Care Provider [phone] Social History Tobacco Use Types Packs/Day Years Used Date Smoking Tobacco: Never Assessed Sex and Gender Information Value Date Recorded Sex Assigned at Not on file Gender Identity Not on file Sexual Orientation Not on file Job Start Date Occupation Industry Not on file Not on file Not on file Plan of Treatment Health Maintenance Due Date Last Done Comments COVID-19 Vaccine (#1) 04/12/1941 Depression Screening 1954 Preventative Health Evaluation 1960 DTap / Tdap / Td (1 - Tdap) 1961 Shingrix-Zoster Vaccine (1 of 2) 1992 Fall Risk Assessment 10/12/2007 Osteoporosis Screening (DEXA Scan) 10/12/2007 Pneumococcal Vaccine (1 of 1 - PCV) 10/12/2007 RSV Adult > 60+ Yrs or Pregn ant (1 - 1-dose 75+ series) 2017 Influenza Vaccine (#1) 2024 Hepatitis B Vaccines Aged Out No long er eligible based on patient's age to complete this topic RSV Ped < 20 months Aged Out No longe r eligible based on patient's age to complete this topic Care Teams Hydraulic Lift Operator Relationship Specialty Start Date End Date Mac Thomas MD [address] [place] [address] [place] [address] PCP - General Internal Medicine 04/17/20
--- OUTSIDE RECORDS SUMMARY | 2024-05-31 13:03 | XMS_ITS | Data Portability ---
Author Organization [place] - [facility], Allergy Address [address] [place] [id number] Care Team Providers Care Interventional Technologist Name Role Phone JAE OWEN Primary Care Provider [phone] Assessment Encounter Date Assessment Date Assessment LastModified [...] Organization Details Recorded Time Bilateral tympanosc lerosis [id number] Active 2021 Tympanosc lerosis, bilateral ; Note: Date Diagnosed : 06/04/2021 11:07 AM (H74.03) Not Available [facility] hospital 4 02:50:05 Sensorine ural hearing loss of bilateral ears 620438679 Active 2019 Sensorine ural hearing loss, bilateral ; Note: Date Diagnosed : 12/13/2019 12:07 PM (H90.3) Not Available Critical access hospital 4 02:50:06 Acute serous otitis media of right ear 38664413109 23209 Active 2023 Acute serous otitis media, right ear; Note: Date Diagnosed : 08/04/2023 3:42 PM (H65.01) CALIN GAMBOA MD [address] [place] [address], [facility] [place], [address] , [facility] - [facility] 4 15:20:41 Mixed conductiv e and sensorine ural hearing loss, bilateral 849574460 Active 2023 Mixed conductiv e and sensorine ural hearing loss, bilateral ; Note: Date Diagnosed : 08/04/2023 3:42 PM (H90.6) Not Available Critical access hospital 02:50:06 Chronic serous otitis media of right ear 766015030 Active 2023 CALIN GAMBOA MD [address] [facility],[place] [address], [place], [address] , [facility] 15:20:59 Problem Notes None recorded. Procedures Surgical History Date Name Laterality Status Provider Name and Address Organization Details Recorded Time 09/30/2023 Comp Audio with Tymps (29723 & 63255) completed Crys CAPUTO [address] [facility],[place] [address], [place], [address], [facility] 09/30/2023 15:19:30 Imaging Results Imaging [...] Name and Address Organization Details Recorded Time 384228 Bactrim medicatio n other Not available Not available 09/15/2023 87847 9 RxNorm React ion: unkno wn, unspe cifie d;; Not Available Critical access hospital 4 01:07:59 121821 Substance with sulfonami de structure and antibacte rial mechanism of action (substanc e) medicatio n other Not available Not available 09/15/2023 89812 8003 SNOMED React ion: unkno wn, unspe cifie d;; Not Available Critical access hospital 4 01:08:03 Medications Name Sig Start Date [...] mg tablet 08/30 completed Medicati on ID: [id number] B rand Name: famotidi ne Send Method: [...] tablet,de layed release active Medicati on ID: 310853 B rand Name: aspirin Send Method: E-Prescr ibed Sub s Allowed: subs OK Speci al Instruct ion: TAKE 1 TABLET BY MOUTH TWICE A DAY Medi cationGe nericNam e: aspirin Not Available Not Available Not Available acetamino phen 500 mg tablet active Medicati on ID: 281075 B rand Name: acetamin ophen Se nd [...] (2,000 unit) capsule active Medicati on ID: 000884 B rand Name: cholecal ciferol (vitamin D3) [...] Updated DateTime 01/28/2024 162.56 cm 32.6 kg/m2 52950.55 g Bethany Smart [place] - [facility] 01/28/2024 09:52:43 Social History None [...] Diagnosis Note 1893 CALIN GAMBOA MD [facility] [address], [place] [address] 09/30/2023 14:46:44 09/30/2023 15:55:55 Sensorineural hearing loss of bilateral ears 317930558 H90.3 Audiologic al evaluation results:Ri ght ear:{{Norm [...] Co uld not maintain a hermetic seal}} [id number] CALIN GAMBOA MD [facility] [address] [address] 01/28/2024 09:43:43 01/28/2024 09:59:40 Chronic serous otitis media of right ear 208453262 H65.21 [id number] CALIN GAMBOA MD [facility] [address] [address] 03/28/2024 13:18:17 03/29/2024 07:06:27 Sensorineural hearing loss of bilateral ears 311870237 H90.3 Chronic se ana rosa otitis media of right ear 537762998 H65.21 Health Concerns Section Related Observation LastModified by Organization Detai ls LastModified Time None Recorded Concern Status LastModified by Organization Details LastModified Time None Recorded Advance Directives Directive None Recorded Payers Encounter Date Sequence Insurance Name Policy Number Policy Wong Covered Member ID Wong Member ID Guarantor Name 09/30/[address] [facility] (MEDICARE REPLACEMENT/ ADVANTAGE - HMO) Marisa Lainez [id number] Marisa Lainez 09/30/2023 2 [place] [facility] Marisa Lainez [id number] Marisa Lainez 01/28/[address] [facility] (MEDICARE REPLACEMENT/ ADVANTAGE - HMO) Marisa Gaona Migel [id number] Marisa Lainez 03/28/[address] [facility] (MEDICARE REPLACEMENT/ ADVANTAGE - HMO) Marisa Gaona Migel [id number] Marisa M Migel Notes Date Note Type Note Provider Name and Address Organization Details Recorded Time 09/30/2023 text/html 82-year-old nydia galan presents following right tube placement with Dr. Jensen. Her hearing has improved significantly following surgery. CALIN GAMBOA MD [address] [facility],[address], [address], [place] - [facility] [place] 09/30/2023 16:38:27 01/28/2024 text/html tube check 4 R myringotomy tube placed, [place]09/30/23 post tube audio showed improvement feels her hearing fluctuatesno otorrhea CALIN GAMBOA MD [address] [place] [address],[place] [address], [place], [address], [place] - [facility] [place] 01/28/2024 09:58:40 03/28/2024 text/html 83-year-old nydia aglan presents for reevaluation. History of ETD with RMT in office. Her hearing has been stable. No issues since last visit. CALIN GAMBOA MD [address] [facility],[place] [address], [place], [address], [place] - [facility] 03/28/2024 15:39:46 OBGyn Episode No OBEpisode recorded.
--- OUTSIDE RECORDS SUMMARY | 2024-05-31 13:03 | XMS_ITS | Clinical Summary ---
Author Organization [facility] Address [address] [place] [phone] Care Team Providers Care Skiagrapher Name Role Phone Mac Thomas MD Primary Care Provider Surgical History Surgery Date Site/Laterality Comments HYSTERECTOMY PROCEDURE: HISTORICAL HYSTERECTOMY Medical History Medical History Date Comments Allergic rhinitis 08/06/2016 DX:Allergic rh initis Hemoptysis 06/06/2016 DX:Hemoptysis History of renal calculi 06/06/2016 DX:Hist ory of renal calculi Hypercholesterolemia 06/06/2016 DX:Hypercho lesterolemia Insomnia 06/06/2016 DX:Insomnia Multiple pulmonary nodules 07/31/2016 DX:Mu ltiple pulmonary nodules Spinal stenosis 06/06/2016 DX:Spinal stenos is Social History Tobacco Use Types Packs/Day Years Used Date Smoking Tobacco: Never Smokeless Tobacco: Never Alcohol Use Standard Drinks/Week Comments No 0 (1 standard drink = 0.6 oz pur e alcohol) Sex and Gender Information Value Date Recorded Sex Assigned at Not on file Gender Identity Not on file Sexual Orientation Not on file Obstetrics History Plan of Treatment Health Maintenance Due Date Last Done Comments DTaP,Tdap,and Td Vaccines (1 - Tdap) 1961 Zoster Vaccines (1 of 2) 1992 Pneumococcal Vaccine: 65+ Ye ars (1 of 1 - PCV) 10/12/2007 RSV Immunization Patients 60 + Years Old (1 - 1-dose 75+ series) 2017 Cholesterol Screening (Lipid Panel) 04/06/2022 Depression Screening 04/06/2022 Falls Risk Assessment 04/06/2022 Social Influencers of Health Screening 04/06/2022 COVID-19 Vaccine (1 - 2023-2 5 season) 2024 Influenza Vaccine (#1) 2024 Osteoporosis Screening (Bone Density Screening) 04/20/2030 04/20/2020 HIB Vaccines Aged Out No longer eligi ble based on patient's age to complete this topic HPV Vaccines Aged Out No longer eligi ble based on patient's age to complete this topic Hepatitis A Vaccines Aged Out No long er eligible based on patient's age to complete this topic Hepatitis B Vaccines Aged Out No long er eligible based on patient's age to complete this topic IPV Vaccines Aged Out No longer eligi ble based on patient's age to complete this topic MMR Vaccines Aged Out No longer eligi ble based on patient's age to complete this topic Meningococcal ACWY Vaccine Aged Out N o longer eligible based on patient's age to complete this topic RSV Immunization Patients Un kel 20 months Aged Out No longer eligible b ased on patient's age to complete this topic Varicella Vaccines Aged Out No longer eligible based on patient's age to complete this topic Procedures Procedure Name Priority Date/Time Associated Diagnosis Comments [facility] DEXA AXIAL SKELETON Routine 04/20/2020 11:16 AM EST Age-related osteoporosis without current pathological fracture from Last 3 Months or Most Recently Relevant to Health Maintenance Results * [facility] DEXA AXIAL SKELETON (04/20/2020 11:16 AM EST) Anatomical Region Laterality Modality Mammography 04/20/2020 10:2 7 AM EST Narrative 04/20/2020 11:16 AM EST [facility] Diagnostic Imaging Department [address] [place] [address] Patient: ??SERA KELLEY ?/Age/Sex: 1940 - Unit#: ??[id number] ? Location/Status: ??SPDIMAM/REG CLI ? Mnemonic/Ordering Site: ??MAMDEXAAX/SPMAM Ordering Physician: ??NORA JOE MD, PHD [facility] Dexa Axial Skeleton - 04/20/20 1057 HISTORY: ??The patient is a 79-year-old postmenopausal female with clinical concern for metabolic bone disease. FINDINGS: ??Dual energy x-ray absorptiometry of the lumbar spine and femurs is performed. The mean bone mineral density at L1-L4 is 0.881 gm/cm2 which is 75% of that of young normals and 84% of that of age matched controls. This yields a T-score of -2.5 and a Z-score of -1.4 which is diagnostic of osteoporosis. The mean bone mineral density of the femurs bilaterally is 0.775 gm/cm2 which is 77% of that of young normals and 93% of that of age matched controls. ??This yields a T-score of -1.8 and a Z-score of -0.5 which is diagnostic of osteopenia. IMPRESSION: 1. Osteoporosis. 2. FRAX analysis yields a 10-year probability of major osteoporotic fracture of 12.8% and a 10-year probability of hip fracture of 3.1%. Code 61491 Dictating Physician: ??JOSELYN BECKER MD Electronically Signed by: ??JOSELYN BECKER MD Dic Date/Time: ??04/20/20 1115 Sign date/Time: ??04/20/20 1116 Procedure Note Joselyn Becker MD - 04/22/2022 [facility] Diagnostic Imaging Department [address] [place] [address] Patient: SERA KELLEY /Age/Sex: 1940 - 79 - F Unit#: [id number] [facility] Ordering Physician: NORA JOE MD, PHD [facility] Dexa Axial Skeleton - 04/20/20 - 1053 HISTORY: The patient is a 79-year-old postmenopausal female withclinical concern for metabolic bone disease. FINDINGS: Dual energy x-ray absorptiometry of the lumbar spine and femursis performed. The mean bone mineral density at L1-L4 is 0.881 gm/cm2 which is75% of that of young normals and 84% of that of age matched controls. Thisyields a T-score of -2.5 and a Z-score of -1.4 which is diagnostic ofosteoporosis. The mean bone mineral density of the femurs bilaterally is 0.775 gm/sl8worvf is 77% of that of young normals and 93% of that of age matched controls.This yields a T-score of -1.8 and a Z-score of -0.5 which is diagnostic of osteopenia. IMPRESSION: 1. Osteoporosis. 2. FRAX analysis yields a 10-year probability of major osteoporoticfracture of 12.8% and a 10-year probability of hip fracture of 3.1%. Code 63249 Dictating Physician: JOSELYN BECKER MD Electronically Signed by: JOSELYN BECKER MD Dic Date/Time: 04/20/20 1115 Sign date/Time: 04/20/20 111 Nora Joe MD IMG BI PROCEDURES from Last 3 Months or Most Recently Relevant to Health Maintenance Advance Directives Documents on File Type Date Recorded Patient Authors Motivational Expl anation Health Care Decision (hx) 07/10/2023 AD ARNETT DIRECTIVE Health Care Decision (hx) 07/10/2023 AD ARNETT DIRECTIVE Health Care Decision (hx) 07/10/2023 AD ARNETT DIRECTIVE Care Teams Skiagrapher Relationship Specialty Start Date End Date Mac Thomas MD [address] [place] [address] [address] [place] PCP - General Internal Medicine 11/03/17
== END 2024-05-31 12:01 | disposition home or self-care (01) ==
LOC: HO.LAB 12:00
PROVIDERS: PCP Internal Medicine; Visit Provider Internal Medicine
DX: R39.9 Unspecified symptoms and signs involving the genitourinary system (principal)
CPT/HCPCS: 81001; 87086

== ENCOUNTER 2024-06-07 13:30 | Outpatient (AMB) | payer OTHER, SELFPAY ==
--- NOTE | 2024-06-07 13:35 | MHC.OFFVIS ---
Intake Visit Reasons: Left knee pain Intake Note: Marisa is an 83 year old female who presents with complaints of intermittent discomfort in her left knee after undergoing left knee arthroscopic surgery on 02/22/2024. She denies any fevers or chills. She continues to walk for exercise. She does not take any medicines for her discomfort. Allergies nitrofurantoin [From MACRODANTIN] Allergy (Severe, Verified 06/07/24 13:36) Anaphylaxis Sulfa (Sulfonamide Antibiotics) [SULFA (SULFONAMIDE ANTIBIOTICS)] Allergy (Severe, Verified 06/07/24 13:36) ANAPHYLAXIS sulfamethoxazole [From BACTRIM] Allergy (Severe, Verified 06/07/24 13:36) ANAPHYLAXIS trimethoprim [From BACTRIM] Allergy (Severe, Verified 06/07/24 13:36) ANAPHYLAXIS Medication List - Last Reconciled 06/07/24 by Marko Diaz MD alprazolam 1 mg PO TID PRN 30 days atorvastatin 40 mg PO BEDTIME 90 days cephalexin 500 mg PO Q8H 7 days cholecalciferol (vitamin D3) 50 mcg PO DAILY 90 days fluticasone propionate 50 mcg/actuation 2 sprays intranasal DAILY pantoprazole 40 mg PO BEDTIME terazosin 1 mg PO BEDTIME 90 days tizanidine 4 mg PO Q8H PRN 30 days tramadol 50 mg PO TID PRN PFSH Medical History (Updated 06/07/24 @ 14:41 by Marko Diaz MD) History of skin cancer Hepatitis COPD (chronic obstructive pulmonary disease) Seasonal allergies Chronic cough Cervical disc disease Left knee pain Pain of right shoulder joint on movement Abnormal SPEP Vitamin D deficiency Urolithiasis Osteoporosis GERD without esophagitis Multilevel degenerative disc disease Obesity (BMI 30-39.9) Anxiety Insomnia GERD (gastroesophageal reflux disease) Left lumbosacral radiculopathy Degenerative lumbar spinal stenosis Pure hypercholesterolemia Surgical History Hx of tonsillectomy Hx of left cataract extraction History of surgery on right wrist History of endoscopy History of colonoscopy Hx of decompressive lumbar laminectomy (~05/25/20) Status post total abdominal hysterectomy and bilateral salpingo-oophorectomy (CATRACHITO-BSO) History of right cataract extraction (~12/2016) History of cystoscopy (~05/24/18) Family History Father No problems noted. Mother Ovarian cancer Daughter Myocardial infarction, Onset Age: 46 Stroke Social History Household Members: Children Housing: House Are you a primary nurse behavioral health care to a significant other at home: No Do you presently have visiting nurse or other home services: No Alcohol intake: former Patient Tobacco Use Status: Never used Tobacco e-Cigarette/Vaping Use: Never Used Second Hand Smoke Exposure: Yes service: No Current occupational status: retired and disabled Cognitive needs: No Hearing needs: No Vision needs: Yes (reading glasses) Physical Exam Const Other: Well-nourished well-developed very friendly female awake alert and oriented x3 in no acute distress Extrem Other: Bilateral lower extremity examination shows good capillary refill, no skin lesions noted, normal sensation light touch Left knee examination shows a minimal effusion, palpable crepitus with range of motion, mild discomfort with range of motion, no instability Assessment & Plan Assessment & Plan (1) Left knee pain: Code(s): M25.562 - Pain in left knee Category: Medical Qualifiers: Chronicity: unspecified Qualified Code(s): M25.562 - Pain in left knee (2) Arthritis of left knee: Code(s): M17.12 - Unilateral primary osteoarthritis, left knee Category: Medical Plan Marisa presents with intermittent discomfort in her left knee after undergoing left knee arthroscopic surgery on 02/22/2024 due to residual degenerative joint disease. I had a lengthy discussion with the patient regarding the treatment options. We will hold off on a cortisone injection at this time. She will continue to walk for exercise. She will contact me prior to her follow-up appointment in 3 months should her symptoms worsen in any way. Feel free to call me at any time should questions regarding her orthopedic management arise. I spent 20 minutes in reviewing the patient's records and imaging studies, seeing the patient and documenting in the medical record. Coding Level of Care Code Est Pt Level 3 (88795) Complex EM visit Add On G2211 Diagnoses Left knee pain, unspecified chronicity M25.562 Chronicity: unspecified Arthritis of left knee M17.12
--- OUTSIDE RECORDS SUMMARY | 2024-06-07 13:42 | XMS_ITS | Encounter Summary ---
Author Organization [facility] Address [address] [place] [address] Care Team Providers Care Sqe Name Role Phone Community, Pcp Primary Care Provider Mac Colin MD Primary Care Provider Nas perla Encounter Details Date Type Department Care Team Description 07/21/2017 Release of Information Medical Records [address] [place] [id number] Abstract, Provider Social History Tobacco Use Types Packs/Day Years Used Date Smoking Tobacco: Never Sex Assigned at Date Recorded Not on file documented as of this encounter Plan of Treatment Not on file documented as of this encounter Visit Diagnoses Not on filedocumented in this encounter Care Teams Sqe Relationship Specialty Start Date End Date Fernando, Pcp PCP - General Internal Medicine 07/10/17 11/02/17 Mac Thomas MD PCP - General Internal Medicine 11/03/17 documented as of this encounter
--- OUTSIDE RECORDS SUMMARY | 2024-06-07 13:42 | XMS_ITS | Encounter Summary ---
Author Organization [facility] Address [address] [place] [address] Care Team Providers Care Director Hair Name Role Phone Mac Thomas MD Primary Care Provider Unava ilable Reason for Visit * Reason Onset Date Comments muscle aches 04/23/2021 Encounter Details Date Type Department Care Team Description 04/23/2021 Telephone [facility] Neurosurgery [place] [address] [phone] Chip Hamilton PA-C [address] [address] muscle aches Social History Tobacco Use Types Packs/Day Years Used Date Smoking Tobacco: Never Smokeless Tobacco: Never Alcohol Use Standard Drinks/Week Comments No 0 (1 standard drink = 0.6 oz pur e alcohol) Sex Assigned at Date Recorded Not on file documented as of this encounter Miscellaneous Notes * Telephone Encounter - Chip Hamilton PA-C - 04/23/2021 2:12 PM EST Called, no answer, left message * Telephone Encounter - Vanessa Briones - 04/23/2021 1:45 PM EST Pt having muscle aches and wants to talk to you about what she can do documented in this encounter Plan of Treatment Not on file documented as of this encounter Visit Diagnoses Not on filedocumented in this encounter Care Teams Director Hair Relationship Specialty Start Date End Date Mac Thomas MD PCP - General Internal Medicine 11/03/17 documented as of this encounter
--- OUTSIDE RECORDS SUMMARY | 2024-06-07 13:42 | XMS_ITS | Data Portability ---
Author Organization [place] 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, bilateral ; Note: Date Diagnosed : 06/04/2021 11:07 AM (H74.03) Not Available [facility] 4 02:50:05 Sensorine ural hearing loss of bilateral ears 846083172 Active 2019 Sensorine ural hearing loss, bilateral ; Note: Date Diagnosed : 12/13/2019 12:07 PM (H90.3) Not Available [facility] 4 02:50:06 Acute serous otitis media of right ear 96359494830 70531 Active 2023 Acute serous otitis media, right ear; Note: Date Diagnosed : 08/04/2023 3:42 PM (H65.01) CALIN GAMBOA MD [address] [place] [address], [facility] [place], [address] , [facility] 4 15:20:41 Mixed conductiv e and sensorine ural hearing loss, bilateral 840853126 Active 2023 Mixed conductiv e and sensorine ural hearing loss, bilateral ; Note: Date Diagnosed : 08/04/2023 3:42 PM (H90.6) Not Available [facility] 02:50:06 Chronic serous otitis media of right ear 142099332 Active 2023 CALIN GAMBOA MD [address] [facility] [address] [facility],[place] [address], [place], [address] , [facility] 15:20:59 Problem Notes None recorded. Procedures Surgical History Date Name Laterality Status Provider Name and Address Organization Details Recorded Time 09/30/2023 Comp Audio with Tymps (05988 & 27113) completed Crys CAPUTO [address] [facility],[place] [address], [place], [address], [facility] 09/30/2023 15:19:30 Imaging Results Imaging Date [...] Name and Address Organization Details Recorded Time 777825 Bactrim medicatio n other Not available Not available 09/15/2023 57600 9 RxNorm React ion: unkno wn, unspe cifie d;; Not Available [facility] 4 01:07:59 856711 Substance with sulfonami de structure and antibacte rial mechanism of action (substanc e) medicatio n other Not available Not available 09/15/2023 95127 8003 SNOMED React ion: unkno wn, unspe cifie d;; Not Available [facility] 4 01:08:03 Medications Name Sig Start [...] mg tablet 08/30 completed Medicati on ID: 573372 B rand Name: famotidi ne Send Method: [...] tablet,de layed release active Medicati on ID: 709417 B rand Name: aspirin Send Method: E-Prescr ibed Sub s Allowed: subs OK Speci al Instruct ion: TAKE 1 TABLET BY MOUTH TWICE A DAY Medi cationGe nericNam e: aspirin Not Available Not Available Not Available acetamino phen 500 mg tablet active Medicati on ID: 580937 B rand Name: acetamin ophen Se nd [...] (2,000 unit) capsule active Medicati on ID: 652579 B rand Name: cholecal ciferol (vitamin D3) [...] Updated DateTime 01/28/2024 162.56 cm 32.6 kg/m2 41566.55 g Bethany Smart [place] - [facility] 01/28/2024 09:52:43 Social History None recorded. [...] Diagnosis Note 1893 CALIN GAMBOA MD [facility] [address], [place] [address] 09/30/2023 14:46:44 09/30/2023 15:55:55 Sensorineural hearing loss of bilateral ears 367620906 H90.3 Audiologic al evaluation results:Ri ght ear:{{Norm [...] Co uld not maintain a hermetic seal}} [id number] CALIN GAMBOA MD [facility] [address] [address] 01/28/2024 09:43:43 01/28/2024 09:59:40 Chronic serous otitis media of right ear 960193230 H65.21 09335 CALIN GAMBOA MD [facility] [address] [address] 03/28/2024 13:18:17 03/29/2024 07:06:27 Sensorineural hearing loss of bilateral ears 025083738 H90.3 Chronic se ana rosa otitis media of right ear 304345418 H65.21 Health Concerns Section Related Observation LastModified by Organization Detai ls LastModified Time None Recorded Concern Status LastModified by Organization Details LastModified Time None Recorded Advance Directives Directive None Recorded Payers Encounter Date Sequence Insurance Name Policy Number Policy Wong Covered Member ID Wong Member ID Guarantor Name 09/30/[address] [facility] (MEDICARE REPLACEMENT/ ADVANTAGE - HMO) Marisa Lainez [id number] Marisa Lainez 09/30/2023 2 [place] [facility] Marisa Lainez [id number] Marisa Lainez 01/28/[address] [facility] (MEDICARE REPLACEMENT/ ADVANTAGE - HMO) Marisa Gaona Migel [id number] Marisa Lainez 03/28/[address] [facility] (MEDICARE REPLACEMENT/ ADVANTAGE - HMO) Marisa Gaona Migel [id number] Marisa M Migel Notes Date Note Type Note Provider Name and Address Organization Details Recorded Time 09/30/2023 text/html 82-year-old nydia galan presents following right tube placement with Dr. Jensen. Her hearing has improved significantly following surgery. CALIN GAMBOA MD [address] [facility],[address], [address], [place] - [facility] 09/30/2023 16:38:27 01/28/2024 text/html tube check 4 R myringotomy tube placed, [place]09/30/23 post tube audio showed improvement feels her hearing fluctuatesno otorrhea CALIN GAMBOA MD [address] [place] [address],[place] [address], [place], [address], [place] [facility] 01/28/2024 09:58:40 03/28/2024 text/html 83-year-old nydia galan presents for reevaluation. History of ETD with RMT in office. Her hearing has been stable. No issues since last visit. CALIN GAMBOA MD [address] [facility],[place] [address], [place], [address], [place] [facility] 03/28/2024 15:39:46 OBGyn Episode No OBEpisode recorded.
--- OUTSIDE RECORDS SUMMARY | 2024-06-07 13:42 | XMS_ITS | Encounter Summary ---
Author Organization [facility] Address [address] [place] [address] Care Team Providers Care Necktie Centralizing Machine Operator Name Role Phone Community, Pcp Primary Care Provider Mac Colin MD Primary Care Provider Unava ilable Reason for Visit * Reason Onset Date Comments refill request 07/06/2017 Encounter Details Date Type Department Care Team Description 07/06/2017 Telephone Pulmonology - [address] [place] [phone] Linda Gonzalez NP refill request Social History Tobacco Use Types Packs/Day Years Used Date Smoking Tobacco: Never Assessed Sex Assigned at Date Recorded Not on file documented as of this encounter Miscellaneous Notes * Telephone Encounter - Linda Gonzalez NP - 07/06/2017 9:34 AM EST Noted Sent to pharmacy * Telephone Encounter - Eliza Ulloa M.A. - 07/06/2017 8:56 AM EST [employer] notes printed will call pt to make an appt * Telephone Encounter - Kari Plascencia - 07/06/2017 8:43 AM EST She would like this RX Flonase 50 mcg documented in this encounter Plan of Treatment Not on file documented as of this encounter Visit Diagnoses Not on filedocumented in this encounter Care Teams Necktie Centralizing Machine Operator Relationship Specialty Start Date End Date [facility], Pcp PCP - General Internal Medicine 07/10/17 11/02/17 Mac Thomas MD PCP - General Internal Medicine 11/03/17 documented as of this encounter
--- OUTSIDE RECORDS SUMMARY | 2024-06-07 13:43 | XMS_ITS | Clinical Summary ---
Author Organization [facility] Address [address] [place] [address] Care Team Providers Care Installment Loan Collector Name Role Phone Mac Thomas MD Primary Care Provider [phone] Social History Tobacco Use Types Packs/Day Years [...] age to complete this topic Care Teams Installment Loan Collector Relationship Specialty Start Date End Date Mac Thomas MD [address] [place] [address] [place] [address] PCP - General Internal Medicine 04/17/20
--- OUTSIDE RECORDS SUMMARY | 2024-06-07 13:43 | XMS_ITS | Clinical Summary ---
Author Organization [facility] Address [address] [place] [address] Care Team Providers Care Broke Beater Machine Operator Name Role Phone Mac Thomas MD Primary Care Provider [phone] Surgical History Surgery Date Site/Laterality Comments HYSTERECTOMY [...] Procedure Name Priority Date/Time Associated Diagnosis Comments [facility] DEXA AXIAL SKELETON Routine 04/20/2020 11:16 AM EST Age-related osteoporosis without current pathological fracture from Last 3 Months or Most Recently Relevant to Health Maintenance Results * [facility] DEXA AXIAL SKELETON (04/20/2020 11:16 AM EST) Anatomical Region Laterality Modality Mammography 04/20/2020 10:2 7 AM EST Narrative 04/20/2020 11:16 AM EST [facility] Diagnostic Imaging Department [address] [place] [address] Patient: ??SERA KELLEY ?/Age/Sex: 1940 - Unit#: ??[id number] ? Location/Status: ??SPDIMAM/REG CLI ? Mnemonic/Ordering Site: ??MAMDEXAAX/SPMAM Ordering Physician: ??NORA JOE MD, PHD [facility] Dexa Axial Skeleton - 04/20/20 105 HISTORY: ??The patient is a 79-year-old postmenopausal [...] probability of hip fracture of 3.1%. Code 79865 Dictating Physician: ??JOSELYN BECKER MD Electronically Signed by: ??JOSELYN BECEKR MD Dic Date/Time: ??04/20/20 1115 Sign date/Time: ??04/20/20 1116 Procedure Note Joselyn Becker MD - 04/22/2022 [facility] Diagnostic Imaging Department [address] [place] [address] Patient: SERA KELLEY /Age/Sex: 1940 - 79 - F Unit#: [id number] [facility] Ordering Physician: NORA JOE MD, PHD [facility] Dexa Axial Skeleton - 04/20/20 - 1053 [...] density of the femurs bilaterally is 0.775 gm/vl7udbqs is 77% of that of young normals and 93% of that of age matched controls.This yields a T-score of -1.8 and a Z-score of -0.5 which is diagnostic of osteopenia. IMPRESSION: 1. Osteoporosis. 2. FRAX analysis yields a 10-year probability of major osteoporoticfracture of 12.8% and a 10-year probability of hip fracture of 3.1%. Code 57106 Dictating Physician: JOSELYN BECKER MD Electronically Signed by: JOSELYN BECKER MD Dic Date/Time: 04/20/20 1115 Sign date/Time: 04/20/20 111 Nora Joe MD IMG BI PROCEDURES from Last 3 Months or Most Recently Relevant to Health Maintenance Advance Directives Documents on File Type Date Recorded Patient Bakery Products Checker Expl anation Health Care Decision (hx) 07/10/2023 AD ARNETT DIRECTIVE Health Care Decision (hx) 07/10/2023 AD ARNETT DIRECTIVE Health Care Decision (hx) 07/10/2023 AD ARNETT DIRECTIVE Care Teams Broke Beater Machine Operator Relationship Specialty Start Date End Date Mac Thomas MD [address] [place] [address] [address] [place] PCP - General Internal Medicine 11/03/17
== END 2024-06-07 13:54 | disposition home or self-care (01) ==
PROVIDERS: PCP Internal Medicine; Visit Provider Orthopaedic Surgery
DX: M17.12 Unilateral primary osteoarthritis, left knee (principal)
CPT/HCPCS: 99213; G2211

== ENCOUNTER → 2024-06-07 13:30 | Outpatient (BNVA) | payer OTHER, SELFPAY | PROVIDERS: PCP Internal Medicine; Visit Provider Orthopaedic Surgery | DX: M25.562 Pain in left knee (principal); M17.12 Unilateral primary osteoarthritis, left knee | CPT/HCPCS: 99212 ==

== ENCOUNTER 2024-06-14 12:24 | Outpatient (REF) | payer OTHER, SELFPAY ==
[2024-06-14 13:34] LABS: Appearance Urine Cloudy; Color Urine Yellow; Glucose Urine UA Negative (Negative); Leukocyte Esterase Urine Large (3+) (Negative); Nitrite Urine Negative (Negative); Specific Gravity - Urine 1.015 (1.005-1.025); UMIC TRIGGER UACC YES; Urine Blood Trace (Negative); Urine Ketones Trace mg/dL (Negative); Urine Protein Negative (Neg-Trace)
--- OUTSIDE RECORDS SUMMARY | 2024-06-14 13:34 | XMS_ITS | Encounter Summary ---
Author Organization [facility] Address [address] [place] [address] Care Team Providers Care Epic Willow Analyst Name Role Phone Community, Pcp Primary Care Provider Mac Colin MD Primary Care Provider Unava ilable Reason for Visit * Reason Onset Date Comments refill request 07/06/2017 Encounter Details Date Type Department Care Team Description 07/06/2017 Telephone Pulmonology - [address] [place] [phone] Linda Gonzalez NP refill request Social [...] on filedocumented in this encounter Care Teams Epic Willow Analyst Relationship Specialty Start Date End Date [facility], Pcp PCP - General Internal Medicine 07/10/17 11/02/17 Mac Thomas MD PCP - General Internal Medicine 11/03/17 documented as of this encounter
--- OUTSIDE RECORDS SUMMARY | 2024-06-14 13:35 | XMS_ITS | Clinical Summary ---
Author Organization [facility] Address [address] [place] [address] Care Team Providers Care Collaborative Teacher Name Role Phone Mac Thomas MD Primary Care Provider [phone] Surgical History Surgery Date Site/Laterality Comments HYSTERECTOMY [...] drink = 0.6 oz pur e alcohol) Comments Unknown Sex and Gender Information Value Date Recorded Sex Assigned at Not on file Legal Sex Female 7:39 AM EST Gender Identity Not on file Sexual Orientation Not on file Obstetrics History Plan of Treatment Health Maintenance Due Date Last Done Comments DTaP,Tdap,and Td Vaccines (1 - Tdap) 1947 Pneumococcal Vaccine: 50+ Ye ars (1 of 1 - PCV) 1992 Zoster Vaccines (1 of 2) 1992 RSV Immunization Patients 60 + Years Old [...] patient's age to complete this topic Meningococcal B Vacine Aged Out No lo nger eligible based on patient's age to complete this topic RSV Immunization Patients Un kel 20 months Aged Out No longer eligible b ased on patient's age to complete this topic Varicella Vaccines Aged Out No longer eligible based on patient's age to complete this topic Procedures Procedure Name Priority Date/Time Associated Diagnosis Comments [facility] DEXA AXIAL SKELETON Routine 04/20/2020 11:16 AM EST Age-related osteoporosis without current pathological fracture from Last 3 Months or Most Recently Relevant to Health Maintenance Results * [facility] DEXA AXIAL SKELETON (04/20/2020 11:16 AM EST) Anatomical Region Laterality Modality Mammography 04/20/2020 10:2 7 AM EST Narrative 04/20/2020 11:16 AM EST [facility] Diagnostic Imaging Department [address] [place] [address] Patient: ??SERA KELLEY ?/Age/Sex: 1940 - 79 - F Unit#: ??[id number] ? Location/Status: ??SPDIMAM/REG CLI ? Mnemonic/Ordering Site: ??MAMDEXAAX/SPMAM Ordering Physician: ??NORA JOE MD, PHD [facility] Dexa Axial Skeleton - 04/20/201053 HISTORY: ??The patient is a 79-year-old postmenopausal [...] probability of hip fracture of 3.1%. Code 31276 Dictating Physician: ??JOSELYN BECKER MD Electronically Signed by: ??JOSELYN BECKER MD Dic Date/Time: ??04/20/20 1115 Sign date/Time: ??04/20/20 1116 Procedure Note Joselyn Becker MD - 04/22/2022 [facility] Diagnostic Imaging Department [address] [place], [place] [address] Patient: SERA KELLEY /Age/Sex: 1940 79 - F Unit#: [id number] Location/Status: SPDIMAM/REG CLI [facility] Ordering Physician: NORA JOE MD, PHD [facility] Dexa Axial Skeleton - 04/20/20 - 1054 HISTORY: The patient is a 79-year-old postmenopausal [...] density of the femurs bilaterally is 0.775 gm/xx6mdxbi is 77% of that of young normals and 93% of that of age matched controls.This yields a T-score of -1.8 and a Z-score of -0.5 which is diagnostic of osteopenia. IMPRESSION: 1. Osteoporosis. 2. FRAX analysis yields a 10-year probability of major osteoporoticfracture of 12.8% and a 10-year probability of hip fracture of 3.1%. Code 47257 Dictating Physician: JOSELYN BECKER MD Electronically Signed by: JOSELYN BECKER MD Dic Date/Time: 04/20/20 1115 Sign date/Time: 04/20/20 111 us Nora Joe MD IM BI PROCEDURES Final R esult from Last 3 Months or Most Recently Relevant to Health Maintenance Advance Directives Documents on File Type Date Recorded Patient Fundraising Coordinator Expl anation Health Care Decision (hx) 07/10/2023 AD ARNETT DIRECTIVE Health Care Decision (hx) 07/10/2023 AD ARNETT DIRECTIVE Health Care Decision (hx) 07/10/2023 AD ARNETT DIRECTIVE Care Teams Collaborative Teacher Relationship Specialty Start Date End Date Mac Thomas MD [address] [place] [address] [address] [place], [place] PCP - General Internal Medicine 11/03/17
--- OUTSIDE RECORDS SUMMARY | 2024-06-14 13:35 | XMS_ITS | Encounter Summary ---
Author Organization [facility] Address [address] [place] [address] Care Team Providers Care Asp Net Software Developer Name Role Phone Mac Thomas MD Primary Care Provider Unava ilable Reason for Visit * Reason Onset Date Comments Back Pain 05/06/2021 Encounter Details Date Type Department Care Team Description 05/06/2021 Telephone [facility] Neurosurgery [place] [address] [phone] Chip Hamilton PA-C [address] [address] Back Pain Social History Tobacco Use Types Packs/Day Years Used Date Smoking Tobacco: Never Smokeless Tobacco: Never Alcohol Use Standard Drinks/Week Comments No 0 (1 standard drink = 0.6 oz pur e alcohol) Sex Assigned at Date Recorded Not on file documented as of this encounter Miscellaneous Notes * Telephone Encounter - Chip Hamilton PA-C - 05/07/2021 9:29 AM EST The pain is in left side low back, right above where surgery was done. Trying hot baths, tylenol, motrin, helps some. Been going on for 3 months. Has osteoporosis. Lets get a set of xrays at [facility] and see if has fx. Ill place order. * Telephone Encounter - Vanessa Briones - 05/06/2021 11:03 AM EST Pt states pain on left side above where surgery was. Can't stand up straight and cannot bend down very painful. Tried heat & ice. documented in this encounter Plan of Treatment Not on file documented as of this encounter Visit Diagnoses Not on filedocumented in this encounter Care Teams Asp Net Software Developer Relationship Specialty Start Date End Date Mac Thomas MD PCP - General Internal Medicine 11/03/17 documented as of this encounter
--- OUTSIDE RECORDS SUMMARY | 2024-06-14 13:35 | XMS_ITS | Clinical Summary ---
Author Organization [facility] Address [address] [place] [address] Care Team Providers Care Cisco Certified Network Professional Name Role Phone Mac Thomas MD Primary Care Provider [phone] Social History Tobacco Use Types Packs/Day Years [...] age to complete this topic Care Teams Cisco Certified Network Professional Relationship Specialty Start Date End Date Mac Thomas MD [address] [place] [address] [place] [address] PCP - General Internal Medicine 04/17/20
--- OUTSIDE RECORDS SUMMARY | 2024-06-14 13:35 | XMS_ITS | Data Portability ---
Author Organization [place] - [facility], Allergy Address [address] [place] [address] Care Team Providers Care Certified Medical Coding Specialist Name Role Phone JAE OWEN Primary Care [...] Organization Details Recorded Time Bilateral tympanosc lerosis 46779927830 857219 Active 2021 Tympanosc lerosis, bilateral ; Note: Date Diagnosed : 06/04/2021 11:07 AM (H74.03) Not Available [facility] 4 02:50:05 Sensorine ural hearing loss of bilateral ears 952133027 Active 2019 Sensorine ural hearing loss, bilateral ; Note: Date Diagnosed : 12/13/2019 12:07 PM (H90.3) Not Available [facility] 4 02:50:06 Acute serous otitis media of right ear 55546815741 05326 Active 2023 Acute serous otitis media, right ear; Note: Date Diagnosed : 08/04/2023 3:42 PM (H65.01) CALIN GAMBOA MD [address] [place] [address], [facility] [place], [address] , [facility] - [facility] 4 15:20:41 Mixed conductiv e and sensorine ural hearing loss, bilateral 011429842 Active 2023 Mixed conductiv e and sensorine ural hearing loss, bilateral ; Note: Date Diagnosed : 08/04/2023 3:42 PM (H90.6) Not Available [facility] 02:50:06 Chronic serous otitis media of right ear 728434466 Active 2023 CALIN GAMBOA MD [address] [facility],[place] [address], [place], [address] , [facility] 15:20:59 Problem Notes None recorded. Procedures Surgical History Date Name Laterality Status Provider Name and Address Organization Details Recorded Time 09/30/2023 Comp Audio with Tymps (33075 & 66603) completed Crys CAPUTO [address] [facility],[place] [address], [place], [address], [facility] 09/30/2023 15:19:30 Imaging Results Imaging Date [...] Name and Address Organization Details Recorded Time 806449 Bactrim medicatio n other Not available Not available 09/15/2023 71428 9 RxNorm React ion: unkno wn, unspe cifie d;; Not Available [facility] 4 01:07:59 601429 Substance with sulfonami de structure and antibacte rial mechanism of action (substanc e) medicatio n other Not available Not available 09/15/2023 10792 8003 SNOMED React ion: unkno wn, unspe cifie d;; Not Available [facility] 4 01:08:03 Medications Name Sig Start Date [...] mg tablet 08/30 completed Medicati on ID: 515600 B rand Name: famotidi ne Send Method: [...] tablet,de layed release active Medicati on ID: 019624 B rand Name: aspirin Send Method: E-Prescr ibed Sub s Allowed: subs OK Speci al Instruct ion: TAKE 1 TABLET BY MOUTH TWICE A DAY Medi cationGe nericNam e: aspirin Not Available Not Available Not Available acetamino phen 500 mg tablet active Medicati on ID: 028991 B rand Name: acetamin ophen Se nd [...] (2,000 unit) capsule active Medicati on ID: 601468 B rand Name: cholecal ciferol (vitamin D3) [...] Updated DateTime 01/28/2024 162.56 cm 32.6 kg/m2 70754.55 g Bethany Smart [place] - [facility] 01/28/2024 09:52:43 Social History None recorded. [...] Note 1893 CALIN GAMBOA MD [facility] [address], [place] [address] 09/30/2023 14:46:44 09/30/2023 15:55:55 Sensorineural hearing loss of bilateral ears 310741373 H90.3 Audiologic al evaluation results:Ri ght ear:{{Norm [...] Co uld not maintain a hermetic seal}} 09335 CALIN GAMBOA MD [facility] [address] [address] 01/28/2024 09:43:43 01/28/2024 09:59:40 Chronic serous otitis media of right ear 277080996 H65.21 03253 CALIN GAMBOA MD [facility] [address] [address] 03/28/2024 13:18:17 03/29/2024 07:06:27 Sensorineural hearing loss of bilateral ears 627714642 H90.3 Chronic se ana rosa otitis media of right ear 187654844 H65.21 Health Concerns Section Related Observation LastModified by Organization Detai ls LastModified Time None Recorded Concern Status LastModified by Organization Details LastModified Time None Recorded Advance Directives Directive None Recorded Payers Encounter Date Sequence Insurance Name Policy Number Policy Wong Covered Member ID Wong Member ID Guarantor Name 09/30/2023 1 [facility] (MEDICARE REPLACEMENT/ ADVANTAGE - HMO) Marisa Lainez [id number] Marisa Lainez 09/30/2023 2 [place] [facility] Marisa Lainez [id number] Marisa Lainez 01/28/2024 1 [facility] (MEDICARE REPLACEMENT/ ADVANTAGE - HMO) Marisa Gaona Migel [id number] Marisa Lainez 03/28/2024 1 [facility] (MEDICARE REPLACEMENT/ ADVANTAGE - HMO) Marisa Gaona Migel [id number] Marisa M Migel Notes Date Note Type Note Provider Name and Address Organization Details Recorded Time 09/30/2023 text/html 82-year-old nydia galan presents following right tube placement with Dr. Jensen. Her hearing has improved significantly following surgery. CALIN GAMBOA MD [address] [facility],[address], [address], [place] - [facility] [place] 09/30/2023 16:38:27 01/28/2024 text/html tube check 4 R myringotomy tube placed, [place]09/30/23 post tube audio showed improvement feels her hearing fluctuatesno otorrhea CALIN GAMBOA MD [address] [place] [address],[place] [address], [place], [address], [place] - [facility] [place] 01/28/2024 09:58:40 03/28/2024 text/html 83-year-old nydia galan presents for reevaluation. History of ETD with RMT in office. Her hearing has been stable. No issues since last visit. CALIN GAMBOA MD [address] [facility],[place] [address], [place], [address], [place] [facility] 03/28/2024 15:39:46 OBGyn Episode No OBEpisode recorded.
[2024-06-14 13:44] LABS: Bacteria Urine 2+ (None Seen); Hyaline Casts Urine 0-2 /LPF (0-2); RBC Urine 0-2 /HPF (0-2); UACC Culture Trigger YES; WBC Urine >50 /HPF (0-5)
== END 2024-06-14 12:25 | disposition home or self-care (01) ==
LOC: HO.LAB 12:24
PROVIDERS: PCP Internal Medicine; Visit Provider Internal Medicine
DX: R30.0 Dysuria (principal)
CPT/HCPCS: 81001; 87086; 87088; 87186

== ENCOUNTER 2024-06-24 13:50 | Outpatient (REF) | payer OTHER, SELFPAY ==
--- NOTE | ~2024-06-24 | US_ITS ---
EXAMINATION: US KIDNEY BILATERAL HISTORY: R10.9 - Unspecified abdominal pain TECHNIQUE: Real-time grayscale ultrasound imaging of the kidneys was performed and images were reviewed. COMPARISON: Comparison is made with the prior abdominal ultrasound dated 09/20/2021. FINDINGS: Right kidney: The right kidney measures 9.5 x 4.6 x 5.6 cm. Renal parenchymal echotexture and thickness are normal. There are no masses. There is no hydronephrosis or renal calculi. Left Kidney: The left kidney measures 9.7 x 4.0 x 3.8 cm. Renal parenchymal echotexture and thickness are normal. There are no masses. There is no hydronephrosis or renal calculi. US/US renal BI IMPRESSION: Unremarkable renal ultrasound. Electronically signed by: Sim Guerra MD 06/27/2024 10:43 AM NATALIE RP
--- OUTSIDE RECORDS SUMMARY | 2024-06-24 14:18 | XMS_ITS | Clinical Summary ---
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 Name Role Phone Mac Thomas MD Primary [...] DTaP,Tdap,and Td Vaccines (1 - Tdap) 1961 Pneumococcal Vaccine: 50+ Ye ars (1 of [...] Procedure Name Priority Date/Time Associated Diagnosis Comments [facility] DEXA AXIAL SKELETON Routine 04/20/2020 11:16 AM EST Age-related osteoporosis without current pathological fracture from Last 3 Months or Most Recently Relevant to Health Maintenance Results * [facility] DEXA AXIAL SKELETON (04/20/2020 11:16 AM EST) Anatomical Region Laterality Modality Mammography 04/20/2020 10:2 7 AM EST Narrative 04/20/2020 11:[address] [facility] Diagnostic Imaging Department [address] [place], [place] [address] Patient: ??SERA KELLEY ?/Age/Sex: 1940 - 79 - F Unit#: ??[id number] ? Location/Status: ??SPDIMAM/REG CLI ? Mnemonic/Ordering Site: [...] probability of hip fracture of 3.1%. Code 83786 Dictating Physician: ??JOSELYN BECKER MD Electronically Signed by: ??JOSELYN BECKER MD Dic Date/Time: ??04/20/20 1115 Sign date/Time: ??04/20/20 1116 Procedure Note Joselyn Becker MD - 04/22/2022 [facility] Diagnostic Imaging Department [address] [place] [address] Patient: SERA KELLEY /Age/Sex: 1940 79 - F Unit#: [id number] Location/Status: SPDIMAM/REG CLI Mnemonic/Ordering Site: [facility] Ordering Physician: NORA JOE MD, PHD [facility] Dexa Axial Skeleton - 04/20/20 - 1054 [...] density of the femurs bilaterally is 0.775 gm/mu1skwmp is 77% of that of young normals and 93% of that of age matched controls.This yields a T-score of -1.8 and a Z-score of -0.5 which is diagnostic of osteopenia. IMPRESSION: 1. Osteoporosis. 2. FRAX analysis yields a 10-year probability of major osteoporoticfracture of 12.8% and a 10-year probability of hip fracture of 3.1%. Code 57077 Dictating Physician: JOSELYN BECKER MD Electronically Signed by: JOSELYN BECKER MD Dic Date/Time: 04/20/20 1115 Sign date/Time: 04/20/20 111 us Nora Joe MD IM BI PROCEDURES Final R esult from Last 3 Months or Most Recently Relevant to Health Maintenance Advance Directives Documents on File Type Date Recorded Patient Sock Mender Expl anation Health Care Decision (hx) 07/10/2023 AD ARNETT DIRECTIVE Health Care Decision (hx) 07/10/2023 AD ARNETT DIRECTIVE Health Care Decision (hx) 07/10/2023 AD ARNETT DIRECTIVE Care Teams Fabric And Textile Factory Worker Relationship Specialty Start Date End Date Mac Thomas MD [address] [place] [address] [address] [place], [place] PCP - General Internal Medicine 11/03/17
--- OUTSIDE RECORDS SUMMARY | 2024-06-24 14:18 | XMS_ITS | Clinical Summary ---
Author Organization [facility] Address [address] [place] [address] Care Team Providers Care Ferryboat Ticket Taker Name Role Phone Mac Thomas MD Primary Care Provider [phone] Social History Tobacco Use Types Packs/Day Years [...] age to complete this topic Care Teams Ferryboat Ticket Taker Relationship Specialty Start Date End Date Mac Thomas MD [address] [place] [address] [place] [address] PCP - General Internal Medicine 04/17/20
--- OUTSIDE RECORDS SUMMARY | 2024-06-24 14:18 | XMS_ITS | Data Portability ---
Author Organization [place] - [facility], Allergy Address [address] [place] [address] Care Team Providers Care Etl Application Developer Name Role Phone JAE OWEN Primary [...] Organization Details Recorded Time Bilateral tympanosc lerosis [id number] 989773 Active 2021 Tympanosc lerosis, bilateral ; Note: Date Diagnosed : 06/04/2021 11:07 AM (H74.03) Not Available [facility] 4 02:50:05 Sensorine ural hearing loss of bilateral ears 041184188 Active 2019 Sensorine ural hearing loss, bilateral ; Note: Date Diagnosed : 12/13/2019 12:07 PM (H90.3) Not Available [facility] 4 02:50:06 Acute serous otitis media of right ear 04495936826 96324 Active 2023 Acute serous otitis media, right ear; Note: Date Diagnosed : 08/04/2023 3:42 PM (H65.01) CALIN GAMBOA MD [address] [place] [address], [facility] [place], [address] , [facility] - [facility] 4 15:20:41 Mixed conductiv e and sensorine ural hearing loss, bilateral 266868228 Active 2023 Mixed conductiv e and sensorine ural hearing loss, bilateral ; Note: Date Diagnosed : 08/04/2023 3:42 PM (H90.6) Not Available [facility] 02:50:06 Chronic serous otitis media of right ear 013581419 Active 2023 CALIN GAMBOA MD [address] [facility],[place] [address], [place], [address] , [facility] 15:20:59 Problem Notes None recorded. Procedures Surgical History Date Name Laterality Status Provider Name and Address Organization Details Recorded Time 09/30/2023 Comp Audio with Tymps (68751 & 77631) completed Crys CAPUTO [address] [facility],[place] [address], [place], [address], [facility] 09/30/2023 15:19:30 Imaging Results Imaging Date [...] Name and Address Organization Details Recorded Time 063560 Bactrim medicatio n other Not available Not available 09/15/2023 65054 9 RxNorm React ion: unkno wn, unspe cifie d;; Not Available [facility] 4 01:07:59 670526 Substance with sulfonami de structure and antibacte rial mechanism of action (substanc e) medicatio n other Not available Not available 09/15/2023 97365 8003 SNOMED React ion: unkno wn, unspe cifie d;; Not Available [facility] 4 01:08:03 Medications Name Sig Start Date [...] mg tablet 08/30 completed Medicati on ID: 618733 B rand Name: famotidi ne Send Method: [...] tablet,de layed release active Medicati on ID: 121532 B rand Name: aspirin Send Method: E-Prescr ibed Sub s Allowed: subs OK Speci al Instruct ion: TAKE 1 TABLET BY MOUTH TWICE A DAY Medi cationGe nericNam e: aspirin Not Available Not Available Not Available acetamino phen 500 mg tablet active Medicati on ID: 824601 B rand Name: acetamin ophen Se nd [...] (2,000 unit) capsule active Medicati on ID: 264361 B rand Name: cholecal ciferol (vitamin D3) [...] Updated DateTime 01/28/2024 162.56 cm 32.6 kg/m2 38200.55 g Bethany Smart [place] - [facility] 01/28/2024 09:52:43 Social History None recorded. [...] Diagnosis Note 1893 CALIN GAMBOA MD [facility] [address], [place] [address] 09/30/2023 14:46:44 09/30/2023 15:55:55 Sensorineural hearing loss of bilateral ears 481096114 H90.3 Audiologic al evaluation results:Ri ght ear:{{Norm [...] Co uld not maintain a hermetic seal}} 59994 CALIN GAMBOA MD [facility] [address] [address] 01/28/2024 09:43:43 01/28/2024 09:59:40 Chronic serous otitis media of right ear 426938847 H65.21 30601 CALIN GAMBOA MD [facility] [address] [address] 03/28/2024 13:18:17 03/29/2024 07:06:27 Sensorineural hearing loss of bilateral ears 445783582 H90.3 Chronic se ana rosa otitis media of right ear 882451951 H65.21 Health Concerns Section Related Observation LastModified by Organization Detai ls LastModified Time None Recorded Concern Status LastModified by Organization Details LastModified Time None Recorded Advance Directives Directive None Recorded Payers Encounter Date Sequence Insurance Name Policy Number Policy Wong Covered Member ID Wong Member ID Guarantor Name 09/30/2023 1 [facility] (MEDICARE REPLACEMENT/ ADVANTAGE - HMO) Marisa Lainez [id number] Marisa Lainez 09/30/2023 2 [place] [facility] Marisa Lainez [id number] Marisa Lainez 01/28/2024 1 [facility] (MEDICARE REPLACEMENT/ ADVANTAGE - HMO) Marisa Gaona Migel [id number] Marisa Lainez 03/28/2024 1 [facility] (MEDICARE REPLACEMENT/ ADVANTAGE - HMO) Marisa Gaona Migel [id number] Marisa M Migel Notes Date Note Type Note Provider Name and Address Organization Details Recorded Time 09/30/2023 text/html 82-year-old nydia galan presents following right tube placement with Dr. Jensen. Her hearing has improved significantly following surgery. CALIN GAMBOA MD [address] [facility],[address], [address], [place] - [facility] [place] 09/30/2023 16:38:27 01/28/2024 text/html tube check 4 R myringotomy tube placed, [place]09/30/23 post tube audio showed improvement feels her hearing fluctuatesno otorrhea CALIN GAMBOA MD [address] [place] [address],[place] [address], [place], [address], [place] - [facility] [place] 01/28/2024 09:58:40 03/28/2024 text/html 83-year-old nydia galan presents for reevaluation. History of ETD with RMT in office. Her hearing has been stable. No issues since last visit. CALIN GAMBOA MD [address] [facility],[place] [address], [place], [address], [place] [facility] 03/28/2024 15:39:46 OBGyn Episode No OBEpisode recorded.
== END 2024-06-24 13:51 | disposition home or self-care (01) ==
LOC: HO.US 13:50
PROVIDERS: PCP Internal Medicine; Visit Provider Internal Medicine
DX: R10.9 Unspecified abdominal pain (principal)
CPT/HCPCS: 76775; 81003; 99212

== ENCOUNTER → 2024-06-24 13:52 | Outpatient (BNV) | payer OTHER, SELFPAY | PROVIDERS: PCP Internal Medicine; Visit Provider Radiology Diagnostic Radiology | DX: R10.9 Unspecified abdominal pain (principal) | CPT/HCPCS: 76775 ==

== ENCOUNTER 2024-06-24 15:27 | Outpatient (AMB) | payer OTHER, SELFPAY ==
--- OUTSIDE RECORDS SUMMARY | 2024-06-24 15:29 | XMS_ITS | Clinical Summary ---
Author Organization [facility] Address [address] [place] [address] Care Team Providers Care Yield Analyst Name Role Phone Mac Thomas MD Primary Care Provider [phone] Surgical History Surgery Date Site/Laterality Comments HYSTERECTOMY [...] Procedure Name Priority Date/Time Associated Diagnosis Comments [facility] DEXA AXIAL SKELETON Routine 04/20/2020 11:16 AM EST Age-related osteoporosis without current pathological fracture from Last 3 Months or Most Recently Relevant to Health Maintenance Results * [facility] DEXA AXIAL SKELETON (04/20/2020 11:16 AM EST) Anatomical Region Laterality Modality Mammography 04/20/2020 10:2 7 AM EST Narrative 04/20/2020 11:16 AM EST [facility] Diagnostic Imaging Department [address] [place], [place] [address] Patient: ??SERA KELLEY ?/Age/Sex: 1940 - 79 - F Unit#: ??[id number] ? Location/Status: ??SPDIMAM/REG CLI ? Mnemonic/Ordering Site: [...] probability of hip fracture of 3.1%. Code 36665 Dictating Physician: ??JOSELYN BECKER MD Electronically Signed by: ??JOSELYN BECKER MD Dic Date/Time: ??04/20/20 1115 Sign date/Time: ??04/20/20 1116 Procedure Note Joselyn Becker MD - 04/22/2022 [facility] Diagnostic Imaging Department [address] [place] [address] Patient: SERA KELLEY /Age/Sex: 1940 79 - F Unit#: [id number] Location/Status: SPDIMAM/REG CLI [facility] Ordering Physician: NORA JOE MD, PHD [facility] Dexa Axial Skeleton - 04/20/20 - 1054 [...] density of the femurs bilaterally is 0.775 gm/du6pvxyi is 77% of that of young normals and 93% of that of age matched controls.This yields a T-score of -1.8 and a Z-score of -0.5 which is diagnostic of osteopenia. IMPRESSION: 1. Osteoporosis. 2. FRAX analysis yields a 10-year probability of major osteoporoticfracture of 12.8% and a 10-year probability of hip fracture of 3.1%. 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
--- OUTSIDE RECORDS SUMMARY | 2024-06-24 15:29 | XMS_ITS | Clinical Summary ---
Author Organization [facility] Address [address] [place] [address] Care Team Providers Care Investigation Manager Name Role Phone Mac Thomas MD Primary Care Provider [phone] Social History Tobacco Use Types Packs/Day Years [...] age to complete this topic Care Teams Investigation Manager Relationship Specialty Start Date End Date Mac Thomas MD [address] [place] [address] [place] [address] PCP - General Internal Medicine 04/17/20
--- NOTE | 2024-06-24 16:18 | MHC.OFFVIS ---
Intake Visit Reasons: Follow up/UTI (seen last 2022) Intake Note: Pt presents to the office today for a follow up/UTI. Allergies nitrofurantoin [From MACRODANTIN] Allergy (Severe, Verified 06/24/24 16:19) Anaphylaxis Sulfa (Sulfonamide Antibiotics) [SULFA (SULFONAMIDE ANTIBIOTICS)] Allergy (Severe, Verified 06/24/24 16:19) ANAPHYLAXIS sulfamethoxazole [From BACTRIM] Allergy (Severe, Verified 06/24/24 16:19) ANAPHYLAXIS trimethoprim [From BACTRIM] Allergy (Severe, Verified 06/24/24 16:19) ANAPHYLAXIS Medication List - Last Reconciled 06/24/24 by Andrew Hollis MD alprazolam 1 mg PO TID PRN 30 days atorvastatin 40 mg PO BEDTIME 90 days cefuroxime axetil 500 mg PO BID 14 days cholecalciferol (vitamin D3) 50 mcg PO DAILY 90 days pantoprazole 40 mg PO BEDTIME terazosin 1 mg PO BEDTIME 90 days tizanidine 4 mg PO Q8H PRN 30 days tramadol 50 mg PO TID PRN HPI Comments Details: 06/24/24--Marisa is a 83-year-old female who presents today to the office for FU recurrent urinary tract infections. The patient was last seen in the office 04/13/2023 and did not come back for follow-up. She recently had a urine culture on 06/14/2024 which returned positive for Citrobacter species greater than 100,000, she states she has been treated with antibiotics. She has complained of back pain and had a renal ultrasound done today. I reviewed the preliminary reading kidneys are within normal limits no hydronephrosis or kidney stones. I will place her on Ceftin 500 mg twice a day for 2 weeks and have her follow-up for office cystoscopy. 04/13/23--Will not proceed with Cysto today as urine is Nitrite positive She presents today for FU recurrent urinary tract infections. PMH - COPD, Multi-level DDD, Anxiety, s/p total hysterectomy. h/o kidney stones. She denies any urinary leakage. She denies constipation or diarrhea. She has had greater than 3 UTI's in the last 6 months. I have reviewed culture positive UTI's, resulting Ecoli, and Citrobacter species. Urine c/s sent on 02/23/23- No growth. I have reviewed with the patient that CT Urogram was WNL. The patient states that she is sexually active. Pt denies vaginal dryness. Consider abx prophylaxis post sexual activity I will empirically treat with Ceftin 500 mg bid for 5 days. Probiotic sent to pharm. Evaluation- UA-- Nitrite positive Review of chart: I have reviewed culture positive UTI's, resulting Ecoli, and Citrobacter species. Plan:Urine for c/s, cytology Ceftin 500 mg bid for 5 days Discussed Abx suppressive therapy pending c/s results. Reschedule office cysto as urine is nitrite positive today [facility] Medical History History of skin cancer Hepatitis COPD (chronic obstructive pulmonary disease) Seasonal allergies Chronic cough Cervical disc disease Left knee pain Pain of right shoulder joint on movement Abnormal SPEP Vitamin D deficiency Urolithiasis Osteoporosis GERD without esophagitis Multilevel degenerative disc disease Obesity (BMI 30-39.9) Anxiety Insomnia GERD (gastroesophageal reflux disease) Left lumbosacral radiculopathy Degenerative lumbar spinal stenosis Pure hypercholesterolemia Surgical History Hx of tonsillectomy Hx of left cataract extraction History of surgery on right wrist History of endoscopy History of colonoscopy Hx of decompressive lumbar laminectomy (~05/25/20) Status post total abdominal hysterectomy and bilateral salpingo-oophorectomy (CATRACHITO-BSO) History of right cataract extraction (~12/2016) History of cystoscopy (~05/24/18) Family History Father No problems noted. Mother Ovarian cancer Daughter Myocardial infarction, Onset Age: 46 Stroke Social History Household Members: Children Housing: House Are you a primary career specialist to a significant other at home: No Do you presently have visiting nurse or other home services: No Alcohol intake: former Patient Tobacco Use Status: Never used Tobacco e-Cigarette/Vaping Use: Never Used Second Hand Smoke Exposure: Yes service: No Current occupational status: retired and disabled Cognitive needs: No Hearing needs: No Vision needs: Yes (reading glasses) Review of Systems Const All systems reviewed & are unremarkable except as noted in HPI and below Reports no additional complaints Eyes Reports no additional complaints ENT Reports no additional complaints Card Reports no additional complaints Resp Reports no additional complaints GI Reports no additional complaints Reports as per HPI Musc Reports no additional complaints Skin/Breast Reports system reviewed and no additional complaints, except as documented Neuro Reports no additional complaints Psych Reports no additional complaints Endo Reports no additional complaints Kirit/Lymph Reports no additional complaints Aller/Immun Reports no additional complaints Results AMB Urinalysis, Automated UA Leukoctes 15 Karon/uL Last Edit by Alanna Dutta CMA on 06/24/24 16:35 UA Nitrite Negative Last Edit by Alanna Dutta, GARRICK on 06/24/24 16:35 UA Urobilinogen 0.2 mg/dL Last Edit by Alanna Dutta, GARRICK on 06/24/24 16:35 UA Protein 0 mg/dL Last Edit by Alanna Dutta, GARRICK on 06/24/24 16:35 UA pH 5.0 Last Edit by Alanna Dutta, AUDIT CONTROL CLERK on 06/24/24 16:35 UA Blood 10 Eliseo/uL Last Edit by Alanna Dutta, AUDIT CONTROL CLERK on 06/24/24 16:35 UA Specific [place] 1.005 Last Edit by Alanna Dutta, GARRICK on 06/24/24 16:35 UA Ketone Negative Last Edit by Alanna Dutta, GARRICK on 06/24/24 16:35 UA Bilirubin 0 mg/dL Last Edit by Alanna Dutta, GARRICK on 06/24/24 16:35 UA Glucose 0 mg/dL Last Edit by Alanna Dutta, GARRICK on 06/24/24 16:35 Results Reviewed Results Reviewed: Laboratory Last Values Urine pH (Auto) 5.0 06/24/24 16:27 Specific [place] (Auto) 1.005 06/24/24 16:27 Urine Protein (Auto) 0 mg/dL 06/24/24 16:27 Glucose (UA)(Auto) 0 mg/dL 06/24/24 16:27 Urine Ketones (Auto) Negative 06/24/24 16:27 Urine Blood (Auto) 10 Eliseo/uL 06/24/24 16:27 Urine Nitrite (Auto) Negative 06/24/24 16:27 Urine Bilirubin (Auto) 0 mg/dL 06/24/24 16:27 Urine Urobilinogen (Auto) 0.2 mg/dL 06/24/24 16:27 Leukocyte Esterase (Auto) 15 Karon/uL 06/24/24 16:27 Collected: 06/14/24-UNK Status: COMP Req#: [id number] Received: 06/14/24-1441 Source: [facility] Sp Desc: Clean Cat Subm Dr: Mac Thomas MD Ordered: Urine Culture Procedure Result Verified Urine Culture Final 06/17/24-903 Organism 1 Citrobacter species Quant > 100,000 cfu/mL Citro spec M.I.C. RX --------- --- Cefazolin >=32 R Cefepime <=0.12 S Ceftriaxone <=0.25 S Ciprofloxacin <=0.06 S Gentamicin <=1 S Nitrofurantoin <=16 S Trimethoprim/Sulfamethoxazole <=20 S Date of Service: 03/30/23 EXAMINATION: CT ABDOMEN AND PELVIS WITHOUT AND WITH CONTRAST CLINICAL INFORMATION: Urinary tract infection. COMPARISON: Abdominal ultrasound dated 09/20/2001; CT abdomen and pelvis dated 05/10/2008. TECHNIQUE: Noncontrast CT of the abdomen and pelvis is performed followed by split bolus contrast-enhanced images using 85 mL Omnipaque 350 contrast.? Postcontrast imaging is performed during the combined nephrogram and excretion phase. Sagittal and coronal reformatted images were obtained on the technologist's workstation for both the precontrast and postcontrast phases. This CT examination was performed using dose optimization techniques as appropriate, variously including the following: *Automated exposure control *Adjustment of mA and/or kV according to patient size (this includes techniques or standardized protocols for targeted exams where dose is matched to indication/reason for exam; i.e. extremities or head) *Use of iterative reconstruction technique DLP: 939 mGy-cm FINDINGS: LUNG BASES: The visualized lung bases are unremarkable. LIVER, GALLBLADDER, AND BILIARY TREE: The liver is normal in size, shape, and attenuation. No focal hepatic lesion or biliary ductal dilatation is present. The gallbladder is unremarkable with no evidence of radiopaque gallstones, gallbladder wall thickening, or obvious pericholecystic inflammatory changes. PANCREAS: Unremarkable. SPLEEN: Unremarkable. ADRENAL GLANDS: Unremarkable. KIDNEYS AND URETERS: The kidneys are normal in size, shape, and attenuation. No hydronephrosis, hydroureter or calculi seen. At the interpolar left kidney (8:31), a 7 mm benign simple appearing cyst is redemonstrated, for which no imaging follow-up is recommended. No perinephric stranding. BLADDER: Unremarkable. GASTROINTESTINAL TRACT: There is moderate diverticulosis, without acute diverticulitis. No bowel obstruction, free intraperitoneal air or abscess is seen. There is no focal bowel wall thickening. The vermiform appendix is not identified with certainty; however, there is no finding to suggest appendicitis. ABDOMINAL WALL: There is a small fat-containing umbilical hernia. LYMPH NODES: Normal. VASCULAR: There is moderate aortoiliac atherosclerotic calcification. No abdominal aortic aneurysm is seen. PELVIC VISCERA: Surgically absent. No pelvic mass, free fluid or lymphadenopathy is seen. OSSEUS STRUCTURES: There is multi-level thoracolumbar degenerative disease, spondylosis and Schmorl's node formation. There is a moderate L1 compression fracture again seen. No acute or aggressive osseous finding is noted. IMPRESSION: 1. No urinary mass, calculus or obstruction is seen. 2. There is moderate diverticulosis, without acute diverticulitis. 3. There is a small fat-containing umbilical hernia. 4. There are degenerative changes of the spine. Collected: 12/08/22-UNK Status: COMP Req#: [id number] Received: 12/08/22 Source: [facility] Sp Desc: Urine galicia Subm Dr: Mac Thomas MD Ordered: Urine Culture Procedure Result Verified Site Urine Culture Final 12/10/220750 Organism 1 Escherichia coli Quant > 100,000 cfu/mL E coli M.I.C. RX --------- --- Ampicillin >=32 R Ceftriaxone <=0.25 S Gentamicin <=1 S Levofloxacin 1 I Nitrofurantoin <=16 S Trimethoprim/Sulfamethoxazole >=320 R Collected: 12/04/221205 Status: COMP Req#: [id number] Received: 12/04/223 Source: [facility] Sp Desc: Urine galicia Subm Dr: Mac Thomas MD Ordered: Urine Culture Procedure Result Verified Site Urine Culture Final 12/06/220822 Organism 1 Escherichia coli Quant > 100,000 cfu/mL E coli M.I.C. RX --------- --- Ampicillin >=32 R Ceftriaxone <=0.25 S Gentamicin <=1 S Levofloxacin 1 I Nitrofurantoin <=16 S Trimethoprim/Sulfamethoxazole >=320 R Collected: 10/10/22 Status: GURVINDER Kinsey#: [id number] Received: 10/10/22 Source: [facility] Desc: Clean Cat Subm Dr: Mac Thomas MD Ordered: Urine Culture Procedure Result Verified Site Urine Culture Final 10/13/22 Organism 1 Citrobacter species Quant > 100,000 cfu/mL Citro spec M.I.C. RX --------- --- Ceftriaxone <=0.25 S Gentamicin <=1 S Levofloxacin <=0.12 S Nitrofurantoin <=16 S Trimethoprim/Sulfamethoxazole <=20 S Assessment & Plan Assessment & Plan (1) Frequency of micturition: Code(s): R35.0 - Frequency of micturition Category: Medical (2) Acute UTI: Code(s): N39.0 - Urinary tract infection, site not specified Category: Medical Plan Ceftin 500 mg twice a day for 2 weeks follow-up office cystoscopy Orders: Orders AMB Urinalysis Automated Today N39.0 - Urinary tract infection, site not specified Medications: New cefuroxime axetil 500 mg PO BID 10 days 20 tabs 0RF cefuroxime axetil 500 mg PO BID 14 days 28 tabs 0RF Patient Instructions: The patient had an opportunity to ask questions regarding treatment plan. The patient expressed understanding and agreement with the above treatment plan. The patient is aware they should contact our office by phone for worsening of their current condition or the appearance of new symptoms. Compliance is encouraged with any medications and followup testing that is ordered. It is a privilege to be allowed the opportunity to participate in the urologic care of your patient. If you have any questions or concerns regarding treatment for the above conditions please do not hesitate to contact me. The office telephone contact is [phone]. This note is constructed in part using voice recognition software. While every effort has been made to ensure accuracy veterinarian epidemiologist errors may have been included. Yours sincerely, Andrew Hollis MD Coding Level of Care Code Est Pt Level 4 (05872) Diagnoses Frequency of micturition R35.0 Acute UTI N39.0
== END 2024-06-24 16:45 | disposition home or self-care (01) ==
LOC: HO.HUSH 15:27
PROVIDERS: PCP Internal Medicine; Visit Provider Urology
DX: R35.0 Frequency of micturition (principal); N39.0 Urinary tract infection, site not specified
CPT/HCPCS: 99214

== ENCOUNTER 2024-07-15 15:11 | Outpatient (AMB) | payer OTHER, SELFPAY ==
--- NOTE | 2024-07-15 15:37 | A.OFFVIS_ITS ---
Intake Visit Reasons: Cystoscopy Intake Note: Patient is present for Cystoscopy Urology Medication:none Antibiotic Allergy:sulfa,bactrim Blood Thinner:none TODYA'S PVR:0ML'S Lot:[id number] Exp:03/07/27 Cash Applications Clerk Required: No Allergies nitrofurantoin [From MACRODANTIN] Allergy (Severe, Verified 09/19/24 13:21) Anaphylaxis Sulfa (Sulfonamide Antibiotics) [SULFA (SULFONAMIDE ANTIBIOTICS)] Allergy (Severe, Verified 09/19/24 13:21) ANAPHYLAXIS sulfamethoxazole [From BACTRIM] Allergy (Severe, Verified 09/19/24 13:21) ANAPHYLAXIS trimethoprim [From BACTRIM] Allergy (Severe, Verified 09/19/24 13:21) ANAPHYLAXIS Medication List - Last Reconciled 07/15/24 by Andrew Hollis MD alprazolam 1 mg PO TID PRN 30 days atorvastatin 40 mg PO BEDTIME 90 days cefuroxime axetil 500 mg PO BID 14 days cephalexin 500 mg PO DAILY 14 days cholecalciferol (vitamin D3) 50 mcg PO DAILY 90 days pantoprazole 40 mg PO BEDTIME terazosin 1 mg PO BEDTIME 90 days tizanidine 4 mg PO Q8H PRN 30 days tramadol 50 mg PO TID PRN HPI Comments Details: 07/15/24--Here for office cystoscopy. 83-year-old female presenting with persist ent urinary tract infections. She has a history of recurrent infections leading to chronic urinary discomfort. Previously, she was prescribed cefuroxime 500 mg twice daily, resulting in some symptomatic relief. However, episodes of discomfort persist. Results - Tests and Diagnostics: - Cystoscopy: No suspicious bladder lesions; erythematous changes consistent with cystitis observed. - Labs: - Catheterized urine specimen: Trace blood and leukocytes with no signs of infection. 06/24/24--Marisa is a 83-year-old female who presents today to the office for FU recurrent urinary tract infections. The patient was last seen in the office 04/13/2023 and did not come back for follow-up. She recently had a urine culture on 06/14/2024 which returned positive for Citrobacter species greater than 100,000, she states she has been treated with antibiotics. She has complained of back pain and had a renal ultrasound done today. I reviewed the preliminary reading kidneys are within normal limits no hydronephrosis or kidney stones. I will place her on Ceftin 500 mg twice a day for 2 weeks and have her follow-up for office cystoscopy. 04/13/23--Will not proceed with Cysto today as urine is Nitrite positive She presents today for FU recurrent urinary tract infections. PMH - COPD, Multi-level DDD, Anxiety, s/p total hysterectomy. h/o kidney stones. She denies any urinary leakage. She denies constipation or diarrhea. She has had greater than 3 UTI's in the last 6 months. I have reviewed culture positive UTI's, resulting Ecoli, and Citrobacter species. Urine c/s sent on 02/23/23- No growth. I have reviewed with the patient that CT Urogram was WNL. The patient states that she is sexually active. Pt denies vaginal dryness. Consider abx prophylaxis post sexual activity I will empirically treat with Ceftin 500 mg bid for 5 days. Probiotic sent to pharm. Evaluation- UA-- Nitrite positive Review of chart: I have reviewed culture positive UTI's, resulting Ecoli, and Citrobacter species. Plan:Urine for c/s, cytology Ceftin 500 mg bid for 5 days Discussed Abx suppressive therapy pending c/s results. Reschedule office cysto as urine is nitrite positive today PFSH Medical History History of skin cancer Hepatitis COPD (chronic obstructive pulmonary disease) Seasonal allergies Chronic cough Cervical disc disease Left knee pain Pain of right shoulder joint on movement Abnormal SPEP Vitamin D deficiency Urolithiasis Osteoporosis GERD without esophagitis Multilevel degenerative disc disease Obesity (BMI 30-39.9) Anxiety Insomnia GERD (gastroesophageal reflux disease) Left lumbosacral radiculopathy Degenerative lumbar spinal stenosis Pure hypercholesterolemia Surgical History Hx of tonsillectomy Hx of left cataract extraction History of surgery on right wrist History of endoscopy History of colonoscopy Hx of decompressive lumbar laminectomy (~05/25/20) Status post total abdominal hysterectomy and bilateral salpingo-oophorectomy (CATRACHITO-BSO) History of right cataract extraction (~12/2016) History of cystoscopy (~05/24/18) Family History Father No problems noted. Mother Ovarian cancer Daughter Myocardial infarction, Onset Age: 46 Stroke Social History Household Members: Children Housing: House Are you a primary physician primary care sports medicine to a significant other at home: No Do you presently have visiting nurse or other home services: No Alcohol intake: former Patient Tobacco Use Status: Never used Tobacco e-Cigarette/Vaping Use: Never Used Second Hand Smoke Exposure: Yes service: No Current occupational status: retired and disabled Cognitive needs: No Hearing needs: No Vision needs: Yes (reading glasses) Review of Systems Const All systems reviewed & are unremarkable except as noted in HPI and below Reports no additional complaints Eyes Reports no additional complaints ENT Reports no additional complaints Card Reports no additional complaints Resp Reports no additional complaints GI Reports no additional complaints Reports as per HPI Musc Reports no additional complaints Skin/Breast Reports system reviewed and no additional complaints, except as documented Neuro Reports no additional complaints Psych Reports no additional complaints Endo Reports no additional complaints Kirit/Lymph Reports no additional complaints Aller/Immun Reports no additional complaints Office Procedures Cystoscopy Consent Discussed risk and benefit or proposed procedure with the patient. Information consent for procedure given to the patient. Discussed technical aspects, risks, benefits and alternatives in full. Addressed all of the patient's questions and concerns regarding the procedure. The patient demonstrated knowledge and understanding. They wish to proceed with this procedure. Preparation The patient was prepped in the usual manner. A mammographer was present and in the room. Genitalia was prepped with betadine solution in a sterile manner. Lidocaine Jelly 2% was placed into the urethra and 16Fr flexible Olympus cystoscope was inserted into the meatus after adequate lubrication. Procedure Time out per protocol performed. Speculum used as indicated for adequate visualization of urethra, the flexible cystoscope is passed transurethrally: The bladder was inspected in its entirety with utilization retroflexion displaying: Tumor(s): no suspicious bladder lesions visualized Trabeculation: Mild- Moderate Mucosal Erthema: moderate Orifices: normal shape and position Urethra: normal Cystoscopy findings: No suspicious bladder lesions; erythematous changes consistent with cystitis observed. [id number]-[id number] DISPOSABLE SCOPE URO-G FLEXIBLE SCOPE Procedure code (CPT) selection complete Post Void Residual Post Residual Void Post Void Residual (PVR): 0 [id number]-[id number] Void Residual by ultrasound Office Meds lidocaine HCl 2 % mucosal jelly in applicator Performing Provider: Andrew Hollis MD [facility] Administered by: Khai Lam LPN on 07/15/24 16:03 Dose Route Admin Location Dispensed Lot Number Expiration Date ND Culinary Art Teacher 10 mL intra-urethral 10 mL ciprofloxacin HCl 500 mg tablet Performing Provider: Andrew Hollis MD Performing Location[place] [facility] Administered by: Khai Lam LPN on 07/15/24 16:03 Dose Route Admin Location Dispensed Lot Number Expiration Date NDC Culinary Art Teacher 500 mg PO 1 tab phenazopyridine 200 mg tablet Performing Provider: Andrew Hollis MD Performing [place] [facility] Administered by: Khai Lam LPN on 07/15/24 16:03 Dose Route Admin Location Dispensed Lot Number Expiration Date NDC Culinary Art Teacher 200 mg PO 1 tab Results AMB Urinalysis, Automated UA Leukoctes 15 Karon/uL Last Edit by ROB Nolan on 07/15/24 16:46 UA Nitrite Negative Last Edit by ROB Nolan on 07/15/24 16:46 UA Urobilinogen 3.5 mg/dL Last Edit by ROB Nolan on 07/15/24 16:4 6 UA Protein 0 mg/dL Last Edit by ROB Nolan on 07/15/24 16:46 UA pH 6.0 Last Edit by ROB Nolan on 07/15/24 16:46 UA Blood 10 Eliseo/uL Last Edit by ROB Nolan on 07/15/24 16:46 UA Specific [place] 1.015 Last Edit by ROB Nolan on 07/15/24 16: 46 UA Ketone Negative Last Edit by ROB Nolan on 07/15/24 16:46 UA Bilirubin 0 mg/dL Last Edit by ROB Nolan on 07/15/24 16:46 UA Glucose 0 mg/dL Last Edit by ROB Nolan on 07/15/24 16:46 Results Reviewed Results Reviewed: Laboratory Last Values Urine pH (Auto) 6.0 07/15/24 16:45 Specific [place] (Auto) 1.015 07/15/24 16:45 Urine Protein (Auto) 0 mg/dL 07/15/24 16:45 Glucose (UA)(Auto) 0 mg/dL 07/15/24 16:45 Urine Ketones (Auto) Negative 07/15/24 16:45 Urine Blood (Auto) 10 Eliseo/uL 07/15/24 16:45 Urine Nitrite (Auto) Negative 07/15/24 16:45 Urine Bilirubin (Auto) 0 mg/dL 07/15/24 16:45 Urine Urobilinogen (Auto) 3.5 mg/dL 07/15/24 16:45 Leukocyte Esterase (Auto) 15 Karon/uL 07/15/24 16:45 Assessment & Plan Assessment & Plan (1) Frequency of micturition: Code(s): R35.0 - Frequency of micturition Category: Medical (2) Acute UTI: Code(s): N39.0 - Urinary tract infection, site not specified Category: Medical (3) Cystitis: Code(s): N30.90 - Cystitis, unspecified without hematuria Category: Medical Plan - Begin cephalexin 500 mg once daily after completing the current medication. - Schedule a follow-up with the nurse for a urinary check in one month. - FU three months for re-evaluation. Orders: Orders AMB Cystoscopy 07/15/24 R35.0 - Frequency of micturition, R30.0 - Dysuria AMB Urinalysis Automated 07/15/24 Z13.9 - Encounter for screening, unspecified Medications: New cephalexin 500 mg PO DAILY 14 caps 0RF 14 days Patient Instructions: The patient had an opportunity to ask questions regarding treatment plan. The patient expressed understanding and agreement with the above treatment plan. The patient is aware they should contact our office by phone for worsening of their current condition or the appearance of new symptoms. Compliance is encouraged with any medications and followup testing that is ordered. It is a privilege to be allowed the opportunity to participate in the urologic care of your patient. If you have any questions or concerns regarding treatment for the above conditions please do not hesitate to contact me. The office telephone contact is [phone]. This note is constructed in part using voice recognition software. While every effort has been made to ensure accuracy pin inserter errors may have been included. Yours sincerely, Andrew Hollis MD Scribe Plan - Not visible on output: Patient was informed and verbally consented to the use of an ambient scribe for clinic note documentation during this visit. Coding Level of Care Code Est Pt Level 4 (23260) Diagnoses Frequency of micturition R35.0 Acute UTI N39.0 Cystitis N30.90 CPT Codes Cystoscopy - CPT: 99449-Zdarjbczyy ([id number]) Post Residual Void - PVR CPT Code: 73293-Yxxv Void Residual by ultrasound ([id number])
--- OUTSIDE RECORDS SUMMARY | 2024-07-15 16:27 | XMS_ITS ---
Author Name [facility] Organization Unknown Encounters Encounter Type Encounter Reason Primary Diagnosis Location Date Ambulatory [facility] 09/30/2023
--- OUTSIDE RECORDS SUMMARY | 2024-07-15 16:28 | XMS_ITS | Clinical Summary ---
Author Organization [facility] Address [address] [place] [address] Care Team Providers Care Facilities Director Name Role Phone Mac Thomas MD Primary Care Provider [phone]- [phone] Social History Tobacco Use Types Packs/Day Years [...] age to complete this topic Care Teams Facilities Director Relationship Specialty Start Date End Date Mac Thomas MD [address] [place] [address] [place] [address] PCP - General Internal Medicine 04/17/20
--- OUTSIDE RECORDS SUMMARY | 2024-07-15 16:28 | XMS_ITS | Clinical Summary ---
Author Organization [facility] Address [address] [place] [address] Care Team Providers Care Manager Insurance Name Role Phone Mac Thomas MD Primary [...] complete this topic RSV Immunization Patients Un ekl 20 months Aged Out No longer eligible b ased on patient's age to complete this topic Varicella Vaccines Aged Out No longer eligible based on patient's age to complete this topic Procedures Procedure Name Priority Date/Time Associated Diagnosis Comments [facility] Routine 04/20/2020 11:16 AM EST Age-related osteoporosis without current pathological fracture from Last 3 Months or Most Recently Relevant to Health Maintenance Results * [facility] (04/20/2020 11:16 AM EST) Anatomical Region Laterality Modality Mammography 04/20/2020 10:2 7 AM EST Narrative 04/20/2020 11:16 AM EST [facility] Diagnostic Imaging Department [address] [place], [place] [id number] Patient: ??SERA KELLEY ?/Age/Sex: 1940 - 79 - F Unit#: ??[id number] ? Location/Status: ??SPDIMAM/REG CLI ? Mnemonic/Ordering Site: [...] probability of hip fracture of 3.1%. Code 09111 Dictating Physician: ??JOSELYN BECKER MD Electronically Signed by: ??JOSELYN BECKER MD Dic Date/Time: ??04/20/20 1115 Sign date/Time: ??04/20/20 1116 Procedure Note Joselyn Becker MD - 04/22/2022 [facility] Diagnostic Imaging Department [address] [place] [address] Patient: SERA KELLEY /Age/Sex: 1940 79 - F Unit#: [id number] Location/Status: SPDIMAM/REG CLI [facility] Ordering Physician: NORA JOE MD, PHD [facility] Dexa Axial Skeleton - 04/20/20 - [...] density of the femurs bilaterally is 0.775 gm/xi3gyrzw is 77% of that of young normals and 93% of that of age matched controls.This yields a T-score of -1.8 and a Z-score of -0.5 which is diagnostic of osteopenia. IMPRESSION: 1. Osteoporosis. 2. FRAX analysis yields a 10-year probability of major osteoporoticfracture of 12.8% and a 10-year probability of hip fracture of 3.1%. Code 78624 Dictating Physician: JOSELYN BECKER MD Electronically Signed by: JOSELYN BECKER MD Dic Date/Time: 04/20/20 1115 Sign date/Time: 04/20/20 111 us Nora Joe MD IM BI PROCEDURES Final R esult from Last 3 Months or Most Recently Relevant to Health Maintenance Advance Directives Documents on File Type Date Recorded Patient Tower Switch Operator Expl anation Health Care Decision (hx) 07/10/2023 AD ARNETT DIRECTIVE Health Care Decision (hx) 07/10/2023 AD ARNETT DIRECTIVE Health Care Decision (hx) 07/10/2023 AD ARNETT DIRECTIVE Care Teams Manager Insurance Relationship Specialty Start Date End Date Mac Thomas MD [address] [place] [address] [address] [place], [place] PCP - General Internal Medicine 11/03/17
--- OUTSIDE RECORDS SUMMARY | 2024-07-15 16:28 | XMS_ITS | Data Portability ---
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, bilateral ; Note: Date Diagnosed : 06/04/2021 11:07 AM (H74.03) Not Available [facility] 4 02:50:05 Sensorine ural hearing loss of bilateral ears 621349110 Active 2019 Sensorine ural hearing loss, bilateral ; Note: Date Diagnosed : 12/13/2019 12:07 PM (H90.3) Not Available [facility] 4 02:50:06 Acute serous otitis media of right ear 24318903775 43483 Active 2023 Acute serous otitis media, right ear; Note: Date Diagnosed : 08/04/2023 3:42 PM (H65.01) CALIN GAMBOA MD [address] [place] [address], [facility] [place], [address] , [facility] - [facility] 4 15:20:41 Mixed conductiv e and sensorine ural hearing loss, bilateral 245521731 Active 2023 Mixed conductiv e and sensorine ural hearing loss, bilateral ; Note: Date Diagnosed : 08/04/2023 3:42 PM (H90.6) Not Available [facility] 02:50:06 Chronic serous otitis media of right ear 552693088 Active 2023 CALIN GAMBOA MD [address] [facility],[place] [address], [place], [address] , [facility] 15:20:59 Problem Notes None recorded. Procedures Surgical History Date Name Laterality Status Provider Name and Address Organization Details Recorded Time 09/30/2023 Comp Audio with Tymps (06949 & 20406) completed Crys CAPUTO [address] [facility],[place] [address], [place], [address], [facility] 09/30/2023 15:19:30 Imaging Results Imaging Date Name [...] Name and Address Organization Details Recorded Time 248583 Bactrim medicatio n other Not available Not available 09/15/2023 69007 9 RxNorm React ion: unkno wn, unspe cifie d;; Not Available [facility] 4 01:07:59 720497 Substance with sulfonami de structure and antibacte rial mechanism of action (substanc e) medicatio n other Not available Not available 09/15/2023 18316 8003 SNOMED React ion: unkno wn, unspe cifie d;; Not Available [facility] 4 01:08:03 Medications Name Sig Start Date [...] mg tablet 08/30 completed Medicati on ID: [id number] B rand Name: famotidi ne Send Method: [...] tablet,de layed release active Medicati on ID: 885915 B rand Name: aspirin Send Method: E-Prescr ibed Sub s Allowed: subs OK Speci al Instruct ion: TAKE 1 TABLET BY MOUTH TWICE A DAY Medi cationGe nericNam e: aspirin Not Available Not Available Not Available acetamino phen 500 mg tablet active Medicati on ID: 164425 B rand Name: acetamin ophen Se nd [...] (2,000 unit) capsule active Medicati on ID: 077677 B rand Name: cholecal ciferol (vitamin D3) [...] Updated DateTime 01/28/2024 162.56 cm 32.6 kg/m2 34098.55 g Bethany Smart [place] - [facility] 01/28/2024 09:52:43 Social History None recorded. Functional [...] Note 1893 CALIN GAMBOA MD [facility] [address], [place] [address] 09/30/2023 14:46:44 09/30/2023 15:55:55 Sensorineural hearing loss of bilateral ears 823821590 H90.3 Audiologic al evaluation results:Ri ght ear:{{Norm [...] Co uld not maintain a hermetic seal}} [id number] CALIN GAMBOA MD [facility] [address] [address] 01/28/2024 09:43:43 01/28/2024 09:59:40 Chronic serous otitis media of right ear 008859028 H65.21 [id number] CALIN GAMBOA MD [facility] [address] [address] 03/28/2024 13:18:17 03/29/2024 07:06:27 Sensorineural hearing loss of bilateral ears 538911206 H90.3 Chronic se ana rosa otitis media of right ear 108014695 H65.21 Health Concerns Section Related Observation LastModified by Organization Detai ls LastModified Time None Recorded Concern Status LastModified by Organization Details LastModified Time None Recorded Advance Directives Directive None Recorded Payers Encounter Date Sequence Insurance Name Policy Number Policy Wong Covered Member ID Wong Member ID Guarantor Name 09/30/2023 1 [facility] (MEDICARE REPLACEMENT/ ADVANTAGE - HMO) Marisa Lainez [id number] Marisa Lainez 09/30/2023 2 [place]: [facility] Marisa Lainez [id number] Marisa Lainez 01/28/2024 1 [facility] (MEDICARE REPLACEMENT/ ADVANTAGE - HMO) Marisa Gaona Migel [id number] Marisa Lainez 03/28/2024 1 [facility] (MEDICARE REPLACEMENT/ ADVANTAGE - HMO) Marisa Gaona Migel [id number] Marisa M Migel Notes Date Note Type Note Provider Name and Address Organization Details Recorded Time 09/30/2023 text/html 82-year-old nydia galan presents following right tube placement with Dr. Jensen. Her hearing has improved significantly following surgery. CALIN GAMBOA MD [address] [facility],[address], [address], [place] - [facility] 09/30/2023 16:38:27 01/28/2024 text/html tube check 4 R myringotomy tube placed, [place]09/30/23 post tube audio showed improvement feels her hearing fluctuatesno otorrhea CALIN GAMBAO MD [address] [place] [address],[place] [address], [place], [address], [place] - [facility] 01/28/2024 09:58:40 03/28/2024 text/html 83-year-old nydia galan presents for reevaluation. History of ETD with RMT in office. Her hearing has been stable. No issues since last visit. CALIN GAMBOA MD [address] [facility],[place] [address], [place], [address], [place] - [facility] 03/28/2024 15:39:46 OBGyn Episode No OBEpisode recorded.
== END 2024-07-15 16:50 | disposition home or self-care (01) ==
LOC: HO.HUSH 15:11
PROVIDERS: PCP Internal Medicine; Visit Provider Urology
DX: R35.0 Frequency of micturition (principal); R30.0 Dysuria; Z13.9 Encounter for screening, unspecified
CPT/HCPCS: 52000; 99214

== ENCOUNTER → 2024-07-15 15:11 | Outpatient (BNVA) | payer OTHER, SELFPAY | PROVIDERS: PCP Internal Medicine; Visit Provider Urology | DX: R35.0 Frequency of micturition (principal); N30.90 Cystitis, unspecified without hematuria | CPT/HCPCS: 51798; 52000; 81003; 99212 ==

== ENCOUNTER 2024-08-05 11:38 | Outpatient (REF) | payer OTHER, SELFPAY ==
[2024-08-05 13:25] LABS: Appearance Urine Clear; Color Urine Yellow; Glucose Urine UA Negative (Negative); Leukocyte Esterase Urine Moderate (2+) (Negative); Nitrite Urine Negative (Negative); PH 5.5 (5.0-9.0); Specific Gravity - Urine <= 1.005 (1.005-1.025); UMIC TRIGGER UA YES; Urine Blood Negative (Negative); Urine Ketones Negative (Negative); Urine Protein Negative (Neg-Trace)
[2024-08-05 13:32] LABS: Bacteria Urine 2+ (None Seen); Hyaline Casts Urine 0-2 /LPF (0-2); RBC Urine 0-2 /HPF (0-2)
--- OUTSIDE RECORDS SUMMARY | 2024-08-05 13:40 | XMS_ITS | Data Portability ---
Author Organization [place] - [facility], Allergy Address [address] [place] [address] Care Team Providers Care Paper Finisher Name Role Phone JAE OWEN Primary Care Provider [phone] Assessment Encounter Date Assessment Date Assessment LastModified [...] Organization Details Recorded Time Bilateral tympanosc lerosis [id number] Active 2021 Tympanosc lerosis, bilateral ; Note: Date Diagnosed : 06/04/2021 11:07 AM (H74.03) Not Available [facility] 4 02:50:05 Sensorine ural hearing loss of bilateral ears 556464671 Active 2019 Sensorine ural hearing loss, bilateral ; Note: Date Diagnosed : 12/13/2019 12:07 PM (H90.3) Not Available [facility] 4 02:50:06 Acute serous otitis media of right ear [id number] 13332 Active 2023 Acute serous otitis media, right ear; Note: Date Diagnosed : 08/04/2023 3:42 PM (H65.01) CALIN GAMBOA MD [address] [place] [address], [facility] [place], [address] , [facility] - [facility] 4 15:20:41 Mixed conductiv e and sensorine ural hearing loss, bilateral 919600737 Active 2023 Mixed conductiv e and sensorine ural hearing loss, bilateral ; Note: Date Diagnosed : 08/04/2023 3:42 PM (H90.6) Not Available [facility] 02:50:06 Chronic serous otitis media of right ear 263504200 Active 2023 CALIN GAMBOA MD [address] [facility],[place] [address], [place], [address] , [facility] 15:20:59 Problem Notes None recorded. Procedures Surgical History Date Name Laterality Status Provider Name and Address Organization Details Recorded Time 09/30/2023 Comp Audio with Tymps (91259 & 83830) completed Cyrs CAPUTO [address] [facility],[place] [address], [place], [address], [facility] 09/30/2023 15:19:30 Imaging Results Imaging Date [...] Name and Address Organization Details Recorded Time 609686 Bactrim medicatio n other Not available Not available 09/15/2023 64872 9 RxNorm React ion: unkno wn, unspe cifie d;; Not Available [facility] 4 01:07:59 496406 Substance with sulfonami de structure and antibacte rial mechanism of action (substanc e) medicatio n other Not available Not available 09/15/2023 66557 8003 SNOMED React ion: unkno wn, unspe cifie d;; Not Available [facility] 4 01:08:03 Medications Name Sig [...] mg tablet 08/30 completed Medicati on ID: 468954 B rand Name: famotidi ne Send Method: [...] tablet,de layed release active Medicati on ID: 861057 B rand Name: aspirin Send Method: E-Prescr ibed Sub s Allowed: subs OK Speci al Instruct ion: TAKE 1 TABLET BY MOUTH TWICE A DAY Medi cationGe nericNam e: aspirin Not Available Not Available Not Available acetamino phen 500 mg tablet active Medicati on ID: 165440 B rand Name: acetamin ophen Se nd [...] (2,000 unit) capsule active Medicati on ID: 430922 B rand Name: cholecal ciferol (vitamin D3) [...] Updated DateTime 01/28/2024 162.56 cm 32.6 kg/m2 63179.55 g Bethany Smart [place] - [facility] 01/28/2024 09:52:43 Social History None recorded. [...] Diagnosis Note 1893 CALIN GAMBOA MD [facility] [address], [place] [address] 09/30/2023 14:46:44 09/30/2023 15:55:55 Sensorineural hearing loss of bilateral ears [id number] H90.3 Audiologic al evaluation results:Ri ght ear:{{Norm [...] Co uld not maintain a hermetic seal}} [id number] CALIN GAMBAO MD [facility] of [address] [address] 01/28/2024 09:43:43 01/28/2024 09:59:40 Chronic serous otitis media of right ear 449928122 H65.21 [id number] CALIN GAMBOA MD [facility] [address] [address] 03/28/2024 13:18:17 03/29/2024 07:06:27 Sensorineural hearing loss of bilateral ears 504951301 H90.3 Chronic se ana rosa otitis media of right ear 864918287 H65.21 Health Concerns Section Related Observation LastModified by Organization Detai ls LastModified Time None Recorded Concern Status LastModified by Organization Details LastModified Time None Recorded Advance Directives Directive None Recorded Payers Encounter Date Sequence Insurance Name Policy Number Policy Wong Covered Member ID Wong Member ID Guarantor Name 09/30/2023 1 [employer] (MEDICARE REPLACEMENT/ ADVANTAGE - HMO) Marisa Lainez [id number] Marisa Lainez 09/30/2023 2 [place] [facility] Marisa Lainez [id number] Marisa Lainez 01/28/2024 1 [employer] (MEDICARE REPLACEMENT/ ADVANTAGE - HMO) Marisa Gaona Migel [id number] Marisa Lainez 03/28/2024 1 [employer] (MEDICARE REPLACEMENT/ ADVANTAGE - HMO) Marisa Gaona Migel [id number] Marisa M Migel Notes Date Note Type Note Provider Name and Address Organization Details Recorded Time 09/30/2023 text/html 82-year-old nydia galan presents following right tube placement with Dr. Jensen. Her hearing has improved significantly following surgery. CALIN GAMBOA MD [address] [facility],[address], [address], [place] - [facility] 09/30/2023 16:38:27 01/28/2024 text/html tube check 4 R myringotomy tube placed, [place]09/30/23 post tube audio showed improvement feels her hearing fluctuatesno otorrhea CALIN GAMBOA MD [address] [place] [address],[place] [address], [place], [address], [place] - [facility] 01/28/2024 09:58:40 03/28/2024 text/html 83-year-old nydia galan presents for reevaluation. History of ETD with RMT in office. Her hearing has been stable. No issues since last visit. CALIN GAMBOA MD [address] [facility],[place] [address], [place], [address], [place] - [facility] 03/28/2024 15:39:46 OBGyn Episode No OBEpisode recorded.
--- OUTSIDE RECORDS SUMMARY | 2024-08-05 13:41 | XMS_ITS | Clinical Summary ---
Author Organization [facility] Address [address] [place] [address] Care Team Providers Care Aquatics Manager Name Role Phone Mac Thomas MD Primary Care Provider [phone] Social History Tobacco Use Types Packs/Day Years [...] age to complete this topic Care Teams Aquatics Manager Relationship Specialty Start Date End Date Mac Thomas MD [address] [place] [address] [place] [address] PCP - General Internal Medicine 04/17/20
--- OUTSIDE RECORDS SUMMARY | 2024-08-05 13:41 | XMS_ITS | Clinical Summary ---
Author Organization [facility] Address [address] [place] [address] Care Team Providers Care Lcsw Name Role Phone Mac Thomas MD Primary Care Provider [phone] Surgical History Surgery Date Site/Laterality Comments HYSTERECTOMY [...] Vaccines (1 of 2) 1992 RSV Immunization Adult Patie nts (1 - 1-dose 75+ series) 2017 Cholesterol Screening (Lipid Panel) 04/06/2022 Depression Screening 04/06/2022 Falls Risk Assessment 04/06/2022 Social Influencers of Health Screening 04/06/2022 COVID-19 Vaccine ( - 2023-2 5 season) 2024 Influenza Vaccine [...] Procedure Name Priority Date/Time Associated Diagnosis Comments [facility] DEXA AXIAL SKELETON Routine 04/20/2020 11:16 AM EST Age-related osteoporosis without current pathological fracture from Last 3 Months or Most Recently Relevant to Health Maintenance Results * [facility] DEXA AXIAL SKELETON (04/20/2020 11:16 AM EST) Anatomical Region Laterality Modality Mammography 04/20/2020 10:2 7 AM EST Narrative 04/20/2020 11:16 AM EST [facility] Diagnostic Imaging Department [address] [place] [address] Patient: ??SERA KELLEY ?/Age/Sex: 1940 - 79 - F Unit#: ??[id number] ? Location/Status: ??SPDIMAM/REG CLI ? Mnemonic/Ordering Site: [...] probability of hip fracture of 3.1%. Code 85364 Dictating Physician: ??JOSELYN BECKER MD Electronically Signed by: ??JOSELYN BECKER MD Dic Date/Time: ??04/20/20 1115 Sign date/Time: ??04/20/20 1116 Procedure Note Joselyn Becker MD - 04/22/2022 [facility] Diagnostic Imaging Department [address] [place], [place] [address] Patient: SERA KELLEY /Age/Sex: 1940 79 - F Unit#: [id number] Location/Status: SPDIMAM/REG CLI [facility] Ordering Physician: NORA JOE MD, PHD [facility] Dexa Axial Skeleton - 04/20/20 [...] density of the femurs bilaterally is 0.775 gm/jc1rlsie is 77% of that of young normals and 93% of that of age matched controls.This yields a T-score of -1.8 and a Z-score of -0.5 which is diagnostic of osteopenia. IMPRESSION: 1. Osteoporosis. 2. FRAX analysis yields a 10-year probability of major osteoporoticfracture of 12.8% and a 10-year probability of hip fracture of 3.1%. Code 50115 Dictating Physician: JOSELYN BECKER MD Electronically Signed by: JOSELYN BECKER MD Dic Date/Time: 04/20/20 1115 Sign date/Time: 04/20/20 111 us Nora Joe MD IM BI PROCEDURES Final R esult from Last 3 Months or Most Recently Relevant to Health Maintenance Advance Directives Documents on File Type Date Recorded Patient Mobile Equipment Servicer Expl anation Health Care Decision (hx) 07/10/2023 AD ARNETT DIRECTIVE Health Care Decision (hx) 07/10/2023 AD ARNETT DIRECTIVE Health Care Decision (hx) 07/10/2023 AD ARNETT DIRECTIVE Care Teams Lcsw Relationship Specialty Start Date End Date Mac Thomas MD [address] [place] [address] [address] [place], [place] PCP - General Internal Medicine 11/03/17
== END 2024-08-05 11:39 | disposition home or self-care (01) ==
LOC: HO.LAB 11:38
PROVIDERS: PCP Internal Medicine; Visit Provider Urology
DX: N39.0 Urinary tract infection, site not specified (principal)
CPT/HCPCS: 81001; 87086; 87088; 87186

== ENCOUNTER 2024-08-18 12:58 | Outpatient (REF) | payer OTHER, SELFPAY ==
--- OUTSIDE RECORDS SUMMARY | 2024-08-18 16:15 | XMS_ITS | Clinical Summary ---
Author Organization [facility] Address [address] [place] [address] Care Team Providers Care Spot Washer Name Role Phone Mac Thomas MD Primary Care Provider [phone] Social History Tobacco Use Types Packs/Day Years [...] age to complete this topic Care Teams Spot Washer Relationship Specialty Start Date End Date Mac Thomas MD [address] [place] [address] [place] [address] PCP - General Internal Medicine 04/17/20
--- OUTSIDE RECORDS SUMMARY | 2024-08-18 16:15 | XMS_ITS | Clinical Summary ---
Author Organization [facility] Address [address] [place] [address] Care Team Providers Care Naval Aircrewman Tactical Helicopter Name Role Phone Mac Thomas MD Primary [...] - 2023-2 5 season) 2024 Influenza Vaccine (Season Ended) 2025 Osteoporosis Screening (Bone Density Screening) 04/20/2030 04/20/2020 [...] age to complete this topic Meningococcal B Vaccine Aged Out No l onger eligible based on patient's age to complete this topic RSV Immunization Patients Un kel 20 months Aged Out No longer eligible b ased on patient's age to complete this topic Varicella Vaccines Aged Out No longer eligible based on patient's age to complete this topic Procedures Procedure Name Priority Date/Time Associated Diagnosis Comments [facility] DEXA AXIAL SKELETON Routine 04/20/2020 11:16 AM EST Age-related osteoporosis without current pathological fracture from Last 3 Months or Most Recently Relevant to Health Maintenance Results * [facility] DEXA AXIAL SKELETON (04/20/2020 11:16 AM EST) Anatomical Region Laterality Modality Mammography 04/20/2020 10:2 7 AM EST Narrative 04/20/2020 11:16 AM EST [facility] Diagnostic Imaging Department [address] [place] [address] Patient: ??SERA KELLEY ?/Age/Sex: 1940 - 79 - F Unit#: ??[id number] ? Location/Status: ??SPDIMAM/REG CLI ? Mnemonic/Ordering Site: [...] probability of hip fracture of 3.1%. Code 19138 Dictating Physician: ??JOSELYN BECKER MD Electronically Signed by: ??JOSELYN BECKER MD Dic Date/Time: ??04/20/20 1115 Sign date/Time: ??04/20/20 1116 Procedure Note Joselyn Becker MD - 04/22/2022 [facility] Diagnostic Imaging Department [address] [place] [address] Patient: SERA KELLEY /Age/Sex: 1940 79 - F Unit#: [id number] Location/Status: SPDIMAM/REG CLI [facility] Ordering Physician: NORA JOE MD, PHD [facility] Dexa Axial Skeleton - 04/20/20 - [...] density of the femurs bilaterally is 0.775 gm/jn3jjgsc is 77% of that of young normals and 93% of that of age matched controls.This yields a T-score of -1.8 and a Z-score of -0.5 which is diagnostic of osteopenia. IMPRESSION: 1. Osteoporosis. 2. FRAX analysis yields a 10-year probability of major osteoporoticfracture of 12.8% and a 10-year probability of hip fracture of 3.1%. Code 05005 Dictating Physician: JOSELYN BECKER MD Electronically Signed by: JOSELYN BECKER MD Dic Date/Time: 04/20/20 1115 Sign date/Time: 04/20/20 1116 us Nora Joe MD [facility] BI PROCEDURES Final R esult from Last 3 Months or Most Recently Relevant to Health Maintenance Advance Directives Documents on File Type Date Recorded Patient Hay Rake Operator Expl anation Health Care Decision (hx) 07/10/2023 AD ARNETT DIRECTIVE Health Care Decision (hx) 07/10/2023 AD ARNETT DIRECTIVE Health Care Decision (hx) 07/10/2023 AD ARNETT DIRECTIVE Care Teams Naval Aircrewman Tactical Helicopter Relationship Specialty Start Date End Date Mac Thomas MD [address] [place] [address] [address] [place] PCP - General Internal Medicine 11/03/17
[2024-08-18 17:41] LABS: Appearance Urine Clear; Color Urine Yellow; Glucose Urine UA Negative (Negative); Leukocyte Esterase Urine Trace (Negative); Nitrite Urine Negative (Negative); Specific Gravity - Urine <= 1.005 (1.005-1.025); UMIC TRIGGER UA YES; Urine Blood Negative (Negative); Urine Ketones Negative (Negative); Urine Protein Negative (Neg-Trace)
[2024-08-18 17:46] LABS: Bacteria Urine None Seen (None Seen); Hyaline Casts Urine 0-2 /LPF (0-2); RBC Urine 0-2 /HPF (0-2); WBC Urine 0-5 /HPF (0-5)
== END 2024-08-18 12:59 | disposition home or self-care (01) ==
LOC: HO.LAB 12:58
PROVIDERS: PCP Internal Medicine; Visit Provider Urology
DX: R35.0 Frequency of micturition (principal)
CPT/HCPCS: 51798; 81001; 87086

== ENCOUNTER 2024-09-08 13:03 | Outpatient (AMB) | payer OTHER, SELFPAY ==
--- NOTE | 2024-09-08 13:13 | MHC.OFFVIS ---
Intake Visit Reasons: OV-Lt Knee 02/22/24 DR Intake Note: Marisa is an 83 year old female who presents for follow up after undergoing left knee arthroscopic surgery on 02/22/2024. She reports mild intermittent discomfort in her left knee. She denies any fevers or chills. She does not take any medicines for discomfort. Allergies nitrofurantoin [From MACRODANTIN] Allergy (Severe, Verified 09/08/24 13:16) Anaphylaxis Sulfa (Sulfonamide Antibiotics) [SULFA (SULFONAMIDE ANTIBIOTICS)] Allergy (Severe, Verified 09/08/24 13:16) ANAPHYLAXIS sulfamethoxazole [From BACTRIM] Allergy (Severe, Verified 09/08/24 13:16) ANAPHYLAXIS trimethoprim [From BACTRIM] Allergy (Severe, Verified 09/08/24 13:16) ANAPHYLAXIS Medication List - Last Reconciled 09/08/24 by Marko Diaz MD alprazolam 1 mg PO TID PRN 30 days atorvastatin 40 mg PO BEDTIME 90 days cefuroxime axetil 500 mg PO BID 14 days cephalexin 500 mg PO DAILY 14 days cholecalciferol (vitamin D3) 50 mcg PO DAILY 90 days fosfomycin tromethamine 3 grams PO Q3D 9 days pantoprazole 40 mg PO BEDTIME terazosin 1 mg PO BEDTIME 90 days tizanidine 4 mg PO Q8H PRN 30 days tramadol 50 mg PO TID PRN PFSH Medical History History of skin cancer Hepatitis COPD (chronic obstructive pulmonary disease) Seasonal allergies Chronic cough Cervical disc disease Left knee pain Pain of right shoulder joint on movement Abnormal SPEP Vitamin D deficiency Urolithiasis Osteoporosis GERD without esophagitis Multilevel degenerative disc disease Obesity (BMI 30-39.9) Anxiety Insomnia GERD (gastroesophageal reflux disease) Left lumbosacral radiculopathy Degenerative lumbar spinal stenosis Pure hypercholesterolemia Surgical History Hx of tonsillectomy Hx of left cataract extraction History of surgery on right wrist History of endoscopy History of colonoscopy Hx of decompressive lumbar laminectomy (~05/25/20) Status post total abdominal hysterectomy and bilateral salpingo-oophorectomy (CATRACHITO-BSO) History of right cataract extraction (~12/2016) History of cystoscopy (~05/24/18) Family History Father No problems noted. Mother Ovarian cancer Daughter Myocardial infarction, Onset Age: 46 Stroke Social History Household Members: Children Housing: House Are you a primary patient care technician to a significant other at home: No Do you presently have visiting nurse or other home services: No Alcohol intake: former Patient Tobacco Use Status: Never used Tobacco e-Cigarette/Vaping Use: Never Used Second Hand Smoke Exposure: Yes service: No Current occupational status: retired and disabled Cognitive needs: No Hearing needs: No Vision needs: Yes (reading glasses) Physical Exam Const Other: Well-nourished well-developed very friendly female awake alert and oriented x3 in no acute distress Extrem Other: Bilateral lower extremity examination shows good capillary refill, no skin lesions noted, normal sensation light touch Left knee examination shows that the surgical incisions are well healed, no erythema, minimal crepitus with range of motion, mild discomfort with range of motion, no instability Assessment & Plan Assessment & Plan (1) Arthritis of left knee: Code(s): M17.12 - Unilateral primary osteoarthritis, left knee Category: Medical Plan Marisa continues to do well after undergoing left knee arthroscopic surgery on 02/22/2024. She does have residual discomfort due to degenerative joint disease. I had a lengthy discussion with the patient regarding the treatment options. At this point the patient's symptoms are tolerable to her. She will continue with her activity modifications. She will follow up with me on an as-needed basis should her symptoms worsen in any way. Feel free to call me at any time should questions regarding her orthopedic management arise. I spent 22 minutes in reviewing the patient's records and imaging studies, seeing the patient and documenting in the medical record. Coding Level of Care Code Est Pt Level 3 (78164) Complex EM visit Add On G2211 Diagnoses Arthritis of left knee M17.12
--- OUTSIDE RECORDS SUMMARY | 2024-09-08 14:12 | XMS_ITS | Clinical Summary ---
Author Organization [facility] Address [address] [place] [address] Care Team Providers Care C Software Developer Name Role Phone Mac Thomas [...] Name Priority Date/Time Associated Diagnosis Comments [facility] DEXA AXIAL SKELETON Routine 04/20/2020 11:16 AM EST Age-related osteoporosis without current pathological fracture from Last 3 Months or Most Recently Relevant to Health Maintenance Results * [facility] DEXA AXIAL SKELETON (04/20/2020 11:16 AM EST) Anatomical Region Laterality Modality Mammography 04/20/2020 10:2 7 AM EST Narrative 04/20/2020 11:16 AM EST [facility] Diagnostic Imaging Department [address] [place] [address] Patient: ??SERA KELLEY ?/Age/Sex: 1940 - 79 - F Unit#: ??[id number] ? Location/Status: ??SPDIMAM/REG CLI ? Mnemonic/Ordering Site: [...] probability of hip fracture of 3.1%. Code 63317 Dictating Physician: ??JOSELYN BECKER MD Electronically Signed by: ??JOSELYN BECKER MD Dic Date/Time: ??04/20/20 1115 Sign date/Time: ??04/20/20 1116 Procedure Note Joselyn Becker MD - 04/22/2022 [facility] Diagnostic Imaging Department [address] [place] [address] Patient: SERA KELLEY /Age/Sex: 1940 79 - F Unit#: [id number] Location/Status: SPDIMAM/REG CLI [facility] Ordering Physician: NORA JOE MD, PHD [facility] Dexa Axial Skeleton - 04/20/20 - [...] density of the femurs bilaterally is 0.775 gm/mx9evaet is 77% of that of young normals and 93% of that of age matched controls.This yields a T-score of -1.8 and a Z-score of -0.5 which is diagnostic of osteopenia. IMPRESSION: 1. Osteoporosis. 2. FRAX analysis yields a 10-year probability of major osteoporoticfracture of 12.8% and a 10-year probability of hip fracture of 3.1%. Code 17806 Dictating Physician: JOSELYN BECKER MD Electronically Signed by: JOSELYN BECKER MD Dic Date/Time: 04/20/20 1115 Sign date/Time: 04/20/20 1116 us Nora Joe MD [facility] BI PROCEDURES Final R esult from Last 3 Months or Most Recently Relevant to Health Maintenance Advance Directives Documents on File Type Date Recorded Patient Manager Life Expl anation Health Care Decision (hx) 07/10/2023 AD ARNETT DIRECTIVE Health Care Decision (hx) 07/10/2023 AD ARNETT DIRECTIVE Health Care Decision (hx) 07/10/2023 AD ARNETT DIRECTIVE Care Teams C Software Developer Relationship Specialty Start Date End Date Mac Thomas MD [address] [place] [address] [address] [place] PCP - General Internal Medicine 11/03/17
--- OUTSIDE RECORDS SUMMARY | 2024-09-08 14:12 | XMS_ITS | Clinical Summary ---
Author Organization [facility] Address [address] [place] [address] Care Team Providers Care Hospice Registered Nurse Name Role Phone Mac Thomas MD Primary Care Provider +1- [phone] Social History Tobacco Use Types Packs/Day Years [...] age to complete this topic Care Teams Hospice Registered Nurse Relationship Specialty Start Date End Date Mac Thomas MD [address] [place] [address] [place] [address] PCP - General Internal Medicine 04/17/20
--- OUTSIDE RECORDS SUMMARY | 2024-09-08 14:12 | XMS_ITS | Data Portability ---
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, bilateral ; Note: Date Diagnosed : 06/04/2021 11:07 AM (H74.03) Not Available [facility] 4 02:50:05 Sensorine ural hearing loss of bilateral ears 356723811 Active 2019 Sensorine ural hearing loss, bilateral ; Note: Date Diagnosed : 12/13/2019 12:07 PM (H90.3) Not Available [facility] 4 02:50:06 Acute serous otitis media of right ear 72393748091 67760 Active 2023 Acute serous otitis media, right ear; Note: Date Diagnosed : 08/04/2023 3:42 PM (H65.01) CALIN GAMBOA MD [address] [place] [address], [facility] JULES kelly, [address] , [facility] - [facility] 4 15:20:41 Mixed conductiv e and sensorine ural hearing loss, bilateral 769392090 Active 2023 Mixed conductiv e and sensorine ural hearing loss, bilateral ; Note: Date Diagnosed : 08/04/2023 3:42 PM (H90.6) Not Available [facility] 02:50:06 Chronic serous otitis media of right ear 835971530 Active 2023 CALIN GAMBOA MD [address] [facility],[place] [address], [place], [address] , [facility] 15:20:59 Problem Notes None recorded. Procedures Surgical History Date Name Laterality Status Provider Name and Address Organization Details Recorded Time 09/30/2023 Comp Audio with Tymps - 83922 & 87660 completed Crys CAPUTO [address] [facility],[place] [address], [place], [address], [facility] 09/30/2023 15:19:30 Imaging Results Imaging Date [...] Name and Address Organization Details Recorded Time 901922 Bactrim medicatio n other Not available Not available 09/15/2023 28059 9 RxNorm React ion: unkno wn, unspe cifie d;; Not Available [facility] 4 01:07:59 772470 Substance with sulfonami de structure and antibacte rial mechanism of action (substanc e) medicatio n other Not available Not available 09/15/2023 69968 8003 SNOMED React ion: unkno wn, unspe cifie d;; Not Available [facility] 4 01:08:03 Medications Name Sig Start [...] mg tablet 08/30 completed Medicati on ID: 925489 B rand Name: famotidi ne Send Method: [...] tablet,de layed release active Medicati on ID: 208402 B rand Name: aspirin Send Method: E-Prescr ibed Sub s Allowed: subs OK Speci al Instruct ion: TAKE 1 TABLET BY MOUTH TWICE A DAY Medi cationGe nericNam e: aspirin Not Available Not Available Not Available acetamino phen 500 mg tablet active Medicati on ID: 055711 B rand Name: acetamin ophen Se nd [...] (2,000 unit) capsule active Medicati on ID: 480890 B rand Name: cholecal ciferol (vitamin D3) [...] Updated DateTime 01/28/2024 162.56 cm 32.6 kg/m2 09208.55 g Bethany Smart [place] - [facility] 01/28/2024 09:52:43 Social History None recorded. Functional Status None recorded. Mental Status None recorded. Family History Nothing Reported. Medical History No medical history recorded. Gynecological HistoryNo gynecological history recorded. Obstetrics History GPAL:G 0 P 0 0 0 0 Past Encounters Encounter ID Performer Location Encounter Start Date Encounter Closed Date Diagnosis/Indication Diagnosis SNOMED-CT Code Diagnosis ICD10 Code Diagnosis Note [id number] YEISON NOLAN PA-C [facility] [address] [place] [address] 09/30/2023 14:46:44 09/30/2023 15:55:55 Sensorineural hearing loss of bilateral ears 255899891 H90.3 Audiologic al evaluation results:Ri ght ear:{{Norm [...] Co uld not maintain a hermetic seal}} [id number] CALIN GAMBOA MD [facility] [address] [address] 01/28/2024 09:43:43 01/28/2024 09:59:40 Chronic serous otitis media of right ear 784803317 H65.21 [id number] YEISON NOLAN PA-C [facility] [address] [address] 03/28/2024 13:18:17 03/29/2024 07:06:27 Sensorineural hearing loss of bilateral ears 657376804 H90.3 Chronic se ana rosa otitis media of right ear 397306466 H65.21 Health Concerns Section Related Observation LastModified by Organization Detai ls LastModified Time None Recorded Concern Status LastModified by Organization Details LastModified Time None Recorded Advance Directives Directive None Recorded Payers Insurance Date Sequence Insurance Name Policy Number Policy Wong Covered Member ID Wong Member ID Guarantor Name 03/28/2024 1 [facility] (MEDICARE REPLACEMENT/ ADVANTAGE - HMO) Marisa Lainez [id number] Mraisa Lainez 01/28/2024 2 [place] [facility] Marisa Lainez [id number] Marisa Lainez 03/11/2024 2 [place] [facility] Marisa Gaona Migel [id number] Marisa Gaona Migel Notes Date Note Type Note Provider Name and Address Organization Details Recorded Time 09/30/2023 text/html 82-year-old nydia galan presents following right tube placement with Dr. Jensen. Her hearing has improved significantly following surgery. CALIN GAMBOA MD [address] [facility],[place] [address], [place], [address], [place] - [facility] [place] 09/30/2023 16:38:27 01/28/2024 text/html tube check 4 R myringotomy tube placed, [place]09/30/23 post tube audio showed improvement feels her hearing fluctuatesno otorrhea CALIN GAMBOA MD [address] [facility],[place] [address], [place], [address], [facility] - [facility] 01/28/2024 09:58:40 03/28/2024 text/html 83-year-old nydia galan presents for reevaluation. History of ETD with RMT in office. Her hearing has been stable. No issues since last visit. CALIN GAMBOA MD [address] [facility],[place] [address], [place], [address], [place] - [facility] 03/28/2024 15:39:46 OBGyn Episode No OBEpisode recorded.
== END 2024-09-08 13:23 | disposition home or self-care (01) ==
LOC: HO.HOS 13:03
PROVIDERS: PCP Internal Medicine; Visit Provider Orthopaedic Surgery
DX: M17.12 Unilateral primary osteoarthritis, left knee (principal)
CPT/HCPCS: 99213; G2211

== ENCOUNTER → 2024-09-08 13:03 | Outpatient (BNVA) | payer OTHER, SELFPAY | PROVIDERS: PCP Internal Medicine; Visit Provider Orthopaedic Surgery | DX: M17.12 Unilateral primary osteoarthritis, left knee (principal) | CPT/HCPCS: 99212 ==

== ENCOUNTER 2024-09-12 08:45 | Outpatient (REF) | payer OTHER, SELFPAY ==
--- OUTSIDE RECORDS SUMMARY | 2024-09-12 08:49 | XMS_ITS | Clinical Summary ---
Author Organization [facility] Address [address] [place] [address] Care Team Providers Care Date Puller Name Role Phone Mac Thomas MD Primary Care Provider [phone] Social History Tobacco Use Types Packs/Day Years [...] age to complete this topic Care Teams Date Puller Relationship Specialty Start Date End Date Mac Thomas MD [address] [place] [address] [place] [address] PCP - General Internal Medicine 04/17/20
--- OUTSIDE RECORDS SUMMARY | 2024-09-12 08:49 | XMS_ITS | Data Portability ---
Author Organization [place] - [facility], Allergy Address [address] [place] [address] Care Team Providers Care Stoper Name Role Phone JAE OWEN Primary Care [...] Organization Details Recorded Time Bilateral tympanosc lerosis 11273304564 811714 Active 2021 Tympanosc lerosis, bilateral ; Note: Date Diagnosed : 06/04/2021 11:07 AM (H74.03) Not Available [facility] 4 02:50:05 Sensorine ural hearing loss of bilateral ears 517947220 Active 2019 Sensorine ural hearing loss, bilateral ; Note: Date Diagnosed : 12/13/2019 12:07 PM (H90.3) Not Available [facility] 4 02:50:06 Acute serous otitis media of right ear 96096628646 59385 Active 2023 Acute serous otitis media, right ear; Note: Date Diagnosed : 08/04/2023 3:42 PM (H65.01) CALIN GAMBOA MD [address] [place] [address], [facility] JULES kelly, [address] , [facility] - [facility] 4 15:20:41 Mixed conductiv e and sensorine ural hearing loss, bilateral 684314576 Active 2023 Mixed conductiv e and sensorine ural hearing loss, bilateral ; Note: Date Diagnosed : 08/04/2023 3:42 PM (H90.6) Not Available [facility] 02:50:06 Chronic serous otitis media of right ear 843800072 Active 2023 CALIN GAMBOA MD [address] [facility],[place] [address], [place], [address] , [facility] 15:20:59 Problem Notes None recorded. Procedures Surgical History Date Name Laterality Status Provider Name and Address Organization Details Recorded Time 09/30/2023 Comp Audio with Tymps - 47809 & 78837 completed Crys CAPUTO [address] [facility],[place] [address], [place], [address], [facility] 09/30/2023 15:19:30 Imaging Results Imaging Date [...] Name and Address Organization Details Recorded Time 524434 Bactrim medicatio n other Not available Not available 09/15/2023 17504 9 RxNorm React ion: unkno wn, unspe cifie d;; Not Available [facility] 4 01:07:59 959994 Substance with sulfonami de structure and antibacte rial mechanism of action (substanc e) medicatio n other Not available Not available 09/15/2023 14581 8003 SNOMED React ion: unkno wn, unspe [...] mg tablet 08/30 completed Medicati on ID: 440110 B rand Name: famotidi ne Send Method: [...] tablet,de layed release active Medicati on ID: 600393 B rand Name: aspirin Send Method: E-Prescr ibed Sub s Allowed: subs OK Speci al Instruct ion: TAKE 1 TABLET BY MOUTH TWICE A DAY Medi cationGe nericNam e: aspirin Not Available Not Available Not Available acetamino phen 500 mg tablet active Medicati on ID: 473733 B rand Name: acetamin ophen Se nd [...] (2,000 unit) capsule active Medicati on ID: 182062 B rand Name: cholecal ciferol (vitamin D3) [...] Updated DateTime 01/28/2024 162.56 cm 32.6 kg/m2 28983.55 g Bethany Smart [place] - [facility] 01/28/2024 09:52:43 Social History None recorded. [...] Diagnosis Note [id number] YEISON NOLAN PA-C [facility] [address] [place] [address] 09/30/2023 14:46:44 09/30/2023 15:55:55 Sensorineural hearing loss of bilateral ears 871717772 H90.3 Audiologic al evaluation results:Ri ght ear:{{Norm [...] Co uld not maintain a hermetic seal}} [id number] CALIN GAMBOA MD [facility] [address] [address] 01/28/2024 09:43:43 01/28/2024 09:59:40 Chronic serous otitis media of right ear 222590574 H65.21 [id number] YEISON NOLAN PA-C [facility] [address] [address] 03/28/2024 13:18:17 03/29/2024 07:06:27 Sensorineural hearing loss of bilateral ears 546723321 H90.3 Chronic se ana rosa otitis media of right ear 673932926 H65.21 Health Concerns Section Related Observation LastModified by Organization Detai ls LastModified Time None Recorded Concern Status LastModified by Organization Details LastModified Time None Recorded Advance Directives Directive None Recorded Payers Insurance Date Sequence Insurance Name Policy Number Policy Wong Covered Member ID Wong Member ID Guarantor Name 03/28/2024 1 [facility] (MEDICARE REPLACEMENT/ ADVANTAGE - HMO) Marisa Lainez [id number] Marisa Lainez 01/28/2024 2 [place] [facility] Marisa Lainez [id number] Marisa Lainez 03/11/2024 2 [place] [facility] Marisa Gaona Migel [id number] Marisa Gaona Migel Notes Date Note Type Note Provider Name and Address Organization Details Recorded Time 09/30/2023 text/html 82-year-old nydia galan presents following right tube placement with Dr. Jensen. Her hearing has improved significantly following surgery. CALIN GAMBOA MD [address] [facility],[place] [address], [place], [address], [place] - [facility] [place] 09/30/2023 16:38:27 01/28/2024 text/html tube check 4 R myringotomy tube placed, [place]09/30/23 post tube audio showed improvement feels her hearing fluctuatesno otorrhea CALIN GAMBOA MD [address] [facility],[place] [address], [place], [address], [facility] - [facility] 01/28/2024 09:58:40 03/28/2024 text/html 83-year-old nydia galan presents for reevaluation. History of ETD with RMT in office. Her hearing has been stable. No issues since last visit. CALIN GAMBOA MD [address] [facility],[place] [address], [place], [address], [place] [facility] 03/28/2024 15:39:46 OBGyn Episode No OBEpisode recorded.
--- OUTSIDE RECORDS SUMMARY | 2024-09-12 08:49 | XMS_ITS | Clinical Summary ---
Author Organization [facility] Address [address] [place] [address] Care Team Providers Care Teacher'S Assistant Name Role Phone Mac Tohmas MD Primary Care Provider Surgical History Surgery [...] Procedure Name Priority Date/Time Associated Diagnosis Comments [facility] DEXA AXIAL SKELETON Routine 04/20/2020 11:16 AM EST Age-related osteoporosis without current pathological fracture from Last 3 Months or Most Recently Relevant to Health Maintenance Results * [facility] DEXA AXIAL SKELETON (04/20/2020 11:16 AM EST) Anatomical Region Laterality Modality Mammography 04/20/2020 10:2 7 AM EST Narrative 04/20/2020 11:16 AM EST [facility] Diagnostic Imaging Department [address] [place] [address] Patient: ??SERA KELLEY ?/Age/Sex: 1940 - 79 - F Unit#: ??[id number] ? Location/Status: ??SPDIMAM/REG CLI ? Mnemonic/Ordering Site: [...] probability of hip fracture of 3.1%. Code 29477 Dictating Physician: ??JOSELYN BECKER MD Electronically Signed by: ??JOSELYN BECKER MD Dic Date/Time: ??04/20/20 1115 Sign date/Time: ??04/20/20 1116 Procedure Note Joselyn Becker MD - 04/22/2022 [facility] Diagnostic Imaging Department [address] [place] [address] Patient: SERA KELLEY /Age/Sex: 1940 79 - F Unit#: [id number] Location/Status: SPDIMAM/REG CLI [facility] Ordering Physician: NORA JOE MD, PHD [facility] Dexa Axial Skeleton - 04/20/20 - 1054 [...] density of the femurs bilaterally is 0.775 gm/va7jlqek is 77% of that of young normals and 93% of that of age matched controls.This yields a T-score of -1.8 and a Z-score of -0.5 which is diagnostic of osteopenia. IMPRESSION: 1. Osteoporosis. 2. FRAX analysis yields a 10-year probability of major osteoporoticfracture of 12.8% and a 10-year probability of hip fracture of 3.1%. Code 26738 Dictating Physician: JOSELYN BECKER MD Electronically Signed by: JOSELYN BECKER MD Dic Date/Time: 04/20/20 1115 Sign date/Time: 04/20/20 1116 us Nora Joe MD [facility] BI PROCEDURES Final R esult from Last 3 Months or Most Recently Relevant to Health Maintenance Advance Directives Documents on File Type Date Recorded Patient Exhibits Curator Expl anation Health Care Decision (hx) 07/10/2023 AD ARNETT DIRECTIVE Health Care Decision (hx) 07/10/2023 AD ARNETT DIRECTIVE Health Care Decision (hx) 07/10/2023 AD ARNETT DIRECTIVE Care Teams Teacher'S Assistant Relationship Specialty Start Date End Date Mac Thomas MD [address] [place] [address] [address] [place] PCP - General Internal Medicine 11/03/17
[2024-09-12 09:09] LABS: MANUAL DIFF FLAG NO
[2024-09-12 09:20] LABS: Basophils Absolute Auto 0.1 X10*3/uL (0.0-0.2); Basophils Percent Auto 1.2 % (0-2); Eosinophils Absolute Auto 0.2 X10*3/uL (0.0-0.4); Eosinophils Percent Auto 3.4 % (0-4); Hematocrit 45.4 % (37.0-47.0); Hemoglobin 15.1 g/dl (12.0-16.0); Imm Gran Abs Auto 0.03 X10*3/uL (0.00-0.03); Imm Gran Pct Auto 0.6 % (0.0-0.4); Lymphocytes Absolute Auto 1.6 X10*3/uL (1.2-4.9); Lymphocytes Percent Auto 32.7 % (20-40); Mean Corpuscular HGB Conc 33.3 g/dl (31.0-35.0); Mean Corpuscular Hemoglobin 30.2 pg (27.0-33.0); Mean Corpuscular Volume 90.8 fL (80.0-98.0); Mean Platelet Volume 9.8 fL (9.4-12.3); Monocytes Absolute Auto 0.6 X10*3/uL (0.1-1.2); Monocytes Percent Auto 11.2 % (2-11); Neutrophils Absolute Auto 2.6 x10*3/uL (2.0-8.3); Neutrophils Percent Auto 50.9 % (45-73); Platelet Count 172 X10*3/uL (160-400); Red Cell Distribution Width 13.3 % (11.0-16.0)
[2024-09-12 09:57] LABS: Alanine Aminotransferase 19 U/L (0-31); Albumin Level 4.1 g/dL (3.5-5.0); Alkaline Phosphatase 112 U/L (39-117); Anion Gap 11 (12-20); Aspartate Amino Transferase 24 U/L (5-31); Bilirubin Total 0.6 mg/dL (0.0-1.0); Blood Urea Nitrogen 19 mg/dL (9-16); Calcium 9.3 mg/dL (8.4-10.2); Carbon Dioxide 29 mmol/L (22-29); Chloride 108 mmol/L (96-108); Cholesterol 127 mg/dL (<200); Estimated Glomerular Filt Rate 57; Glucose Fasting 96 mg/dL (60-99); HDL Cholesterol 38 mg/dL (>40); LDL Cholesterol Calculated 71 mg/dL (<100); Potassium 4.3 mmol/L (3.3-5.1); Sodium 144 mmol/L (135-145); Triglycerides 91 mg/dL (<150)
[2024-09-12 10:33] LABS: Appearance Urine Cloudy; Color Urine Yellow; Glucose Urine UA Negative (Negative); Leukocyte Esterase Urine Moderate (2+) (Negative); Nitrite Urine Negative (Negative); Specific Gravity - Urine 1.015 (1.005-1.025); UMIC TRIGGER UACC YES; Urine Blood Trace (Negative); Urine Ketones Negative (Negative); Urine Protein Negative (Neg-Trace)
[2024-09-12 10:36] LABS: Bacteria Urine 4+ (None Seen); Hyaline Casts Urine 0-2 /LPF (0-2); RBC Urine 0-2 /HPF (0-2); UACC Culture Trigger YES; WBC Urine 21-50 /HPF (0-5)
== END 2024-09-12 08:46 | disposition home or self-care (01) ==
LOC: HO.LAB 08:45
PROVIDERS: PCP Internal Medicine; Visit Provider Internal Medicine
DX: R30.0 Dysuria (principal); R35.0 Frequency of micturition; D64.9 Anemia, unspecified; E78.00 Pure hypercholesterolemia, unspecified
CPT/HCPCS: 36415; 80053; 80061; 81001; 85025; 87086; 87088; 87186

== ENCOUNTER 2024-09-19 12:52 | Outpatient (AMB) | payer OTHER, SELFPAY ==
--- OUTSIDE RECORDS SUMMARY | 2024-09-19 13:03 | XMS_ITS | Encounter Summary ---
Author Organization [facility] Address [address] [place] [address] Care Team Providers Care Injection Moulding Machine Operator Name Role Phone Community, Pcp Primary Care Provider Mac Colin MD Primary Care Provider Unava ilable Reason for Visit * Reason Onset Date Comments refill request 07/06/2017 Encounter Details Date Type Department Care Team Description 07/06/2017 Telephone Pulmonology - [address] [place] [address] Linda Gonzalez NP refill request Social History Tobacco Use Types Packs/Day Years Used Date Smoking Tobacco: Never Assessed Sex Assigned at Date Recorded Not on file documented as of this encounter Miscellaneous Notes * Telephone Encounter - Lidna Gonzalez NP - 07/06/2017 9:34 AM EST [...] on filedocumented in this encounter Care Teams Injection Moulding Machine Operator Relationship Specialty Start Date End Date [facility], Pcp PCP - General Internal Medicine 07/10/17 11/02/17 Mac Thomas MD PCP - General Internal Medicine 11/03/17 documented as of this encounter
--- OUTSIDE RECORDS SUMMARY | 2024-09-19 13:03 | XMS_ITS | Clinical Summary ---
Author Organization [facility] Address [address] [place] [address] Care Team Providers Care Market Development Executive Name Role Phone Mac Thomas MD Primary Care Provider [phone] Surgical History Surgery Date Site/Laterality Comments HYSTERECTOMY [...] Procedure Name Priority Date/Time Associated Diagnosis Comments [facility] DEXA AXIAL SKELETON Routine 04/20/2020 11:16 AM EST Age-related osteoporosis without current pathological fracture from Last 3 Months or Most Recently Relevant to Health Maintenance Results * [facility] DEXA AXIAL SKELETON (04/20/2020 11:16 AM EST) Anatomical Region Laterality Modality Mammography 04/20/2020 10:2 7 AM EST Narrative 04/20/2020 11:16 AM EST [facility] Diagnostic Imaging Department [address] [place] [address] Patient: ??SERA KELLEY ?/Age/Sex: 1940 - 79 - F Unit#: ??[id number] ? Location/Status: ??SPDIMAM/REG CLI ? Mnemonic/Ordering Site: [...] probability of hip fracture of 3.1%. Code 01272 Dictating Physician: ??JOSELYN BECKER MD Electronically Signed by: ??JOSELYN BECKER MD Dic Date/Time: ??04/20/20 1115 Sign date/Time: ??04/20/20 1116 Procedure Note Joselyn Becker MD - 04/22/2022 [facility] Diagnostic Imaging Department [address] [place] [address] Patient: SERA KELLEY /Age/Sex: 1940 79 - F Unit#: [id number] Location/Status: SPDIMAM/REG CLI Mnemonic[facility] Ordering Physician: NORA JOE MD, PHD [facility] Dexa Axial Skeleton - 04/20/20 - [...] density of the femurs bilaterally is 0.775 gm/qg7wupjo is 77% of that of young normals and 93% of that of age matched controls.This yields a T-score of -1.8 and a Z-score of -0.5 which is diagnostic of osteopenia. IMPRESSION: 1. Osteoporosis. 2. FRAX analysis yields a 10-year probability of major osteoporoticfracture of 12.8% and a 10-year probability of hip fracture of 3.1%. Code 11044 Dictating Physician: JOSELYN BECKER MD Electronically Signed by: JOSELYN BECKER MD Dic Date/Time: 04/20/20 1115 Sign date/Time: 04/20/20 1116 us Nora Joe MD [facility] BI PROCEDURES Final R esult from Last 3 Months or Most Recently Relevant to Health Maintenance Advance Directives Documents on File Type Date Recorded Patient Welcome Center Agent Expl anation Health Care Decision (hx) 07/10/2023 AD ARNETT DIRECTIVE Health Care Decision (hx) 07/10/2023 AD ARNETT DIRECTIVE Health Care Decision (hx) 07/10/2023 AD ARNETT DIRECTIVE Care Teams Market Development Executive Relationship Specialty Start Date End Date Mac Thomas MD [address] [place] [address] [address] [place] PCP - General Internal Medicine 11/03/17
--- OUTSIDE RECORDS SUMMARY | 2024-09-19 13:04 | XMS_ITS | Data Portability ---
Author Organization [place] - [facility], Allergy Address [address] [place] [id number] Care Team Providers Care Detention Deputy Name Role Phone JAE OWEN Primary Care [...] Organization Details Recorded Time Bilateral tympanosc lerosis [id number] Active 2021 Tympanosc lerosis, bilateral ; Note: Date Diagnosed : 06/04/2021 11:07 AM (H74.03) Not Available Count includes the [facility] 4 02:50:05 Sensorine ural hearing loss of bilateral ears 025109570 Active 2019 Sensorine ural hearing loss, bilateral ; Note: Date Diagnosed : 12/13/2019 12:07 PM (H90.3) Not Available Count includes the [facility] 4 02:50:06 Acute serous otitis media of right ear [id number] 80952 Active 2023 Acute serous otitis media, right ear; Note: Date Diagnosed : 08/04/2023 3:42 PM (H65.01) CALIN GAMBOA MD [address] [place] [address], [facility] JULES kelly, [phone] , [facility] - [facility] 4 15:20:41 Mixed conductiv e and sensorine ural hearing loss, bilateral 994269461 Active 2023 Mixed conductiv e and sensorine ural hearing loss, bilateral ; Note: Date Diagnosed : 08/04/2023 3:42 PM (H90.6) Not Available Count includes the [facility] 02:50:06 Chronic serous otitis media of right ear 445427180 Active 2023 CALIN GAMBOA MD [address] [facility],[place] [address], [place], [address] , [facility] 15:20:59 Problem Notes None recorded. Procedures Surgical History Date Name Laterality Status Provider Name and Address Organization Details Recorded Time 09/30/2023 Comp Audio with Tymps - 19055 & 25062 completed Crys CAPUTO [address] [facility],[place] [address], [place], [address], [facility] 09/30/2023 15:19:30 Imaging Results Imaging Date [...] Name and Address Organization Details Recorded Time 680182 Bactrim medicatio n other Not available Not available 09/15/2023 88886 9 RxNorm React ion: unkno wn, unspe cifie d;; Not Available Count includes the [facility] 4 01:07:59 232783 Substance with sulfonami de structure and antibacte rial mechanism of action (substanc e) medicatio n other Not available Not available 09/15/2023 99441 8003 SNOMED React ion: unkno wn, unspe cifie d;; Not Available Count includes the [facility] 4 01:08:03 Medications Name Sig Start [...] mg tablet 08/30 completed Medicati on ID: 075408 B rand Name: famotidi ne Send Method: [...] tablet,de layed release active Medicati on ID: 326263 B rand Name: aspirin Send Method: E-Prescr ibed Sub s Allowed: subs OK Speci al Instruct ion: TAKE 1 TABLET BY MOUTH TWICE A DAY Medi cationGe nericNam e: aspirin Not Available Not Available Not Available acetamino phen 500 mg tablet active Medicati on ID: 701456 B rand Name: acetamin ophen Se nd [...] (2,000 unit) capsule active Medicati on ID: 372135 B rand Name: cholecal ciferol (vitamin D3) [...] Updated DateTime 01/28/2024 162.56 cm 32.6 kg/m2 84152.55 g Bethany Smart [place] - [facility] 01/28/2024 09:52:43 Social History None recorded. [...] Diagnosis Note 1893 YEISON NOLAN PA-C [facility] [address] [place] [address] 09/30/2023 14:46:44 09/30/2023 15:55:55 Sensorineural hearing loss of bilateral ears [id number] H90.3 Audiologic al evaluation results:Ri ght ear:{{Norm [...] Co uld not maintain a hermetic seal}} [id number] CALIN GAMBOA MD [facility] [address] [address] 01/28/2024 09:43:43 01/28/2024 09:59:40 Chronic serous otitis media of right ear 681127260 H65.21 [id number] YEISON NOLAN PA-C [facility] [address] [address] 03/28/2024 13:18:17 03/29/2024 07:06:27 Sensorineural hearing loss of bilateral ears 545181773 H90.3 Chronic se ana rosa otitis media of right ear 692675620 H65.21 Health Concerns Section Related Observation LastModified by Organization Detai ls LastModified Time None Recorded Concern Status LastModified by Organization Details LastModified Time None Recorded Advance Directives Directive None Recorded Payers Insurance Date Sequence Insurance Name Policy Number Policy Wong Covered Member ID Wong Member ID Guarantor Name 03/28/[address] [facility] (MEDICARE REPLACEMENT/ ADVANTAGE - HMO) Marisa Lainez [id number] Marisa Lainez 01/28/2024 2 [place] [facility] Marisa Lainez [id number] Marisa Lainez 03/11/2024 2 [place] [facility] Marisa Gaona Migel [id number] Marisa Gaona Migel Notes Date Note Type Note Provider Name and Address Organization Details Recorded Time 09/30/2023 text/html 82-year-old nydia galan presents following right tube placement with Dr. Jensen. Her hearing has improved significantly following surgery. CALIN GAMBOA MD [address] [facility],[place] [address], [place], [address], [place] - [facility] 09/30/2023 16:38:27 01/28/2024 text/html tube check 4 R myringotomy tube placed, [place]09/30/23 post tube audio showed improvement feels her hearing fluctuatesno otorrhea CALIN GAMBOA MD [address] [facility],[place] [address], [place], [address], [facility] - [facility] 01/28/2024 09:58:40 03/28/2024 text/html 83-year-old nydia galan presents for reevaluation. History of ETD with RMT in office. Her hearing has been stable. No issues since last visit. CALIN GAMBOA MD [address] [facility],[place] [address], [place], [address], [place] - [facility] 03/28/2024 15:39:46 OBGyn Episode No OBEpisode recorded.
--- OUTSIDE RECORDS SUMMARY | 2024-09-19 13:04 | XMS_ITS | Clinical Summary ---
Author Organization [facility] Address [address] [place] [address] Care Team Providers Care [employer] Sequestration Plant Manager Name Role Phone Mac Thomas MD Primary Care Provider [phone] Social History Tobacco Use Types Packs/Day Years [...] age to complete this topic Care Teams [employer] Sequestration Plant Manager Relationship Specialty Start Date End Date Mac Thomas MD [address] [place] [address] [place] [address] PCP - General Internal Medicine 04/17/20
--- NOTE | 2024-09-19 13:06 | A.OFFPC_ITS ---
Vital Signs 09/19/24 13:07 Height 5 ft 5 in Weight 187 lb 4 oz BMI 31.2 BP 124/80 Blood Pressure Location Lt brachial Position Sitting Pulse 63 Pulse Source Pulse Oximeter Pulse Oximetry (%) 95 Oxygen Delivery Method Room Air Intake Visit Reasons: hyperlipidemia, OA Resident Care Technician Required: No Accompanied by: Self / Same As Patient Allergies nitrofurantoin [From MACRODANTIN] Allergy (Severe, Verified 09/19/24 13:21) Anaphylaxis Sulfa (Sulfonamide Antibiotics) [SULFA (SULFONAMIDE ANTIBIOTICS)] Allergy (Severe, Verified 09/19/24 13:21) ANAPHYLAXIS sulfamethoxazole [From BACTRIM] Allergy (Severe, Verified 09/19/24 13:21) ANAPHYLAXIS trimethoprim [From BACTRIM] Allergy (Severe, Verified 09/19/24 13:21) ANAPHYLAXIS Medication List - Last Reconciled 09/19/24 by Mac Thomas MD alprazolam 1 mg PO TID PRN 30 days atorvastatin 40 mg PO BEDTIME 90 days cholecalciferol (vitamin D3) 50 mcg PO DAILY 90 days fosfomycin tromethamine 3 grams PO Q3D 9 days pantoprazole 40 mg PO BEDTIME terazosin 1 mg PO BEDTIME 90 days tizanidine 4 mg PO Q8H PRN 30 days Tobacco use date assessed: 09/19/24 Fall risk assessment: 2 + Falls in past year Last assessed Fall Risk: 09/19/24 Dental Screening Dental Screen Date: 09/19/24 Did you have a dental visit in the last 12 months?: Yes Did you have a dental problem in the last 6 months where you did not have access to dental care?: No Was dental information given to patient?: Patient has dentist HPI hyperlipidemia, OA HPI Details Patient comes in today for her follow up visit States that she feels okay She denies any headaches or dizziness Denies any chest pains, no increased SOB No nausea/vomiting, no abdominal pain No change in bowel habits noted She still has chronic left knee pain but states that the pain is mostly minimal and she feels that this has improved a lot with physical therapy earlier this year Adds that she still has on and off pain over her lower back but states that this has been mostly manageable She is also still experiencing frequent tightness, pain and discomfort in her left ankle, which she states she has been dealing with for a few years now Recalls that her left ankle issues started years ago when she felt a snao in her ankle while walking - states that she was taking Cipro at the time and when she was seen then for evaluation, was also sent for US to r/o a blood clot, which came out negative She had her follow up labs done last week - to discuss her results Patient also brought in a copy today of her recent QuantaFlo on her lower extremities as tested by her health insurance company - her test showed normal results in the right leg and mild (1.31) in the left leg PFSH Medical History History of skin cancer Hepatitis COPD (chronic obstructive pulmonary disease) Seasonal allergies Chronic cough Cervical disc disease Left knee pain Pain of right shoulder joint on movement Abnormal SPEP Vitamin D deficiency Urolithiasis Osteoporosis GERD without esophagitis Multilevel degenerative disc disease Obesity (BMI 30-39.9) Anxiety Insomnia GERD (gastroesophageal reflux disease) Left lumbosacral radiculopathy Degenerative lumbar spinal stenosis Pure hypercholesterolemia Surgical History Hx of tonsillectomy Hx of left cataract extraction History of surgery on right wrist History of endoscopy History of colonoscopy Hx of decompressive lumbar laminectomy (~05/25/20) Status post total abdominal hysterectomy and bilateral salpingo-oophorectomy (CATRACHITO-BSO) History of right cataract extraction (~12/2016) History of cystoscopy (~05/24/18) Family History Father No problems noted. Mother Ovarian cancer Daughter Myocardial infarction, Onset Age: 46 Stroke Social History Household Members: Children Housing: House Are you a primary care taker to a significant other at home: No Do you presently have visiting nurse or other home services: No Alcohol intake: former Patient Tobacco Use Status: Never used Tobacco e-Cigarette/Vaping Use: Never Used Second Hand Smoke Exposure: Yes service: No Current occupational status: retired and disabled Cognitive needs: No Hearing needs: No Vision needs: Yes (reading glasses) Questionnaire PHQ-9 Over the last 2 weeks, how often have you been bothered by any of the following problems? 1. Little interest or pleasure in doing things: several days 2. Feeling down, depressed, or hopeless: not at all 3. Trouble falling or staying asleep, or sleeping too much: not at all 4. Feeling tired or having little energy: not at all 5. Poor appetite or overeating: not at all 6. Feeling bad about yourself - or that you are a failure or have let yourself or your family down: not at all 7. Trouble concentrating on things, such as reading the newspaper or watching television: not at all 8. Moving or speaking so slowly that other people could have noticed. Or the opposite - being so fidgety or restless that you have been moving around a lot more than usual: not at all 9. Thoughts that you would be better off or of hurting yourself in some way: not at all Total score: 1 Depression Screening Interpretation: Negative Depression Screening Done: Yes 56539 - PHQ-9 Billing: Yes Source: Developed by Drs. Sim Alcala, Tamy Irby, Jean Marie Schroeder and colleagues, with an educational dionicio from [employer]. Thrive Questionnaire Date Thrive assessed: 09/19/24 I am a: Patient What is your living situation today?: I have a steady place to live Within the past 12 months, did the food you bought not last and you didn't have the money to get more?: Never true Within the past 12 months, did you worry whether your food would run out before you got money to buy more?: Never true Do you have trouble paying for medicines?: No Do you have trouble getting transportation to medical appointments?: No Do you have trouble paying your heating and electricity bill?: No Do you have trouble taking care of your child, family member or friend?: No Do you have trouble with day-to-day activities such as bathing, preparing meals, shopping, managing finances, etc.?: No Are you currently unemployed and looking for a job?: No Are you interested in more education?: No Please select the resources that you would like help with: None Currently or been in a relationship where the following occur: No concerns reported THRIVE Score: 0 AUDIT C Alcohol Use Questionnaire (AUDIT-C) 1. How often do you have a drink containing alcohol?: Never 3. How often do you have six or more drinks on one occasion?: Never Total Score: 0 Score Reviewed/Action Taken: Yes SHIRLEY-7 AMB Questionnaire SHIRLEY-7 Date SHIRLEY - 7 assessed: 09/19/24 Feeling nervous, anxious, or on edge: 0 = Not at all Not being able to stop or control worryin = Not at all Worrying too much about different things: 0 = Not at all Trouble relaxin = Not at all Being so restless that it is hard to sit still: 0 = Not at all Becoming easily annoyed or irritable: 0 = Not at all Feeling afraid as if something awful might happen: 0 = Not at all Total SHIRLEY-7 score (0-4 normal; 5-9 mild; 10-14 moderate; 15-21 severe): 0 Source: Developed by Drs. Sim Alcala, Tamy Irby, Jean Marie Schroeder and colleagues, with an educational dionicio from [employer]. Review of Systems Const Denies chills, Denies fatigue, Denies fever(s) and Denies headache(s) ENT Denies dysphagia, Denies dizziness, Denies otalgia, Denies headache(s), Reports neck pain (chronic but manageable), Denies odynophagia and Denies sore throat Card Denies chest pain, Denies palpitations and Reports dyspnea on exertion (mild) Resp Denies chest congestion, Denies cough and Reports dyspnea on exertion (mild) GI Denies abdominal pain, Denies constipation, Denies dysphagia, Denies heartburn, Denies diarrhea, Denies nausea, Denies odynophagia and Denies vomiting Denies hematuria, Denies difficulty voiding, Denies nocturia, Denies dysuria, Denies urinary incontinence and Denies urinary urgency Musc Reports back pain (chronic but mostly manageable), Reports arthralgias (left ankle; previous left knee pain has improved with PT) and Reports neck pain (chronic but manageable) Skin/Breast Denies rash Neuro Denies dizziness and Denies headache(s) Psych Denies anxiety Endo Denies fatigue and Denies palpitations Physical exam (Primary Care) Vital Signs: Oxygen Delivery Method Room Air 09/19/24 13:07 BMI result Body Mass Index 31.2 Tobacco/Smoking Status: Tobacco use Status Tobacco use date assessed 05/18/24 06/27/24 08:57 Patient Tobacco Use Status Never used Tobacco 06/27/24 08:57 e-Cigarette/Vaping Use Never Used 06/27/24 08:57 Depression Screening Interpretation: Negative Thrive Assessment: Date of Thrive Assessment Date Thrive assessed 05/18/24 06/27/24 08:57 Currently or been in a relationship where the following occur: No concerns reported Const General: no acute distress and alert HENMT Ears: TM's normal bilaterally and EAC's normal Throat: Yes posterior oropharynx normal and Yes tonsils normal (no TP congestion noted) Neck Neck: Yes supple and No lymphadenopathy Thyroid: Thyroid normal Resp Auscultation: clear to auscultation bilaterally, no rales and no wheezes Cardio Rate: regular rate Rhythm: regular rhythm Heart sounds: no murmurs GI Palpation (GI): Soft to palpation and nontender Auscultation: normal bowel sounds Back/Spine/Pelvis Cervical Spine: Cervical spine tenderness Thoracic/Lumbar Spine: paraspinal muscle tenderness (mild) on the left in the upper thoracic, in the mid lumbar and in the lower lumbar and lumbar spinal tenderness Skin Rashes: no rashes Extrem General: Yes no clubbing, cyanosis or edema Left lower extremity: knee Details: tenderness (minimal) and ankle Details: tenderness (mild) Location: anteromedially and posteriorly; no swelling Results Reviewed Results Reviewed: Laboratory Tests 09/12/24 09/12/24 09:00 10:30 WBC 5.0 Hgb 15.1 Hct 45.4 Plt Count 172 Sodium 144 Potassium 4.3 Creatinine 0.94 Estimated GFR 57 Fasting Glucose 96 Calcium 9.3 AST 24 ALT 19 Triglycerides 91 Cholesterol 127 LDL Cholesterol, Calc 71 HDL Cholesterol 38 L Urine pH 7.0 Ur Specific [place] 1.015 Urine Protein Negative Urine Glucose (UA) Negative Urine Blood Trace H Urine Nitrite Negative Ur Leukocyte Esterase Moderate (2+) H Coding Level of Care Code Est Pt Level 4 (45698) Complex EM visit Add On G2211 Diagnoses Chronic pain of left ankle M25.572; G89.29 Chronicity: chronic Chronic obstructive pulmonary disease with acute exacerbation J44.1 COPD type: COPD with acute exacerbation Pure hypercholesterolemia E78.00 Degenerative lumbar spinal stenosis M48.061 Cervical disc disease M50.90 Closed nondisplaced fracture of left patella, unspecified fracture morphology, sequela S82.002S Encounter type: sequela Fracture type: closed Fracture morphology: unspecified fracture morphology Vitamin D deficiency E55.9 Osteoporosis without current pathological fracture, unspecified osteoporosis type M81.0 Osteoporosis type: unspecified Presence of current pathological fracture: without current pathological fracture Elevated LFTs R79.89 Closed fracture of right wrist, sequela S62.101S Encounter type: sequela Fracture type: closed Calculus of kidney N20.0 Urinary calculus location: kidney GERD without esophagitis K21.9 Squamous cell carcinoma of skin of left cheek C44.329 Primary insomnia F51.01 Insomnia type: primary Anxiety F41.9 Obesity (BMI 30-39.9) E66.9 Additional Codes PHQ-9 - 12796 - PHQ-9 Billing: Yes ([id number]) Assessment & Plan Assessment & Plan (1) Pain in left ankle: Code(s): M25.572 - Pain in left ankle and joints of left foot Category: Medical Qualifiers: Chronicity: chronic Qualified Code(s): M25.572 - Pain in left ankle and joints of left foot; G89.29 - Other chronic pain Plan: Will send patient for updated x-rays of the left ankle (she has not had any imaging done on the left knee for years) for further evaluation Will also refer her to physical therapy for further evaluation and management (2) COPD (chronic obstructive pulmonary disease): Code(s): J44.9 - Chronic obstructive pulmonary disease, unspecified Category: Medical Qualifiers: COPD type: COPD with acute exacerbation Qualified Code(s): J44.1 - Chronic obstructive pulmonary disease with (acute) exacerbation Plan: Controlled; patient has reportedly been doing well on her current inhalers Continue Trelegy Ellipta 200-62.5-25 mcg [address] done in August 2022 revealed (+) borderline/mild bronchiectasis, with some scarring or subsegmental atelectasis in the left lower lobe Follow up with pulmonary as scheduled (3) Pure hypercholesterolemia: Code(s): E78.00 - Pure hypercholesterolemia, unspecified Category: Medical Plan: Results of her labs done last week reviewed and discussed with patient Reinforced low cholesterol diet Continue Atorvastatin 40 mg QD Will recheck her labs and fasting lipids in 6 months for follow up (4) Degenerative lumbar spinal stenosis: Comment: S/P bilateral L4-L5 laminotomy, partial facetectomy and foraminotomy through left-sided approach with a microscope by Dr. Kramer on 05/25/2020 MRI previously showed (+) multilevel degenerative disc changes with moderate to severe central stenosis at L4-L5 as well as a grade 1 anterolisthesis of L4 on L5, with moderate to severe bilateral facet arthropathy at L3-L4 and L5-S1 and also a chronic compression fracture of the body of L1 Code(s): M48.061 - Spinal stenosis, lumbar region without neurogenic claudication Category: Medical Plan: Patient reports (+) significant relief of her back pain since her surgery in May 2020 Repeat lumbar spine x-rays done back in December 2023 revealed no acute findings - (+) stable 30% compression fracture at L1 and stable moderate degenerative changes in the lumbar spine States that physical therapy recently has also helped a lot with her lower back Reinforced activity and weight lifting restrictions Continue Tizanidine 4 mg 2 to 3 times a day as needed and on Tramadol 50 mg TID PRN (5) Cervical disc disease: Code(s): M50.90 - Cervical disc disorder, unspecified, unspecified cervical region Category: Medical Plan: Cervical spine MRI done in October 2020 revealed (+) cervical spinal canal developmental narrowing exacerbated by cervical spine degenerative disease with stenosis and overall mild cervical spine cord volume loss Patient states that her neck symptoms have been mostly mild and manageable over the past couple of years Follow up with neurosurgery as scheduled (6) Nondisplaced fracture of left patella: Onset Date: ~01/16/22 Comment: involving the left lateral tibial plateau - did not require surgery Code(s): S82.002A - Unspecified fracture of left patella, initial encounter for closed fracture Category: Medical Qualifiers: Encounter type: sequela Fracture type: closed Fracture morphology: unspecified fracture morphology Qualified Code(s): S82.002S - Unspecified fracture of left patella, sequela Plan: Corrected/resolved; patient did not require surgical intervention S/P physical therapy again recently, with significant improvement of her knee pain but her symptoms have gotten worse again over time Repeat left knee x-rays done a few months ago showed only (+) moderate joint effusion with no other abnormalities Follow up with orthopedics (Dr. Diaz) as scheduled (7) Vitamin D deficiency: Code(s): E55.9 - Vitamin D deficiency, unspecified Category: Medical Plan: Continue Vitamin D supplement - is on both 2000 units daily and 64296 units once a week Follow up with endocrinology as scheduled (8) Osteoporosis: Code(s): M81.0 - Age-related osteoporosis without current pathological fracture Category: Medical Qualifiers: Osteoporosis type: unspecified Presence of current pathological fracture: without current pathological fracture Qualified Code(s): M81.0 - Age- related osteoporosis without current pathological fracture Plan: Her last BMD was reportedly done at [facility] a couple of years ago; she is due for a repeat BMD for follow up and is encouraged to get this scheduled KAMLESH (patient was apparently contacted about this recently and she told them that she did not want to get this done at this time) Continue oral Calcium and Vitamin D supplements daily Endocrinology is considering starting her on antiresorptive Tx once her Vitamin D level is normal or near normal Follow up with endocrinology as scheduled (9) Elevated LFTs: Code(s): R79.89 - Other specified abnormal findings of blood chemistry Category: Medical Plan: Resolved - her LFTs have remained normal on her recent labs; they were most likely related to her weight Patient is again encouraged to continue to try lose weight and is again reminded to avoid any Rx with Acetaminophen as much as possible and to completely abstain from ETOH (10) Right wrist fracture: Code(s): S62.101A - Fracture of unspecified carpal bone, right wrist, initial encounter for closed fracture Category: Medical Qualifiers: Encounter type: sequela Fracture type: closed Qualified Code(s): S62.101S - Fracture of unspecified carpal bone, right wrist, sequela Plan: Sustained when she fell back in July 2023 while playing pickleball S/P surgical correction and physical therapy States that she still has some pain and discomfort in her right wrist at times b ut her ROM has improved significantly and she has no significant limitations with her right wrist (11) Urolithiasis: Code(s): N20.9 - Urinary calculus, unspecified Category: Medical Qualifiers: Urinary calculus location: kidney Qualified Code(s): N20.0 - Calculus of kidney Plan: She currently has no acute symptoms suggestive of urinary brendon calculi She is encouraged to continue to increase her oral fluids intake Continue Terazosin 1 mg Q HS Follow up with urology as scheduled (12) GERD without esophagitis: Code(s): K21.9 - Gastro-esophageal reflux disease without esophagitis Category: Medical Plan: Dietary restrictions reinforced Continue Pantoprazole 40 mg QD (13) Squamous cell carcinoma of skin of left cheek: Code(s): C44.329 - Squamous cell carcinoma of skin of other parts of face Category: Medical Plan: S/P surgical excision by [facility] back on 09/08/2023 Follow up with dermatology as scheduled for continuing follow up (14) Insomnia: Code(s): G47.00 - Insomnia, unspecified Category: Medical Qualifiers: Insomnia type: primary Qualified Code(s): F51.01 - Primary insomnia Plan: Sleep hygiene reinforced (15) Anxiety: Code(s): F41.9 - Anxiety disorder, unspecified Category: Medical Plan: Continue Alprazolam 1 mg TID PRN (16) Obesity (BMI 30-39.9): Code(s): E66.9 - Obesity, unspecified Category: Medical Plan: Reinforced diet; exercise and weight loss are unrealistic expectations given patient's multiple physical issues and comorbidities Plan Follow up in 6 months Orders: Orders XR ankle LT min 3V Today G89.29 - Other chronic pain, M25.572 - Pain in left ankle and joints of left foot PT Evaluation and Treatment Today M25.572 - Pain in left ankle and joints of left foot Comprehensive [place]. Panel Fast 6 Months E78.00 - Pure hypercholesterolemia, unspecified Lipid Panel 6 Months E78.00 - Pure hypercholesterolemia, unspecified Complete Blood Count Auto Diff 6 Months D64.9 - Anemia, unspecified TSH reflex Free T4 6 Months E78.00 - Pure hypercholesterolemia, unspecified UA CC w/rflx Micro + Cult 6 Months R30.0 - Dysuria Vitamin D 25-OH Total 6 Months E55.9 - Vitamin D deficiency, unspecified Vitamin B12 and Folate 6 Months E53.8 - Deficiency of other specified B group vitamins Hemoglobin A1c 6 Months R73.9 - Hyperglycemia, unspecified
[2024-09-19 13:07] VITALS: BP 124/80; PULSE 63; O2SAT 95; BMI 31.2
== END 2024-09-19 13:40 | disposition home or self-care (01) ==
LOC: HO.HMCH 12:53
PROVIDERS: PCP Internal Medicine; Visit Provider Internal Medicine
DX: M25.572 Pain in left ankle and joints of left foot (principal); G89.29 Other chronic pain; J44.1 Chronic obstructive pulmonary disease with (acute) exacerbation; E78.00 Pure hypercholesterolemia, unspecified; M48.061 Spinal stenosis, lumbar region without neurogenic claudication; M50.90 Cervical disc disorder, unspecified, unspecified cervical region; S82.002S Unspecified fracture of left patella, sequela; E55.9 Vitamin D deficiency, unspecified; M81.0 Age-related osteoporosis without current pathological fracture; R79.89 Other specified abnormal findings of blood chemistry; S62.101S Fracture of unspecified carpal bone, right wrist, sequela; N20.0 Calculus of kidney

== ENCOUNTER 2024-09-19 12:52 | Outpatient (REF) | payer OTHER, SELFPAY ==
--- NOTE | ~2024-09-19 | XR_ITS ---
EXAMINATION: XR ANKLE 3 OR MORE VIEWS LEFT HISTORY: M25.572 - Pain in left ankle and joints of left foot COMPARISON: Comparison is made with the prior examination dated 06/25/2018. FINDINGS: Three views of the left ankle are submitted. The bones are osteopenic. Again seen is a well-corticated osseous density adjacent to the tip of the distal fibula which is likely the result of old trauma. No acute fracture or dislocation is seen. The joint spaces are preserved. There are calcaneal spurs at the plantar aspect and at the insertion of the Achilles tendon.. The soft tissues are unremarkable. XR/XR ankle LT min 3V IMPRESSION: Osteopenia. Calcaneal spurs as described. No acute abnormality is identified. Electronically signed by: Sim Guerra MD 09/19/2024 02:12 PM EDT
--- OUTSIDE RECORDS SUMMARY | 2024-09-19 13:53 | XMS_ITS | Clinical Summary ---
Author Organization [facility] Address [id number] [place] [id number] Care Team Providers Care Java Security Architect Name Role Phone Mac Thomas MD Primary [...] Procedure Name Priority Date/Time Associated Diagnosis Comments [facility] DEXA AXIAL SKELETON Routine 04/20/2020 11:16 AM EST Age-related osteoporosis without current pathological fracture from Last 3 Months or Most Recently Relevant to Health Maintenance Results * [facility] DEXA AXIAL SKELETON (04/20/2020 11:16 AM EST) Anatomical Region Laterality Modality Mammography 04/20/2020 10:2 7 AM EST Narrative 04/20/2020 11:16 AM EST [facility] Diagnostic Imaging Department [address] [place] [address] Patient: ??SERA KELLEY ?/Age/Sex: 1940 - 79 - F Unit#: ??[id number] ? Location/Status: ??SPDIMAM/REG CLI ? Mnemonic/Ordering Site: [...] probability of hip fracture of 3.1%. Code 94051 Dictating Physician: ??JOSELYN BECKER MD Electronically Signed by: ??JOSELYN BECKER MD Dic Date/Time: ??04/20/20 1115 Sign date/Time: ??04/20/20 1116 Procedure Note Joselyn Becker MD - 04/22/2022 [facility] Diagnostic Imaging Department [address] [place] [id number] Patient: SERA KELLEY /Age/Sex: 1940 79 - F Unit#: [id number] Location/Status: SPDIMAM/REG CLI [facility] Ordering Physician: NORA JOE MD, PHD [facility] Dexa Axial Skeleton - 04/20/20 - [...] density of the femurs bilaterally is 0.775 gm/sn2rznhk is 77% of that of young normals and 93% of that of age matched controls.This yields a T-score of -1.8 and a Z-score of -0.5 which is diagnostic of osteopenia. IMPRESSION: 1. Osteoporosis. 2. FRAX analysis yields a 10-year probability of major osteoporoticfracture of 12.8% and a 10-year probability of hip fracture of 3.1%. Code 55452 Dictating Physician: JOSELYN BECKER MD Electronically Signed by: JOSELYN BECKER MD Dic Date/Time: 04/20/20 1115 Sign date/Time: 04/20/20 1116 us Nora Joe MD [facility] BI PROCEDURES Final R esult from Last 3 Months or Most Recently Relevant to Health Maintenance Advance Directives Documents on File Type Date Recorded Patient Media Professional Expl anation Health Care Decision (hx) 07/10/2023 AD ARNETT DIRECTIVE Health Care Decision (hx) 07/10/2023 AD ARNETT DIRECTIVE Health Care Decision (hx) 07/10/2023 AD ARNETT DIRECTIVE Care Teams Java Security Architect Relationship Specialty Start Date End Date Mac Thomas MD [address] [place] [address] [address] [place] PCP - General Internal Medicine 11/03/17
--- OUTSIDE RECORDS SUMMARY | 2024-09-19 13:53 | XMS_ITS | Clinical Summary ---
Author Organization [facility] Address [address] [place] [address] Care Team Providers Care Reach Truck Operator Name Role Phone Mac Thomas MD Primary Care Provider [phone] Social History Tobacco Use Types Packs/Day Years [...] age to complete this topic Care Teams Reach Truck Operator Relationship Specialty Start Date End Date Mac Thomas MD [address] [place] [address] [place] [address] PCP - General Internal Medicine 04/17/20
== END 2024-09-19 12:53 | disposition home or self-care (01) ==
LOC: HO.XRAY 12:52
PROVIDERS: PCP Internal Medicine; Visit Provider Internal Medicine
DX: M25.572 Pain in left ankle and joints of left foot (principal); G89.29 Other chronic pain; J44.1 Chronic obstructive pulmonary disease with (acute) exacerbation; E78.00 Pure hypercholesterolemia, unspecified; M48.061 Spinal stenosis, lumbar region without neurogenic claudication; M50.90 Cervical disc disorder, unspecified, unspecified cervical region; S82.002S Unspecified fracture of left patella, sequela; E55.9 Vitamin D deficiency, unspecified; M81.0 Age-related osteoporosis without current pathological fracture; R79.89 Other specified abnormal findings of blood chemistry; S62.101S Fracture of unspecified carpal bone, right wrist, sequela; N20.0 Calculus of kidney; K21.9 Gastro-esophageal reflux disease without esophagitis; C44.329 Squamous cell carcinoma of skin of other parts of face; F41.9 Anxiety disorder, unspecified; E66.9 Obesity, unspecified; Z68.31 Body mass index [BMI] 31.0-31.9, adult; Z79.899 Other long term (current) drug therapy
CPT/HCPCS: 73610; 96127; 99212

== ENCOUNTER → 2024-09-19 13:53 | Outpatient (BNV) | payer OTHER, SELFPAY | PROVIDERS: PCP Internal Medicine; Visit Provider Radiology Diagnostic Radiology | DX: M85.872 Other specified disorders of bone density and structure, left ankle and foot (principal); M77.32 Calcaneal spur, left foot | CPT/HCPCS: 73610 ==

== ENCOUNTER 2024-10-20 11:18 | Outpatient (REF) | payer OTHER, SELFPAY | END 2024-10-20 11:19 | disposition home or self-care (01) | LOC: HO.LAB 11:18 | PROVIDERS: PCP Internal Medicine; Visit Provider Urology | DX: N30.90 Cystitis, unspecified without hematuria (principal) | CPT/HCPCS: 51798; 81003; 87086; 87088; 87186; 99212 ==

== ENCOUNTER 2024-10-20 11:18 | Outpatient (AMB) | payer OTHER, SELFPAY ==
--- NOTE | 2024-10-20 11:18 | A.OFFVIS_ITS ---
Intake Visit Reasons: 3 1/2 M f/u- UA/PVR Intake Note: Pt presents to the office today for a 3.5 month follow up/UA/PVR Urology Meds:Terazosin Blood thinners:none PVR:51ml Allergies nitrofurantoin (From MACRODANTIN) Allergy (Severe, Verified 10/20/24 11:19) Anaphylaxis Sulfa (Sulfonamide Antibiotics) (SULFA (SULFONAMIDE ANTIBIOTICS)) Allergy (Severe, Verified 10/20/24 11:19) ANAPHYLAXIS sulfamethoxazole (From BACTRIM) Allergy (Severe, Verified 10/20/24 11:19) ANAPHYLAXIS trimethoprim (From BACTRIM) Allergy (Severe, Verified 10/20/24 11:19) ANAPHYLAXIS Medication List - Last Reconciled 10/20/24 by Andrew Hollis MD alprazolam 1 mg PO TID PRN 30 days atorvastatin 40 mg PO BEDTIME 90 days cholecalciferol (vitamin D3) 50 mcg PO DAILY 90 days pantoprazole 40 mg PO BEDTIME terazosin 1 mg PO BEDTIME 90 days tizanidine 4 mg PO Q8H PRN 30 days HPI Comments Details: 10/20/24-- History of Present Illness - The patient is an 84-year-old female presenting for follow-up of recurrent urinary tract infections. - She has a history of recurrent urinary tract infections, with a previous office cystoscopy on 07/15/24 revealing mild inflammatory changes consistent with cystitis. - She was treated with antibiotics following these findings. - Current urinalysis indicates trace blood and 1+ leukocytes. - Bladder scan shows a post-void residual of 51 mL. - The patient reports no urinary symptoms such as burning, leakage, or discomfort since her last visit. - She completed her antibiotic course in July and has not used antibiotics recently. Urinary Symptoms Review - No urinary symptoms such as burning, leakage, or discomfort reported since the last visit. Results - Urinalysis: Trace blood, 1+ leukocytes - Bladder scan: Post-void residual of 51 mL Discussion Notes The urinalysis today does not appear concerning, but I will send it out for culture to ensure there is no infection. Since you have completed your antibiotics and are not experiencing any symptoms, we can schedule a follow-up in about nine months. However, if you experience any symptoms of a urinary tract infection, please contact our nurse immediately. 07/15/24--Here for office cystoscopy. 83-year-old female presenting with persistent urinary tract infections. She has a history of recurrent infections leading to chronic urinary discomfort. Previously, she was prescribed cefuroxime 500 mg twice daily, resulting in some symptomatic relief. However, episodes of discomfort persist. Results - Tests and Diagnostics: - Cystoscopy: No suspicious bladder lesions; erythematous changes consistent with cystitis observed. - Labs: - Catheterized urine specimen: Trace blood and leukocytes with no signs of infection. 06/24/24--Marisa is a 83-year-old female who presents today to the office for FU recurrent urinary tract infections. The patient was last seen in the office 04/13/2023 and did not come back for follow-up. She recently had a urine culture on 06/14/2024 which returned positive for Citrobacter species greater than 100,000, she states she has been treated with antibiotics. She has complained of back pain and had a renal ultrasound done today. I reviewed the preliminary reading kidneys are within normal limits no hydronephrosis or kidney stones. I will place her on Ceftin 500 mg twice a day for 2 weeks and have her follow-up for office cystoscopy. 04/13/23--Will not proceed with Cysto today as urine is Nitrite positive She presents today for FU recurrent urinary tract infections. PMH - COPD, Multi-level DDD, Anxiety, s/p total hysterectomy. h/o kidney stones. She denies any urinary leakage. She denies constipation or diarrhea. She has had greater than 3 UTI's in the last 6 months. I have reviewed culture positive UTI's, resulting Ecoli, and Citrobacter species. Urine c/s sent on 02/23/23- No growth. I have reviewed with the patient that CT Urogram was WNL. The patient states that she is sexually active. Pt denies vaginal dryness. Consider abx prophylaxis post sexual activity I will empirically treat with Ceftin 500 mg bid for 5 days. Probiotic sent to pharm. Evaluation- UA-- Nitrite positive Review of chart: I have reviewed culture positive UTI's, resulting Ecoli, and Citrobacter species. Plan:Urine for c/s, cytology Ceftin 500 mg bid for 5 days Discussed Abx suppressive therapy pending c/s results. Reschedule office cysto as urine is nitrite positive today [facility] Medical History History of skin cancer Hepatitis COPD (chronic obstructive pulmonary disease) Seasonal allergies Chronic cough Cervical disc disease Left knee pain Pain of right shoulder joint on movement Abnormal SPEP Vitamin D deficiency Urolithiasis Osteoporosis GERD without esophagitis Multilevel degenerative disc disease Obesity (BMI 30-39.9) Anxiety Insomnia GERD (gastroesophageal reflux disease) Left lumbosacral radiculopathy Degenerative lumbar spinal stenosis Pure hypercholesterolemia Surgical History Hx of tonsillectomy Hx of left cataract extraction History of surgery on right wrist History of endoscopy History of colonoscopy Hx of decompressive lumbar laminectomy (~05/25/20) Status post total abdominal hysterectomy and bilateral salpingo-oophorectomy (CATRACHITO-BSO) History of right cataract extraction (~12/2016) History of cystoscopy (~05/24/18) Family History Father No problems noted. Mother Ovarian cancer Daughter Myocardial infarction, Onset Age: 46 Stroke Social History Household Members: Children Housing: House Are you a primary day care supervisor to a significant other at home: No Do you presently have visiting nurse or other home services: No Alcohol intake: former Patient Tobacco Use Status: Never used Tobacco e-Cigarette/Vaping Use: Never Used Second Hand Smoke Exposure: Yes service: No Current occupational status: retired and disabled Cognitive needs: No Hearing needs: No Vision needs: Yes (reading glasses) Review of Systems Const All systems reviewed & are unremarkable except as noted in HPI and below Reports no additional complaints Eyes Reports no additional complaints ENT Reports no additional complaints Card Reports no additional complaints Resp Reports no additional complaints GI Reports no additional complaints Reports as per HPI Musc Reports no additional complaints Skin/Breast Reports system reviewed and no additional complaints, except as documented Neuro Reports no additional complaints Psych Reports no additional complaints Endo Reports no additional complaints Kirit/Lymph Reports no additional complaints Aller/Immun Reports no additional complaints Office Procedures Post Void Residual Post Residual Void Post Void Residual (PVR): 51 [id number] Void Residual by ultrasound Results AMB Urinalysis, Automated UA Leukoctes 70 Karon/uL Last Edit by Alanna Dutta CMA on 10/20/24 11:41 UA Nitrite Negative Last Edit by Alanna Dutta CMA on 10/20/24 11:41 UA Urobilinogen 0.2 mg/dL Last Edit by Alanna Dutta CMA on 10/20/24 11:41 UA Protein 0 mg/dL Last Edit by Alanna Dutta CMA on 10/20/24 11:41 UA pH 6.0 Last Edit by Alanna Dutta CMA on 10/20/24 11:41 UA Blood 10 Eliseo/uL Last Edit by Alanna Dutta CMA on 10/20/24 11:41 UA Specific [place] 1.010 Last Edit by Alanna Dutta CMA on 10/20/24 11:41 UA Ketone Negative Last Edit by Alanna Dutta CMA on 10/20/24 11:41 UA Bilirubin 0 mg/dL Last Edit by Alanna Dutta CMA on 10/20/24 11:41 UA Glucose 0 mg/dL Last Edit by Alanna Dutta CMA on 10/20/24 11:41 Results Reviewed Results Reviewed: Laboratory Last Values Urine pH (Auto) 6.0 10/20/24 11:39 Specific [place] (Auto) 1.010 10/20/24 11:39 Urine Protein (Auto) 0 mg/dL 10/20/24 11:39 Glucose (UA)(Auto) 0 mg/dL 10/20/24 11:39 Urine Ketones (Auto) Negative 10/20/24 11:39 Urine Blood (Auto) 10 Eliseo/uL 10/20/24 11:39 Urine Nitrite (Auto) Negative 10/20/24 11:39 Urine Bilirubin (Auto) 0 mg/dL 10/20/24 11:39 Urine Urobilinogen (Auto) 0.2 mg/dL 10/20/24 11:39 Leukocyte Esterase (Auto) 70 Karon/uL 10/20/24 11:39 Assessment & Plan Assessment & Plan (1) Cystitis: Code(s): N30.90 - Cystitis, unspecified without hematuria Category: Medical Plan Plan - Send current urinalysis for culture to rule out infection. - Schedule follow-up in nine months unless symptoms of urinary tract infection occur. - Advise patient to contact the nurse if any urinary tract infection symptoms develop. Orders: Orders Urine Culture Today N39.0 - Urinary tract infection, site not specified AMB Urinalysis Automated Today N39.0 - Urinary tract infection, site not specified AMB Post Void Residual by ultrasound Today N39.0 - Urinary tract infection, site not specified Patient Instructions: The patient had an opportunity to ask questions regarding treatment plan. The patient expressed understanding and agreement with the above treatment plan. The patient is aware they should contact our office by phone for worsening of their current condition or the appearance of new symptoms. Compliance is encouraged with any medications and followup testing that is ordered. It is a privilege to be allowed the opportunity to participate in the urologic care of your patient. If you have any questions or concerns regarding treatment for the above conditions please do not hesitate to contact me. The office telephone contact is [phone]. This note is constructed in part using voice recognition software. While every effort has been made to ensure accuracy souvenir assembler errors may have been included. Yours sincerely, Andrew Hollis MD Scribe Plan - Not visible on output: Patient was informed and verbally consented to the use of an ambient scribe for clinic note documentation during this visit. Coding Level of Care Code Est Pt Level 3 (68118) Diagnoses Cystitis N30.90 CPT Codes Post Residual Void - PVR CPT Code: 06532-Xhwa Void Residual by ultrasound ([id number])
== END 2024-10-20 11:59 | disposition home or self-care (01) ==
PROVIDERS: PCP Internal Medicine; Visit Provider Urology
DX: N39.0 Urinary tract infection, site not specified (principal)

== ENCOUNTER 2024-11-17 11:27 | Outpatient (AMB) | payer OTHER, SELFPAY ==
--- NOTE | 2024-11-17 11:29 | A.OFFVIS_ITS ---
Vital Signs 11/17/24 11:30 Height 5 ft 5 in Weight 187 lb BMI 31.1 Intake Visit Reasons: Left knee pain Intake Note: Marisa is an 84 year old female who presents with complaints of left knee pain. She describes her pain as sharp in nature. She did undergo left knee arthroscopic surgery on 02/22/2024. She got temporary relief from that procedure. She denies any locking or giving way. She has failed the last 3 months of conservative treatment which has included physical therapy exercises, a home exercise program, Tylenol and anti-inflammatory medicines. She wishes to hold off on total knee replacement surgery for as long as possible. At this point her left knee pain is interfering with her activities of daily living and her ability to sleep well through the night. Allergies nitrofurantoin (From MACRODANTIN) Allergy (Severe, Verified 11/17/24 11:33) Anaphylaxis Sulfa (Sulfonamide Antibiotics) (SULFA (SULFONAMIDE ANTIBIOTICS)) Allergy (Severe, Verified 11/17/24 11:33) ANAPHYLAXIS sulfamethoxazole (From BACTRIM) Allergy (Severe, Verified 11/17/24 11:33) ANAPHYLAXIS trimethoprim (From BACTRIM) Allergy (Severe, Verified 11/17/24 11:33) ANAPHYLAXIS Medication List - Last Reconciled 11/17/24 by Marko Diaz MD alprazolam 1 mg PO TID PRN 30 days atorvastatin 40 mg PO BEDTIME 90 days cholecalciferol (vitamin D3) 50 mcg PO DAILY 90 days montelukast 10 mg PO BEDTIME pantoprazole 40 mg PO BEDTIME terazosin 1 mg PO BEDTIME 90 days tizanidine 4 mg PO Q8H PRN 30 days PFSH Medical History History of skin cancer Hepatitis COPD (chronic obstructive pulmonary disease) Seasonal allergies Chronic cough Cervical disc disease Left knee pain Pain of right shoulder joint on movement Abnormal SPEP Vitamin D deficiency Urolithiasis Osteoporosis GERD without esophagitis Multilevel degenerative disc disease Obesity (BMI 30-39.9) Anxiety Insomnia GERD (gastroesophageal reflux disease) Left lumbosacral radiculopathy Degenerative lumbar spinal stenosis Pure hypercholesterolemia Surgical History Hx of tonsillectomy Hx of left cataract extraction History of surgery on right wrist History of endoscopy History of colonoscopy Hx of decompressive lumbar laminectomy (~05/25/20) Status post total abdominal hysterectomy and bilateral salpingo-oophorectomy (CATRACHITO-BSO) History of right cataract extraction (~12/2016) History of cystoscopy (~05/24/18) Family History Father No problems noted. Mother Ovarian cancer Daughter Myocardial infarction, Onset Age: 46 Stroke Social History Household Members: Children Housing: House Are you a primary healthcare financial analyst to a significant other at home: No Do you presently have visiting nurse or other home services: No Alcohol intake: former Patient Tobacco Use Status: Never used Tobacco e-Cigarette/Vaping Use: Never Used Second Hand Smoke Exposure: Yes service: No Current occupational status: retired and disabled Cognitive needs: No Hearing needs: No Vision needs: Yes (reading glasses) Physical Exam Vital Signs: BMI result Body Mass Index 31.1 Const Other: Well-nourished well-developed very friendly female awake alert and oriented x3 in no acute distress Extrem Other: Left knee examination shows that the surgical incisions are well healed, no erythema, palpable crepitus with range motion, pain with range of motion, no instability Results Reviewed Results Reviewed: X-rays of the patient's left knee taken previously show joint space narrowing, subchondral sclerosis, no acute bony abnormalities Assessment & Plan Assessment & Plan (1) Left knee pain: Code(s): M25.562 - Pain in left knee Category: Medical Qualifiers: Chronicity: unspecified Qualified Code(s): M25.562 - Pain in left knee (2) Osteoarthritis of left knee: Code(s): M17.12 - Unilateral primary osteoarthritis, left knee Category: Medical Plan Ms. Lainez presents with left knee pain due to osteoarthritis. I had a lengthy discussion with the patient regarding the treatment options. She wishes to hold off on total knee replacement surgery if at all possible. I agree with this plan. I will see if her insurance company will cover a viscosupplementation injection such as Durolane. I will see her back once the injection is available. Feel free to call me at any time should questions regarding her orthopedic management arise. I spent 22 minutes in reviewing the patient's records and imaging studies, seeing the patient and documenting in the medical record. Coding Level of Care Code Est Pt Level 3 (22323) Complex EM visit Add On G2211 Diagnoses Left knee pain, unspecified chronicity M25.562 Chronicity: unspecified Osteoarthritis of left knee M17.12
[2024-11-17 11:30] VITALS: BMI 31.1
--- OUTSIDE RECORDS SUMMARY | 2024-11-17 12:15 | XMS_ITS | Clinical Summary ---
Author Organization [facility] it Address [id number] [place] [id number] Care Team Providers Care Neurology Hospitalist Name Role Phone Mac Thomas MD Primary [...] 2023-2 5 season) 2024 Influenza Vaccine (#1) 2025 Osteoporosis Screening (Bone Density Screening) 04/20/2030 [...] Procedure Name Priority Date/Time Associated Diagnosis Comments [facility] DEXA AXIAL SKELETON Routine 04/20/2020 11:16 AM EST Age-related osteoporosis without current pathological fracture from Last 3 Months or Most Recently Relevant to Health Maintenance Results * [facility] DEXA AXIAL SKELETON (04/20/2020 11:16 AM EST) Anatomical Region Laterality Modality Mammography 04/20/2020 10:2 7 AM EST Narrative 04/20/2020 11:16 AM EST [facility] Diagnostic Imaging Department [address] [place] [address] Patient: SERA KELLEY Candelaria Colindres/Age/Sex: 1940 - 79 - F Unit#: [id number] Location/Status: SPDIMAM/REG CLI Mnemonic/Ordering Site: [facility]AMDEXAAX/SPMAM Ordering Physician: NORA JOE MD, PHD [facility] Dexa Axial Skeleton - 04/20/205 HISTORY: The patient is a 79-year-old postmenopausal female with clinical concern for metabolic bone disease. FINDINGS: Dual [...] 93% of that of age matched controls. This yields a T-score of -1.8 and a Z-score of -0.5 which is diagnostic of osteopenia. IMPRESSION: 1. Osteoporosis. 2. FRAX analysis yields a 10-year probability of major osteoporotic fracture of 12.8% and a 10-year probability of hip fracture of 3.1%. Code 30381 Dictating Physician: JOSELYN BECKER MD Electronically Signed by: JOSELYN BECKER MD Dic Date/Time: 04/20/20 1115 Sign date/Time: 04/20/20 111 Procedure Note Joselyn Becker MD - 04/22/2022 [facility] Diagnostic Imaging Department [address] [place] [id number] Patient: SERA KELLEY/Age/Sex: 1940 - 79 - F Unit#: [id number] Location/Status: SPDIMAM/REG CLI Mnemonic[facility] Ordering Physician: NORA JOE MD, PHD [facility] Dexa Axial Skeleton - 04/20/20 - 105 HISTORY: The patient is a 79-year-old postmenopausal [...] density of the femurs bilaterally is 0.775 gm/sw3vmmwr is 77% of that of young normals and 93% of that of age matched controls.This yields a T-score of -1.8 and a Z-score of -0.5 which is diagnostic of osteopenia. IMPRESSION: 1. Osteoporosis. 2. FRAX analysis yields a 10-year probability of major osteoporoticfracture of 12.8% and a 10-year probability of hip fracture of 3.1%. Code 29785 Dictating Physician: JOSELYN BECKER MD Electronically Signed by: JOSELYN BECKER MD Dic Date/Time: 04/20/20 1115 Sign date/Time: 04/20/20 1116 us Nora Joe MD IMG BI PROCEDURES Final R esult from Last 3 Months or Most Recently Relevant to Health Maintenance Advance Directives Documents on File Type Date Recorded Patient Potable Water Treatment Operator Expl anation Health Care Decision (hx) 07/10/2023 AD ARNETT DIRECTIVE Health Care Decision (hx) 07/10/2023 AD ARNETT DIRECTIVE Health Care Decision (hx) 07/10/2023 AD ARNETT DIRECTIVE Care Teams Neurology Hospitalist Relationship Specialty Start Date End Date Mac Thomas MD [address] [place] [address] [address] J[address] Mckinney PCP - General Internal Medicine 11/03/17
--- OUTSIDE RECORDS SUMMARY | 2024-11-17 12:15 | XMS_ITS | Clinical Summary ---
Author Organization [facility] Address [address] [place] [address] Care Team Providers Care Cardroom Plastic Card Grader Name Role Phone Mac Thomas MD Primary Care Provider [phone] Social History Tobacco Use Types Packs/Day Years [...] 1-dose 75+ series) 2017 Influenza Vaccine (#1) 2025 Hepatitis B Vaccines Aged Out No long er eligible based on patient's age to complete this topic RSV Ped < 20 months Aged Out No longe r eligible based on patient's age to complete this topic Care Teams Cardroom Plastic Card Grader Relationship Specialty Start Date End Date Mac Thomas MD [address] [place] [address] [place] [address] PCP - General Internal Medicine 04/17/20
--- OUTSIDE RECORDS SUMMARY | 2024-11-17 12:15 | XMS_ITS | Data Portability ---
Author Organization [place] - [facility], Allergy Address [address] [address] Care Team Providers Care Gas Pipe Layer Name Role Phone JAE OWEN Primary Care [...] Name and Address Organization Details Recorded Time Sensorine ural hearing loss of bilateral ears [id number] Active 2019 Sensorine ural hearing loss, bilateral ; Note: Date Diagnosed : 12/13/2019 12:07 PM (H90.3) Not Available [facility] 4 02:50:06 Bilateral tympanosc lerosis [id number] 760052 Active 2021 Tympanosc lerosis, bilateral ; Note: Date Diagnosed : 06/04/2021 11:07 AM (H74.03) Not Available [facility] 4 02:50:05 Acute serous otitis media of right ear [id number] 30929 Active 2023 Acute serous otitis media, right ear; Note: Date Diagnosed : 08/04/2023 3:42 PM (H65.01) CALIN GAMBOA MD [address] [place] [address], [place], [phone] , [facility] - [facility] 4 15:20:41 Mixed conductiv e and sensorine ural hearing loss, bilateral 693913201 Active 2023 Mixed conductiv e and sensorine ural hearing loss, bilateral ; Note: Date Diagnosed : 08/04/2023 3:42 PM (H90.6) Not Available [facility] 4 02:50:06 Chronic serous otitis media of right ear 397817016 Active 2023 CALIN GAMBOA MD [address] [facility],[place] [address], [place], [address] , [facility] 4 15:20:59 Problem Notes None recorded. Procedures Surgical History Date Name Laterality Status Provider Name and Address Organization Details Recorded Time 09/30/2023 Comp Audio with Tymps - 23719 & 73824 completed Crys CAPUTO [address] [facility],[place] [address], [place], [phone], [facility] 09/30/2023 15:19:30 Imaging Results None recorded. Procedure Notes None recorded. Medical Equipment None Reported. Allergies Allergen ID Allergen Name Allergen Category Reaction Reaction Severity Criticality Documentation Date Start Date Code Code System Note Provider Name and Address Organization Details Recorded Time 705380 Bactrim medicatio n other Not available Not available 09/15/2023 69461 9 RxNorm React ion: unkno wn, unspe cifie d;; Not Available [facility] 4 01:07:59 199386 Substance with sulfonami de structure and antibacte rial mechanism of action (substanc e) medicatio n other Not available Not available 09/15/2023 65070 8003 SNOMED React ion: unkno wn, unspe cifie d;; Not Available [facility] 4 01:08:03 Medications Name Sig Start Date [...] mg tablet 08/30 completed Medicati on ID: 054381 B rand Name: famotidi ne Send Method: [...] tablet,de layed release active Medicati on ID: 399421 B rand Name: aspirin Send Method: E-Prescr ibed Sub s Allowed: subs OK Speci al Instruct ion: TAKE 1 TABLET BY MOUTH TWICE A DAY Medi cationGe nericNam e: aspirin Not Available Not Available Not Available acetamino phen 500 mg tablet active Medicati on ID: 436874 B rand Name: acetamin ophen Se nd [...] (2,000 unit) capsule active Medicati on ID: 650801 B rand Name: cholecal ciferol (vitamin D3) [...] Updated DateTime 01/28/2024 162.56 cm 32.6 kg/m2 21318.55 g Bethany Smart [place] - [facility] 01/28/2024 09:52:43 Social History None recorded. [...] Diagnosis Note [id number] YEISON NOLAN PA-C [facility] [address] [address] 09/30/2023 14:46:44 09/30/2023 15:55:55 Sensorineural hearing loss of bilateral ears [id number] H90.3 Audiologic al evaluation results:Ri ght ear:Mild sloping to severe sensorineu ral hearing loss with good speech discrimina tion. Tympanomet ry:Right Ear:Type B with large volume [id number] CALIN GAMBOA MD [facility] [address] [address] 01/28/2024 09:43:43 01/28/2024 09:59:40 Chronic serous otitis media of right ear 721332362 H65.21 [id number] YEISON NOLAN PA-C [facility] [address] [address] 03/28/2024 13:18:17 03/29/2024 07:06:27 Sensorineural hearing loss of bilateral ears 725622058 H90.3 Chronic se ana rosa otitis media of right ear 833389006 H65.21 Health Concerns Section Related Observation LastModified by Organization Detai ls LastModified Time None Recorded Concern Status LastModified by Organization Details LastModified Time None Recorded Advance Directives Directive None Recorded Payers Insurance Date Sequence Insurance Name Policy Number Policy Wong Covered Member ID Wong Member ID Guarantor Name 03/28/2024 1 [facility] (MEDICARE REPLACEMENT/ ADVANTAGE - HMO) Marisa Greenenicbrittanie [id number] Marisa Gaona Suchenicbrittanie 01/28/2024 2 [place] [facility] Marisa Gaona Suchenicz [id number] Marisa Gaona Suchenicz 03/11/2024 2 [place] [facility] Marisa Gaona Suchenicz [id number] Marisa Lainez Notes Date Note Type Note Provider Name and Address Organization Details Recorded Time 09/30/2023 text/html 82-year-old nydia galan presents following right tube placement with Dr. Jensen. Her hearing has improved significantly following surgery. CALIN GAMBOA MD [address] [place] [address], [phone], [facility] - [facility] 09/30/2023 16:38:27 01/28/2024 text/html tube check/ 4 R myringotomy tube placed, [place]09/30/23 post tube audio showed improvement feels her hearing fluctuatesno otorrhea CALIN GAMBOA MD [address] [place] [address], [place], [phone], [facility] - [facility] 01/28/2024 09:58:40 03/28/2024 text/html 83-year-old nydia galan presents for reevaluation. History of ETD with RMT in office. Her hearing has been stable. No issues since last visit. CALIN GAMBOA MD [address] [place] [address], [place], [phone], [facility] - [facility] 03/28/2024 15:39:46 OBGyn Episode No OBEpisode recorded.
--- OUTSIDE RECORDS SUMMARY | 2024-11-17 12:15 | XMS_ITS ---
Author Name [facility] Organization Unknown Encounters Encounter Type Encounter Reason Primary Diagnosis Location Date Ambulatory [facility] 09/30/2023
== END 2024-11-17 12:31 | disposition home or self-care (01) ==
LOC: HO.HOS 11:27
PROVIDERS: PCP Internal Medicine; Visit Provider Orthopaedic Surgery
DX: M25.562 Pain in left knee (principal); M17.12 Unilateral primary osteoarthritis, left knee
CPT/HCPCS: 99213; G2211

== ENCOUNTER → 2024-11-17 11:27 | Outpatient (BNVA) | payer OTHER, SELFPAY | PROVIDERS: PCP Internal Medicine; Visit Provider Orthopaedic Surgery | DX: M17.12 Unilateral primary osteoarthritis, left knee (principal) | CPT/HCPCS: 99212 ==

== ENCOUNTER 2024-11-22 08:35 | Outpatient (AMB) | payer OTHER, SELFPAY ==
--- NOTE | 2024-11-22 08:37 | MHC.OFFVIS ---
Vital Signs 11/22/24 08:41 Height 5 ft 5 in Weight 187 lb BMI 31.1 Intake Visit Reasons: Left knee pain and giving way Intake Note: Marisa is an 84 year old female who presents with complaints of progressively worsening left knee pain and giving way. The patient did undergo left knee arthroscopic surgery on 02/22/2024. She got fairly good relief from that surgery initially. The patient states that over the last few months her pain has returned. She states that her left knee will give out several times per day. She has tried Tylenol, anti-inflammatory medicines and oxycodone which gave her minimal relief. Allergies nitrofurantoin (From MACRODANTIN) Allergy (Severe, Verified 11/22/24 08:42) Anaphylaxis Sulfa (Sulfonamide Antibiotics) (SULFA (SULFONAMIDE ANTIBIOTICS)) Allergy (Severe, Verified 11/22/24 08:42) ANAPHYLAXIS sulfamethoxazole (From BACTRIM) Allergy (Severe, Verified 11/22/24 08:42) ANAPHYLAXIS trimethoprim (From BACTRIM) Allergy (Severe, Verified 11/22/24 08:42) ANAPHYLAXIS Medication List - Last Reconciled 11/22/24 by Marko Diaz MD alprazolam 1 mg PO TID PRN 30 days atorvastatin 40 mg PO BEDTIME 90 days cholecalciferol (vitamin D3) 50 mcg PO DAILY 90 days montelukast 10 mg PO BEDTIME pantoprazole 40 mg PO BEDTIME terazosin 1 mg PO BEDTIME 90 days tizanidine 4 mg PO Q8H PRN 30 days PFSH Medical History History of skin cancer Hepatitis COPD (chronic obstructive pulmonary disease) Seasonal allergies Chronic cough Cervical disc disease Left knee pain Pain of right shoulder joint on movement Abnormal SPEP Vitamin D deficiency Urolithiasis Osteoporosis GERD without esophagitis Multilevel degenerative disc disease Obesity (BMI 30-39.9) Anxiety Insomnia GERD (gastroesophageal reflux disease) Left lumbosacral radiculopathy Degenerative lumbar spinal stenosis Pure hypercholesterolemia Surgical History Hx of tonsillectomy Hx of left cataract extraction History of surgery on right wrist History of endoscopy History of colonoscopy Hx of decompressive lumbar laminectomy (~05/25/20) Status post total abdominal hysterectomy and bilateral salpingo-oophorectomy (CATRACHITO-BSO) History of right cataract extraction (~12/2016) History of cystoscopy (~05/24/18) Family History Father No problems noted. Mother Ovarian cancer Daughter Myocardial infarction, Onset Age: 46 Stroke Social History Household Members: Children Housing: House Are you a primary career guidance technician to a significant other at home: No Do you presently have visiting nurse or other home services: No Alcohol intake: former Patient Tobacco Use Status: Never used Tobacco e-Cigarette/Vaping Use: Never Used Second Hand Smoke Exposure: Yes service: No Current occupational status: retired and disabled Cognitive needs: No Hearing needs: No Vision needs: Yes (reading glasses) Physical Exam Vital Signs: BMI result Body Mass Index 31.1 Extrem Other: Left knee examination shows a minimal effusion, palpable crepitus with range of motion, pain with range of motion, positive Lea's test Assessment & Plan Assessment & Plan (1) Tear of medial meniscus of left knee: Code(s): S83.242A - Other tear of medial meniscus, current injury, left knee, initial encounter Category: Medical Plan Ms. Lainez presents with recurrent left knee pain and mechanical symptoms due to degenerative joint disease and possible recurrent medial meniscus tearing. Thus, I will send the patient for an MRI of her left knee for further evaluation. I discussed with the patient the fact that I do not feel comfortable keeping her on narcotic pain medicine at this time. I will see her back after the MRI is completed to discuss the findings and treatment options. I spent 21 minutes in reviewing the patient's records and imaging studies, seeing the patient and documenting in the medical record. Orders: Orders MR knee LT wo con 11/23/24 S83.242A - Other tear of medial meniscus, current injury, left knee, initial encounter Coding Level of Care Code Est Pt Level 3 (68461) Complex EM visit Add On G2211 Diagnoses Tear of medial meniscus of left knee S83.242A
[2024-11-22 08:41] VITALS: BMI 31.1
--- OUTSIDE RECORDS SUMMARY | 2024-11-22 08:52 | XMS_ITS | Clinical Summary ---
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 Max Daily Amount: 20 mg 12 tablet 11/20/2024 Active Encounters Date Type Department Care Team Description 11/20/2024 12:12 AM EDT - 11/20/2024 6:07 AM EDT Emergency [facility] Emergency [address] [place] [address] Lawanda Joya MD Generalized nontraumatic pain of knee region (Primary Dx); Left leg pain; Left lateral knee pain; Posterior knee pain, left Discharge Disposition: Home or Self Care from Last 3 Months Surgical History Surgery Date Site/Laterality Comments HYSTERECTOMY [...] Sexual Orientation Not on file Obstetrics History Last Filed Vital Signs Vital Sign Reading Time Taken Comments Blood Pressure 157/91 11/20/2024 12:17 AM EDT Pulse 64 11/20/2024 12:17 AM EDT Temperature 36.8 C (98.2 F) 11/20/2024 12:17 AM EDT Respiratory Rate 18 11/20/2024 12:17 AM EDT Oxygen Saturation 93% 11/20/2024 12:17 AM EDT Inhaled Oxygen Concentration - - Weight 83.9 kg (185 lb) 11/20/2024 12:27 AM EDT Height 165.1 cm (5' 5 ) 11/20/2024 12:27 AM EDT Body Mass Index 30.79 11/20/2024 12:27 AM EDT Plan of Treatment Health Maintenance Due Date Last Done Comments Cholesterol Screening (Lipid Panel) 04/06/2022 Falls Risk Assessment 04/06/2022 Medicare Annual Wellness Visit 04/06/2022 Social Influencers of Health Screening 04/06/2022 Depression Screening 05/04/2024 COVID-19 Vaccine ( season) 2024 01/07/2024, 01/19/2023, 03/21/2021, Additional history exists Influenza Vaccine (#1) 2025 , 01/19/2023, 07/18/2022, Additional history exists DTaP,Tdap,and Td Vaccines (3 - Td or Tdap) 07/28/2026 07/28/2016, 06/20/2011 Osteoporosis Screening (Bone Density Screening) 04/20/2030 04/20/2020 Pneumococcal Vaccine: 50+ Years Completed 07/14/2021, 06/20/2011 RSV Immunization Adult Patients Completed 03/16/2023 Zoster Vaccines Completed 07/02/2023, 03/16/2023 HIB Vaccines Aged Out No longer eligi [...] to complete this topic RSV Immunization Patients Under 20 months Aged Out No longer eligible based on patient's age to complete this topic Varicella Vaccines Aged Out No longer eligible based on patient's age to complete this topic Procedures Procedure Name Priority Date/Time Associated Diagnosis Comments VAS US DUPLEX LOWER EXT VENOUS LEFT STAT 11/20/2024 1:50 AM EDT Left leg pain XR KNEE 4+ VIEWS LEFT STAT 11/20/2024 1:19 AM EDT CBC WITH AUTO DIFFERENTIAL STAT 11/20/2024 12:37 AM EDT SEDIMENTATION RATE STAT 11/20/2024 12 :37 AM EDT C-REACTIVE PROTEIN STAT 11/20/2024 12 :37 AM EDT CBC AND DIFFERENTIAL STAT 11/20/2024 12:37 AM EDT COMPREHENSIVE METABOLIC PANEL STAT 11/20/2024 12:37 AM EDT AZUCENA DEXA AXIAL SKELETON Routine 04/20/2020 11:16 AM EST Age-related osteoporosis without current pathological fracture from Last 3 Months or Most Recently Relevant to Health Maintenance Results * Vascular US duplex lower extremity venous left (11/20/2024 1:50 AM EDT) Anatomical Region Laterality Modality Vascular, Abdomen Ultrasound 11/20/2024 6:45 AM EDT Impressions 11/20/2024 6:46 AM EDT No deep venous thrombosis demonstrated. -------- FINAL REPORT -------- Dictated By: Pepe Kessler Dictated Date: 11/20/2024 06:45 ET Assigned Physician: Pepe Kessler Reviewed and Electronically Signed By: Pepe Kessler Signed Date: 11/20/2024 06:46 ET Workstation ID: [id number] Transcribed By: Self Edit Transcribed Date: 11/20/2024 06:45 ET Narrative 11/20/2024 6:46 AM EDT EXAM: DUPLEX ULTRASOUND LOWER, UNILATERAL LEFT HISTORY: Left lower extremity pain. Clinical concern for deep venous thrombosis. Left calf and posterior knee pain for 3 weeks after long travel TECHNIQUE: Real-time ultrasonography of the venous system from the groin to the proximal calf is performed. Compression and augmentation were used as needed. Color mapping was performed. Doppler spectral analysis was performed. FINDINGS: The venous system from the groin into the proximal calf was visualized and compressible. The caliber appears within normal limits. The visualized venous system is compressible. There is appropriate color saturation of the lumen. Appropriate spectral waveforms were obtained during augmentation and compression. No other significant findings. Procedure Note Pepe Kessler MD - 11/20/2024 EXAM: DUPLEX ULTRASOUND LOWER, UNILATERAL LEFT HISTORY: Left lower extremity pain. Clinical concern for deep venousthrombosis. Left calf and posterior knee pain for 3 weeks after longtravel TECHNIQUE: Real-time ultrasonography of the venous system from the grointo the proximal calf is performed. Compression and augmentation were usedas needed. Color mapping was performed. Doppler spectral analysis wasperformed. FINDINGS: The venous system from the groin into the proximal calf wasvisualized and compressible. The caliber appears within normal limits. The visualized venous system is compressible. There is appropriate colorsaturation of the lumen. Appropriate spectral waveforms were obtained during augmentation andcompression. No other significant findings. IMPRESSION: No deep venous thrombosis demonstrated. -------- FINAL REPORT -------- Dictated By: Pepe Kessler Dictated Date: 11/20/2024 06:45 ET Assigned Physician: Pepe Kessler Reviewed and Electronically Signed By: Pepe Kessler Signed Date: 11/20/2024 06:46 ET Workstation ID: [id number] Transcribed By: Self Edit Transcribed Date: 11/20/2024 06:45 ET us Lawanda Joya MD CV VASCULAR PROCEDURES Final R esult * XR Knee 4+ Views Left (11/20/2024 1:19 AM EDT) Anatomical Region Laterality Modality Lower Extremities, Knee Left Radiogra phic Imaging 11/20/2024 7:14 AM EDT Impressions 11/20/2024 7:16 AM EDT No fracture or subluxation. Soft tissue reticulation could be edema. There is osteopenia. -------- FINAL REPORT -------- Dictated By: Pepe Kessler Dictated Date: 11/20/2024 07:14 ET Assigned Physician: Pepe Kessler Reviewed and Electronically Signed By: Pepe Kessler Signed Date: 11/20/2024 07:16 ET Workstation ID: [id number] Transcribed By: Self Edit Transcribed Date: 11/20/2024 07:14 ET Narrative 11/20/2024 7:16 AM EDT EXAMINATION: LEFT KNEE CLINICAL INFORMATION: Pain COMPARISON: None. TECHNIQUE: 4 views left knee FINDINGS: There is no acute fracture or subluxation. No suspicious focal lesion. The joint spaces are preserved. Trace osteophytes. No definite opaque loose body or significant joint fluid. There is osteopenia. There is reticulation in the subcutaneous tissues. Procedure Note Pepe Kessler MD - 11/20/2024 EXAMINATION: LEFT KNEE CLINICAL INFORMATION: Pain COMPARISON: None. TECHNIQUE: 4 views left knee FINDINGS: There is no acute fracture or subluxation. No suspicious focal lesion. Thejoint spaces are preserved. Trace osteophytes. No definite opaque loose body or significant joint fluid. There is osteopenia. There is reticulation in the subcutaneous tissues. IMPRESSION: No fracture or subluxation. Soft tissue reticulation could be edema. Thereis osteopenia. -------- FINAL REPORT -------- Dictated By: Checo, Pepe F Dictated Date: 11/20/2024 07:14 ET Assigned Physician: Pepe Kessler Reviewed and Electronically Signed By: Pepe Kessler Signed Date: 11/20/2024 07:16 ET Workstation ID: [id number] Transcribed By: Self Edit Transcribed Date: 11/20/2024 07:14 ET Lawanda Joya MD IMG XR PROCEDURES Final Result * CBC auto differential (11/20/2024 12:37 AM EDT) [facility] WBC 7.2 4.8 - 10.8 K/mcL LAB HEMETOLOGY METHOD 11/20/2024 1:00 AM [facility] RBC 4.60 3.80 - 4.80 M/mcL LAB HEMETOLOGY METHOD 11/20/2024 1:00 AM [facility] Hemoglobin 13.7 11.5 - 16.0 g/dL LAB HEMETOLOGY METHOD 11/20/2024 1:00 AM [facility] Hematocrit 41.5 35.0 - 47.0 % LAB HEMETOLOGY METHOD 11/20/2024 1:00 AM [facility] MCV 90.6 79.0 - 98.0 FL LAB HEMETOLOGY METHOD 11/20/2024 1:00 AM [facility] MCH 29.9 27.0 - 32.0 pcg LAB HEMETOLOGY METHOD 11/20/2024 1:00 AM [facility] MCHC 33.0 32.0 - 37.0 g/dL LAB HEMETOLOGY METHOD 11/20/2024 1:00 AM [facility] RDW 13.2 11.0 - 15.0 % LAB HEMETOLOGY METHOD 11/20/2024 1:00 AM [facility] Platelets 176 130 - 400 K/mcL LAB HEMETOLOGY METHOD 11/20/2024 1:00 AM [facility] MPV 10.0 7.0 - 11.0 FL LAB HEMETOLOGY METHOD 11/20/2024 1:00 AM [facility] NRBC 0.0 <1.0 % LAB HEMETOLOGY METHOD 11/20/2024 1:00 AM [facility] NRBC Absolute 0.00 <0.10 K/mcL LAB HEMETOLOGY METHOD 11/20/2024 1:00 AM [facility] Neutrophils Relative 52.2 % LAB HEMETOLOGY METHOD 11/20/2024 1:00 AM [facility] Lymphocytes Relative 32.0 % LAB HEMETOLOGY METHOD 11/20/2024 1:00 AM [facility] Monocytes Relative 11.6 % LAB HEMETOLOGY METHOD 11/20/2024 1:00 AM [facility] Eosinophils Relative 2.9 % LAB HEMETOLOGY METHOD 11/20/2024 1:00 AM [facility] Basophils Relative 1.0 % LAB HEMETOLOGY METHOD 11/20/2024 1:00 AM [facility] Immature Granulocytes Relative 0.3 % LAB HEMETOLOGY METHOD 11/20/2024 1:00 AM [facility] Neutrophils Absolute 3.73 1.50 - 7.00 K/mcL LAB HEMETOLOGY METHOD 11/20/2024 1:00 AM [facility] Lymphocytes Absolute 2.29 1.00 - 5.00 K/mcL LAB HEMETOLOGY METHOD 11/20/2024 1:00 AM [facility] Monocytes Absolute 0.83 0.20 - 1.00 K/mcL LAB HEMETOLOGY METHOD 11/20/2024 1:00 AM [facility] Eosinophils Absolute 0.21 0.00 - 0.50 K/mcL LAB HEMETOLOGY METHOD 11/20/2024 1:00 AM EDT [facility] Basophils Absolute 0.07 0.00 - 0.20 K/mcL LAB HEMETOLOGY METHOD 11/20/2024 1:00 AM EDT [facility] Immature Granulocytes Absolute 0.02 0.00 - 0.03 K/mcL LAB HEMETOLOGY METHOD 11/20/2024 1:00 AM EDT [facility] Blood Venous blood specimen / Unknown Venipuncture / Unknown 11/20/2024 12:37 AM EDT 11/20/2024 12:49 AM EDT Lawanda Joya MD LAB BLOOD ORDERABLES Final Res ult Performing Organization Address City/[facility]/ZIP Co de Phone Number [facility] [address] [place] [address], [place] [phone] * Sedimentation rate, automated (11/20/2024 12:37 AM EDT) Sed Rate 11 0 - 30 mm/hr LAB HEMETOLOGY METHOD 11/20/2024 1:21 AM EDT [facility] Blood Venous blood specimen / Unknown Venipuncture / Unknown 11/20/2024 12:37 AM EDT 11/20/2024 12:49 AM EDT Lawanda Joya MD LAB BLOOD ORDERABLES Final Res ult [facility] [address] [place] [address], [place] [phone] * C-reactive protein (11/20/2024 12:37 AM EDT) C-Reactive Protein <0.29 <=0.50 mg/dL LAB CHEMISTRY METHOD 11/20/2024 1:18 AM EDT [facility] Blood Venous blood specimen / Unknown Venipuncture / Unknown 11/20/2024 12:37 AM EDT 11/20/2024 12:49 AM EDT us Lawanda Joya MD LAB BLOOD ORDERABLES Final Res ult [facility] [address] [place] [address], [place] [phone] * (ABNORMAL) Comprehensive metabolic panel (11/20/2024 12:37 AM EDT) Sodium 140 133 - 145 mmol/L LAB CHEMISTRY METHOD 11/20/2024 1:18 AM [facility] Potassium 4.0 3.5 - 5.5 mmol/L LAB CHEMISTRY METHOD 11/20/2024 1:18 AM [facility] Chloride 109 96 - 110 mmol/L LAB CHEMISTRY METHOD 11/20/2024 1:18 AM [facility] CO2 28 21 - 32 mmol/L LAB CHEMISTRY METHOD 11/20/2024 1:18 AM [facility] Anion Gap 3 3 - 11 LAB CHEMISTRY METHOD 11/20/2024 1:18 AM [facility] Glucose 94 70 - 100 mg/dL LAB CHEMISTRY METHOD 11/20/2024 1:18 AM [facility] BUN 18 5 - 25 mg/dL LAB CHEMISTRY METHOD 11/20/2024 1:18 AM [facility] Creatinine 1.02 0.50 - 1.10 mg/dL LAB CHEMISTRY METHOD 11/20/2024 1:18 AM [facility] eGFR 55(L) >=60 mL/min/1. 73m2 LAB CHEMISTRY METHOD 11/20/2024 1:18 AM [facility] Comment:Calculation based on the Chronic Kidney Disease Epidemiology Collaboration (CKD-EPI) equation refit without adjustment for race. BUN/Creatinine Ratio 17.6 LAB CHEMISTRY METHOD 11/20/2024 1:18 AM [facility] Calcium 9.0 8.5 - 10.5 mg/dL LAB CHEMISTRY METHOD 11/20/2024 1:18 AM EDT [facility] AST (SGOT) 29 10 - 42 unit/L LAB CHEMISTRY METHOD 11/20/2024 1:18 AM [facility] ALT (SGPT) 27 10 - 60 unit/L LAB CHEMISTRY METHOD 11/20/2024 1:18 AM EDT [facility] Alkaline Phosphatase 127(H) 42 - 121 unit/L LAB CHEMISTRY METHOD 11/20/2024 1:18 AM T [facility] Total Protein 6.7 6.0 - 8.0 g/dL LAB CHEMISTRY METHOD 11/20/2024 1:18 AM [facility] Albumin 3.9 3.2 - 5.0 g/dL LAB CHEMISTRY METHOD 11/20/2024 1:18 AM [facility] Total Bilirubin 0.5 0.0 - 1.4 mg/dL LAB CHEMISTRY METHOD 11/20/2024 1:18 AM T [facility] Blood Venous blood specimen / Unknown Venipuncture / Unknown 11/20/2024 12:37 AM EDT 11/20/2024 12:49 AM EDT us Lawanda Joya MD LAB BLOOD ORDERABLES Final Res ult [facility] [address] [place] [address], * AZUCENA DEXA AXIAL SKELETON (04/20/2020 11:16 AM EST) Anatomical Region Laterality Modality Mammography 04/20/2020 10:2 7 AM EST Narrative 04/20/2020 11:16 AM EST [facility] Diagnostic Imaging Department [address] [place] [address] Patient: SERA KELLEY /Age/Sex: 1940 - 79 - F Unit#: [id number] [facility]Ordering Site: [facility]/SPMAM Ordering Physician: NORA JOE MD, PHD Azucena Dexa Axial Skeleton - 04/20/201053 HISTORY: The patient is a 79-year-old postmenopausal [...] probability of hip fracture of 3.1%. Code 48467 Dictating Physician: JOSELYN BECKER MD Electronically Signed by: JOSELYN BECKER MD Dic Date/Time: 04/20/20 1115 Sign date/Time: 04/20/20 1116 Procedure Note Joselyn Becker MD - 04/22/2022 [facility] Diagnostic Imaging Department [address] [place] [id number] Patient: SERA KELLEY Candelaria JohnsonB./Age/Sex: 1940 - 79 - F Unit#: [id number] Location/Status: SPDIMAM/REG CLI [facility]em[facility] Ordering Physician: NORA JOE MD, PHD Azucena Dexa Axial Skeleton - 04/20/201053 HISTORY: The patient is a 79-year-old postmenopausal [...] density of the femurs bilaterally is 0.775 gm/gn0wmrqw is 77% of that of young normals and 93% of that of age matched controls.This yields a T-score of -1.8 and a Z-score of -0.5 which is diagnostic of osteopenia. IMPRESSION: 1. Osteoporosis. 2. FRAX analysis yields a 10-year probability of major osteoporoticfracture of 12.8% and a 10-year probability of hip fracture of 3.1%. 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
--- OUTSIDE RECORDS SUMMARY | 2024-11-22 08:53 | XMS_ITS | Data Portability ---
Author Organization [place] - [facility], Allergy Address [address] [address] Care Team Providers Care Typewriters Functional Tester Name Role Phone JAE OWEN Primary Care [...] Sensorine ural hearing loss of bilateral ears [id number] Active 2019 Sensorine ural hearing loss, bilateral ; Note: Date Diagnosed : 12/13/2019 12:07 PM (H90.3) Not Available [facility] 4 02:50:06 Bilateral tympanosc lerosis [id number] 037893 Active 2021 Tympanosc lerosis, bilateral ; Note: Date Diagnosed : 06/04/2021 11:07 AM (H74.03) Not Available [facility] 4 02:50:05 Acute serous otitis media of right ear [id number] 64980 Active 2023 Acute serous otitis media, right ear; Note: Date Diagnosed : 08/04/2023 3:42 PM (H65.01) CALIN GAMBOA MD [address] [place] [address], [place], [address] , [facility] - [facility] 4 15:20:41 Mixed conductiv e and sensorine ural hearing loss, bilateral 564381339 Active 2023 Mixed conductiv e and sensorine ural hearing loss, bilateral ; Note: Date Diagnosed : 08/04/2023 3:42 PM (H90.6) Not Available [facility] 4 02:50:06 Chronic serous otitis media of right ear 795698360 Active 2023 CALIN GAMBOA MD [address] [facility],[place] [address], [place], [address] , [facility] 4 15:20:59 Problem Notes None recorded. Procedures Surgical History Date Name Laterality Status Provider Name and Address Organization Details Recorded Time 09/30/2023 Comp Audio with Tymps - 62578 & 60969 completed Crys CAPUTO [address] [facility],[place] [address], [place], [address], [facility] 09/30/2023 15:19:30 Imaging Results None recorded. Procedure Notes None recorded. Medical Equipment None Reported. Allergies Allergen ID Allergen Name Allergen Category Reaction Reaction Severity Criticality Documentation Date Start Date Code Code System Note Provider Name and Address Organization Details Recorded Time 381352 Bactrim medicatio n other Not available Not available 09/15/2023 15633 9 RxNorm React ion: unkno wn, unspe cifie d;; Not Available [facility] 4 01:07:59 786138 Substance with sulfonami de structure and antibacte rial mechanism of action (substanc e) medicatio n other Not available Not available 09/15/2023 43104 8003 SNOMED React ion: unkno wn, unspe [...] mg tablet 08/30 completed Medicati on ID: [id number] B rand Name: famotidi ne Send Method: [...] tablet,de layed release active Medicati on ID: [id number] B rand Name: aspirin Send Method: E-Prescr ibed Sub s Allowed: subs OK Speci al Instruct ion: TAKE 1 TABLET BY MOUTH TWICE A DAY Medi cationGe nericNam e: aspirin Not Available Not Available Not Available acetamino phen 500 mg tablet active Medicati on ID: [id number] B rand Name: acetamin ophen Se nd [...] (2,000 unit) capsule active Medicati on ID: 053260 B rand Name: cholecal ciferol (vitamin D3) [...] Updated DateTime 01/28/2024 162.56 cm 32.6 kg/m2 71963.55 g Bethany Smart [place] - [facility] 01/28/2024 09:52:43 Social History None recorded. [...] Note 1893 YEISON NOLAN PA-C [facility] [address] [address] 09/30/2023 14:46:44 09/30/2023 15:55:55 Sensorineural hearing loss of bilateral ears [id number] H90.3 Audiologic al evaluation results:Ri ght ear:Mild sloping to severe sensorineu ral hearing loss with good speech discrimina tion. Tympanomet ry:Right Ear:Type B with large volume [id number] CALIN GAMBOA MD [facility] [address] [address] 01/28/2024 09:43:43 01/28/2024 09:59:40 Chronic serous otitis media of right ear 022412304 H65.21 [id number] YEISON NOLAN PA-C [facility] [address] [address] 03/28/2024 13:18:17 03/29/2024 07:06:27 Sensorineural hearing loss of bilateral ears 757791598 H90.3 Chronic se ana rosa otitis media of right ear 775238400 H65.21 Health Concerns Section Related Observation LastModified by Organization Detai ls LastModified Time None Recorded Concern Status LastModified by Organization Details LastModified Time None Recorded Advance Directives Directive None Recorded Payers Insurance Date Sequence Insurance Name Policy Number Policy Wong Covered Member ID Wong Member ID Guarantor Name 03/28/2024 1 [facility] (MEDICARE REPLACEMENT/ ADVANTAGE - HMO) Marisa Greenenicbrittanie [id number] Marisa Gaona Suchenicbrittanie 01/28/2024 2 [place] [facility] Marisa Gaona Suchenicz [id number] Marisa Gaona Suchenicz 03/11/2024 2 [place] [facility] Marisa Gaona Suchenicz [id number] Marisa Lainez Notes Date Note Type Note Provider Name and Address Organization Details Recorded Time 09/30/2023 text/html 82-year-old nydia galan presents following right tube placement with Dr. Jensen. Her hearing has improved significantly following surgery. CALIN GAMBOA MD [address] [place] [address], [phone], [facility] - [facility] 09/30/2023 16:38:27 01/28/2024 text/html tube check/ 4 R myringotomy tube placed, [place]09/30/23 post tube audio showed improvement feels her hearing fluctuatesno otorrhea CALIN GAMBOA MD [address] [place] [address], [place], [address], [facility] - [facility] 01/28/2024 09:58:40 03/28/2024 text/html 83-year-old nydia galan presents for reevaluation. History of ETD with RMT in office. Her hearing has been stable. No issues since last visit. CALIN GAMBOA MD [address] [place] [address], [place], [address], [facility] - [facility] 03/28/2024 15:39:46 OBGyn Episode No OBEpisode recorded.
--- OUTSIDE RECORDS SUMMARY | 2024-11-22 08:53 | XMS_ITS | Clinical Summary ---
Author Organization [facility] Address [address] [place] [address] Care Team Providers Care Speech Language Pathologist Travel Name Role Phone Mac Thomas MD Primary Care Provider [phone] Social History Tobacco Use Types Packs/Day Years [...] age to complete this topic Care Teams Speech Language Pathologist Travel Relationship Specialty Start Date End Date Mac Thomas MD [address] [place] [address] [place] [address] PCP - General Internal Medicine 04/17/20
== END 2024-11-22 08:55 | disposition home or self-care (01) ==
LOC: HO.HOS 08:35
PROVIDERS: PCP Internal Medicine; Visit Provider Orthopaedic Surgery
DX: S83.242A Other tear of medial meniscus, current injury, left knee, initial encounter (principal)
CPT/HCPCS: 99213; G2211

== ENCOUNTER → 2024-11-22 08:35 | Outpatient (BNVA) | payer OTHER, SELFPAY | PROVIDERS: PCP Internal Medicine; Visit Provider Orthopaedic Surgery | DX: S83.242A Other tear of medial meniscus, current injury, left knee, initial encounter (principal) | CPT/HCPCS: 99212 ==

== ENCOUNTER 2024-11-25 19:03 | Outpatient (REF) | payer OTHER, SELFPAY ==
--- NOTE | ~2024-11-25 | MR_ITS ---
CLINICAL HISTORY: S83.242A - Other tear of medial meniscus, current injury, left knee, ini... MR of the left knee without contrast. Comparison 01/23/2024. Findings: There is oblique tear extending to the tibial surface of the body and posterior horn of the medial meniscus. There is an extensive poorly defined complex tear primarily involving the body and anterior horn of the lateral meniscus with prominent peripheral extrusion of the meniscus. This has significantly progressed in the interval. The posterior cruciate ligament is intact. There is increased signal within the anterior cruciate ligament suggestive of a prior partial tear. The medial collateral ligament is intact. There is mildly increased signal in the proximal lateral collateral ligament raising the possibility of a prior sprain. The patellar and quadriceps tendons are unremarkable. There is extensive poorly defined marrow edema in the central and lateral portion of the tibial plateau with extension distally. This is indeterminate but could represent a large contusion versus incomplete nondisplaced fracture. There is moderate tricompartmental osteoarthritis with multifocal cartilage thinning and irregularity. Patellofemoral alignment is normal. The patellar retinacula are intact. There is a moderate to large joint effusion. There is no significant popliteal cyst. There is prominent ill-defined soft tissue edema most pronounced posterior to the knee that is nonspecific but could relate to recent trauma. There is mild multifocal ill-defined muscle edema suspicious for multiple mild muscle strains. Impression: Oblique tear of the medial meniscus. Extensive poorly defined complex tear of the lateral meniscus. Possible old partial tear of the anterior cruciate ligament as well as a possible mild sprain of the lateral collateral ligament. Extensive marrow edema in the proximal tibia is indeterminate but could represent a large contusion versus incomplete nondisplaced fracture. Moderate tricompartmental DJD. Moderate to large joint effusion with multifocal ill-defined soft tissue edema. Suspect multiple mild muscle strains. This document has been electronically signed by: Terrance Leach MD on 11/30/2024 17:31:46
== END 2024-11-25 19:04 | disposition home or self-care (01) ==
LOC: HO.MRI 19:03
PROVIDERS: PCP Internal Medicine; Visit Provider Orthopaedic Surgery
DX: S83.242A Other tear of medial meniscus, current injury, left knee, initial encounter (principal)
CPT/HCPCS: 73721

== ENCOUNTER → 2024-11-25 19:03 | Outpatient (BNV) | payer OTHER, SELFPAY | PROVIDERS: PCP Internal Medicine; Visit Provider Radiology Diagnostic Radiology | DX: S83.242A Other tear of medial meniscus, current injury, left knee, initial encounter (principal); S83.272A Complex tear of lateral meniscus, current injury, left knee, initial encounter; M17.12 Unilateral primary osteoarthritis, left knee; M25.462 Effusion, left knee | CPT/HCPCS: 73721 ==

== ENCOUNTER 2024-11-28 14:05 | Outpatient (AMB) | payer OTHER, SELFPAY ==
[2024-11-28 14:35] VITALS: BP 132/82; PULSE 64; BMI 30.4
--- NOTE | 2024-11-28 14:35 | MHC.OFFVIS ---
Vital Signs 11/28/24 14:35 Height 5 ft 5 in Weight 183 lb BMI 30.4 BP 132/82 Blood Pressure Location Lt brachial Position Sitting Pulse 64 Intake Visit Reasons: Left knee pain Intake Note: Marisa is a 84 year old female who presents with complaints of left knee pain. The patient describes her pain as sharp in nature. She has undergone left knee arthroscopic surgery in the past which gave her only temporary relief. She has tried cortisone injections in the past which gave her no relief. She has not had a viscosupplementation injection. She wishes to hold off on left total knee replacement surgery if possible. Vitals - 132/82 64 Heart Rate Allergies nitrofurantoin (From MACRODANTIN) Allergy (Severe, Verified 11/28/24 14:38) Anaphylaxis Sulfa (Sulfonamide Antibiotics) (SULFA (SULFONAMIDE ANTIBIOTICS)) Allergy (Severe, Verified 11/28/24 14:38) ANAPHYLAXIS sulfamethoxazole (From BACTRIM) Allergy (Severe, Verified 11/28/24 14:38) ANAPHYLAXIS trimethoprim (From BACTRIM) Allergy (Severe, Verified 11/28/24 14:38) ANAPHYLAXIS Medication List - Last Reconciled 11/28/24 by Marko Diaz MD alprazolam 1 mg PO TID PRN 30 days atorvastatin 40 mg PO BEDTIME 90 days cholecalciferol (vitamin D3) 50 mcg PO DAILY 90 days montelukast 10 mg PO BEDTIME pantoprazole 40 mg PO BEDTIME terazosin 1 mg PO BEDTIME 90 days tizanidine 4 mg PO Q8H PRN 30 days PFSH Medical History History of skin cancer Hepatitis COPD (chronic obstructive pulmonary disease) Seasonal allergies Chronic cough Cervical disc disease Left knee pain Pain of right shoulder joint on movement Abnormal SPEP Vitamin D deficiency Urolithiasis Osteoporosis GERD without esophagitis Multilevel degenerative disc disease Obesity (BMI 30-39.9) Anxiety Insomnia GERD (gastroesophageal reflux disease) Left lumbosacral radiculopathy Degenerative lumbar spinal stenosis Pure hypercholesterolemia Surgical History Hx of tonsillectomy Hx of left cataract extraction History of surgery on right wrist History of endoscopy History of colonoscopy Hx of decompressive lumbar laminectomy (~05/25/20) Status post total abdominal hysterectomy and bilateral salpingo-oophorectomy (CATRACHITO-BSO) History of right cataract extraction (~12/2016) History of cystoscopy (~05/24/18) Family History Father No problems noted. Mother Ovarian cancer Daughter Myocardial infarction, Onset Age: 46 Stroke Social History Household Members: Children Housing: House Are you a primary special needs caregiver to a significant other at home: No Do you presently have visiting nurse or other home services: No Alcohol intake: former Patient Tobacco Use Status: Never used Tobacco e-Cigarette/Vaping Use: Never Used Second Hand Smoke Exposure: Yes service: No Current occupational status: retired and disabled Cognitive needs: No Hearing needs: No Vision needs: Yes (reading glasses) Physical Exam Vital Signs: Last Vital Signs Pulse 64 11/28/24 14:35 BP 132/82 11/28/24 14:35 BMI result Body Mass Index 30.4 Extrem Other: Left knee examination shows that the surgical incisions are well healed, no erythema, palpable crepitus with range of motion, pain with range of motion, no instability Office Procedures AMB Joint Injection/Aspiration Joint Injection/Aspiration Primary Site: left knee Prep: site was prepped using aseptic technique Injected: 60 mg of (Durolane viscosupplementation) and 1% plain lidocaine Procedure: The patient tolerated the procedure well Coding 38871 - Large joint Procedure code (CPT) selection complete Results Reviewed Results Reviewed: MRI of the patient's left knee shows severe degenerative changes as well as possible recurrent medial meniscus tear Assessment & Plan Assessment & Plan (1) Arthritis of left knee: Code(s): M17.12 - Unilateral primary osteoarthritis, left knee Category: Medical (2) Left knee pain: Code(s): M25.562 - Pain in left knee Category: Medical Qualifiers: Chronicity: unspecified Qualified Code(s): M25.562 - Pain in left knee Plan Ms. Lainez presents with left knee pain due to severe degenerative joint disease. The risks and benefits of a left knee Durolane viscosupplementation injection were discussed at length with the patient. The patient wished to proceed. She tolerated the injection well. If she does not get lasting relief from the viscosupplementation injection we will further discuss the risks and benefits of left total knee replacement surgery. She will contact me prior to her follow-up appointment in 3 months should any questions or concerns arise. I spent 22 minutes in reviewing the patient's records and imaging studies, seeing the patient and documenting in the medical record. Orders: Orders AMB Joint Injection/Aspiration Today M17.12 - Unilateral primary osteoarthritis, left knee Coding Level of Care Code Est Pt Level 3 (25193) Complex EM visit Add On G2211 Diagnoses Arthritis of left knee M17.12 Left knee pain, unspecified chronicity M25.562 Chronicity: unspecified CPT Codes Coding - 04004 Large joint: 19598 - Large joint ([id number])
--- OUTSIDE RECORDS SUMMARY | 2024-11-28 14:51 | XMS_ITS | Clinical Summary ---
Author Organization [facility] Address [address] [place] [address] Care Team Providers Care Mortgage Or Loan Underwriter Name Role Phone Mac Thomas MD Primary Care Provider [phone]- [phone] Social History Tobacco Use Types Packs/Day Years [...] age to complete this topic Care Teams Mortgage Or Loan Underwriter Relationship Specialty Start Date End Date Mac Thomas MD [address] [place] [address] [place] [address] PCP - General Internal Medicine 04/17/20
--- OUTSIDE RECORDS SUMMARY | 2024-11-28 14:51 | XMS_ITS | Encounter Summary ---
Author Organization [facility] Address [address] [place] [address] Care Team Providers Care Diagnostic Technologist Name Role Phone Community, Pcp Primary Care Provider Mac Colin MD Primary Care Provider Unava ilable Reason for Visit * Reason Onset Date Comments refill request 07/06/2017 Encounter Details Date Type Department Care Team Description 07/06/2017 Telephone Pulmonology - [address] [place] [phone] Linda Gonzalez NP refill request Social History Tobacco Use Types Packs/Day Years Used Date Smoking Tobacco: Never Assessed Sex Assigned at Date Recorded Not on file documented as of this encounter Miscellaneous Notes * Telephone Encounter - Lnida Gonzalez NP - 07/06/2017 9:34 AM EST [...] on filedocumented in this encounter Care Teams Diagnostic Technologist Relationship Specialty Start Date End Date [facility], Pcp PCP - General Internal Medicine 07/10/17 11/02/17 Mac Thomas MD PCP - General Internal Medicine 11/03/17 documented as of this encounter
--- OUTSIDE RECORDS SUMMARY | 2024-11-28 14:51 | XMS_ITS | Clinical Summary ---
Author Organization [facility] Address [address] [place] [address] Phone Care Team Providers Care Die Assembler Name Role Phone Mac Thomsa MD Primary Care Provider Allergies Active Allergy [...] EDT - 11/20/2024 6:[address] [facility] [address] [place] [address] Lawanda Joya MD Generalized nontraumatic [...] Signed Date: 11/20/2024 06:46 ET Workstation ID: [id number] Transcribed By: Self Edit Transcribed Date: 11/20/2024 [...] Signed Date: 11/20/2024 06:46 ET Workstation ID: [id number] Transcribed By: Self Edit Transcribed Date: 11/20/2024 [...] Signed Date: 11/20/2024 07:16 ET Workstation ID: [id number] Transcribed By: Self Edit Transcribed Date: 11/20/2024 [...] Signed Date: 11/20/2024 07:16 ET Workstation ID: [id number] Transcribed By: Self Edit Transcribed Date: 11/20/2024 07:14 ET Lawanda Joya MD IMG XR PROCEDURES Final Result * CBC auto differential (11/20/2024 12:37 AM EDT) [facility] WBC 7.2 4.8 - 10.8 K/mcL LAB HEMETOLOGY METHOD 11/20/2024 1:00 AM [facility] RBC 4.60 3.80 - 4.80 M/mcL LAB HEMETOLOGY METHOD 11/20/2024 1:00 AM [facility] Hemoglobin 13.7 11.5 - 16.0 g/dL LAB HEMETOLOGY METHOD 11/20/2024 1:00 AM [facility] Hematocrit 41.5 35.0 - 47.0 % LAB HEMETOLOGY METHOD 11/20/2024 1:00 AM [facility] MCV 90.6 79.0 - 98.0 FL LAB HEMETOLOGY METHOD 11/20/2024 1:00 AM [facility] MCH 29.9 27.0 - 32.0 pcg LAB HEMETOLOGY METHOD 11/20/2024 1:00 AM [facility] MCHC 33.0 32.0 - 37.0 g/dL LAB HEMETOLOGY METHOD 11/20/2024 1:00 AM [facility] RDW 13.2 11.0 - 15.0 % LAB HEMETOLOGY METHOD 11/20/2024 1:00 AM [facility] Platelets 176 130 - 400 K/mcL LAB HEMETOLOGY METHOD 11/20/2024 1:00 AM [facility] MPV 10.0 7.0 - 11.0 FL LAB HEMETOLOGY METHOD 11/20/2024 1:00 AM [facility] NRBC 0.0 <1.0 % LAB HEMETOLOGY METHOD 11/20/2024 1:00 AM [facility] NRBC Absolute 0.00 <0.10 K/mcL LAB HEMETOLOGY METHOD 11/20/2024 1:00 AM [facility] Neutrophils Relative 52.2 % LAB HEMETOLOGY METHOD 11/20/2024 1:00 AM [facility] Lymphocytes Relative 32.0 % LAB HEMETOLOGY METHOD 11/20/2024 1:00 AM [facility] Monocytes Relative 11.6 % LAB HEMETOLOGY METHOD 11/20/2024 1:00 AM [facility] Eosinophils Relative 2.9 % LAB HEMETOLOGY METHOD 11/20/2024 1:00 AM [facility] Basophils Relative 1.0 % LAB HEMETOLOGY METHOD 11/20/2024 1:00 AM [facility] Immature Granulocytes Relative 0.3 % LAB HEMETOLOGY METHOD 11/20/2024 1:00 AM [facility] Neutrophils Absolute 3.73 1.50 - 7.00 K/mcL LAB HEMETOLOGY METHOD 11/20/2024 1:00 AM [facility] Lymphocytes Absolute 2.29 1.00 - 5.00 K/mcL LAB HEMETOLOGY METHOD 11/20/2024 1:00 AM [facility] Monocytes Absolute 0.83 0.20 - 1.00 K/mcL LAB HEMETOLOGY METHOD 11/20/2024 1:00 AM [facility] Eosinophils Absolute 0.21 0.00 - 0.50 K/mcL LAB HEMETOLOGY METHOD 11/20/2024 1:00 AM EDT [facility] Basophils Absolute 0.07 0.00 - 0.20 K/mcL LAB HEMETOLOGY METHOD 11/20/2024 1:00 AM EDT [facility] Immature Granulocytes Absolute 0.02 0.00 - 0.03 K/mcL LAB HEMETOLOGY METHOD 11/20/2024 1:00 AM EDT [facility] Blood Venous blood specimen / Unknown Venipuncture / Unknown 11/20/2024 12:37 AM EDT 11/20/2024 12:49 AM EDT Lawanda Joya MD LAB BLOOD ORDERABLES Final Res ult Performing Organization Address City/[facility]/ZIP Co de Phone Number [facility] [address] [place] [address], [place] [phone] * Sedimentation rate, automated (11/20/2024 12:37 AM EDT) Sed Rate 11 0 - 30 mm/hr LAB HEMETOLOGY METHOD 11/20/2024 1:21 AM EDT [facility] Blood Venous blood specimen / Unknown Venipuncture / Unknown 11/20/2024 12:37 AM EDT 11/20/2024 12:49 AM EDT Lawanda Joya MD LAB BLOOD ORDERABLES Final Res ult [facility] [address] [place] [address], [place] [phone] * C-reactive protein (11/20/2024 12:37 AM EDT) C-Reactive Protein <0.29 <=0.50 mg/dL LAB CHEMISTRY METHOD 11/20/2024 1:18 AM EDT [facility] Blood Venous blood specimen / Unknown Venipuncture / Unknown 11/20/2024 12:37 AM EDT 11/20/2024 12:49 AM EDT us Lawanda Joya MD LAB BLOOD ORDERABLES Final Res ult [facility] [address] [place] [address], [place] [phone] * (ABNORMAL) Comprehensive metabolic panel (11/20/2024 12:37 AM EDT) Sodium 140 133 - 145 mmol/L LAB CHEMISTRY METHOD 11/20/2024 1:18 AM [facility] Potassium 4.0 3.5 - 5.5 mmol/L LAB CHEMISTRY METHOD 11/20/2024 1:18 AM [facility] Chloride 109 96 - 110 mmol/L LAB CHEMISTRY METHOD 11/20/2024 1:18 AM [facility] CO2 28 21 - 32 mmol/L LAB CHEMISTRY METHOD 11/20/2024 1:18 AM [facility] Anion Gap 3 3 - 11 LAB CHEMISTRY METHOD 11/20/2024 1:18 AM [facility] Glucose 94 70 - 100 mg/dL LAB CHEMISTRY METHOD 11/20/2024 1:18 AM [facility] BUN 18 5 - 25 mg/dL LAB CHEMISTRY METHOD 11/20/2024 1:18 AM [facility] Creatinine 1.02 0.50 - 1.10 mg/dL LAB CHEMISTRY METHOD 11/20/2024 1:18 AM [facility] eGFR 55(L) >=60 mL/min/1. 73m2 LAB CHEMISTRY METHOD 11/20/2024 1:18 AM [facility] Comment:Calculation based on the Chronic Kidney Disease Epidemiology Collaboration (CKD-EPI) equation refit without adjustment for race. BUN/Creatinine Ratio 17.6 LAB CHEMISTRY METHOD 11/20/2024 1:18 AM [facility] Calcium 9.0 8.5 - 10.5 mg/dL LAB CHEMISTRY METHOD 11/20/2024 1:18 AM EDT [facility] AST (SGOT) 29 10 - 42 unit/L LAB CHEMISTRY METHOD 11/20/2024 1:18 AM [facility] ALT (SGPT) 27 10 - 60 unit/L LAB CHEMISTRY METHOD 11/20/2024 1:18 AM EDT [facility] Alkaline Phosphatase 127(H) 42 - 121 unit/L LAB CHEMISTRY METHOD 11/20/2024 1:18 AM T [facility] Total Protein 6.7 6.0 - 8.0 g/dL LAB CHEMISTRY METHOD 11/20/2024 1:18 AM [facility] Albumin 3.9 3.2 - 5.0 g/dL LAB CHEMISTRY METHOD 11/20/2024 1:18 AM [facility] Total Bilirubin 0.5 0.0 - 1.4 mg/dL LAB CHEMISTRY METHOD 11/20/2024 1:18 AM T [facility] Blood Venous blood specimen / Unknown Venipuncture / Unknown 11/20/2024 12:37 AM EDT 11/20/2024 12:49 AM EDT us Lawanda Joya MD LAB BLOOD ORDERABLES Final Res ult [facility] [address] [place] [address], * AZUCENA DEXA AXIAL SKELETON (04/20/2020 11:16 AM EST) Anatomical Region Laterality Modality Mammography 04/20/2020 10:2 7 AM EST Narrative 04/20/2020 11:16 AM EST [facility] Diagnostic Imaging Department [address] [place] [address] Patient: SERA KELLEY /Age/Sex: 1940 - 79 - F Unit#: [id number] [facility]/Ordering Site: [facility]DEX[facility]X/SPMAM Ordering Physician: NORA JOE [...] probability of hip fracture of 3.1%. Code 86276 Dictating Physician: JOSELYN BECKER MD Electronically Signed by: JOSELYN BECKER MD Dic Date/Time: 04/20/20 1115 Sign date/Time: 04/20/20 1116 Procedure Note Joselyn Becker MD - 04/22/2022 [facility] Diagnostic Imaging Department [address] [place] [id number] Patient: SERA KELLEY Candelaria JohnsonB./Age/Sex: 1940 - 79 - F Unit#: [id number] Location/Status: SPDIMAM/REG CLI [facility] Ordering Physician: NORA JOE MD, PHD Azucena [...] density of the femurs bilaterally is 0.775 gm/mx2sndur is 77% of that of young normals and 93% of that of age matched controls.This yields a T-score of -1.8 and a Z-score of -0.5 which is diagnostic of osteopenia. IMPRESSION: 1. Osteoporosis. 2. FRAX analysis yields a 10-year probability of major osteoporoticfracture of 12.8% and a 10-year probability of hip fracture of 3.1%. Code 96847 Dictating Physician: JOSELYN BECKER MD Electronically Signed by: JOSELYN BECKER MD Dic Date/Time: 04/20/20 1115 Sign date/Time: 04/20/20 1116 Nora Joe MD IMG BI PROCEDURES Final R esult from Last 3 Months or Most Recently Relevant to Health Maintenance Insurance [employer] MEDICARE [place]ICA[place] - [place] Advance Directives Documents on File Type Date Recorded Patient Director Dietetics Department Expl anation Health Care Decision (hx) 07/10/2023 AD ARNETT DIRECTIVE Health Care Decision (hx) 07/10/2023 AD ARNETT DIRECTIVE Health Care Decision (hx) 07/10/2023 AD ARNETT DIRECTIVE Care Teams Die Assembler Relationship Specialty Start Date End Date Mac Thomas MD [address] [place] [address] [address] [place] PCP - General Internal Medicine 11/03/17
--- OUTSIDE RECORDS SUMMARY | 2024-11-28 14:51 | XMS_ITS | Data Portability ---
Author Organization [place] [facility], Allergy Address [address] [address] Care Team Providers Care Discharge Planner Name Role Phone JAE OWEN Primary Care [...] Sensorine ural hearing loss of bilateral ears [id number] Active 2019 Sensorine ural hearing loss, bilateral ; Note: Date Diagnosed : 12/13/2019 12:07 PM (H90.3) Not Available [facility] 4 02:50:06 Bilateral tympanosc lerosis 56180281230 442397 Active 2021 Tympanosc lerosis, bilateral ; Note: Date Diagnosed : 06/04/2021 11:07 AM (H74.03) Not Available [facility] 4 02:50:05 Acute serous otitis media of right ear 44699227462 68694 Active 2023 Acute serous otitis media, right ear; Note: Date Diagnosed : 08/04/2023 3:42 PM (H65.01) CALIN GAMBOA MD [address] [place] [address], [place], [address] , [facility] - [facility] 4 15:20:41 Mixed conductiv e and sensorine ural hearing loss, bilateral 334675111 Active 2023 Mixed conductiv e and sensorine ural hearing loss, bilateral ; Note: Date Diagnosed : 08/04/2023 3:42 PM (H90.6) Not Available [facility] 4 02:50:06 Chronic serous otitis media of right ear 219862812 Active 2023 CALIN GAMBOA MD [address] [facility],[place] [address], [place], [address] , [facility] 4 15:20:59 Problem Notes None recorded. Procedures Surgical History Date Name Laterality Status Provider Name and Address Organization Details Recorded Time 09/30/2023 Comp Audio with Tymps - 55842 & 27821 completed Crys CAPUTO [address] [facility],[place] [address], [place], [address], [facility] 09/30/2023 15:19:30 Imaging Results None recorded. Procedure Notes None recorded. Medical Equipment None Reported. Allergies Allergen ID Allergen Name Allergen Category Reaction Reaction Severity Criticality Documentation Date Start Date Code Code System Note Provider Name and Address Organization Details Recorded Time 748125 Bactrim medicatio n other Not available Not available 09/15/2023 17424 9 RxNorm React ion: unkno wn, unspe cifie d;; Not Available [facility] 4 01:07:59 493224 Substance with sulfonami de structure and antibacte rial mechanism of action (substanc e) medicatio n other Not available Not available 09/15/2023 95230 8003 SNOMED React ion: unkno wn, unspe cifie d;; Not Available [facility] 4 01:08:03 Medications Name Sig Start [...] mg tablet 08/30 completed Medicati on ID: [id number] B rand Name: famotidi ne Send Method: [...] tablet,de layed release active Medicati on ID: [id number] B rand Name: aspirin Send Method: E-Prescr ibed Sub s Allowed: subs OK Speci al Instruct ion: TAKE 1 TABLET BY MOUTH TWICE A DAY Medi cationGe nericNam e: aspirin Not Available Not Available Not Available acetamino phen 500 mg tablet active Medicati on ID: [id number] B rand Name: acetamin ophen Se nd [...] (2,000 unit) capsule active Medicati on ID: [id number] B rand Name: cholecal ciferol (vitamin D3) [...] Updated DateTime 01/28/2024 162.56 cm 32.6 kg/m2 15658.55 g Bethany Smart [place] - [facility] 01/28/2024 09:52:43 Social History None recorded. [...] Note 1893 YEISON NOLAN PA-C [facility] [address] [address] 09/30/2023 14:46:44 09/30/2023 15:55:55 Sensorineural hearing loss of bilateral ears [id number] H90.3 Audiologic al evaluation results:Ri ght ear:Mild sloping to severe sensorineu ral hearing loss with good speech discrimina tion. Tympanomet ry:Right Ear:Type B with large volume [id number] CALIN GAMBOA MD [facility] [address] [address] 01/28/2024 09:43:43 01/28/2024 09:59:40 Chronic serous otitis media of right ear 503914398 H65.21 [id number] YEISON NOLAN PA-C [facility] [address] [address] 03/28/2024 13:18:17 03/29/2024 07:06:27 Sensorineural hearing loss of bilateral ears 908947080 H90.3 Chronic se ana rosa otitis media of right ear 951226724 H65.21 Health Concerns Section Related Observation LastModified by Organization Detai ls LastModified Time None Recorded Concern Status LastModified by Organization Details LastModified Time None Recorded Advance Directives Directive None Recorded Payers Insurance Date Sequence Insurance Name Policy Number Policy Wong Covered Member ID Wong Member ID Guarantor Name 03/28/2024 1 [facility] (MEDICARE REPLACEMENT/ ADVANTAGE - HMO) Marisa Lainez [id number] Marisa Lainez 01/28/2024 2 [place] [facility] Marisa Lainez [id number] Marisa Lainez 03/11/2024 2 [place] [facility] Marisa Greenenicbrittanie [id number] Marisa Lainez OBGyn Episode No OBEpisode recorded.
== END 2024-11-28 15:16 | disposition home or self-care (01) ==
LOC: HO.HOS 14:06
PROVIDERS: PCP Internal Medicine; Visit Provider Orthopaedic Surgery
DX: M17.12 Unilateral primary osteoarthritis, left knee (principal); M25.562 Pain in left knee
CPT/HCPCS: 20610; 99213

== ENCOUNTER → 2024-11-28 14:05 | Outpatient (BNVA) | payer OTHER, SELFPAY | PROVIDERS: PCP Internal Medicine; Visit Provider Orthopaedic Surgery | DX: M25.562 Pain in left knee (principal); M17.12 Unilateral primary osteoarthritis, left knee; Z98.890 Other specified postprocedural states | CPT/HCPCS: 20610; 99212; J2003; J7318 ==

== ENCOUNTER 2024-12-08 12:41 | Outpatient (AMB) | payer OTHER, SELFPAY ==
--- OUTSIDE RECORDS SUMMARY | 2024-12-08 12:43 | XMS_ITS | Clinical Summary ---
Author Organization [facility] Address [address] [place] [address] Care Team Providers Care Air Crew Member Name Role Phone Mac Thomas MD Primary Care Provider +1- [phone] Social History Tobacco Use Types Packs/Day Years [...] age to complete this topic Care Teams Air Crew Member Relationship Specialty Start Date End Date Mac Thomas MD [address] [place] [address] [place] [address] PCP - General Internal Medicine 04/17/20
--- OUTSIDE RECORDS SUMMARY | 2024-12-08 12:43 | XMS_ITS | Clinical Summary ---
Author Organization [facility] Address [address] [place] [address] Phone Care Team Providers Care Enterprise Services Manager Name Role Phone Mac Thomas MD [...] EDT Emergency [facility] [address] [place] [address] Lawanda Joya MD Generalized nontraumatic [...] Signed Date: 11/20/2024 06:46 ET Workstation ID: [id number] Transcribed By: Self Edit Transcribed Date: 11/20/2024 [...] Signed Date: 11/20/2024 06:46 ET Workstation ID: [id number] Transcribed By: Self Edit Transcribed Date: 11/20/2024 [...] Signed Date: 11/20/2024 07:16 ET Workstation ID: [id number] Transcribed By: Self Edit Transcribed Date: 11/20/2024 [...] Signed Date: 11/20/2024 07:16 ET Workstation ID: [id number] Transcribed By: Self Edit Transcribed Date: 11/20/2024 07:14 ET Lawanda Joya MD IMG XR PROCEDURES Final Result * CBC auto differential (11/20/2024 12:37 AM EDT) [facility] WBC 7.2 4.8 - 10.8 K/mcL LAB HEMETOLOGY METHOD 11/20/2024 1:00 AM [facility] RBC 4.60 3.80 - 4.80 M/mcL LAB HEMETOLOGY METHOD 11/20/2024 1:00 AM [facility] Hemoglobin 13.7 11.5 - 16.0 g/dL LAB HEMETOLOGY METHOD 11/20/2024 1:00 AM [facility] Hematocrit 41.5 35.0 - 47.0 % LAB HEMETOLOGY METHOD 11/20/2024 1:00 AM [facility] MCV 90.6 79.0 - 98.0 FL LAB HEMETOLOGY METHOD 11/20/2024 1:00 AM [facility] MCH 29.9 27.0 - 32.0 pcg LAB HEMETOLOGY METHOD 11/20/2024 1:00 AM [facility] MCHC 33.0 32.0 - 37.0 g/dL LAB HEMETOLOGY METHOD 11/20/2024 1:00 AM [facility] RDW 13.2 11.0 - 15.0 % LAB HEMETOLOGY METHOD 11/20/2024 1:00 AM [facility] Platelets 176 130 - 400 K/mcL LAB HEMETOLOGY METHOD 11/20/2024 1:00 AM [facility] MPV 10.0 7.0 - 11.0 FL LAB HEMETOLOGY METHOD 11/20/2024 1:00 AM [facility] NRBC 0.0 <1.0 % LAB HEMETOLOGY METHOD 11/20/2024 1:00 AM [facility] NRBC Absolute 0.00 <0.10 K/mcL LAB HEMETOLOGY METHOD 11/20/2024 1:00 AM [facility] Neutrophils Relative 52.2 % LAB HEMETOLOGY METHOD 11/20/2024 1:00 AM [facility] Lymphocytes Relative 32.0 % LAB HEMETOLOGY METHOD 11/20/2024 1:00 AM [facility] Monocytes Relative 11.6 % LAB HEMETOLOGY METHOD 11/20/2024 1:00 AM [facility] Eosinophils Relative 2.9 % LAB HEMETOLOGY METHOD 11/20/2024 1:00 AM [facility] Basophils Relative 1.0 % LAB HEMETOLOGY METHOD 11/20/2024 1:00 AM [facility] Immature Granulocytes Relative 0.3 % LAB HEMETOLOGY METHOD 11/20/2024 1:00 AM [facility] Neutrophils Absolute 3.73 1.50 - 7.00 K/mcL LAB HEMETOLOGY METHOD 11/20/2024 1:00 AM [facility] Lymphocytes Absolute 2.29 1.00 - 5.00 K/mcL LAB HEMETOLOGY METHOD 11/20/2024 1:00 AM [facility] Monocytes Absolute 0.83 0.20 - 1.00 K/mcL LAB HEMETOLOGY METHOD 11/20/2024 1:00 AM [facility] Eosinophils Absolute 0.21 0.00 - 0.50 K/mcL LAB HEMETOLOGY METHOD 11/20/2024 1:[address] [facility] Basophils Absolute 0.07 0.00 - 0.20 K/mcL LAB HEMETOLOGY METHOD 11/20/2024 1:[address] [facility] Immature Granulocytes Absolute 0.02 0.00 - 0.03 K/mcL LAB HEMETOLOGY METHOD 11/20/2024 1:[address] [facility] Blood Venous blood specimen / Unknown Venipuncture / Unknown 11/20/2024 12:37 AM EDT 11/20/2024 12:49 AM EDT Lawanda Joya MD LAB BLOOD ORDERABLES Final Res ult Performing Organization Address City/[facility]/ZIP Co de Phone Number [facility] [address] [place] [address], [place] [phone] * Sedimentation rate, automated (11/20/2024 12:37 AM EDT) Sed Rate 11 0 - 30 mm/hr LAB HEMETOLOGY METHOD 11/20/2024 1:[address] [facility] Blood Venous blood specimen / Unknown Venipuncture / Unknown 11/20/2024 12:37 AM EDT 11/20/2024 12:49 AM EDT Lawanda Joya MD LAB BLOOD ORDERABLES Final Res ult [facility] [address] [place] [address], [place] [phone] * C-reactive protein (11/20/2024 12:37 AM EDT) C-Reactive Protein <0.29 <=0.50 mg/dL LAB CHEMISTRY METHOD 11/20/2024 1:[address] [facility] Blood Venous blood specimen / Unknown Venipuncture / Unknown 11/20/2024 12:37 AM EDT 11/20/2024 12:49 AM EDT us Lawanda Joya MD LAB BLOOD ORDERABLES Final Res ult [facility] [address] [place] [address], [place] [phone] * (ABNORMAL) Comprehensive metabolic panel (11/20/2024 12:37 AM EDT) Sodium 140 133 - 145 mmol/L LAB CHEMISTRY METHOD 11/20/2024 1:18 AM [facility] Potassium 4.0 3.5 - 5.5 mmol/L LAB CHEMISTRY METHOD 11/20/2024 1:18 AM [facility] Chloride 109 96 - 110 mmol/L LAB CHEMISTRY METHOD 11/20/2024 1:18 AM [facility] CO2 28 21 - 32 mmol/L LAB CHEMISTRY METHOD 11/20/2024 1:18 AM [facility] Anion Gap 3 3 - 11 LAB CHEMISTRY METHOD 11/20/2024 1:18 AM [facility] Glucose 94 70 - 100 mg/dL LAB CHEMISTRY METHOD 11/20/2024 1:18 AM [facility] BUN 18 5 - 25 mg/dL LAB CHEMISTRY METHOD 11/20/2024 1:18 AM [facility] Creatinine 1.02 0.50 - 1.10 mg/dL LAB CHEMISTRY METHOD 11/20/2024 1:18 AM [facility] eGFR 55(L) >=60 mL/min/1. 73m2 LAB CHEMISTRY METHOD 11/20/2024 1:18 AM [facility] Comment:Calculation based on the Chronic Kidney Disease Epidemiology Collaboration (CKD-EPI) equation refit without adjustment for race. BUN/Creatinine Ratio 17.6 LAB CHEMISTRY METHOD 11/20/2024 1:18 AM [facility] Calcium 9.0 8.5 - 10.5 mg/dL LAB CHEMISTRY METHOD 11/20/2024 1:[address] [facility] AST (SGOT) 29 10 - 42 unit/L LAB CHEMISTRY METHOD 11/20/2024 1:18 AM [facility] ALT (SGPT) 27 10 - 60 unit/L LAB CHEMISTRY METHOD 11/20/2024 1:[address] [facility] Alkaline Phosphatase 127(H) 42 - 121 unit/L LAB CHEMISTRY METHOD 11/20/2024 1:[address] [facility] Total Protein 6.7 6.0 - 8.0 g/dL LAB CHEMISTRY METHOD 11/20/2024 1:18 AM [facility] Albumin 3.9 3.2 - 5.0 g/dL LAB CHEMISTRY METHOD 11/20/2024 1:18 AM [facility] Total Bilirubin 0.5 0.0 - 1.4 mg/dL LAB CHEMISTRY METHOD 11/20/2024 1:[address] [facility] Blood Venous blood specimen / Unknown Venipuncture / Unknown 11/20/2024 12:37 AM EDT 11/20/2024 12:49 AM EDT us Lawanda Joya MD LAB BLOOD ORDERABLES Final Res ult [facility] [address] [place] [address], * AZUCENA DEXA AXIAL SKELETON (04/20/2020 11:16 AM EST) Anatomical Region Laterality Modality Mammography 04/20/2020 10:2 7 AM EST Narrative 04/20/2020 11:16 AM EST [facility] Diagnostic Imaging Department [address] [place] [address] Patient: SERA KELLEY /Age/Sex: 1940 - 79 - F Unit#: [id number] [facility]Ordering Site: [facility] Ordering Physician: NORA [...] probability of hip fracture of 3.1%. Code 58747 Dictating Physician: JOSELYN BECKER MD Electronically Signed by: JOSELYN BECKER MD Dic Date/Time: 04/20/20 1115 Sign date/Time: 04/20/20 1116 Procedure Note Joselyn Becker MD - 04/22/2022 [facility] Diagnostic Imaging Department [address] [place] [id number] Patient: SERA KELLEY Candelaria JohnsonB./Age/Sex: 1940 - 79 - F Unit#: [id number] Location/Status: SPDIMAM/REG CLI [facility] Ordering Physician: NORA JOE MD, [...] density of the femurs bilaterally is 0.775 gm/ij3vpcnt is 77% of that of young normals and 93% of that of age matched controls.This yields a T-score of -1.8 and a Z-score of -0.5 which is diagnostic of osteopenia. IMPRESSION: 1. Osteoporosis. 2. FRAX analysis yields a 10-year probability of major osteoporoticfracture of 12.8% and a 10-year probability of hip fracture of 3.1%. Code 93891 Dictating Physician: JOSELYN BECKER MD Electronically Signed by: JOSELYN BECKER MD Dic Date/Time: 04/20/20 1115 Sign date/Time: 04/20/20 1116 Nora Joe MD IMG BI PROCEDURES Final R esult from Last 3 Months or Most Recently Relevant to Health Maintenance Insurance [employer] MEDICARE [place]ICAID - [place] Advance Directives Documents on File Type Date Recorded Patient Toll Repairer Central Office Expl anation Health Care Decision (hx) 07/10/2023 AD ARNETT DIRECTIVE Health Care Decision (hx) 07/10/2023 AD ARNETT DIRECTIVE Health Care Decision (hx) 07/10/2023 AD ARNETT DIRECTIVE Care Teams Enterprise Services Manager Relationship Specialty Start Date End Date Mac Thomas MD [address] [place] [address] [address] [place] PCP - General Internal Medicine 11/03/17
--- NOTE | 2024-12-08 12:53 | A.OFFVIS_ITS ---
Vital Signs 12/08/24 12:54 Height 5 ft 5 in Weight 185 lb 3.013 oz BMI 30.8 BP 118/68 Blood Pressure Location Lt brachial Position Sitting Pulse 76 Pulse Source Pulse Oximeter Pulse Oximetry (%) 97 Oxygen Delivery Method Room Air Intake Visit Reasons: COPD Route Delivery Manager Required: No Accompanied by: Self / Same As Patient Allergies nitrofurantoin (From MACRODANTIN) Allergy (Severe, Verified 12/08/24 12:58) Anaphylaxis Sulfa (Sulfonamide Antibiotics) (SULFA (SULFONAMIDE ANTIBIOTICS)) Allergy (Severe, Verified 12/08/24 12:58) ANAPHYLAXIS sulfamethoxazole (From BACTRIM) Allergy (Severe, Verified 12/08/24 12:58) ANAPHYLAXIS trimethoprim (From BACTRIM) Allergy (Severe, Verified 12/08/24 12:58) ANAPHYLAXIS HPI Comments Details: the patient is a 84-year-old woman with chronic cough and COPD. It has been awhile since I evaluated the patient. Primarily due to the pandemic she has not been to the office almost 2 years. During the last evaluation the patient was complaining of a chronic cough. Part of the workup including a barium swallow. She did undergo barium swallow straight no acute disease. However, after she underwent that she felt that her cough got worse. the cough occurs at any time and is sporadic. She can have coughing spells it can affect her bladder developing some incontinence. Sometimes she feels better after removing is blood of mucus. Denies any hemoptysis. Denies any significant chest tightness or wheezing. She does complaint of allergies and postnasal drip. I did evaluate her nose demonstrating nasal congestion and significant postnasal drip with grows post area pharynx secretions lymphoid tissue hypertrophy. Therefore, will focus on upper airway cough syndrome. 07/30/2022 the patient is here for pulmonary follow-up visit. Patient still complaining of cough. The cough now is typically nonproductive in nature but wh en she coughs it is moderate to severe. She goes to coughing spells had a very hard to stop. She typically has urinary incontinence that is embarrassing to her. Therefore she would like to see if we can get makes her cough better. During the last visit she was having more congestion she did respond to the antibiotics. We did look at the x-ray demonstrating no acute disease. At this point based on her ongoing cough symptoms will go ahead and request a CT scan of the chest to make sure she does not have any endobronchial lesions. The patient also will be maximize her respiratory therapy to help with some wheezing. 10/01/2022 The patient is here for a pulmonary follow up visit. Overall doing well. Cough in non productive, mild in severity. Trelegy has been helpful. Continues nasal therapy. I personally reviewed her CT chest with minimal atelectasis and minimal bronchectatic airways. No serial CT's needed. 02/05/2024 the patient is here for a pulmonary follow-up visit. The patient has a preoperative evaluation for orthopedic surgery. She has been doing better from respiratory status. She has been tolerating Trelegy inhaler and she does use it daily. Still has episodes of cough usually nonproductive in nature. Nnoe-vn-[id number] severity in the usually intermittent. Likely the patient does have a component of mucus plugs and atelectasis and she typically develops a co ugh because of that. We did talk about deep breathing exercises to help her minimize in the atelectasis in the cough. From a pulmonary standpoint the patient is medically stable to undergo anesthesia and surgery at this time. Therefore she may proceed without any reservations. The patient will have mild risk for perioperative pulmonary complications which includes bronchospasms, atelectasis, hypoxia, pneumonia. Patient follow-up in 4-6 months if she has any issues prior to that she will call for an earlier assessment. 12/08/2024 the patient is here for pulmonary follow-up visit. Overall she has been doing well from a respiratory status. She has been able to stop her maintenance inhaler. She does have a rescue inhaler available if she needs it. Denies any significant shortness of breath with activity. Although she has been very limited due to significant left knee pain. She did have an orthopedic procedure and then afterwards had significant pain and burning. I believe she d id get some gel injections. She is not sure where she is going to do next. She will follow-up with orthopedic surgery. In the meantime she will continue with the current respiratory therapy she will follow-up in a year's time with pulmonary. If any issues arise she will call for further recommendations. [facility] Medical History History of skin cancer Hepatitis COPD (chronic obstructive pulmonary disease) Seasonal allergies Chronic cough Cervical disc disease Left knee pain Pain of right shoulder joint on movement Abnormal SPEP Vitamin D deficiency Urolithiasis Osteoporosis GERD without esophagitis Multilevel degenerative disc disease Obesity (BMI 30-39.9) Anxiety Insomnia GERD (gastroesophageal reflux disease) Left lumbosacral radiculopathy Degenerative lumbar spinal stenosis Pure hypercholesterolemia Surgical History Hx of tonsillectomy Hx of left cataract extraction History of surgery on right wrist History of endoscopy History of colonoscopy Hx of decompressive lumbar laminectomy (~05/25/20) Status post total abdominal hysterectomy and bilateral salpingo-oophorectomy (CATRACHITO-BSO) History of right cataract extraction (~12/2016) History of cystoscopy (~05/24/18) Family History Father No problems noted. Mother Ovarian cancer Daughter Myocardial infarction, Onset Age: 46 Stroke Social History Household Members: Children Housing: House Are you a primary ostomy care nurse to a significant other at home: No Do you presently have visiting nurse or other home services: No Alcohol intake: former Patient Tobacco Use Status: Never used Tobacco e-Cigarette/Vaping Use: Never Used Second Hand Smoke Exposure: Yes service: No Current occupational status: retired and disabled Cognitive needs: No Hearing needs: No Vision needs: Yes (reading glasses) Review of Systems Const Denies night sweats ENT Denies change in voice, Denies lip swelling, Denies mouth pain, Reports nasal congestion, Reports nasal discharge and Denies tongue swelling Card Denies chest pain and Reports dyspnea on exertion Resp Denies chest congestion, Reports cough, Reports dyspnea on exertion and Denies wheezing GI Denies abdominal pain, Reports dyspepsia and Reports heartburn Musc Denies no additional complaints and Reports myalgias Neuro Denies Neuro-related abnormal movements Psych Denies no additional complaints Kirit/Lymph Denies easy bleeding and Denies lymphadenopathy Aller/Immun Denies lip swelling, Denies tongue swelling and Denies wheezing Physical Exam Vital Signs: Last Vital Signs Pulse 76 12/08/24 12:54 BP 118/68 12/08/24 12:54 Pulse Ox 97 12/08/24 12:54 Oxygen Delivery Method Room Air 12/08/24 12:54 BMI result Body Mass Index 30.8 Const General: cooperative, healthy appearing and well developed Nutritional Appearance: average body habitus and well nourished Orientation/consciousness: patient oriented x3 Limitations: no limitations HEENT Head: Yes normocephalic Ears: hearing grossly normal bilaterally Eyes General: appearance normal, both eyes and all related structures Neck Neck: Yes normal visual inspection Chest Chest palpation & inspection: normal inspection of the chest Resp Effort & Inspection: normal respiratory effort Auscultation: no wheezes and diminished lung sounds Cardio Jugular venous distension: no JVD Neuro General: patient oriented x3, gait normal and no focal motor deficits Psych Appearance: grossly normal and well kempt Mental Status: mental status grossly normal Speech and movement: Normal speech and movement present Affect: normal affect Attitude: cooperative Thought process: Normal thought process present Thought content: Normal thought content present Insight: Good insight present (Psych) Judgement: Good judgement present (Psych) Assessment & Plan Assessment & Plan (1) COPD (chronic obstructive pulmonary disease): Code(s): J44.9 - Chronic obstructive pulmonary disease, unspecified Category: Medical Qualifiers: COPD type: COPD with acute exacerbation Qualified Code(s): J44.1 - Chronic obstructive pulmonary disease with (acute) exacerbation (2) Chronic cough: Code(s): R05.3 - Chronic cough Category: Medical (3) GERD without esophagitis: Code(s): K21.9 - Gastro-esophageal reflux disease without esophagitis Category: Medical (4) Seasonal allergies: Code(s): J30.2 - Other seasonal allergic rhinitis Category: Medical Plan continue Singulair at night tessalon pearls as needed for cough holding Trelegy Atrovent nasal spray at night Flonase in AM F/U 1 yr Coding Level of Care Code Est Pt Level 4 (35533) Diagnoses Chronic obstructive pulmonary disease with acute exacerbation J44.1 COPD type: COPD with acute exacerbation Chronic cough R05.3 GERD without esophagitis K21.9 Seasonal allergies J30.2 Time Spent (min) 16
[2024-12-08 12:54] VITALS: BP 118/68; PULSE 76; O2SAT 97; BMI 30.8
== END 2024-12-08 13:21 | disposition home or self-care (01) ==
PROVIDERS: PCP Internal Medicine; Visit Provider Hospitalist
DX: J44.1 Chronic obstructive pulmonary disease with (acute) exacerbation (principal); R05.3 Chronic cough; K21.9 Gastro-esophageal reflux disease without esophagitis; J30.2 Other seasonal allergic rhinitis
CPT/HCPCS: 99214

== ENCOUNTER → 2024-12-08 12:41 | Outpatient (BNVA) | payer OTHER, SELFPAY | PROVIDERS: PCP Internal Medicine; Visit Provider Hospitalist | DX: J44.1 Chronic obstructive pulmonary disease with (acute) exacerbation (principal); R05.3 Chronic cough; K21.9 Gastro-esophageal reflux disease without esophagitis; J30.2 Other seasonal allergic rhinitis | CPT/HCPCS: 99212 ==

== ENCOUNTER 2024-12-13 09:32 | Outpatient (AMB) | payer OTHER, SELFPAY ==
[2024-12-13 09:37] VITALS: BP 142/96; PULSE 73; O2SAT 96
--- NOTE | 2024-12-13 09:37 | MHC.PC.OV ---
Vital Signs 12/13/24 09:37 Height 5 ft 5 in BMI Reason not done Patient refused/unable BP 142/96 H Blood Pressure Location Lt brachial Position Sitting Pulse 73 Pulse Source Pulse Oximeter Pulse Oximetry (%) 96 Oxygen Delivery Method Room Air Intake Visit Reasons: follow up Dairy Equipment Specialist Required: No Accompanied by: Self / Same As Patient Allergies nitrofurantoin (From MACRODANTIN) Allergy (Severe, Verified 12/13/24 09:55) Anaphylaxis Sulfa (Sulfonamide Antibiotics) (SULFA (SULFONAMIDE ANTIBIOTICS)) Allergy (Severe, Verified 12/13/24 09:55) ANAPHYLAXIS sulfamethoxazole (From BACTRIM) Allergy (Severe, Verified 12/13/24 09:55) ANAPHYLAXIS trimethoprim (From BACTRIM) Allergy (Severe, Verified 12/13/24 09:55) ANAPHYLAXIS Medication List - Last Reconciled 12/13/24 by Mac Thomas MD alprazolam 1 mg PO TID PRN 30 days atorvastatin 40 mg PO BEDTIME 90 days cholecalciferol (vitamin D3) 50 mcg PO DAILY 90 days montelukast 10 mg PO BEDTIME oxycodone 5 mg PO TID PRN 7 days pantoprazole 40 mg PO BEDTIME terazosin 1 mg PO BEDTIME 90 days tizanidine 4 mg PO Q8H PRN 30 days Tobacco use date assessed: 12/13/24 Fall risk assessment: 2 + Falls in past year Last assessed Fall Risk: 12/13/24 Dental Screening Dental Screen Date: 12/13/24 Did you have a dental visit in the last 12 months?: Yes Did you have a dental problem in the last 6 months where you did not have access to dental care?: No Was dental information given to patient?: Patient has dentist HPI follow up HPI Details Patient comes in today for her follow up visit She continues to experience increased pain in her left knee and states that the Durolane injection she received from Dr. Diaz a couple of weeks ago did not help at all States that she's had increased pain in her left knee since her knee surgery with Dr. Diaz last February (2023) and she is very unhappy about this and is requesting for a referral to Dr. Rubalcava at [facility] for a second opinion She denies any fever, headaches or dizziness Denies any chest pains, no increased SOB No nausea/vomiting, no abdominal pain States that she has been constipated often lately and has been drinking a lot of prune juice to try to keep up but now would like to get Rx for some stool softeners She also needs a couple of her other Rx refilled PFSH Medical History History of skin cancer Hepatitis COPD (chronic obstructive pulmonary disease) Seasonal allergies Chronic cough Cervical disc disease Left knee pain Pain of right shoulder joint on movement Abnormal SPEP Vitamin D deficiency Urolithiasis Osteoporosis GERD without esophagitis Multilevel degenerative disc disease Obesity (BMI 30-39.9) Anxiety Insomnia GERD (gastroesophageal reflux disease) Left lumbosacral radiculopathy Degenerative lumbar spinal stenosis Pure hypercholesterolemia Surgical History Hx of tonsillectomy Hx of left cataract extraction History of surgery on right wrist History of endoscopy History of colonoscopy Hx of decompressive lumbar laminectomy (~05/25/20) Status post total abdominal hysterectomy and bilateral salpingo-oophorectomy (CATRACHITO-BSO) History of right cataract extraction (~12/2016) History of cystoscopy (~05/24/18) Family History Father No problems noted. Mother Ovarian cancer Daughter Myocardial infarction, Onset Age: 46 Stroke Social History Household Members: Children Housing: House Are you a primary child care aide to a significant other at home: No Do you presently have visiting nurse or other home services: No Alcohol intake: former Patient Tobacco Use Status: Never used Tobacco e-Cigarette/Vaping Use: Never Used Second Hand Smoke Exposure: Yes service: No Current occupational status: retired and disabled Cognitive needs: No Hearing needs: No Vision needs: Yes (reading glasses) Questionnaire PHQ-9 Over the last 2 weeks, how often have you been bothered by any of the following problems? 1. Little interest or pleasure in doing things: not at all 2. Feeling down, depressed, or hopeless: not at all 3. Trouble falling or staying asleep, or sleeping too much: not at all 4. Feeling tired or having little energy: not at all 5. Poor appetite or overeating: not at all 6. Feeling bad about yourself - or that you are a failure or have let yourself or your family down: not at all 7. Trouble concentrating on things, such as reading the newspaper or watching television: not at all 8. Moving or speaking so slowly that other people could have noticed. Or the opposite - being so fidgety or restless that you have been moving around a lot more than usual: not at all 9. Thoughts that you would be better off or of hurting yourself in some way: not at all Total score: 0 Depression Screening Interpretation: Negative Depression Screening Done: Yes [id number] - PHQ-9 Billing: Yes Source: Developed by Drs. Sim Alcala, Tamy Irby, Jean Marie Schroeder and colleagues, with an educational dionicio from [employer] Thrive Questionnaire Date Thrive assessed: 12/13/24 I am a: Patient What is your living situation today?: I have a steady place to live Within the past 12 months, did the food you bought not last and you didn't have the money to get more?: Never true Within the past 12 months, did you worry whether your food would run out before you got money to buy more?: Never true Do you have trouble paying for medicines?: No Do you have trouble getting transportation to medical appointments?: No Do you have trouble paying your heating and electricity bill?: No Do you have trouble taking care of your child, family member or friend?: No Do you have trouble with day-to-day activities such as bathing, preparing meals, shopping, managing finances, etc.?: Yes Are you currently unemployed and looking for a job?: No Are you interested in more education?: No Please select the resources that you would like help with: None Currently or been in a relationship where the following occur: No concerns reported THRIVE Score: 0 AUDIT C Alcohol Use Questionnaire (AUDIT-C) 1. How often do you have a drink containing alcohol?: Never 3. How often do you have six or more drinks on one occasion?: Never Total Score: 0 Score Reviewed/Action Taken: Yes SHIRLEY-7 AMB Questionnaire SHIRLEY-7 Date SHIRLEY - 7 assessed: 12/13/24 Feeling nervous, anxious, or on edge: 1 = Several days Not being able to stop or control worryin = Several days Worrying too much about different things: 1 = Several days Trouble relaxin = Several days Being so restless that it is hard to sit still: 1 = Several days Becoming easily annoyed or irritable: 0 = Not at all Feeling afraid as if something awful might happen: 0 = Not at all Total SHIRLEY-7 score (0-4 normal; 5-9 mild; 10-14 moderate; 15-21 severe): 5 Source: Developed by Drs. Sim Alcala, Tamy Irby, Jean Marie Schroeder and colleagues, with an educational dionicio from [employer]. Review of Systems Const Denies chills, Denies fatigue, Denies fever(s) and Denies headache(s) ENT Denies dysphagia, Denies dizziness, Denies otalgia, Denies headache(s), Reports neck pain (chronic but manageable), Denies odynophagia and Denies sore throat Card Denies chest pain, Denies palpitations and Reports dyspnea on exertion (mild) Resp Denies chest congestion, Denies cough and Reports dyspnea on exertion (mild) GI Denies abdominal pain, Denies constipation, Denies dysphagia, Denies heartburn, Denies diarrhea, Denies nausea, Denies odynophagia and Denies vomiting Denies difficulty voiding, Denies nocturia, Reports dysuria (at times) and Reports urinary urgency Musc Reports back pain (chronic but manageable), Reports arthralgias (increasing pain in the left knee) and Reports neck pain (chronic but manageable) Skin/Breast Denies rash Neuro Denies dizziness and Denies headache(s) Psych Denies anxiety Endo Denies fatigue and Denies palpitations Physical exam (Primary Care) Vital Signs: Last Vital Signs Pulse 73 12/13/24 09:37 BP 142/96 H 12/13/24 09:37 Pulse Ox 96 12/13/24 09:37 Oxygen Delivery Method Room Air 12/13/24 09:37 Tobacco/Smoking Status: Tobacco use Status Tobacco use date assessed 12/13/24 12/13/24 09:51 Patient Tobacco Use Status Never used Tobacco 12/13/24 09:51 e-Cigarette/Vaping Use Never Used 12/13/24 09:51 PHQ-9: PHQ-9 Score PHQ-9: Total score 0 12/13/24 10:30 Depression Screening Interpretation: Negative Thrive Assessment: Date of Thrive Assessment Date Thrive assessed 12/13/24 12/13/24 09:51 Currently or been in a relationship where the following occur: No concerns reported Const General: no acute distress and alert HENMT Throat: Yes posterior oropharynx normal and Yes tonsils normal (no TP congestion noted) Neck Neck: Yes supple and No lymphadenopathy Thyroid: Thyroid normal Resp Auscultation: clear to auscultation bilaterally, no rales and no wheezes Cardio Rate: regular rate Rhythm: regular rhythm Heart sounds: no murmurs GI Palpation (GI): Soft to palpation and nontender Auscultation: normal bowel sounds Back/Spine/Pelvis Cervical Spine: Cervical spine tenderness Thoracic/Lumbar Spine: paraspinal muscle tenderness (mild) on the left in the upper thoracic, in the mid lumbar and in the lower lumbar and lumbar spinal tenderness (mild) Skin Rashes: no rashes Extrem General: Yes no clubbing, cyanosis or edema Left lower extremity: knee Details: tenderness (severe, involving the entire knee); no swelling Results AMB Urinalysis, Automated UA Leukoctes 3 Karon/uL Last Edit by ZACH Reece on 12/13/24 10:22 UA Nitrite Negative Last Edit by ZACH Reece on 12/13/24 10:22 UA Urobilinogen 0 mg/dL Last Edit by ZACH Reece on 12/13/24 10:22 UA Protein 0 mg/dL Last Edit by Mia Bonilla Adolfo on 12/13/24 10:22 UA pH 6.0 Last Edit by Mia Bonilla Adolfo on 12/13/24 10:22 UA Blood 1 Eliseo/uL Last Edit by ZACH Reece on 12/13/24 10:22 UA Specific [place] 1.005 Last Edit by ZACH Reece on 12/13/24 10:22 UA Ketone Negative Last Edit by ZACH Reece on 12/13/24 10:22 UA Bilirubin mg/dL Last Edit by ZACH Reece on 12/13/24 10:22 UA Glucose 0 mg/dL Last Edit by ZACH Reece on 12/13/24 10:22 Results Reviewed Results Reviewed: Laboratory Last Values Urine pH (Auto) 6.0 12/13/24 10:20 Specific [place] (Auto) 1.005 12/13/24 10:20 Urine Protein (Auto) 0 mg/dL 12/13/24 10:20 Glucose (UA)(Auto) 0 mg/dL 12/13/24 10:20 Urine Ketones (Auto) Negative 12/13/24 10:20 Urine Blood (Auto) 1 Eliseo/uL 12/13/24 10:20 Urine Nitrite (Auto) Negative 12/13/24 10:20 Urine Urobilinogen (Auto) 0 mg/dL 12/13/24 10:20 Leukocyte Esterase (Auto) 3 Karon/uL 12/13/24 10:20 Coding Level of Care Code Est Pt Level 4 (92315) Diagnoses Osteoarthritis of left knee, unspecified osteoarthritis type M17.12 Osteoarthritis type: unspecified Dysuria R30.0 Degenerative lumbar spinal stenosis M48.061 Cervical disc disease M50.90 Pure hypercholesterolemia E78.00 Vitamin D deficiency E55.9 Constipation, unspecified constipation type K59.00 Constipation type: unspecified constipation type Additional Codes PHQ-9 - 46625 - PHQ-9 Billing: Yes ([id number]) Assessment & Plan Assessment & Plan (1) Degenerative arthritis of left knee: Code(s): M17.12 - Unilateral primary osteoarthritis, left knee Category: Medical Qualifiers: Osteoarthritis type: unspecified Qualified Code(s): M17.12 - Unilateral primary osteoarthritis, left knee Plan: Patient currently appears to be suffering from end-stage arthritis of the left knee She underwent unsuccessful arthroscopic partial medial and lateral meniscectomies and chondroplasty of the patella and medial femoral condyle last February (2023) as she feels that her knee pain got worse after her procedure She also had a trial of Durolane injection a couple of weeks ago with no relief Her most recent MRI of the left knee done on 11/25/2024 revealed (+) significant findings including (+) oblique tear of the medial meniscus, extensive poorly defined complex tear of the lateral meniscus, possible old partial tear of the anterior cruciate ligament as well as a possible mild sprain of the lateral collateral ligament. Extensive marrow edema in the proximal tibia is indeterminate but could represent a large contusion versus incomplete nondisplaced fracture. Moderate tricompartmental DJD, moderate to large joint effusion with multifocal ill-defined soft tissue edema are also seen, Suspect multiple mild muscle strains as well She is now requesting for a referral to see Dr. Rubalcvaa at [facility] for a second opinion as she is unhappy with the poor progression of her knee symptoms over the past year - referral to [facility] placed per patient request Continue Oxycodone 5 mg TID PRN (Rx refilled) but patient is reminded to just take this at night as much as possible and take her Tramadol instead during the day unless her pain gets severe (2) Dysuria: Code(s): R30.0 - Dysuria Category: Medical Plan: Patient is again requesting to have a urinalysis and urine culture done as she feels that she oftens and easily comes down with a urinary tract infection and just wanted to be sure she does not have any urinary infection that will be left untreated Urine culture sent (3) Degenerative lumbar spinal stenosis: Comment: S/P bilateral L4-L5 laminotomy, partial facetectomy and foraminotomy through left-sided approach with a microscope by Dr. Kramer on 05/25/2020 MRI previously showed (+) multilevel degenerative disc changes with moderate to severe central stenosis at L4-L5 as well as a grade 1 anterolisthesis of L4 on L5, with moderate to severe bilateral facet arthropathy at L3-L4 and L5-S1 and also a chronic compression fracture of the body of L1 Code(s): M48.061 - Spinal stenosis, lumbar region without neurogenic claudication Category: Medical Plan: Patient reports (+) significant relief of her back pain since her surgery in May 2020 Repeat lumbar spine x-rays done back in December 2023 revealed no acute findings - (+) stable 30% compression fracture at L1 and stable moderate degenerative changes in the lumbar spine States that physical therapy recently has also helped a lot with her lower back Reinforced activity and weight lifting restrictions Continue Tizanidine 4 mg 2 to 3 times a day as needed and on Tramadol 50 mg TID PRN (4) Cervical disc disease: Code(s): M50.90 - Cervical disc disorder, unspecified, unspecified cervical region Category: Medical Plan: Cervical spine MRI done in October 2020 revealed (+) cervical spinal canal developmental narrowing exacerbated by cervical spine degenerative disease with stenosis and overall mild cervical spine cord volume loss Patient states that her neck symptoms have been mostly mild and manageable over the past couple of years Follow up with neurosurgery as scheduled (5) Pure hypercholesterolemia: Code(s): E78.00 - Pure hypercholesterolemia, unspecified Category: Medical Plan: Reinforced low cholesterol diet Continue Atorvastatin 40 mg QD (Rx refilled) Will recheck her labs and fasting lipids as scheduled in a couple of months for follow up (6) Vitamin D deficiency: Code(s): E55.9 - Vitamin D deficiency, unspecified Category: Medical Plan: Continue Vitamin D supplement - is on both 2000 units daily and 54415 units once a week Follow up with endocrinology as scheduled (7) Constipation: Code(s): K59.00 - Constipation, unspecified Category: Medical Qualifiers: Constipation type: unspecified constipation type Qualified Code(s): K59.00 - Constipation, unspecified Plan: Patient is advised that this is likely related to her current opioid Rx Encouraged on increased oral fluids and dietary fiber intake Will start her on Senna 8.6 mg 1 to 2 tablets QD PRN Plan To return as scheduled in February 2025 for her annual physical examination Orders: Orders AMB Urinalysis Automated Today Z13.9 - Encounter for screening, unspecified Urine Culture Today R30.0 - Dysuria Referrals Orthopedics Referral M17.12 - Unilateral primary osteoarthritis, left knee Medications: New sennosides (senna) 8.6 mg PO BID PRN 60 caps 1RF constipation Changed From tramadol 50 mg PO TID PRN 30 tabs 1RF pain To tramadol Do not take Tramadol together with Oxycodone - have to be taken at least 4 to 6 hours apart 50 mg PO TID PRN 30 tabs 1RF pain Refilled oxycodone Partial Fill upon patient request. 5 mg PO TID PRN 21 tabs 0RF severe pain 7 days atorvastatin 40 mg PO BEDTIME 90 tabs 3RF 90 days alprazolam 1 mg PO TID PRN 90 tabs 0RF anxiety 30 days F41.9 - Anxiety disorder, unspecified
--- OUTSIDE RECORDS SUMMARY | 2024-12-13 10:15 | XMS_ITS | Clinical Summary ---
Author Organization [facility] Address [address] [place] [address] Care Team Providers Care Help Desk Supervisor Name Role Phone Mac Thomas MD Primary Care Provider [phone] Social History Tobacco Use Types Packs/Day Years [...] age to complete this topic Care Teams Help Desk Supervisor Relationship Specialty Start Date End Date Mca Thomas MD [address] [place] [address] [place] [address] PCP - General Internal Medicine 04/17/20
--- OUTSIDE RECORDS SUMMARY | 2024-12-13 10:15 | XMS_ITS | Clinical Summary ---
Author Organization [facility] Address [address] [place] [address] Phone Care Team Providers Care Head Of Art Name Role Phone Mac Thomas MD Primary [...] EDT - 11/20/2024 6:07 AM EDT Emergency [facility] Emergency [address] [place] [address] Lawanda Joya MD Generalized nontraumatic [...] Signed Date: 11/20/2024 06:46 ET Workstation ID: [id number] Transcribed By: Self Edit Transcribed Date: 11/20/2024 [...] Signed Date: 11/20/2024 06:46 ET Workstation ID: [id number] Transcribed By: Self Edit Transcribed Date: 11/20/2024 [...] Signed Date: 11/20/2024 07:16 ET Workstation ID: [id number] Transcribed By: Self Edit Transcribed Date: 11/20/2024 [...] Signed Date: 11/20/2024 07:16 ET Workstation ID: [id number] Transcribed By: Self Edit Transcribed Date: 11/20/2024 07:14 ET Lawanda Joya MD IMG XR PROCEDURES Final Result * CBC auto differential (11/20/2024 12:37 AM EDT) [facility] WBC 7.2 4.8 - 10.8 K/mcL LAB HEMETOLOGY METHOD 11/20/2024 1:[address] [facility] RBC 4.60 3.80 - 4.80 M/mcL LAB HEMETOLOGY METHOD 11/20/2024 1:[address] [facility] Hemoglobin 13.7 11.5 - 16.0 g/dL LAB HEMETOLOGY METHOD 11/20/2024 1:[address] [facility] Hematocrit 41.5 35.0 - 47.0 % LAB HEMETOLOGY METHOD 11/20/2024 1:[address] [facility] MCV 90.6 79.0 - 98.0 FL LAB HEMETOLOGY METHOD 11/20/2024 1:[address] [facility] MCH 29.9 27.0 - 32.0 pcg LAB HEMETOLOGY METHOD 11/20/2024 1:[address] [facility] MCHC 33.0 32.0 - 37.0 g/dL LAB HEMETOLOGY METHOD 11/20/2024 1:[address] [facility] RDW 13.2 11.0 - 15.0 % LAB HEMETOLOGY METHOD 11/20/2024 1:[address] [facility] Platelets 176 130 - 400 K/mcL LAB HEMETOLOGY METHOD 11/20/2024 1:[address] [facility] MPV 10.0 7.0 - 11.0 FL LAB HEMETOLOGY METHOD 11/20/2024 1:[address] [facility] NRBC 0.0 <1.0 % LAB HEMETOLOGY METHOD 11/20/2024 1:[address] [facility] NRBC Absolute 0.00 <0.10 K/mcL LAB HEMETOLOGY METHOD 11/20/2024 1:[address] [facility] Neutrophils Relative 52.2 % LAB HEMETOLOGY METHOD 11/20/2024 1:[address] [facility] Lymphocytes Relative 32.0 % LAB HEMETOLOGY METHOD 11/20/2024 1:[address] [facility] Monocytes Relative 11.6 % LAB HEMETOLOGY METHOD 11/20/2024 1:[address] [facility] Eosinophils Relative 2.9 % LAB HEMETOLOGY METHOD 11/20/2024 1:[address] [facility] Basophils Relative 1.0 % LAB HEMETOLOGY METHOD 11/20/2024 1:[address] [facility] Immature Granulocytes Relative 0.3 % LAB HEMETOLOGY METHOD 11/20/2024 1:[address] [facility] Neutrophils Absolute 3.73 1.50 - 7.00 K/mcL LAB HEMETOLOGY METHOD 11/20/2024 1:[address] [facility] Lymphocytes Absolute 2.29 1.00 - 5.00 K/mcL LAB HEMETOLOGY METHOD 11/20/2024 1:[address] [facility] Monocytes Absolute 0.83 0.20 - 1.00 K/mcL LAB HEMETOLOGY METHOD 11/20/2024 1:[address] [facility] Eosinophils Absolute 0.21 0.00 - 0.50 K/mcL LAB HEMETOLOGY METHOD 11/20/2024 1:00 AM EDT [facility] Basophils Absolute 0.07 0.00 - 0.20 K/mcL LAB HEMETOLOGY METHOD 11/20/2024 1:00 AM EDT [facility] Immature Granulocytes Absolute 0.02 0.00 - 0.03 K/mcL LAB HEMETOLOGY METHOD 11/20/2024 1:00 AM EDT [facility] Blood Venous blood specimen / Unknown Venipuncture / Unknown 11/20/2024 12:37 AM EDT 11/20/2024 12:49 AM EDT Lawanda Joya MD LAB BLOOD ORDERABLES Final Res ult Performing Organization Address City/[facility]/ZIP Co de Phone Number [facility] [address] [place] [address], [place] [phone] * Sedimentation rate, automated (11/20/2024 12:37 AM EDT) Sed Rate 11 0 - 30 mm/hr LAB HEMETOLOGY METHOD 11/20/2024 1:21 AM EDT [facility] Blood Venous blood specimen / Unknown Venipuncture / Unknown 11/20/2024 12:37 AM EDT 11/20/2024 12:49 AM EDT Lawanda Joya MD LAB BLOOD ORDERABLES Final Res ult [facility] [address] [place] [address], [place] [phone] * C-reactive protein (11/20/2024 12:37 AM EDT) C-Reactive Protein <0.29 <=0.50 mg/dL LAB CHEMISTRY METHOD 11/20/2024 1:18 AM EDT [facility] Blood Venous blood specimen / Unknown Venipuncture / Unknown 11/20/2024 12:37 AM EDT 11/20/2024 12:49 AM EDT us Lawanda Joya MD LAB BLOOD ORDERABLES Final Res ult [facility] [address] [place] [address], [place] [phone] * (ABNORMAL) Comprehensive metabolic panel (11/20/2024 12:37 AM EDT) Sodium 140 133 - 145 mmol/L LAB CHEMISTRY METHOD 11/20/2024 1:[address] [facility] Potassium 4.0 3.5 - 5.5 mmol/L LAB CHEMISTRY METHOD 11/20/2024 1:[address] [facility] Chloride 109 96 - 110 mmol/L LAB CHEMISTRY METHOD 11/20/2024 1:[address] [facility] CO2 28 21 - 32 mmol/L LAB CHEMISTRY METHOD 11/20/2024 1:[address] [facility] Anion Gap 3 3 - 11 LAB CHEMISTRY METHOD 11/20/2024 1:[address] [facility] Glucose 94 70 - 100 mg/dL LAB CHEMISTRY METHOD 11/20/2024 1:[address] [facility] BUN 18 5 - 25 mg/dL LAB CHEMISTRY METHOD 11/20/2024 1:[address] [facility] Creatinine 1.02 0.50 - 1.10 mg/dL LAB CHEMISTRY METHOD 11/20/2024 1:[address] [facility] eGFR 55(L) >=60 mL/min/1. 73m2 LAB CHEMISTRY METHOD 11/20/2024 1:[address] [facility] Comment:Calculation based on the Chronic Kidney Disease Epidemiology Collaboration (CKD-EPI) equation refit without adjustment for race. BUN/Creatinine Ratio 17.6 LAB CHEMISTRY METHOD 11/20/2024 1:[address] [facility] Calcium 9.0 8.5 - 10.5 mg/dL LAB CHEMISTRY METHOD 11/20/2024 1:18 AM EDT [facility] AST (SGOT) 29 10 - 42 unit/L LAB CHEMISTRY METHOD 11/20/2024 1:[address] [facility] ALT (SGPT) 27 10 - 60 unit/L LAB CHEMISTRY METHOD 11/20/2024 1:18 AM EDT [facility] Alkaline Phosphatase 127(H) 42 - 121 unit/L LAB CHEMISTRY METHOD 11/20/2024 1:18 AM T [facility] Total Protein 6.7 6.0 - 8.0 g/dL LAB CHEMISTRY METHOD 11/20/2024 1:[address] [facility] Albumin 3.9 3.2 - 5.0 g/dL LAB CHEMISTRY METHOD 11/20/2024 1:[address] [facility] Total Bilirubin 0.5 0.0 - 1.4 mg/dL LAB CHEMISTRY METHOD 11/20/2024 1:18 AM T [facility] Blood Venous blood specimen / Unknown Venipuncture / Unknown 11/20/2024 12:37 AM EDT 11/20/2024 12:49 AM EDT us Lawanda Joya MD LAB BLOOD ORDERABLES Final Res ult [facility] [address] [place] [address], * AZUCENA DEXA AXIAL SKELETON (04/20/2020 11:16 AM EST) Anatomical Region Laterality Modality Mammography 04/20/2020 10:2 7 AM EST Narrative 04/20/2020 11:16 AM EST [facility] Diagnostic Imaging Department [address] [place] [address] Patient: SERA KELLEY /Age/Sex: 1940 - 79 - F Unit#: [id number] [facility]Ordering Site: MAMDEXAAX/SPMAM Ordering Physician: [...] probability of hip fracture of 3.1%. Code 69408 Dictating Physician: JOSELYN BECKER MD Electronically Signed by: JOSELYN BECKER MD Dic Date/Time: 04/20/20 1115 Sign date/Time: 04/20/20 1116 Procedure Note Joselyn Becker MD - 04/22/2022 [facility] Diagnostic Imaging Department [address] [place] [address] Patient: SERA KELLEY Candelaria JohnsonB./Age/Sex: 1940 - 79 - F Unit#: [id number] Location/Status: SPDIMAM/REG CLI [facility] Ordering Physician: NORA JOE MD, PHD [...] density of the femurs bilaterally is 0.775 gm/el3gaibm is 77% of that of young normals and 93% of that of age matched controls.This yields a T-score of -1.8 and a Z-score of -0.5 which is diagnostic of osteopenia. IMPRESSION: 1. Osteoporosis. 2. FRAX analysis yields a 10-year probability of major osteoporoticfracture of 12.8% and a 10-year probability of hip fracture of 3.1%. Code 38605 Dictating Physician: JOSELYN BECKER MD Electronically Signed by: JOSELYN BECKER MD Dic Date/Time: 04/20/20 1115 Sign date/Time: 04/20/20 1116 Nora Joe MD IMG BI PROCEDURES Final R esult from Last 3 Months or Most Recently Relevant to Health Maintenance Insurance [employer] MEDICARE MEDICAID - [place] Advance Directives Documents on File Type Date Recorded Patient Track Dresser Expl anation Health Care Decision (hx) 07/10/2023 AD ARNETT DIRECTIVE Health Care Decision (hx) 07/10/2023 AD ARNETT DIRECTIVE Health Care Decision (hx) 07/10/2023 AD ARNETT DIRECTIVE Care Teams Head Of Art Relationship Specialty Start Date End Date Mac Thomas MD [address] [place] [address] [address] [place] PCP - General Internal Medicine 11/03/17
== END 2024-12-13 10:27 | disposition home or self-care (01) ==
LOC: HO.HMCH 09:33
PROVIDERS: PCP Internal Medicine; Visit Provider Internal Medicine
DX: M17.12 Unilateral primary osteoarthritis, left knee (principal); R30.0 Dysuria; M48.061 Spinal stenosis, lumbar region without neurogenic claudication; M50.90 Cervical disc disorder, unspecified, unspecified cervical region; E78.00 Pure hypercholesterolemia, unspecified; E55.9 Vitamin D deficiency, unspecified; K59.00 Constipation, unspecified; Z13.9 Encounter for screening, unspecified

== ENCOUNTER 2024-12-13 09:32 | Outpatient (REF) | payer OTHER, SELFPAY ==
--- OUTSIDE RECORDS SUMMARY | 2024-12-13 11:25 | XMS_ITS ---
Author Name Cecily Holguin Address Unknown Organization [facility] Care Team Providers Care Health Data Administrator Name Role Phone Unavailable Primary Care Physician Unavailab le History Of Present Illness This is an 84 year old female who is an established patient who is being seen for a chief complaintof skin lesions.Location: right upper back and noseQuality: bleeding and newDuration: yearsModifying Factors: nothing makes it better or worseTreatment Status: has not been treatedReason for Visit: evaluationPertinent History: history of previous skin cancer and history of squamous cell carcinomaPertinent Negatives: no family history of melanomaAdditional History: Patient reports spots on back, face that are new. Sometimes bleeds, has tried over the counter creams no improvement. Allergies, Adverse Reactions, Alerts Substance RxNorm Reaction(s) Severity Status Start Da te aspirin 1191 unspecified active Bactrim 729096 unspecified active Sulfa (Sulfonamide Antibiotics) unspecif ied active Macrobid unspecified active Medications Medication Generic Name RxNorm Strength Strength Unit Route Dose Dose Form Frequency Date Started Date Ended Status Indication Sig acetaminoph en 026392 500 mg Oral 2 table t QD active Acid Electric Stove Mechanic (famotidine ) famotidi ne 20 mg Oral 1 table t QHS active Alive Calcium-Vit moran D3-K2 calc-D3- mag cit,ox-K 2-herb 353 300 mg-25 mcg- 66 mg-37.5 mcg Oral 1 table t QD active alprazolam 516068 1 mg Oral 1 table t PRN active amoxicillin 587218 875 mg Oral tabl e t suspend ed atorvastati n 209429 40 mg Oral 1 table t QD active loratadine 791953 10 mg Oral 1 table t QD active pantoprazol e 613484 40 mg Oral 1 table t, delay ed relea se (mitchell kelly) PRN active Ciprofloxac in HCl NULL 12/06/19 14 suspend ed Lovastatin NULL 12/06/19 14 suspend ed Oxycodone-A cetaminophe n NULL 12/06/19 14 suspend ed Problems Problem Code Type Status Date of Diagnosis Date of Resolution Actinic keratosis (disorder) 106262724( SNOMED) Diagnosis active 12/12/2024 Seborrheic keratosis (disorder) 145550174( SNOMED) Diagnosis active 12/12/2024 Surgical follow-up (finding) 538668916( SNOMED) Diagnosis active 09/14/2023 Squamous cell carcinoma of skin of face (disorder) 336375106( SNOMED) Diagnosis active 09/03/2023 Neoplasm of uncertain behavior of skin (disorder) 25184384(S NOMED) Diagnosis active 08/03/2023 Non-thrombocytopenic purpura (disorder) 377881461( SNOMED) Diagnosis active 04/18/2021 Cyst of bursa (disorder) 054881386( SNOMED) Diagnosis active 04/18/2021 Seborrheic keratosis (disorder) 562942953( SNOMED) Diagnosis active 04/18/2021 Disorder of nail (disorder) 64087428(S NOMED) Diagnosis active 04/18/2021 Asthma (disorder) 655339365( SNOMED) Problem active History of hypertension (situation) 099950905( SNOMED) Problem active Hearing loss (disorder) 33942760(S NOMED) Problem active Hypercholesterolemia (disorder) 54585689(S NOMED) Problem active Squamous cell carcinoma (disorder) 651561902( SNOMED) Problem active Results No data Encounters Service provided at [address], [address], [place], [place] [id number]. Office phonenumber is [phone]. Office fax number is [phone]. Encounter Diagnosis Location Date / Time Type Actinic Keratoses (L57.0)Mac ular Seborrheic Keratoses (L82.1) [facility] 12/12/2024 14:00:00 [place] [address] Reason For Referral No data Procedures Procedure Date Documentation of current medications (pr ocedure) 12/12/2024 12:00 am UTC Destruction of premalignant skin lesion (procedure) 12/12/2024 12:00 am UTC Removal of suture (procedure) 09/14/2023 12:00 am UTC Mohs surgery (procedure) 09/03/2023 12:0 0 am UTC Shave biopsy (procedure) 08/03/2023 12:0 0 am [facility] Documentation of past medical history (p rocedure) Documentation of past medical history (p rocedure) Documentation of past medical history (p rocedure) Documentation of past medical history (p rocedure) Total replacement of left knee joint (pr ocedure) Documentation of past medical history (p rocedure) Documentation of past medica l history (procedure) Plate and screws in wrist Total replacement of left knee joint (pr ocedure) Review Of Systems Provider reviewed on Dec 12, 2024.A focused review of systems was performed including Integumentary.No Problems With Healing And No Problems With Scarring (hypertrophic Or Keloid). Assessment 1.Actinic Keratoses, Status: Inadequately ControlledLiquid Nitrogen: left eyebrow; right eyebrow; nose; nose; left nose; nose; left cheek; nose; Duration of freeze thaw-cycle (seconds) - 5; Application Tool - Liquid Nitrogen Sprayer; Number of freeze-thaw Cycles - 2 freeze-thaw cycles.Counseling2.Macular Seborrheic KeratosesAdditional NotesEducational Resources ProvidedReassuranceCounseling Plan of Care Future visit PRN - Follow up PRN for: Skin Check - (next available) Instructions * I counseled the patient regarding the following:Skin Care: Sun protective clothing and broad spectrum sunscreen can prevent the formation of Actinic Keratoses. AKs can resolve with cryotherapy, photodynamic therapy, imiquimod, topical 5-FU.Expectations: Actinic Keratoses are precancerous proliferations that occur within sun damaged skin. If untreated, a small subset of AKs can develop into Squamous Cell Carcinoma.Contact Office if: If AKs fail to resolve despite treatment, or if you develop a side effect from therapy, such as unbearable crusting, scabbing, redness and tenderness.I recommendedthe following: Broad Spectrum Sunscreen SPF 30+ * I counseled the patient regarding the following:Skin Care: Seborrheic Keratoses are benign. No treatment is necessary. Manage appearance and skin discomfort by keeping the skin hydrated (gentle cleansers and emollients/moisturizers). SPF protection, 30+ or higher. Avoid picking at the lesions; doingso will cause localized inflammation. If lesions become irritated, inflamed, or painful - return tooffice to discuss tx options such as LN2 vs shave biopsy.Expectations: Seborrheic Keratoses are benign warty growths. Patients get more of them as they age. Social History Code Activity Start Date End Date 324517614 (SNOMED) Never smoker Sex female Sexual orientation Unspecified Gender identity Unspecified Vital Signs No data
== END 2024-12-13 09:33 | disposition home or self-care (01) ==
LOC: HO.LAB 09:32
PROVIDERS: PCP Internal Medicine; Visit Provider Internal Medicine
DX: M17.12 Unilateral primary osteoarthritis, left knee (principal); R30.0 Dysuria; M48.061 Spinal stenosis, lumbar region without neurogenic claudication; M50.90 Cervical disc disorder, unspecified, unspecified cervical region; E78.00 Pure hypercholesterolemia, unspecified; E55.9 Vitamin D deficiency, unspecified; K59.00 Constipation, unspecified
CPT/HCPCS: 81003; 87086; 87088; 87186; 96127; 99212

== ENCOUNTER 2025-02-14 09:53 | Outpatient (REF) | payer OTHER, SELFPAY ==
[2025-02-14 10:12] LABS: MANUAL DIFF FLAG NO
[2025-02-14 10:33] LABS: Hematocrit 42.5 % (37.0-47.0); Hemoglobin 14.2 g/dl (12.0-16.0); Imm Gran Abs Auto 0.03 X10*3/uL (0.00-0.03); Imm Gran Pct Auto 0.5 % (0.0-0.4); Lymphocytes Absolute Auto 2.3 X10*3/uL (1.2-4.9); Mean Corpuscular HGB Conc 33.4 g/dl (31.0-35.0); Mean Corpuscular Hemoglobin 30.1 pg (27.0-33.0); Mean Corpuscular Volume 90.0 fL (80.0-98.0); NRBC Abs Auto 0.000 X10*3/uL (0.0-0.012); NRBC Pct Auto 0.0 /100WBC (0.0-0.2); Platelet Count 151 X10*3/uL (160-400); Red Blood Count 4.72 X10*6/uL (4.20-5.50); White Blood Count 6.0 X10*3/uL (4.8-10.8)
[2025-02-14 10:43] LABS: Appearance Urine Cloudy; Glucose Urine UA Negative (Negative); PH 6.5 (5.0-9.0); Specific Gravity - Urine 1.015 (1.005-1.025); UMIC TRIGGER UACC YES
[2025-02-14 10:57] LABS: Hemoglobin A1C 141.4672 umol/L
[2025-02-14 10:59] LABS: UACC Culture Trigger YES
--- OUTSIDE RECORDS SUMMARY | 2025-02-14 11:17 | XMS_ITS | Clinical Summary ---
Author Organization [facility] Address [address] [place] [address] Phone Care Team Providers Care Employee Operations Examiner Name Role Phone Mac Thomas MD Primary [...] EDT - 11/20/2024 6:07 AM EDT Emergency [facility] Emergency [address] [place] [address] Lawanda Joya MD Generalized nontraumatic [...] Depression Screening 05/04/2024 COVID-19 Vaccine ( season) 2025 01/07/2024, 01/19/2023, 03/21/2021, Additional history exists Influenza [...] Signed Date: 11/20/2024 06:46 ET Workstation ID: [id number] Transcribed By: Self Edit Transcribed Date: 11/20/2024 [...] Signed Date: 11/20/2024 06:46 ET Workstation ID: [id number] Transcribed By: Self Edit Transcribed Date: 11/20/2024 [...] Signed Date: 11/20/2024 07:16 ET Workstation ID: [id number] Transcribed By: Self Edit Transcribed Date: 11/20/2024 [...] Signed Date: 11/20/2024 07:16 ET Workstation ID: [id number] Transcribed By: Self Edit Transcribed Date: 11/20/2024 07:14 ET Lawanda Joya MD IMG XR PROCEDURES Final Result * CBC auto differential (11/20/2024 12:37 AM EDT) [facility] WBC 7.2 4.8 - 10.8 K/mcL LAB HEMETOLOGY METHOD 11/20/2024 1:[address] [facility] RBC 4.60 3.80 - 4.80 M/mcL LAB HEMETOLOGY METHOD 11/20/2024 1:[address] [facility] Hemoglobin 13.7 11.5 - 16.0 g/dL LAB HEMETOLOGY METHOD 11/20/2024 1:[address] [facility] Hematocrit 41.5 35.0 - 47.0 % LAB HEMETOLOGY METHOD 11/20/2024 1:[address] [facility] MCV 90.6 79.0 - 98.0 FL LAB HEMETOLOGY METHOD 11/20/2024 1:[address] [facility] MCH 29.9 27.0 - 32.0 pcg LAB HEMETOLOGY METHOD 11/20/2024 1:[address] [facility] MCHC 33.0 32.0 - 37.0 g/dL LAB HEMETOLOGY METHOD 11/20/2024 1:[address] [facility] RDW 13.2 11.0 - 15.0 % LAB HEMETOLOGY METHOD 11/20/2024 1:[address] [facility] Platelets 176 130 - 400 K/mcL LAB HEMETOLOGY METHOD 11/20/2024 1:[address] [facility] MPV 10.0 7.0 - 11.0 FL LAB HEMETOLOGY METHOD 11/20/2024 1:[address] [facility] NRBC 0.0 <1.0 % LAB HEMETOLOGY METHOD 11/20/2024 1:[address] [facility] NRBC Absolute 0.00 <0.10 K/mcL LAB HEMETOLOGY METHOD 11/20/2024 1:[address] [facility] Neutrophils Relative 52.2 % LAB HEMETOLOGY METHOD 11/20/2024 1:[address] [facility] Lymphocytes Relative 32.0 % LAB HEMETOLOGY METHOD 11/20/2024 1:[address] [facility] Monocytes Relative 11.6 % LAB HEMETOLOGY METHOD 11/20/2024 1:[address] [facility] Eosinophils Relative 2.9 % LAB HEMETOLOGY METHOD 11/20/2024 1:[address] [facility] Basophils Relative 1.0 % LAB HEMETOLOGY METHOD 11/20/2024 1:[address] [facility] Immature Granulocytes Relative 0.3 % LAB HEMETOLOGY METHOD 11/20/2024 1:[address] [facility] Neutrophils Absolute 3.73 1.50 - 7.00 K/mcL LAB HEMETOLOGY METHOD 11/20/2024 1:[address] [facility] Lymphocytes Absolute 2.29 1.00 - 5.00 K/mcL LAB HEMETOLOGY METHOD 11/20/2024 1:[address] [facility] Monocytes Absolute 0.83 0.20 - 1.00 K/mcL LAB HEMETOLOGY METHOD 11/20/2024 1:[address] [facility] Eosinophils Absolute 0.21 0.00 - [...] ORDERABLES Final Res ult Performing Organization Address City/[facility]/ZIP Co de Phone Number [facility] [address] [place] [address], [place] [phone] * Sedimentation rate, automated (11/20/2024 12:37 AM EDT) Sed Rate 11 0 - 30 mm/hr LAB HEMETOLOGY METHOD 11/20/2024 1:21 AM EDT [facility] Blood Venous blood specimen / Unknown Venipuncture / Unknown 11/20/2024 12:37 AM EDT 11/20/2024 12:49 AM EDT Lawanda Joya MD LAB BLOOD ORDERABLES Final Res ult [facility] [address] [place] [address], [place] [phone] * C-reactive protein (11/20/2024 12:37 AM EDT) C-Reactive Protein <0.29 <=0.50 mg/dL LAB CHEMISTRY METHOD 11/20/2024 1:18 AM EDT [facility] Blood Venous blood specimen / Unknown Venipuncture / Unknown 11/20/2024 12:37 AM EDT 11/20/2024 12:49 AM EDT us Lawanda Joya MD LAB BLOOD ORDERABLES Final Res ult [facility] [address] [place] [address], [place] [phone] * (ABNORMAL) Comprehensive metabolic panel (11/20/2024 12:37 AM EDT) Sodium 140 133 - 145 mmol/L LAB CHEMISTRY METHOD 11/20/2024 1:[address] [facility] Potassium 4.0 3.5 - 5.5 mmol/L LAB CHEMISTRY METHOD 11/20/2024 1:[address] [facility] Chloride 109 96 - 110 mmol/L LAB CHEMISTRY METHOD 11/20/2024 1:[address] [facility] CO2 28 21 - 32 mmol/L LAB CHEMISTRY METHOD 11/20/2024 1:[address] [facility] Anion Gap 3 3 - 11 LAB CHEMISTRY METHOD 11/20/2024 1:[address] [facility] Glucose 94 70 - 100 mg/dL LAB CHEMISTRY METHOD 11/20/2024 1:[address] [facility] BUN 18 5 - 25 mg/dL LAB CHEMISTRY METHOD 11/20/2024 1:[address] [facility] Creatinine 1.02 0.50 - 1.10 mg/dL LAB CHEMISTRY METHOD 11/20/2024 1:[address] [facility] eGFR 55(L) >=60 mL/min/1. 73m2 LAB CHEMISTRY METHOD 11/20/2024 1:[address] [facility] Comment:Calculation based on the Chronic Kidney Disease Epidemiology Collaboration (CKD-EPI) equation refit without adjustment for race. BUN/Creatinine Ratio 17.6 LAB CHEMISTRY METHOD 11/20/2024 1:[address] [facility] Calcium 9.0 8.5 - 10.5 mg/dL LAB CHEMISTRY METHOD 11/20/2024 1:18 AM EDT [facility] AST (SGOT) 29 10 - 42 unit/L LAB CHEMISTRY METHOD 11/20/2024 1:[address] [facility] ALT (SGPT) 27 10 - 60 unit/L LAB CHEMISTRY METHOD 11/20/2024 1:18 AM EDT [facility] Alkaline Phosphatase 127(H) 42 - 121 unit/L LAB CHEMISTRY METHOD 11/20/2024 1:18 AM T [facility] Total Protein 6.7 6.0 - 8.0 g/dL LAB CHEMISTRY METHOD 11/20/2024 1:[address] [facility] Albumin 3.9 3.2 - 5.0 g/dL LAB CHEMISTRY METHOD 11/20/2024 1:[address] [facility] Total Bilirubin 0.5 0.0 - 1.4 mg/dL LAB CHEMISTRY METHOD 11/20/2024 1:18 AM T [facility] Blood Venous blood specimen / Unknown Venipuncture / Unknown 11/20/2024 12:37 AM EDT 11/20/2024 12:49 AM EDT us Lawanda Joya MD LAB BLOOD ORDERABLES Final Res ult [facility] [address] [place] [address], * AZUCENA DEXA AXIAL SKELETON (04/20/2020 11:16 AM EST) Anatomical Region Laterality Modality Mammography 04/20/2020 10:2 7 AM EST Narrative 04/20/2020 11:16 AM EST [facility] Diagnostic Imaging Department [address] [place] [address] Patient: SERA KELLEY /Age/Sex: 1940 - 79 - F Unit#: [id number] [facility]Ordering Site: MAMDEXAAX/SPMAM Ordering Physician: NORA [...] probability of hip fracture of 3.1%. Code 45432 Dictating Physician: JOSELYN BECKER MD Electronically Signed by: JOSELYN BECKER MD Dic Date/Time: 04/20/20 1115 Sign date/Time: 04/20/20 1116 Procedure Note Joselyn Becker MD - 04/22/2022 [facility] Diagnostic Imaging Department [address] [place] [id number] Patient: SERA KELLEY Candelaria JohnsonB./Age/Sex: 1940 - 79 - F Unit#: [id number] Location/Status: SPDIMAM/REG CLI [facility] Ordering Physician: NORA JOE MD, [...] density of the femurs bilaterally is 0.775 gm/fl7xargw is 77% of that of young normals and 93% of that of age matched controls.This yields a T-score of -1.8 and a Z-score of -0.5 which is diagnostic of osteopenia. IMPRESSION: 1. Osteoporosis. 2. FRAX analysis yields a 10-year probability of major osteoporoticfracture of 12.8% and a 10-year probability of hip fracture of 3.1%. 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
--- OUTSIDE RECORDS SUMMARY | 2025-02-14 11:17 | XMS_ITS | Data Portability ---
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 - [facility] 4 15:20:41 Mixed conductiv e and sensorine ural hearing loss, bilateral [id number] Active 2023 Mixed conductiv e and sensorine ural hearing loss, bilateral ; Note: Date Diagnosed : 08/04/2023 3:42 PM (H90.6) Not Available [facility] 4 02:50:06 Chronic serous otitis media of right ear 285471779 Active 2023 CALIN GAMBOA MD [address] [facility],[place] [address], [place], [address] , [facility] 4 15:20:59 Problem Notes None recorded. Procedures Surgical History Date Name Laterality Status Provider Name and Address Organization Details Recorded Time 09/30/2023 Comp Audio with Tymps - 60709 & 51612 completed Crys CAPUTO [address] [facility],[place] [address], [place], [address], [facility] 09/30/2023 15:19:30 Imaging Results None recorded. Procedure Notes None recorded. Medical Equipment None Reported. Allergies Allergen ID Allergen Name Allergen Category Reaction Reaction Severity Criticality Documentation Date Start Date Code Code System Note Provider Name and Address Organization Details Recorded Time 081130 Bactrim medicatio n other Not available Not available 09/15/2023 70842 9 RxNorm React ion: unkno wn, unspe cifie d;; Not Available [facility] 4 01:07:59 453745 Substance with sulfonami de structure and antibacte rial mechanism of action (substanc e) medicatio n other Not available Not available 09/15/2023 87871 8003 SNOMED React ion: unkno wn, unspe cifie d;; Not Available [facility] 4 01:08:03 Medications Name Sig Start [...] mg tablet 08/30 completed Medicati on ID: 616727 B rand Name: famotidi ne Send Method: [...] tablet,de layed release active Medicati on ID: 010038 B rand Name: aspirin Send Method: E-Prescr ibed Sub s Allowed: subs OK Speci al Instruct ion: TAKE 1 TABLET BY MOUTH TWICE A DAY Medi cationGe nericNam e: aspirin Not Available Not Available Not Available acetamino phen 500 mg tablet active Medicati on ID: 506241 B rand Name: acetamin ophen Se nd [...] (2,000 unit) capsule active Medicati on ID: 703018 B rand Name: cholecal ciferol (vitamin D3) [...] Updated DateTime 01/28/2024 162.56 cm 32.6 kg/m2 52168.55 g Bethany Smart [place] - [facility] [...] Diagnosis SNOMED-CT Code Diagnosis ICD10 Code Diagnosis IMO Codes Diagnosis Note [id number] YEISON NOLAN PA-C [facility] [address] [address] 09/30/2023 14:46:44 09/30/2023 15:55:55 Sensorineural hearing loss of bilateral ears [id number] H90.3 Audiologic al evaluation results:Ri ght ear:Mild sloping to severe sensorineu ral hearing loss with good speech discrimina tion. Tympanomet ry:Right Ear:Type B with large volume [id number] CALIN GAMBOA MD [facility] [address] [address] 01/28/2024 09:43:43 01/28/2024 09:59:40 Chronic serous otitis media of right ear 153504299 H65.21 [id number] YEISON NOLAN PA-C [facility] [address] [place] [address] 03/28/2024 13:18:17 03/29/2024 07:06:27 Sensorineural hearing loss of bilateral ears 309723778 H90.3 Chronic se ana rosa otitis media of right ear 531983090 H65.21 Health Concerns Section Related Observation LastModified by Organization Detai ls LastModified Time None Recorded Concern Status LastModified by Organization Details LastModified Time None Recorded Advance Directives Directive None Recorded Payers Insurance Date Sequence Insurance Name Policy Number Policy Wong Covered Member ID Wong Member ID Guarantor Name 03/28/2024 1 [facility] (MEDICARE REPLACEMENT/ ADVANTAGE - HMO) Marisa Lainez [id number] Marisa Lainez 01/28/2024 2 [place] [facility] Marisa Gaona Suchenicz [id number] Marisa Greenenicbrittanie 03/11/2024 2 [place] [facility] Marisa Gaona Suchenicz [id number] Marisa Lainez Notes Date Note Type Note Provider Name and Address Organization Details Recorded Time 09/30/2023 text/html ROS as noted in the [facility] 82-year-old female presents following right tube placement with Dr. Jensen. Her hearing has improved significantly following surgery. CALIN GAMBOA MD [address] [place] [address], [address], [facility] - [facility] 09/30/2023 16:38:27 01/28/2024 text/html ROS as noted in the [facility] tube check08/31/23 R myringotomy tube placed, [place]09/30/23 post tube audio showed improvement feels her hearing fluctuatesno otorrhea CALIN GAMBOA MD [address] [place] [address], [phone], [facility] - [facility] 01/28/2024 09:58:40 03/28/2024 text/html ROS as noted in the [facility] 83-year-old female presents for reevaluation. History of ETD with RMT in office. Her hearing has been stable. No issues since last visit. CALIN GAMBOA MD [address] [place] [address], [place], [address], [facility] - [facility] 03/28/2024 15:39:46 OBGyn Episode No OBEpisode recorded.
--- OUTSIDE RECORDS SUMMARY | 2025-02-14 11:17 | XMS_ITS | Clinical Summary ---
Author Organization [facility] Address [address] [place] [address] Care Team Providers Care Straw Baler Name Role Phone Mac Thomas MD Primary Care Provider [phone]- [phone] Social History Tobacco Use Types Packs/Day Years [...] age to complete this topic Care Teams Straw Baler Relationship Specialty Start Date End Date Mac Thomas MD [address] [place] [address] [place] [address] PCP - General Internal Medicine 04/17/20
[2025-02-14 11:29] LABS: Alanine Aminotransferase 19 U/L (0-31); Albumin Level 4.2 g/dL (3.5-5.0); Alkaline Phosphatase 135 U/L (39-117); Anion Gap 9 (12-20); Aspartate Amino Transferase 26 U/L (5-31); Blood Urea Nitrogen 15 mg/dL (9-16); Calcium 9.1 mg/dL (8.4-10.2); Carbon Dioxide 31 mmol/L (22-29); Chloride 109 mmol/L (96-108); Cholesterol 121 mg/dL (<200); Estimated Glomerular Filt Rate 57; HDL Cholesterol 37 mg/dL (>40); Potassium 4.1 mmol/L (3.3-5.1); Sodium 145 mmol/L (135-145); Total Protein 6.9 g/dL (6.5-8.0); Triglycerides 84 mg/dL (<150)
[2025-02-14 11:36] LABS: Folate 7.3 ng/mL (> or = 4.0); Vitamin B12 455 pg/mL (200-900)
[2025-02-14 11:59] LABS: Free T4 (Free Thyroxine) 0.98 ng/dL (0.71-1.85)
== END 2025-02-14 09:54 | disposition home or self-care (01) ==
LOC: HO.LAB 09:53
PROVIDERS: PCP Internal Medicine; Visit Provider Internal Medicine
DX: E53.8 Deficiency of other specified B group vitamins (principal); E78.00 Pure hypercholesterolemia, unspecified; D64.9 Anemia, unspecified; E55.9 Vitamin D deficiency, unspecified; R73.9 Hyperglycemia, unspecified
CPT/HCPCS: 36415; 80053; 80061; 81001; 82306; 82607; 82746; 83036; 84439; 84443; 85025; 87086; 87088; 87186

== ENCOUNTER 2025-02-17 08:53 | Outpatient (AMB) | payer OTHER, SELFPAY ==
[2025-02-17 08:57] VITALS: BP 128/82; PULSE 74; O2SAT 98; BMI 31.0
--- NOTE | 2025-02-17 08:57 | MHC.PC.OV ---
Vital Signs 02/17/25 08:57 Height 5 ft 5 in Weight 186 lb 2 oz BMI 31.0 BP 128/82 Blood Pressure Location Lt brachial Position Sitting Pulse 74 Pulse Source Pulse Oximeter Pulse Oximetry (%) 98 Oxygen Delivery Method Room Air Intake Visit Reasons: Annual PE - see comments Traffic Counter Required: No Accompanied by: Self / Same As Patient Allergies nitrofurantoin (From MACRODANTIN) Allergy (Severe, Verified 02/17/25 09:18) Anaphylaxis Sulfa (Sulfonamide Antibiotics) (SULFA (SULFONAMIDE ANTIBIOTICS)) Allergy (Severe, Verified 02/17/25 09:18) ANAPHYLAXIS sulfamethoxazole (From BACTRIM) Allergy (Severe, Verified 02/17/25 09:18) ANAPHYLAXIS trimethoprim (From BACTRIM) Allergy (Severe, Verified 02/17/25 09:18) ANAPHYLAXIS Medication List - Last Reconciled 02/17/25 by Mac Thomas MD alprazolam 1 mg PO TID PRN 30 days atorvastatin 40 mg PO BEDTIME 90 days cholecalciferol (vitamin D3) 50 mcg PO DAILY 90 days montelukast 10 mg PO BEDTIME oxycodone 5 mg PO TID PRN 7 days pantoprazole 40 mg PO BEDTIME sennosides (senna) 8.6 mg PO BID PRN terazosin 1 mg PO BEDTIME 90 days tizanidine 4 mg PO Q8H PRN 30 days tramadol 50 mg PO TID PRN Tobacco use date assessed: 02/17/25 Fall risk assessment: 2 + Falls in past year Last assessed Fall Risk: 02/17/25 Dental Screening Dental Screen Date: 02/17/25 Did you have a dental visit in the last 12 months?: Yes Did you have a dental problem in the last 6 months where you did not have access to dental care?: No Was dental information given to patient?: Patient has dentist HPI Annual PE - see comments HPI Details Patient comes in today for her annual physical examination States that she feels unsteady and that she has lost a lot of strength from the waist down She is still experiencing increased pain in her knees Was seen by orthopedics and referred for a trial of physical therapy, which will start on 03/20/2025 Was advised that she will likely need a total left knee arthroplasty at some point She denies any headaches or dizziness Denies any chest pains, no SOB No nausea/vomiting, no abdominal pain No change in bowel habits noted Denies any acute urinary symptoms Adds that she has been experiencing increased pain in her left shoulder lately - states that her shoulder has been bothering her since she fell about 4 years ago but the pain has gotten a lot worse lately Needs a few Rx refilled, including her pain medication She had her follow up labs done a few days ago - to discuss her results She had her annual mammogram done back in June 2024 She last had her colonoscopy in 2019 and should not require another procedure unless indicated due to her age She also no longer keeps up with her yearly gynecology exam and pap smear because of her age She has not had BMD done in over 4 years and is now due for repeat BMD [facility] Medical History History of skin cancer Hepatitis COPD (chronic obstructive pulmonary disease) Seasonal allergies Chronic cough Cervical disc disease Left knee pain Pain of right shoulder joint on movement Abnormal SPEP Vitamin D deficiency Urolithiasis Osteoporosis GERD without esophagitis Multilevel degenerative disc disease Obesity (BMI 30-39.9) Anxiety Insomnia GERD (gastroesophageal reflux disease) Left lumbosacral radiculopathy Degenerative lumbar spinal stenosis Pure hypercholesterolemia Surgical History Hx of tonsillectomy Hx of left cataract extraction History of surgery on right wrist History of endoscopy History of colonoscopy Hx of decompressive lumbar laminectomy (~05/25/20) Status post total abdominal hysterectomy and bilateral salpingo-oophorectomy (CATRACHITO-BSO) History of right cataract extraction (~12/2016) History of cystoscopy (~05/24/18) Family History Father No problems noted. Mother Ovarian cancer Daughter Myocardial infarction, Onset Age: 46 Stroke Social History Household Members: Children Housing: House Are you a primary attending ambulatory care to a significant other at home: No Do you presently have visiting nurse or other home services: No Alcohol intake: former Patient Tobacco Use Status: Never used Tobacco e-Cigarette/Vaping Use: Never Used Second Hand Smoke Exposure: Yes service: No Current occupational status: retired and disabled Cognitive needs: No Hearing needs: No Vision needs: Yes (reading glasses) Questionnaire Thrive Questionnaire Date Thrive assessed: 12/13/24 I am a: Patient What is your living situation today?: I have a steady place to live Within the past 12 months, did the food you bought not last and you didn't have the money to get more?: Never true Within the past 12 months, did you worry whether your food would run out before you got money to buy more?: Never true Do you have trouble paying for medicines?: No Do you have trouble getting transportation to medical appointments?: No Do you have trouble paying your heating and electricity bill?: No Do you have trouble taking care of your child, family member or friend?: No Do you have trouble with day-to-day activities such as bathing, preparing meals, shopping, managing finances, etc.?: Yes Are you currently unemployed and looking for a job?: No Are you interested in more education?: No Please select the resources that you would like help with: None Currently or been in a relationship where the following occur: No concerns reported THRIVE Score: 0 AUDIT C Alcohol Use Questionnaire (AUDIT-C) 1. How often do you have a drink containing alcohol?: Never 3. How often do you have six or more drinks on one occasion?: Never Total Score: 0 Score Reviewed/Action Taken: Yes SHIRLEY-7 AMB Questionnaire SHIRLEY-7 Date SHIRLEY - 7 assessed: 12/13/24 Source: Developed by Drs. Sim Alcala, Tamy Irby, Jean Marie Schroeder and colleagues, with an educational dionicio from [employer]. Review of Systems Const Denies chills, Reports fatigue, Denies fever(s), Denies headache(s) and Denies malaise Eyes Denies blurry vision, Denies change in vision, Denies irritation and Denies itchy eyes ENT Denies dysphagia, Denies dizziness, Denies otalgia, Denies headache(s), Denies nasal congestion, Denies neck pain, Denies odynophagia, Denies sinus pain and Denies sore throat Card Denies chest pain, Denies rapid heart rate, Denies irregular heart rhythm, Denies palpitations and Denies dyspnea Resp Denies chest congestion, Denies cough, Denies dyspnea and Denies wheezing GI Denies abdominal pain, Denies bloating, Denies constipation, Denies dysphagia, Denies heartburn, Denies diarrhea, Denies nausea, Denies odynophagia and Denies vomiting Denies hematuria, Denies urinary frequency, Denies dysuria, Denies urinary incontinence and Denies urinary urgency Musc Reports abnormal gait (unsteady gait due to weakness of both lower extremities), Reports back pain (over the lower back - chronic), Reports arthralgias (involving multiple joints, including over both knees (L>R) and L shoulder), Denies joint swelling and Denies neck pain Skin/Breast Denies breast pain, Denies breast mass, Denies change in pigmentation, Denies lesions, Denies rash and Denies unusual bruising Neuro Reports abnormal gait (unsteady gait due to weakness of both lower extremities), Denies dizziness, Denies headache(s) and Denies paresthesias Psych Denies anxiety and Denies depression Endo Reports fatigue and Denies palpitations Kirit/Lymph Denies easy bruising Aller/Immun Denies itchy eyes and Denies wheezing Physical exam (Primary Care) Vital Signs: Last Vital Signs Pulse 74 02/17/25 08:57 BP 128/82 02/17/25 08:57 Pulse Ox 98 02/17/25 08:57 Oxygen Delivery Method Room Air 02/17/25 08:57 BMI result Body Mass Index 31.0 Tobacco/Smoking Status: Tobacco use Status Tobacco use date assessed 02/17/25 02/17/25 09:02 Patient Tobacco Use Status Never used Tobacco 02/17/25 09:02 e-Cigarette/Vaping Use Never Used 02/17/25 09:02 Thrive Assessment: Date of Thrive Assessment Date Thrive assessed 12/13/24 02/17/25 09:02 Currently or been in a relationship where the following occur: No concerns reported Const General: no acute distress, alert and awake Orientation/consciousness: patient oriented x3 Limitations: physical limitations (lower extremity weakness - unsteady gait) HENMT Head: Yes normocephalic and Yes atraumatic Ears: external ears normal, TM's normal bilaterally and EAC's normal General nose exam: No nasal discharge present Face and sinus: Yes normal facial exam and Yes sinuses nontender Teeth and gingiva: dentition normal Throat: Yes posterior oropharynx normal and Yes tonsils normal (no TP congestion) Eyes Eyelids: Yes eyelids normal Conjunctivae: conjunctivae normal Pupils: Equal, round and reactive pupils present EOM: EOMs intact bilaterally Neck Neck: Yes no lymphadenopathy and Yes supple Thyroid: Thyroid normal Resp Auscultation: clear to auscultation bilaterally, no rales and no wheezes Cardio Rate: regular rate Rhythm: regular rhythm Heart sounds: no murmurs GI Palpation (GI): Soft to palpation, nontender and No hepatosplenomegaly present Auscultation: normal bowel sounds General: Yes no CVA tenderness Back/Spine/Pelvis Back: no CVA tenderness Cervical Spine: Cervical spine tenderness Thoracic/Lumbar Spine: thoracic spinal tenderness and lumbar spinal tenderness Skin Lesions: no lesions Rashes: no rashes Neuro General: patient oriented x3, moves all extremities, no focal motor deficits and CN's II-XI intact bilaterally Cranial nerves: Yes Equal, round and reactive pupils present Cognition (Neuro): normal cognition Gait exam (Neuro): Normal gait present Extrem General: Yes no clubbing, cyanosis or edema Left upper extremity: shoulder/upper arm Details: tenderness Location: of the A-C joint and abnormal ROM (ROM limited due to pain) Left lower extremity: knee Details: tenderness Location: of the pre-patellar area and of the infrapatellar area; no swelling Results Reviewed Results Reviewed: Laboratory Tests 02/14/25 02/14/25 10:00 10:10 WBC 6.0 Hgb 14.2 Hct 42.5 Plt Count 151 L Sodium 145 Potassium 4.1 Creatinine 0.94 Estimated GFR 57 Fasting Glucose 88 Hemoglobin A1c % 5.6 Calcium 9.1 AST 26 ALT 19 Triglycerides 84 Cholesterol 121 LDL Cholesterol, Calc 68 HDL Cholesterol 37 L Vitamin B12 455 25-OH Vitamin D Total 48.9 TSH 5.41 H Free T4 0.98 Ur Specific [place] 1.015 Urine Protein Negative Urine Glucose (UA) Negative Urine Blood Small (1+) H Urine Nitrite Positive H Ur Leukocyte Esterase Moderate (2+) H Coding Level of Care Code Est Pt Prev Care >65y(81790) Diagnoses Annual physical exam Z00.00 Chronic left shoulder pain M25.512; G89.29 Chronicity: chronic Osteoarthritis of left knee, unspecified osteoarthritis type M17.12 Osteoarthritis type: unspecified Degenerative lumbar spinal stenosis M48.061 Cervical disc disease M50.90 Pure hypercholesterolemia E78.00 Vitamin D deficiency E55.9 Osteoporosis without current pathological fracture, unspecified osteoporosis type M81.0 Osteoporosis type: unspecified Presence of current pathological fracture: without current pathological fracture Constipation, unspecified constipation type K59.00 Constipation type: unspecified constipation type E. coli urinary tract infection N39.0; B96.20 Obesity (BMI 30-39.9) E66.9 Assessment & Plan Assessment & Plan (1) Annual physical exam: Code(s): Z00.00 - Encounter for general adult medical examination without abnormal findings Category: Medical Plan: Results of his labs done a few days ago reviewed and discussed with patient She had her annual mammogram done back in June 2024 She last had her colonoscopy in 2019 and should not require another procedure unless indicated due to her age She also no longer keeps up with her yearly gynecology exam and pap smear because of her age She has not had BMD done in over 4 years and is now due for repeat BMD (2) Left shoulder pain: Code(s): M25.512 - Pain in left shoulder Category: Medical Qualifiers: Chronicity: chronic Qualified Code(s): M25.512 - Pain in left shoulder; G89.29 - Other chronic pain Plan: Left shoulder x-rays back in 2020 revealed (+) mild OA changes Will send patient for updated left shoulder x-rays for further evaluation Will consider referring her to orthopedics but will wait and see how her x-rays come out first (3) Degenerative arthritis of left knee: Code(s): M17.12 - Unilateral primary osteoarthritis, left knee Category: Medical Qualifiers: Osteoarthritis type: unspecified Qualified Code(s): M17.12 - Unilateral primary osteoarthritis, left knee Plan: Patient currently has end-stage arthritis of the left knee She underwent unsuccessful arthroscopic partial medial and lateral meniscectomies and chondroplasty of the patella and medial femoral condyle last February (2023) and she feels that her knee pain got worse after her procedure She also had a trial of Durolane injection earlier this year with no significant relief/improvement of her knee symptoms Her most recent MRI of the left knee done on 11/25/2024 revealed (+) findings of (+) oblique tear of the medial meniscus, extensive poorly defined complex tear of the lateral meniscus, possible old partial tear of the anterior cruciate ligament as well as a possible mild sprain of the lateral collateral ligament. Extensive marrow edema in the proximal tibia is indeterminate but could represent a large contusion versus incomplete nondisplaced fracture. Moderate tricompartmental DJD, moderate to large joint effusion with multifocal ill-defined soft tissue edema are also seen. Suspect multiple mild muscle strains as well She requested for a referral to see Dr. Rubalcava at [facility] for a second opinion as she is unhappy with the poor progression of her knee symptoms over the past year here with [facility] Orthopedics States that she was seen by Dr. Rubalcava and has been referred for a trial of physical therapy first, which will start next month She recalls being advised by Dr. Rubalcava that she will likely require a total knee arthroplasty at some point Continue Oxycodone 5 mg TID PRN (Rx refilled) - patient is again reminded to just take this at night as much as possible and take her Tramadol instead during the day unless her pain gets severe (4) Degenerative lumbar spinal stenosis: Comment: S/P bilateral L4-L5 laminotomy, partial facetectomy and foraminotomy through left-sided approach with a microscope by Dr. Kramer on 05/25/2020 MRI previously showed (+) multilevel degenerative disc changes with moderate to severe central stenosis at L4-L5 as well as a grade 1 anterolisthesis of L4 on L5, with moderate to severe bilateral facet arthropathy at L3-L4 and L5-S1 and also a chronic compression fracture of the body of L1 Code(s): M48.061 - Spinal stenosis, lumbar region without neurogenic claudication Category: Medical Plan: Patient reports (+) significant relief of her back pain since her surgery in May 2020 Repeat lumbar spine x-rays done back in December 2023 revealed no acute findings - (+) stable 30% compression fracture at L1 and stable moderate degenerative changes in the lumbar spine States that physical therapy recently has also helped a lot with her lower back Reinforced activity and weight lifting restrictions Continue Tizanidine 4 mg 2 to 3 times a day as needed and on Tramadol 50 mg TID PRN (5) Cervical disc disease: Code(s): M50.90 - Cervical disc disorder, unspecified, unspecified cervical region Category: Medical Plan: Cervical spine MRI done in October 2020 revealed (+) cervical spinal canal developmental narrowing exacerbated by cervical spine degenerative disease with stenosis and overall mild cervical spine cord volume loss Patient states that her neck symptoms have been mostly mild and manageable over the past couple of years Follow up with neurosurgery as scheduled (6) Pure hypercholesterolemia: Code(s): E78.00 - Pure hypercholesterolemia, unspecified Category: Medical Plan: Results of her labs done a few days ago reviewed and discussed with patient Reinforced low cholesterol diet Continue Atorvastatin 40 mg QD Will have patient recheck her labs and fasting lipids in 3 months for follow up (7) Vitamin D deficiency: Code(s): E55.9 - Vitamin D deficiency, unspecified Category: Medical Plan: Continue Vitamin D supplement - she is on both 2000 units daily and 93242 units once a week Follow up with endocrinology as scheduled (8) Osteoporosis: Code(s): M81.0 - Age-related osteoporosis without current pathological fracture Category: Medical Qualifiers: Osteoporosis type: unspecified Presence of current pathological fracture: without current pathological fracture Qualified Code(s): M81.0 - Age-related osteoporosis without current pathological fracture Plan: She is again encouraged to continue taking her Vitamin D and Calcium supplements daily Will have her go and get repeat BMD for follow up of her osteoporosis (9) Constipation: Code(s): K59.00 - Constipation, unspecified Category: Medical Qualifiers: Constipation type: unspecified constipation type Qualified Code(s): K59.00 - Constipation, unspecified Plan: Patient is again advised that this is likely related to her current opioid Rx She is encouraged on increased oral fluids and dietary fiber intake Continue Senna 8.6 mg 1 to 2 tablets QD PRN (10) E. coli urinary tract infection: Code(s): N39.0 - Urinary tract infection, site not specified; B96.20 - Unspecified Escherichia coli [E. coli] as the cause of diseases classified elsewhere Category: Medical Plan: Her recent urinalysis was (+) for WBCs and nitrates and urine culture grew (+) >[id number] cfu of E. coli Patient reports (+) foul smell to her urine often lately and states that it appears cloudy most of the time Will go ahead and treat her empirically with oral Cipro 250 mg BID x 7 days (11) Obesity (BMI 30-39.9): Code(s): E66.9 - Obesity, unspecified Category: Medical Plan: Reinforced diet; exercise and weight loss are unrealistic due to patient's multiple physical issues and comorbidities Plan Follow up in 3 months Orders: Orders XR DEXA axial skeleton Today Z78.0 - Asymptomatic menopausal state Comprehensive [place]. Panel Fast 3 Months E78.00 - Pure hypercholesterolemia, unspecified UA CC w/rflx Micro + Cult 3 Months R30.0 - Dysuria XR shoulder LT min 2V Today M25.512 - Pain in left shoulder Complete Blood Count Auto Diff 3 Months D64.9 - Anemia, unspecified Lipid Panel 3 Months E78.00 - Pure hypercholesterolemia, unspecified TSH reflex Free T4 3 Months E78.00 - Pure hypercholesterolemia, unspecified Medications: New ciprofloxacin HCl (Cipro) 250 mg PO BID 14 tabs 0RF 7 days Refilled alprazolam 1 mg PO TID PRN 90 tabs 0RF anxiety 30 days F41.9 - Anxiety disorder, unspecified oxycodone Partial Fill upon patient request. 5 mg PO TID PRN 21 tabs 0RF severe pain 7 days loratadine (Claritin) 10 mg PO DAILY 30 tabs 11RF 30 days J30.2 - Other seasonal allergic rhinitis, J45.909 - Unspecified asthma, uncomplicated
--- OUTSIDE RECORDS SUMMARY | 2025-02-17 09:29 | XMS_ITS | Clinical Summary ---
Author Organization [facility] Address [address] [place] [address] Care Team Providers Care Radioactive Waste Disposal Dispatcher Name Role Phone Mac Thomas MD Primary Care Provider [phone] Social History Tobacco Use Types Packs/Day Years [...] age to complete this topic Care Teams Radioactive Waste Disposal Dispatcher Relationship Specialty Start Date End Date Mac Thomas MD [address] [place] [address] [place] [address] PCP - General Internal Medicine 04/17/20
--- OUTSIDE RECORDS SUMMARY | 2025-02-17 09:29 | XMS_ITS | Clinical Summary ---
Author Organization [facility] Address [address] [place] [address] Phone Care Team Providers Care Optometrist Assistant Name Role Phone Mac Thomas MD Primary [...] EDT - 11/20/2024 6:07 AM EDT Emergency [facility] Emergency [address] [place] [address] Lawanda Joya MD Generalized nontraumatic [...] Signed Date: 11/20/2024 06:46 ET Workstation ID: [id number] Transcribed By: Self Edit Transcribed Date: 11/20/2024 [...] Signed Date: 11/20/2024 06:46 ET Workstation ID: [id number] Transcribed By: Self Edit Transcribed Date: 11/20/2024 [...] Signed Date: 11/20/2024 07:16 ET Workstation ID: [id number] Transcribed By: Self Edit Transcribed Date: 11/20/2024 [...] Signed Date: 11/20/2024 07:16 ET Workstation ID: [id number] Transcribed By: Self Edit Transcribed Date: 11/20/2024 07:14 ET Lawanda Joya MD IMG XR PROCEDURES Final Result * CBC auto differential (11/20/2024 12:37 AM EDT) [facility] WBC 7.2 4.8 - 10.8 K/mcL LAB HEMETOLOGY METHOD 11/20/2024 1:00 AM [facility] RBC 4.60 3.80 - 4.80 M/mcL LAB HEMETOLOGY METHOD 11/20/2024 1:00 AM [facility] Hemoglobin 13.7 11.5 - 16.0 g/dL LAB HEMETOLOGY METHOD 11/20/2024 1:00 AM [facility] Hematocrit 41.5 35.0 - 47.0 % LAB HEMETOLOGY METHOD 11/20/2024 1:00 AM [facility] MCV 90.6 79.0 - 98.0 FL LAB HEMETOLOGY METHOD 11/20/2024 1:00 AM [facility] MCH 29.9 27.0 - 32.0 pcg LAB HEMETOLOGY METHOD 11/20/2024 1:00 AM [facility] MCHC 33.0 32.0 - 37.0 g/dL LAB HEMETOLOGY METHOD 11/20/2024 1:00 AM [facility] RDW 13.2 11.0 - 15.0 % LAB HEMETOLOGY METHOD 11/20/2024 1:00 AM [facility] Platelets 176 130 - 400 K/mcL LAB HEMETOLOGY METHOD 11/20/2024 1:00 AM [facility] MPV 10.0 7.0 - 11.0 FL LAB HEMETOLOGY METHOD 11/20/2024 1:00 AM [facility] NRBC 0.0 <1.0 % LAB HEMETOLOGY METHOD 11/20/2024 1:00 AM [facility] NRBC Absolute 0.00 <0.10 K/mcL LAB HEMETOLOGY METHOD 11/20/2024 1:00 AM [facility] Neutrophils Relative 52.2 % LAB HEMETOLOGY METHOD 11/20/2024 1:00 AM [facility] Lymphocytes Relative 32.0 % LAB HEMETOLOGY METHOD 11/20/2024 1:00 AM [facility] Monocytes Relative 11.6 % LAB HEMETOLOGY METHOD 11/20/2024 1:00 AM [facility] Eosinophils Relative 2.9 % LAB HEMETOLOGY METHOD 11/20/2024 1:00 AM [facility] Basophils Relative 1.0 % LAB HEMETOLOGY METHOD 11/20/2024 1:00 AM [facility] Immature Granulocytes Relative 0.3 % LAB HEMETOLOGY METHOD 11/20/2024 1:00 AM [facility] Neutrophils Absolute 3.73 1.50 - 7.00 K/mcL LAB HEMETOLOGY METHOD 11/20/2024 1:00 AM [facility] Lymphocytes Absolute 2.29 1.00 - 5.00 K/mcL LAB HEMETOLOGY METHOD 11/20/2024 1:00 AM [facility] Monocytes Absolute 0.83 0.20 - 1.00 K/mcL LAB HEMETOLOGY METHOD 11/20/2024 1:00 AM [facility] Eosinophils Absolute 0.21 0.00 - 0.50 K/mcL LAB HEMETOLOGY METHOD 11/20/2024 1:00 AM EDT [facility] Basophils Absolute 0.07 0.00 - 0.20 K/mcL LAB HEMETOLOGY METHOD 11/20/2024 1:00 AM EDT [facility] Immature Granulocytes Absolute 0.02 0.00 - 0.03 K/mcL LAB HEMETOLOGY METHOD 11/20/2024 1:00 AM EDT [facility] Blood Venous blood specimen / Unknown Venipuncture / Unknown 11/20/2024 12:37 AM EDT 11/20/2024 12:49 AM EDT Lawanda Joya MD LAB BLOOD ORDERABLES Final Res ult Performing Organization Address City/[facility]/ZIP Co de Phone Number [facility] [address] [place] [address], [place] [phone] * Sedimentation rate, automated (11/20/2024 12:37 AM EDT) Sed Rate 11 0 - 30 mm/hr LAB HEMETOLOGY METHOD 11/20/2024 1:21 AM EDT [facility] Blood Venous blood specimen / Unknown Venipuncture / Unknown 11/20/2024 12:37 AM EDT 11/20/2024 12:49 AM EDT Lawanda Joya MD LAB BLOOD ORDERABLES Final Res ult [facility] [address] [place] [address], [place] [phone] * C-reactive protein (11/20/2024 12:37 AM EDT) C-Reactive Protein <0.29 <=0.50 mg/dL LAB CHEMISTRY METHOD 11/20/2024 1:18 AM EDT [facility] Blood Venous blood specimen / Unknown Venipuncture / Unknown 11/20/2024 12:37 AM EDT 11/20/2024 12:49 AM EDT us Lawanda Joya MD LAB BLOOD ORDERABLES Final Res ult [facility] [address] [place] [address], [place] [phone] * (ABNORMAL) Comprehensive metabolic panel (11/20/2024 12:37 AM EDT) Sodium 140 133 - 145 mmol/L LAB CHEMISTRY METHOD 11/20/2024 1:18 AM [facility] Potassium 4.0 3.5 - 5.5 mmol/L LAB CHEMISTRY METHOD 11/20/2024 1:18 AM [facility] Chloride 109 96 - 110 mmol/L LAB CHEMISTRY METHOD 11/20/2024 1:18 AM [facility] CO2 28 21 - 32 mmol/L LAB CHEMISTRY METHOD 11/20/2024 1:18 AM [facility] Anion Gap 3 3 - 11 LAB CHEMISTRY METHOD 11/20/2024 1:18 AM [facility] Glucose 94 70 - 100 mg/dL LAB CHEMISTRY METHOD 11/20/2024 1:18 AM [facility] BUN 18 5 - 25 mg/dL LAB CHEMISTRY METHOD 11/20/2024 1:18 AM [facility] Creatinine 1.02 0.50 - 1.10 mg/dL LAB CHEMISTRY METHOD 11/20/2024 1:18 AM [facility] eGFR 55(L) >=60 mL/min/1. 73m2 LAB CHEMISTRY METHOD 11/20/2024 1:18 AM [facility] Comment:Calculation based on the Chronic Kidney Disease Epidemiology Collaboration (CKD-EPI) equation refit without adjustment for race. BUN/Creatinine Ratio 17.6 LAB CHEMISTRY METHOD 11/20/2024 1:18 AM [facility] Calcium 9.0 8.5 - 10.5 mg/dL LAB CHEMISTRY METHOD 11/20/2024 1:18 AM EDT [facility] AST (SGOT) 29 10 - 42 unit/L LAB CHEMISTRY METHOD 11/20/2024 1:18 AM [facility] ALT (SGPT) 27 10 - 60 unit/L LAB CHEMISTRY METHOD 11/20/2024 1:18 AM EDT [facility] Alkaline Phosphatase 127(H) 42 - 121 unit/L LAB CHEMISTRY METHOD 11/20/2024 1:18 AM T [facility] Total Protein 6.7 6.0 - 8.0 g/dL LAB CHEMISTRY METHOD 11/20/2024 1:18 AM [facility] Albumin 3.9 3.2 - 5.0 g/dL LAB CHEMISTRY METHOD 11/20/2024 1:18 AM [facility] Total Bilirubin 0.5 0.0 - 1.4 mg/dL LAB CHEMISTRY METHOD 11/20/2024 1:18 AM T [facility] Blood Venous blood specimen / Unknown Venipuncture / Unknown 11/20/2024 12:37 AM EDT 11/20/2024 12:49 AM EDT us Lawanda Joya MD LAB BLOOD ORDERABLES Final Res ult [facility] [address] [place] [address], * [facility] DEXA AXIAL SKELETON (04/20/2020 11:16 AM EST) Anatomical Region Laterality Modality Mammography 04/20/2020 10:2 7 AM EST Narrative 04/20/2020 11:16 AM EST [facility] Diagnostic Imaging Department [address] [place] [address] Patient: SERA KELLEY /Age/Sex: 1940 - 79 - F Unit#: [id number] [facility]Ordering Site: [facility] Ordering Physician: NORA JOE [...] probability of hip fracture of 3.1%. Code 50873 Dictating Physician: JOSELYN BECKER MD Electronically Signed by: JOSELYN BECKER MD Dic Date/Time: 04/20/20 1115 Sign date/Time: 04/20/20 1116 Procedure Note Joselyn Becker MD - 04/22/2022 [facility] Diagnostic Imaging Department [address] [place] [address] Patient: SERA KELLEY Candelaria JohnsonB./Age/Sex: 1940 - 79 - F Unit#: [id number] Location/Status: SPDIMAM/REG CLI [facility] Ordering Physician: NORA JOE MD, PHD [...] density of the femurs bilaterally is 0.775 gm/mt0rkvqb is 77% of that of young normals and 93% of that of age matched controls.This yields a T-score of -1.8 and a Z-score of -0.5 which is diagnostic of osteopenia. IMPRESSION: 1. Osteoporosis. 2. FRAX analysis yields a 10-year probability of major osteoporoticfracture of 12.8% and a 10-year probability of hip fracture of 3.1%. Code 31241 Dictating Physician: JOSELYN BECKER MD Electronically Signed by: JOSELYN BECKER MD Dic Date/Time: 04/20/20 1115 Sign date/Time: 04/20/20 1116 Nora Joe MD IMG BI PROCEDURES Final R esult from Last 3 Months or Most Recently Relevant to Health Maintenance Insurance [employer] MEDICARE MEDICAID - [place] Advance Directives Documents on File Type Date Recorded Patient Tank Riveter Expl anation Health Care Decision (hx) 07/10/2023 AD ARNETT DIRECTIVE Health Care Decision (hx) 07/10/2023 AD ARNETT DIRECTIVE Health Care Decision (hx) 07/10/2023 AD ARNETT DIRECTIVE Care Teams Optometrist Assistant Relationship Specialty Start Date End Date Mac Thomas MD [address] [place] [address] [address] [place] PCP - General Internal Medicine 11/03/17
--- OUTSIDE RECORDS SUMMARY | 2025-02-17 09:29 | XMS_ITS | Data Portability ---
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, bilateral ; Note: Date Diagnosed : 06/04/2021 11:07 AM (H74.03) Not Available [facility] 4 02:50:05 Acute serous otitis media of right ear 10066702873 89579 Active 2023 Acute serous otitis media, right ear; Note: Date Diagnosed : 08/04/2023 3:42 PM (H65.01) CALIN GAMBOA MD [address] [place] [address], [place], [address] , [facility] - [facility] 4 15:20:41 Mixed conductiv e and sensorine ural hearing loss, bilateral 538463721 Active 2023 Mixed conductiv e and sensorine ural hearing loss, bilateral ; Note: Date Diagnosed : 08/04/2023 3:42 PM (H90.6) Not Available [facility] 4 02:50:06 Chronic serous otitis media of right ear 104782772 Active 2023 CALIN GAMBOA MD [address] [facility] [address], [place], [address] , [facility] 4 15:20:59 Problem Notes None recorded. Procedures Surgical History Date Name Laterality Status Provider Name and Address Organization Details Recorded Time 09/30/2023 Comp Audio with Tymps - 35315 & 36079 completed Crys CAPUTO [address] [facility],[place] [address], [place], [address], [facility] 09/30/2023 15:19:30 Imaging Results None recorded. Procedure Notes None recorded. Medical Equipment None Reported. Allergies Allergen ID Allergen Name Allergen Category Reaction Reaction Severity Criticality Documentation Date Start Date Code Code System Note Provider Name and Address Organization Details Recorded Time 325145 Bactrim medicatio n other Not available Not available 09/15/2023 33459 9 RxNorm React ion: unkno wn, unspe cifie d;; Not Available [facility] 4 01:07:59 727701 Substance with sulfonami de structure and antibacte rial mechanism of action (substanc e) medicatio n other Not available Not available 09/15/2023 39478 8003 SNOMED React ion: unkno wn, unspe cifie d;; Not Available [facility] 4 01:08:03 Medications Name Sig Start [...] mg tablet 08/30 completed Medicati on ID: [id number] B rand Name: famotidi ne Send Method: [...] tablet,de layed release active Medicati on ID: [id number] B rand Name: aspirin Send Method: E-Prescr ibed Sub s Allowed: subs OK Speci al Instruct ion: TAKE 1 TABLET BY MOUTH TWICE A DAY Medi cationGe nericNam e: aspirin Not Available Not Available Not Available acetamino phen 500 mg tablet active Medicati on ID: 621128 B rand Name: acetamin ophen Se nd [...] (2,000 unit) capsule active Medicati on ID: 969464 B rand Name: cholecal ciferol (vitamin D3) [...] Updated DateTime 01/28/2024 162.56 cm 32.6 kg/m2 46058.55 g Bethany Smart [place] - [facility] 01/28/2024 09:52:43 Social History None recorded. [...] Note 1893 YEISON NOLAN PA-C [facility] [address] [address] 09/30/2023 14:46:44 09/30/2023 15:55:55 Sensorineural hearing loss of bilateral ears [id number] H90.3 Audiologic al evaluation results:Ri ght ear:Mild sloping to severe sensorineu ral hearing loss with good speech discrimina tion. Tympanomet ry:Right Ear:Type B with large volume [id number] CALIN GAMBOA MD [facility] [address] [address] 01/28/2024 09:43:43 01/28/2024 09:59:40 Chronic serous otitis media of right ear 474566480 H65.21 [id number] YEISON NOLAN PA-C [facility] [address] [place] [address] 03/28/2024 13:18:17 03/29/2024 07:06:27 Sensorineural hearing loss of bilateral ears 608666095 H90.3 Chronic se ana rosa otitis media of right ear 816312403 H65.21 Health Concerns Section Related Observation LastModified by Organization Detai ls LastModified Time None Recorded Concern Status LastModified by Organization Details LastModified Time None Recorded Advance Directives Directive None Recorded Payers Insurance Date Sequence Insurance Name Policy Number Policy Wong Covered Member ID Wong Member ID Guarantor Name 03/28/2024 1 [facility] (MEDICARE REPLACEMENT/ ADVANTAGE - HMO) Marisa Lainez [id number] Marisa Lainez 01/28/2024 2 [place] [facility] Marisa Gaona Suchenicz [id number] Marisa Greenenicbrittanie 03/11/2024 2 [place] [facility] Marisa Gaona Suchenicz [id number] Marisa Lainez Notes Date Note Type Note Provider Name and Address Organization Details Recorded Time 09/30/2023 text/html ROS as noted in the [facility] 82-year-old female presents following right tube placement with Dr. Jensen. Her hearing has improved significantly following surgery. CALIN GAMBOA MD [address] [place] [address], [phone], [facility] - [facility] 09/30/2023 16:38:27 01/28/2024 text/html ROS as noted in the [facility] tube check08/31/23 R myringotomy tube placed, [place]09/30/23 post tube audio showed improvement feels her hearing fluctuatesno otorrhea CALIN GAMBOA MD [address] [place] [address], [phone], [facility] - [facility] 01/28/2024 09:58:40 03/28/2024 text/html ROS as noted in the HPI 83-year-old female presents for reevaluation. History of ETD with RMT in office. Her hearing has been stable. No issues since last visit. CALIN GAMBOA MD [address] [place] [address], [place], [address], [facility] - [facility] 03/28/2024 15:39:46 OBGyn Episode No OBEpisode recorded.
== END 2025-02-17 09:39 | disposition home or self-care (01) ==
PROVIDERS: PCP Internal Medicine; Visit Provider Internal Medicine
DX: Z00.00 Encounter for general adult medical examination without abnormal findings (principal); M25.512 Pain in left shoulder; E66.9 Obesity, unspecified; Z68.31 Body mass index [BMI] 31.0-31.9, adult; G89.29 Other chronic pain; M17.12 Unilateral primary osteoarthritis, left knee; M48.061 Spinal stenosis, lumbar region without neurogenic claudication; M50.90 Cervical disc disorder, unspecified, unspecified cervical region; E78.00 Pure hypercholesterolemia, unspecified; E55.9 Vitamin D deficiency, unspecified; M81.0 Age-related osteoporosis without current pathological fracture; K59.00 Constipation, unspecified

== ENCOUNTER 2025-02-17 08:53 | Outpatient (REF) | payer OTHER, SELFPAY ==
--- NOTE | ~2025-02-17 | XR_ITS ---
EXAMINATION: XR SHOULDER, LEFT CLINICAL INFORMATION: M25.512 - Pain in left shoulder COMPARISON: None available. TECHNIQUE: AP external rotation, Grashey, scapular Y, and axillary views of the left shoulder. FINDINGS: Normal bone mineralization. No fracture, dislocation, or suspicious bone lesion. Normal alignment. The glenohumeral joint is normal. The AC joint demonstrates moderate superior surface spurring. There is a type II acromion. No undersurface spurring. The subacromial space is preserved. Remainder of the soft tissue and bony structures appear normal. XR/XR shoulder LT min 2V IMPRESSION: 1. No acute bony or soft tissue abnormalities. 2. Moderate AC joint spurring. Electronically signed by: Vinh Bang MD 02/17/2025 10:11 AM EDT
== END 2025-02-17 08:54 | disposition home or self-care (01) ==
LOC: HO.XRAY 08:53
PROVIDERS: Visit Provider Internal Medicine
DX: Z00.00 Encounter for general adult medical examination without abnormal findings (principal); M25.512 Pain in left shoulder; M25.561 Pain in right knee; G89.29 Other chronic pain; M17.12 Unilateral primary osteoarthritis, left knee; M48.061 Spinal stenosis, lumbar region without neurogenic claudication; M50.90 Cervical disc disorder, unspecified, unspecified cervical region; E78.00 Pure hypercholesterolemia, unspecified; E55.9 Vitamin D deficiency, unspecified; M81.0 Age-related osteoporosis without current pathological fracture; K59.00 Constipation, unspecified; N39.0 Urinary tract infection, site not specified; B96.20 Unspecified Escherichia coli [E. coli] as the cause of diseases classified elsewhere; E66.9 Obesity, unspecified; R30.0 Dysuria; D64.9 Anemia, unspecified; F41.9 Anxiety disorder, unspecified; J45.909 Unspecified asthma, uncomplicated; Z78.0 Asymptomatic menopausal state; Z79.899 Other long term (current) drug therapy
CPT/HCPCS: 73030; 99397

== ENCOUNTER → 2025-02-17 09:57 | Outpatient (BNV) | payer OTHER, SELFPAY | PROVIDERS: PCP Internal Medicine; Visit Provider Radiology Diagnostic Radiology | DX: M25.712 Osteophyte, left shoulder (principal) | CPT/HCPCS: 73030 ==

== ENCOUNTER 2025-05-02 10:19 | Outpatient (REF) | payer OTHER, SELFPAY ==
--- NOTE | ~2025-05-02 | MM_ITS ---
EXAMINATION: DXA BONE DENSITY AXIAL HISTORY: Z78.0 - Asymptomatic menopausal state TECHNIQUE: [facility] Dual energy absorptiometry (DEXA) of the lumbar spine, total left hip, and femoral neck was performed. COMPARISON: There are no prior studies for comparison. FINDINGS: The bone mineral density of the lumbar spine is 1.081 g/cm2, corresponding to a T-score of -0.8, and a Z-score of 0.3. This is indicative of normal bone mineral density. The bone mineral density of the left total hip is 0.682 g/cm2, corresponding to a T-score of -2.6, and a Z-score of -1.0. This is indicative of osteoporosis. The bone mineral density of the left femoral neck is 0.718 g/cm2, corresponding to a T-score of -2.3, and a Z-score of -0.5. This is indicative of osteopenia. FRACTURE RISK: The FRAX index suggests a risk of major osteoporotic fracture of 16.7%, and of hip fracture 5.6%. MM/XR DEXA axial skeleton IMPRESSION: Based on bone mineral density, and according to World Health Organization (WHO) criteria, the diagnosis is consistent with osteoporosis. Statistically, 68% of repeat scans fall within 1 SD (+/- 0.010 g/cm2 for AP spine L1-L4) and 1 SD (+/- 0.012 g/cm2 for femur total) FRAX is a trademark of the [employer]'s [place] [facility] Metabolic Bone Disease, a World Health Organization (WHO) Collaborating Center. Electronically signed by: Sim Guerra MD 05/02/2025 11:[address] [facility]
--- OUTSIDE RECORDS SUMMARY | 2025-05-02 13:41 | XMS_ITS | Clinical Summary ---
Author Organization [facility] Address [address] [place] [address] Phone Care Team Providers Care Digital Engineer Name Role Phone Mac Thomas MD Primary Care Provider + [phone] Allergies Active Allergy Reactions Criticality Noted Date Comments Sulfamethoxazole-Trimethoprim Unknown Low 2024 Medications oxyCODONE (ROXICODONE) 5 mg immediate release tablet Take 1 tablet (5 mg total) by mouth every 6 (six) hours if needed for severe pain. Max Daily Amount: 20 mg 12 tablet 11/20/2024 Active Surgical History Surgery Date Site/Laterality Comments HYSTERECTOMY [...] on file Sexual Orientation Not on file Last Filed Vital Signs Vital Sign Reading [...] Procedure Name Priority Date/Time Associated Diagnosis Comments [facility] DEXA AXIAL SKELETON Routine 04/20/2020 11:16 AM EST Age-related osteoporosis without current pathological fracture from Last 3 Months or Most Recently Relevant to Health Maintenance Results * [facility] DEXA AXIAL SKELETON (04/20/2020 11:16 AM EST) Anatomical Region Laterality Modality Mammography 04/20/2020 10:2 7 AM EST Narrative 04/20/2020 11:16 AM EST [facility] Diagnostic Imaging Department [address] [place], [place] [phone] Patient: BRAD KELLEYMIKE JohnsonO.B./Age/Sex: 1940 - 79 - F Unit#: [id number] [facility] CLI [facility]em[facility] Ordering Physician: NORA JOE MD, PHD [facility] Dexa Axial Skeleton - 04/20/20 - [...] probability of hip fracture of 3.1%. Code 80209 Dictating Physician: JOSELYN BECKER MD Electronically Signed by: JOSELYN BECKER MD Dic Date/Time: 04/20/201114 Sign date/Time: 04/20/20 111 Procedure Note Joselyn Becker MD - 04/22/2022 [facility] Diagnostic Imaging Department [address] [place] [address] Patient: WARRENSERA Gaona D.O.B./Age/Sex: 1940 - 79 - F Unit#: [id number] Location/Status: [facility] Mnemonic/Ordering [facility] Ordering Physician: NORA JOE MD, PHD Azucena Dexa Axial Skeleton - 04/20/20 - 6729 HISTORY: The patient is a 79-year-old postmenopausal [...] density of the femurs bilaterally is 0.775 gm/ks3snzaj is 77% of that of young normals and 93% of that of age matched controls.This yields a T-score of -1.8 and a Z-score of -0.5 which is diagnostic of osteopenia. IMPRESSION: 1. Osteoporosis. 2. FRAX analysis yields a 10-year probability of major osteoporoticfracture of 12.8% and a 10-year probability of hip fracture of 3.1%. Code 95170 Dictating Physician: JOSELYN BECKER MD Electronically Signed by: JOSELYN BECKER MD Dic Date/Time: 04/20/20 1115 Sign date/Time: 04/20/20 1116 Nora Joe MD IMG BI PROCEDURES Final R esult from Last 3 Months or Most Recently Relevant to Health Maintenance Insurance [employer] MEDICARE [place]ICAID - [place] Advance Directives Documents on File Type Date Recorded Patient Lens Assistant Expl anation Health Care Decision (hx) 07/10/2023 AD ARNETT DIRECTIVE Health Care Decision (hx) 07/10/2023 AD ARNETT DIRECTIVE Health Care Decision (hx) 07/10/2023 AD ARNETT DIRECTIVE Care Teams Digital Engineer Relationship Specialty Start Date End Date Mac Thomas MD [address] [place] [address] [address] [place] PCP - General Internal Medicine 11/03/17
--- OUTSIDE RECORDS SUMMARY | 2025-05-02 13:42 | XMS_ITS | Clinical Summary ---
Author Organization [facility] Prior to 10/01/[address] [place] [address] Care Team Providers Care Laboratory Equipment Installer Name Role Phone Mac Thomas MD Primary Care Provider [phone] Social History Tobacco Use Types Packs/Day Years [...] age to complete this topic Care Teams Laboratory Equipment Installer Relationship Specialty Start Date End Date Mac Thomas MD [address] [place] [address] Dr Pitts [address] [place] [address] PCP - General Internal Medicine 04/17/20
== END 2025-05-02 10:20 | disposition home or self-care (01) ==
LOC: HO.MAMMO 10:19
PROVIDERS: PCP Internal Medicine; Visit Provider Internal Medicine
DX: Z78.0 Asymptomatic menopausal state (principal)
CPT/HCPCS: 77080

== ENCOUNTER → 2025-05-02 11:00 | Outpatient (BNV) | payer OTHER, SELFPAY | PROVIDERS: PCP Internal Medicine; Visit Provider Radiology Diagnostic Radiology | DX: E28.39 Other primary ovarian failure (principal) | CPT/HCPCS: 77080 ==